=== PATIENT | male | born 1940 | race Caucasian/White ===

== ENCOUNTER 2016-08-21 12:26 | Inpatient (IN) | payer MEDICARE, MEDICAID ==
[~2016-08-21] VITALS: Ht 175.3 cm; Wt 90.7 kg
[2016-08-21 13:45] VITALS: BP 99/44
--- NOTE | 2016-08-21 13:57 | Diagnostic Imaging Report ---
Indication: Chest Pain Comparison: None A single view chest radiograph was obtained. Findings: Left hemidiaphragm is elevated. The bones are osteopenic. Cardiomegaly is noted. Impression: Elevated left hemidiaphragm
[2016-08-21 14:13] LABS: MEAN CORPUSCULAR HEMOGLOBIN 31.8 PG (27.0-31.0); MEAN CORPUSCULAR HGB CONC 31.9 G/DL (32.0-36.0); MEAN CORPUSCULAR VOLUME 100 FL (80-99); MEAN PLATELET VOLUME 8.9 FL (6.5-10.1); PLATELET COUNT 95 K/UL (150-450); RED BLOOD COUNT 3.42 M/UL (4.70-6.10); RED CELL DISTRIBUTION WIDTH 15.4 % (11.6-14.8)
[2016-08-21 14:16] LABS: WHITE BLOOD COUNT 46.9 K/UL (4.8-10.8)
--- NOTE | 2016-08-21 14:16 | Emergency Room Report ---
History of Present Illness General Chief Complaint: Abnormal Labs Source: Medical Record Present Illness HPI This is a long term patient with the reported elevated white count. He is a patient of Dr. Cathie Gale, the patient had a white count reported over 40. Per transfer paperwork he was seen and evaluated for this in May of last year, where was felt the patient likely suffered from CLL. The patient himself does not complain of any particular fevers, chills or discomfort at this time. He is somewhat dizzy on the phone with his brother during my interview and examination. But he is very pleasant and cooperative in general. Allergies: Coded Allergies: No Known Allergies (Unverified , 08/21/16) Patient History Past Medical History: see triage record, other - CLL Social History: Denies: alcohol use, drug use, smoking Immunizations: UTD Reviewed Nursing Documentation: PMH: Agreed Nursing Documentation-PMH Past Medical History: No History, Except For History Of Psychiatric Problem: Yes - SCZ, Review of Systems All Other Systems: negative except mentioned in HPI Physical Exam Vital Signs Date Time Temp Pulse Resp B/P Pulse Ox O2 Delivery O2 Flow Rate FiO2 08/21/16 12:47 98.4 53 16 93/53 98 Room Air Sp02 EP Interpretation: reviewed, abnormal - noted low blood pressure General Appearance: normal inspection, well appearing, no apparent distress, alert Head: atraumatic Eyes: bilateral eye normal inspection ENT: normal ENT inspection, hearing grossly normal, normal voice Neck: normal inspection, full range of motion, supple, no bony tend Respiratory: normal inspection, lungs clear, normal breath sounds, no respiratory distress, no retraction, no wheezing Cardiovascular #1: regular rate, rhythm, no edema Gastrointestinal: normal inspection, normal bowel sounds, non tender, soft, no guarding, no hernia Genitourinary: no CVA tenderness Musculoskeletal: normal inspection, back normal, normal range of motion Neurologic: normal inspection, alert, responsive, speech normal Psychiatric: normal inspection, judgement/insight normal, mood/affect normal Skin: normal inspection, normal color, no rash Medical Decision Making Diagnostic Impression: Primary Impression: Abnormal laboratory test result Additional Impression: CLL (chronic lymphocytic leukemia) ER Course Generally well-appearing, institutionalized gentleman. With reported elevated white count. Normal chest x-ray, blood work is still pending though at this time I think the patient is likely safe for return to this facility. We'll consult Dr. Cevallos want to determine if that is his wishes. With the blood work has returned. Noted that the patient does have an elevated white count of 40 or above. I spoke with Dr. Cathie Loomis., He agrees that the patient does have abnormal white count and recommend, referred for admission to [facility] for hematology oncology evaluation for possible treatment options. Laboratory Tests Test 08/21/16 13:35 White Blood Count 46.9 K/UL (4.8-10.8) *H Red Blood Count 3.42 M/UL (4.70-6.10) L Hemoglobin 10.9 G/DL (14.2-18.0) L Hematocrit 34.1 % (42.0-52.0) L Mean Corpuscular Volume 100 FL (80-99) H Mean Corpuscular Hemoglobin 31.8 PG (27.0-31.0) H Mean Corpuscular Hemoglobin Concent 31.9 G/DL (32.0-36.0) L Red Cell Distribution Width 15.4 % (11.6-14.8) H Platelet Count 95 K/UL (150-450) L Mean Platelet Volume 8.9 FL (6.5-10.1) Neutrophils (%) (Auto) % (45.0-75.0) Lymphocytes (%) (Auto) % (20.0-45.0) Monocytes (%) (Auto) % (1.0-10.0) Eosinophils (%) (Auto) % (0.0-3.0) Basophils (%) (Auto) % (0.0-2.0) Neutrophils % (Manual) Pending Lymphocytes % (Manual) Pending Platelet Estimate Pending Platelet Morphology Pending Sodium Level Pending Potassium Level Pending Chloride Level Pending Carbon Dioxide Level Pending Blood Urea Nitrogen Pending Creatinine Pending Estimat Glomerular Filtration Rate Pending Glucose Level Pending Calcium Level Pending Total Bilirubin Pending Aspartate Amino Transf (AST/SGOT) Pending Alanine Aminotransferase (ALT/SGPT) Pending Alkaline Phosphatase Pending Total Protein Pending Albumin Pending Globulin Pending Rhythm Strip Diag. Results Rhythm Strip Time: 12:50 EP Interpretation: yes Rate: rate 78 Rhythm: NSR, no ectopy Chest X-Ray Diagnostic Results Time: 13:20 EP Interpretation: No Findings: no consolidation, no effusion, no pneumothorax, no acute cardiopulmonary disease, other - elevated left hemidiaphragm Number of Views: 1 Reevaluation Time: 14:16 Last Vital Signs Date Time Temp Pulse Resp B/P Pulse Ox O2 Delivery O2 Flow Rate FiO2 08/21/16 13:45 56 16 99/44 99 Room Air 08/21/16 12:47 98.4 Status: improved Disposition: ADMITTED INPATIENT Condition: Stable Referrals: CATHIE GALE (PCP) Jerel Oliva MD Aug 21, 2016 14:16
[2016-08-21 14:29] LABS: ALANINE AMINOTRANSFERASE 9 U/L (3-41); ALBUMIN/GLOBULIN RATIO 1.8 (1.0-2.7); ANION GAP 15 (5-15); ASPARTATE AMINO TRANSFERASE 12 U/L (5-40); CARBON DIOXIDE 22 mEQ/L (20-30); CHLORIDE 98 mEQ/L (98-107); CREATININE 1.5 mg/dL (0.7-1.2); HEMOLYSIS 45; POTASSIUM 5.9 mEQ/L (3.4-4.9); SODIUM 135 mEQ/L (135-145)
[2016-08-21 14:54] LABS: NEUTROPHILS % (MANUAL) 6 % (45-75)
[2016-08-21 14:55] LABS: ANISOCYTOSIS 1+; BAND NEUTROPHILS % (MANUAL) 0 % (0-8); BASOPHILS % (MANUAL) 0 % (0-2); EOSINOPHILS % (MANUAL) 0 % (0-3); LYMPHOCYTES % (MANUAL) 91 % (20-45); PLATELET ESTIMATE DECREASED; PLATELET MORPHOLOGY NORMAL; TOTAL CELLS COUNTED 100
[2016-08-21 14:58] LABS: HYPOCHROMASIA 1+; OVALOCYTES OCCASIONAL
[2016-08-21] MEDS ORDERED: glimepiride PO (15:13)
[2016-08-21] MEDS ORDERED: FUROSEMIDE40 MG ORAL (15:13)
[2016-08-21] MEDS ORDERED: LOSARTAN POTASS50 MG ORAL (15:13)
[2016-08-21] MEDS ORDERED: ALLOPURINOL100 M1 ORAL (15:13)
[2016-08-21] MEDS ORDERED: ASPIR 8181 MG ORAL (15:18)
[2016-08-21] MEDS ORDERED: METFORMIN HCL1000 M1 ORAL (15:18)
[2016-08-21] MEDS ORDERED: RISPERDAL2 MG ORAL (15:18)
[2016-08-21] MEDS ORDERED: SPIRONOLACTONE1 EACH ORAL (15:18)
[2016-08-21] MEDS ORDERED: DIGOXIN125 MCG ORAL (15:18)
[2016-08-21] MEDS ORDERED: LIPITOR80 MG ORAL (15:18)
[2016-08-21] MEDS ORDERED: JANUVIA25 MG ORAL (15:18)
[2016-08-21] MEDS ORDERED: ACTOS45 MG ORAL (15:18)
[2016-08-21] MEDS ORDERED: IMBRUVICA140 MG PO (15:18)
[2016-08-21] MEDS ORDERED: METOPROLOL TART25 MG ORAL (15:18)
[2016-08-21] MEDS ORDERED: BENAZEPRIL HCL10 MG ORAL (15:18)
[2016-08-21] MEDS ORDERED: ZOLPIDEM TARTRAT5 MG ORAL (15:18)
[2016-08-21] MEDS ORDERED: PANTOPRAZOLE SO40 MG ORAL (15:18)
[2016-08-21 16:18] VITALS: BP 117/65
[2016-08-21 20:00] VITALS: BP 96/42
[2016-08-21] MEDS ORDERED: Nitroglycerin Subl 0.4mg tab (Bottle Of 25) SL PRN (22:00)
[2016-08-21] MEDS ORDERED: DuoNeb 0.5-3(2.5)mg/3ml neb HHN PRN (22:00)
[2016-08-21] MEDS ORDERED: Morphine Sulfate 2mg/ml Inj IVP PRN (22:00)
[2016-08-21] MEDS ORDERED: Miralax 17gm pkt ORAL PRN (22:00)
[2016-08-21] MEDS ORDERED: Cefepime HCl 2 GM in D5W 110 ML IV SCH (22:30)
[2016-08-21] MEDS ORDERED: Vancomycin 1250mg in D5W 275ml IVPB SCH (23:00)
[2016-08-22] VITALS (7 sets, daily range): BP systolic 92–125; BP diastolic 35–69
[2016-08-22] MEDS ORDERED: Cefepime 2gm ONE (00:22)
[2016-08-22] MEDS ORDERED: Vancomycin 1gm inj IVPB ONE (00:23)
[2016-08-22] MEDS ORDERED: Vancomycin 1 GM in D5W 275 ML IV SCH (00:30)
[2016-08-22 06:28] LABS: MEAN CORPUSCULAR HEMOGLOBIN 32.5 PG (27.0-31.0); MEAN CORPUSCULAR HGB CONC 32.7 G/DL (32.0-36.0); MEAN CORPUSCULAR VOLUME 99 FL (80-99); MEAN PLATELET VOLUME 11.1 FL (6.5-10.1); PLATELET COUNT 82 K/UL (150-450); RED BLOOD COUNT 3.27 M/UL (4.70-6.10); RED CELL DISTRIBUTION WIDTH 15.8 % (11.6-14.8)
[2016-08-22] MEDS: NovoLOG Insulin Flexpen SUBQ SCH ×4 (06:29→20:40)
[2016-08-22 06:39] LABS: WHITE BLOOD COUNT 42.6 K/UL (4.8-10.8)
[2016-08-22 07:17] LABS: ALANINE AMINOTRANSFERASE 9 U/L (3-41); ALBUMIN/GLOBULIN RATIO 1.8 (1.0-2.7); ANION GAP 16 (5-15); ASPARTATE AMINO TRANSFERASE 9 U/L (5-40); CALCIUM 9.2 mg/dL (8.6-10.2); CARBON DIOXIDE 23 mEQ/L (20-30); CHLORIDE 105 mEQ/L (98-107); CREATININE 1.2 mg/dL (0.7-1.2); FREE T3 2.1 pg/mL (2.3-4.2); HEMOLYSIS 7; MAGNESIUM 1.7 mg/dL (1.7-2.5); PHOSPHORUS 3.8 mg/dL (2.5-4.8); POTASSIUM 5.1 mEQ/L (3.4-4.9); SODIUM 144 mEQ/L (135-145); TOTAL PROTEIN 5.7 g/dL (6.6-8.7)
[2016-08-22 07:46] LABS: ANISOCYTOSIS 1+; BAND NEUTROPHILS % (MANUAL) 0 % (0-8); BASOPHILS % (MANUAL) 0 % (0-2); EOSINOPHILS % (MANUAL) 1 % (0-3); HYPOCHROMASIA 1+; LYMPHOCYTES % (MANUAL) 92 % (20-45); NEUTROPHILS % (MANUAL) 6 % (45-75); PLATELET ESTIMATE DECREASED; SMUDGE CELLS 2+; TOTAL CELLS COUNTED 100
[2016-08-22 07:47] LABS: PLATELET MORPHOLOGY NORMAL
--- NOTE | 2016-08-22 08:35 | General Progress Note ---
Assessment/Plan Assessment/Plan Assessment: # CLL - wbc is stable at approximately 40k, no end organ damage, splenomegaly, abdominal pain, fevers, chills, doubling time of wbc is unknown. Patient does have anemia and thrombcytopenia which may indicate he will require treatment. His baseline counts are unknown # Anemia of chronic disease # Thrombocytopenia likely related to CLL # Elevated left hemidiaphragm # Weakness Recs: - Monitor counts - Transfuse to hgb >7 - Transfuse to plt count >20k - Image Abd to r/o hypersplenomegaly - HIV and hepatitis panel ordered - Peripheral smear to be reviewed - Followup with Dr. Lujan, hematology for potential treatment - Have ordered IgA, IgM, IgG - DW Staff Thank you, Stephan Ortega MD Subjective Constitutional: Reports: no symptoms HEENT: Reports: no symptoms Cardiovascular: Reports: no symptoms Respiratory: Reports: no symptoms Gastrointestinal/Abdominal: Reports: poor fluid intake Genitourinary: Reports: no symptoms Neurologic/Psychiatric: Reports: no symptoms Endocrine: Reports: no symptoms Hematologic/Lymphatic: Reports: anemia Allergies: Coded Allergies: No Known Allergies (Unverified , 08/21/16) Subjective stable, no events overnight, no complaints Objective Last 24 Hour Vital Signs Date Time Temp Pulse Resp B/P Pulse Ox O2 Delivery O2 Flow Rate FiO2 08/22/16 08:13 97.5 49 20 92/44 96 Room Air 08/22/16 04:00 96.1 51 20 125/69 94 Room Air 08/22/16 00:00 97.9 48 20 117/51 93 Room Air 08/21/16 20:00 96.8 57 16 96/42 94 Room Air 08/21/16 17:17 98.1 56 14 117/65 100 Room Air 80 08/21/16 16:18 98.1 80 14 117/65 100 Room Air 08/21/16 13:45 56 16 99/44 99 Room Air 08/21/16 12:47 98.4 53 16 93/53 98 Room Air Intake and Output 08/21/16 08/22/16 19:00 07:00 Intake Total 2120 ml Balance 2120 ml Intake Oral 120 ml IV Total 1000 ml Other 1000 ml # Voids 1 Laboratory Tests 08/21/16 13:35: White Blood Count 46.9*H, Red Blood Count 3.42L, Hemoglobin 10.9L, Hematocrit 34.1L, Mean Corpuscular Volume 100H, Mean Corpuscular Hemoglobin 31.8H, Mean Corpuscular Hemoglobin Concent 31.9L, Red Cell Distribution Width 15.4H, Platelet Count 95L, Mean Platelet Volume 8.9, Neutrophils (%) (Auto) , Lymphocytes (%) (Auto) , Monocytes (%) (Auto) , Eosinophils (%) (Auto) , Basophils (%) (Auto) , Differential Total Cells Counted 100, Neutrophils % ( Manual) 6L, Lymphocytes % (Manual) 91H, Monocytes % (Manual) 3, Eosinophils % ( Manual) 0, Basophils % (Manual) 0, Band Neutrophils 0, Reactive Lymphocytes , Platelet Estimate DecreasedL, Platelet Morphology Normal, Hypochromasia 1+, Anisocytosis 1+, Ovalocytes Occasional, Sodium Level 135, Potassium Level 5.9H, Chloride Level 98, Carbon Dioxide Level 22, Anion Gap 15, Blood Urea Nitrogen 35H, Creatinine 1.5H, Estimat Glomerular Filtration Rate , Glucose Level 173H, Calcium Level 9.0, Total Bilirubin < 0.2, Aspartate Amino Transf (AST/SGOT) 12, Alanine Aminotransferase (ALT/SGPT) 9, Alkaline Phosphatase 59, Total Protein 6.0L, Albumin 3.9, Globulin 2.1, Albumin/Globulin Ratio 1.8 08/21/16 21:06: Haptoglobin 176 08/22/16 06:00: White Blood Count 42.6*H, Red Blood Count 3.27L, Hemoglobin 10.6L, Hematocrit 32.5L, Mean Corpuscular Volume 99, Mean Corpuscular Hemoglobin 32.5H, Mean Corpuscular Hemoglobin Concent 32.7, Red Cell Distribution Width 15.8H, Platelet Count 82L, Mean Platelet Volume 11.1H, Neutrophils (%) (Auto) , Lymphocytes (%) (Auto) , Monocytes (%) (Auto) , Eosinophils (%) (Auto) , Basophils (%) (Auto) , Differential Total Cells Counted 100, Neutrophils % ( Manual) 6L, Lymphocytes % (Manual) 92H, Monocytes % (Manual) 1, Eosinophils % ( Manual) 1, Basophils % (Manual) 0, Band Neutrophils 0, Platelet Estimate DecreasedL, Platelet Morphology Normal, Hypochromasia 1+, Anisocytosis 1+, Sodium Level 144, Potassium Level 5.1H, Chloride Level 105, Carbon Dioxide Level 23, Anion Gap 16H, Blood Urea Nitrogen 30H, Creatinine 1.2, Estimat Glomerular Filtration Rate , Glucose Level 108H, Calcium Level 9.2, Total Bilirubin 0.2, Aspartate Amino Transf (AST/SGOT) 9, Alanine Aminotransferase ( ALT/SGPT) 9, Alkaline Phosphatase 56, Total Protein 5.7L, Albumin 3.7, Globulin 2.0, Albumin/Globulin Ratio 1.8, Smudge Cells 2+, Plasma/Serum Osmolality [ Pending], Uric Acid 6.0, Phosphorus Level 3.8, Magnesium Level 1.7, Total Creatine Kinase 52, Thyroid Stimulating Hormone (TSH) 2.240, Free Thyroxine 1.28 , Free Triiodothyronine 2.1L, Cortisol [Pending], Immunoglobulin G [Pending], Immunoglobulin A [Pending], Immunoglobulin M [Pending], Hepatitis A IgM Antibody [Pending], Hepatitis B Surface Antigen [Pending], Hepatitis B Core IgM Antibody [Pending], Hepatitis C Antibody [Pending], HIV (1&2) Antibody Rapid Negative Height (Feet): 5 Height (Inches): 9.00 Weight (Pounds): 200 General Appearance: alert EENT: TMs normal Neck: supple Cardiovascular: regular rhythm Respiratory/Chest: lungs clear Abdomen: non tender Extremities: non-tender Edema: 1+ Leg (L), 1+ Leg (R) Edema: mild edema Neurologic: alert Skin: warm/dry Stephan Ortega Aug 22, 2016 08:34
[2016-08-22 08:56] LABS: PATH BLOOD SMEAR/OMC SENT TO PATHOLOGIST
[2016-08-22] MEDS: Digoxin 0.125mg tab ORAL SCH (09:00)
[2016-08-22] MEDS ORDERED: Heparin 5000 units/ml inj SUBQ SCH (09:00)
[2016-08-22] MEDS: Aspirin EC 81mg tab ORAL SCH (09:42)
[2016-08-22] MEDS: Allopurinol 100mg Tab ORAL SCH (09:42)
--- NOTE | 2016-08-22 10:12 | Diagnostic Imaging Report ---
Indication: Leukocytosis. History of chronic lymphocytic leukemia Technique: Continuous helical transaxial imaging of the chest was obtained from the thoracic inlet to the upper abdomen. No intravenous contrast was administered. Coronal 2-D reformats were also obtained. Total Dose length Product (DLP): [address] Dose Index Volume (CTDIvol): 22 mGy Comparison: none Findings: There are multiple nodes demonstrated throughout the axilla bilaterally. Most of the nodes are small but some measuring in the upper of 1.7 CM in short axis. Small subcentimeter nodes are demonstrated in the mediastinum. Gynecomastia is noted. There is a right paravertebral mass measuring 4 x 2.8 x 3.5 cm on the right side of T9-10. This is probably an incidental mass such as nerve sheath tumor or schwannoma. The visualized part of the upper abdomen shows 14 cm spleen and gallstones. The left hemidiaphragm is elevated. There is some atelectasis involving the left lung base, mild in degree. Impression: Axillary lymphadenopathy, nonspecific. Neoplastic versus inflammatory. Nonspecific nodes in the mediastinum. 4 x 2.8 x 3.5 cm right T9-10 paravertebral mass. This is suspicious for a nerve sheath tumor. Appropriate evaluation would include MRI with gadolinium. Splenomegaly Gallstones Mild left basal atelectasis The CT scanner at [facility] is accredited by the [employer] and the scans are performed using protocols designed to limit radiation exposure to as low as reasonably achievable to attain images of sufficient resolution adequate for diagnostic evaluation.
[2016-08-22 10:16] LABS: OTHERS PATHOLOGIST COMMENT
--- NOTE | 2016-08-22 15:03 | Diagnostic Imaging Report ---
Indication:Abdominal distention Technique: Grayscale and duplex Doppler imaging of the abdomen performed. Comparison: None Findings: There are gallstones demonstrated. No biliary ductal dilatation is seen. The liver shows a somewhat coarsened and heterogeneous echotexture. Pancreas is visualized and spleen appear unremarkable. There is no hydronephrosis or free fluid. Aorta is not visualized well. Impression: Cholelithiasis. Query chronic liver disease. Please correlate clinically
--- NOTE | 2016-08-22 15:20 | Consultation ---
History of Present Illness General Date patient seen: Aug 22, 2016 Chief Complaint: difficulty breating Referring physician: Dr. Crowell Reason for Consultation: Elevated Left hemidiaphram (abnormal CXR) Present Illness HPI 76 yo female with pmhx DM hypothyroidism hx of lung Ca multiple mediastinal nonspecific nodules active smoker presenting to [facility] for weakness. While being evaluated in the emergency room the patients labs revealed abnormalities namely elevation in WBC and preliminary CXR reveals elevated left sander-diaphram. I was asked to consult on the case and evaluate the patients respiratory system. Close monitorization of the pulse oximetry will be excersised as well as symptom control with respect to difficulty with breathing. The patient appears lethargic and weak, admits to difficulty with breathing. Supplemental O2 has been given and a follow CT scan of chest with contrast has been requested. Allergies: Coded Allergies: No Known Allergies (Unverified , 08/21/16) Medication History Scheduled Allopurinol* (Allopurinol*), 100 MG ORAL DAILY, (Reported) Allopurinol* (Allopurinol*), 100 MG ORAL DAILY, (Reported) Aspirin (Aspirin EC), 81 MG ORAL DAILY, (Reported) Aspirin* (Aspir 81*), 81 MG ORAL DAILY, (Reported) Atorvastatin (Lipitor), 10 MG ORAL BEDTIME, (Reported) Atorvastatin Calcium* (Lipitor*), 10 MG ORAL BEDTIME, (Reported) Benazepril Hcl* (Benazepril Hcl*), 10 MG ORAL DAILY, (Reported) Digoxin* (Digoxin*), 125 MCG ORAL DAILY, (Reported) Digoxin* (Digoxin*), 0.125 MG ORAL DAILY, (Reported) Furosemide* (Lasix*), 40 MG ORAL DAILY, (Reported) Losartan Potassium* (Losartan Potassium*), 50 MG ORAL DAILY, (Reported) Metformin Hcl* (Metformin Hcl*), 1,000 MG ORAL DAILY, (Reported) Metoprolol Tartrate* (Metoprolol Tartrate*), 25 MG ORAL EVERY 12 HOURS, ( Reported) Mupirocin Calcium (Bactroban), 1 APPLIC TOPIC THREE TIMES A DAY, (Reported) Pantoprazole* (Pantoprazole*), 40 MG ORAL DAILY, (Reported) Pioglitazone Hcl* (Actos*), 45 MG ORAL DAILY, (Reported) Risperidone* (Risperdal*), 2 MG ORAL DAILY, (Reported) Sitagliptin* (Januvia*), 50 MG ORAL DAILY, (Reported) Spironolact/Hydrochlorothiazid (Spironolactone-Hctz 25-25 Tab), 1 TAB ORAL DAILY , (Reported) [ glimepiride], 4 MG PO DAILY, (Reported) Scheduled PRN Zolpidem Tartrate* (Zolpidem Tartrate*), 5 MG ORAL BEDTIME PRN for Insomnia, ( Reported) Miscellaneous Medications Ibrutinib (Imbruvica), 140 MG PO, (Reported) Insulin Aspart (Novolog), (Reported) Insulin Aspart* (Novolog*), 0 SUBQ, (Reported) Patient History Healthcare decision maker Resuscitation status Advanced Directive on File No Past Medical/Surgical History Past Medical/Surgical History: (1) Hyperkalemia (2) Anemia of chronic disease (3) Thrombocytopenia (4) Leukocytosis (leucocytosis) (5) Acute renal failure (ARF) (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 Review of Systems Constitutional: Reports: fever, malaise, sweats, weakness Respiratory: Reports: cough, shortness of breath, sputum Physical Exam General Appearance: no apparent distress, lethargic Lines, tubes and drains: peripheral HEENT: normocephalic, atraumatic, PERRL Neck: non-tender, normal alignment, supple Respiratory/Chest: chest wall non-tender, no respiratory distress, no accessory muscle use, decreased breath sounds Breasts: no masses Cardiovascular/Chest: normal peripheral pulses, normal rate, regularly irregular, no JVD Abdomen: normal bowel sounds, non tender, soft, no organomegaly, no mass Genitourinary/Rectal: normal genital exam, normal rectal exam Extremities: normal range of motion, inflammation, trace edema Skin Exam: palled Neurologic: waist presser II-XII grossly normal, responsive, disoriented Lymphatic: axillary (L), axillary (R) Last 24 Hour Vital Signs Date Time Temp Pulse Resp B/P Pulse Ox O2 Delivery O2 Flow Rate FiO2 08/22/16 12:30 97.1 51 20 104/48 96 Room Air 08/22/16 09:00 50 08/22/16 08:13 97.5 49 20 92/44 96 Room Air 08/22/16 07:04 53 18 Room Air 08/22/16 04:00 96.1 51 20 125/69 94 Room Air 08/22/16 00:00 97.9 48 20 117/51 93 Room Air 08/21/16 20:00 96.8 57 16 96/42 94 Room Air 08/21/16 17:17 98.1 56 14 117/65 100 Room Air 80 08/21/16 16:18 98.1 80 14 117/65 100 Room Air Intake and Output 08/21/16 08/22/16 19:00 07:00 Intake Total 2120 ml Balance 2120 ml Intake Oral 120 ml IV Total 1000 ml Other 1000 ml # Voids 1 Laboratory Tests Test 08/21/16 21:06 08/22/16 06:00 Haptoglobin 176 mg/dL (30-200) White Blood Count 42.6 K/UL (4.8-10.8) *H Red Blood Count 3.27 M/UL (4.70-6.10) L Hemoglobin 10.6 G/DL (14.2-18.0) L Hematocrit 32.5 % (42.0-52.0) L Mean Corpuscular Volume 99 FL (80-99) Mean Corpuscular Hemoglobin 32.5 PG (27.0-31.0) H Mean Corpuscular Hemoglobin Concent 32.7 G/DL (32.0-36.0) Red Cell Distribution Width 15.8 % (11.6-14.8) H Platelet Count 82 K/UL (150-450) L Mean Platelet Volume 11.1 FL (6.5-10.1) H Neutrophils (%) (Auto) % (45.0-75.0) Lymphocytes (%) (Auto) % (20.0-45.0) Monocytes (%) (Auto) % (1.0-10.0) Eosinophils (%) (Auto) % (0.0-3.0) Basophils (%) (Auto) % (0.0-2.0) Differential Total Cells Counted 100 Neutrophils % (Manual) 6 % (45-75) L Lymphocytes % (Manual) 92 % (20-45) H Monocytes % (Manual) 1 % (1-10) Eosinophils % (Manual) 1 % (0-3) Basophils % (Manual) 0 % (0-2) Band Neutrophils 0 % (0-8) Smudge Cells 2+ Platelet Estimate Decreased L Platelet Morphology Normal Hypochromasia 1+ Anisocytosis 1+ Sodium Level 144 mEQ/L (135-145) Potassium Level 5.1 mEQ/L (3.4-4.9) H Chloride Level 105 mEQ/L (98-107) Carbon Dioxide Level 23 mEQ/L (20-30) Anion Gap 16 (5-15) H Blood Urea Nitrogen 30 mg/dL (7-23) H Creatinine 1.2 mg/dL (0.7-1.2) Estimat Glomerular Filtration Rate mL/min (>60) Glucose Level 108 mg/dL (74-106) H Plasma/Serum Osmolality Pending Uric Acid 6.0 mg/dL (3.0-7.5) Calcium Level 9.2 mg/dL (8.6-10.2) Phosphorus Level 3.8 mg/dL (2.5-4.8) Magnesium Level 1.7 mg/dL (1.7-2.5) Total Bilirubin 0.2 mg/dL (0.0-1.2) Aspartate Amino Transf (AST/SGOT) 9 U/L (5-40) Alanine Aminotransferase (ALT/SGPT) 9 U/L (3-41) Alkaline Phosphatase 56 U/L (40-129) Total Creatine Kinase 52 U/L (38-174) Total Protein 5.7 g/dL (6.6-8.7) L Albumin 3.7 g/dL (3.5-5.2) Globulin 2.0 g/dL Albumin/Globulin Ratio 1.8 (1.0-2.7) Thyroid Stimulating Hormone (TSH) 2.240 uIU/mL (0.300-4.500) Free Thyroxine 1.28 ng/dL (0.86-1.85) Free Triiodothyronine 2.1 pg/mL (2.3-4.2) L Cortisol Pending Immunoglobulin G Pending Immunoglobulin A Pending Immunoglobulin M Pending Hepatitis A IgM Antibody Pending Hepatitis B Surface Antigen Pending Hepatitis B Core IgM Antibody Pending Hepatitis C Antibody Pending HIV (1&2) Antibody Rapid Negative (NEGATIVE) Height (Feet): 5 Height (Inches): 9.00 Weight (Pounds): 200 Medications Current Medications Medications (Trade) Dose Ordered Sig/Pura Route PRN Reason Start Time Stop Time Status Last Admin Dose Admin Acetaminophen (Tylenol) 650 mg Q4H PRN ORAL fever 08/21/16 22:00 09/20/16 21:59 Albuterol/ Ipratropium (DuoNeb 0.5-3(2.5)mg/3ml) 3 ml Q4H PRN HHN Shortness of Breath 08/21/16 22:00 08/26/16 21:59 Allopurinol (Zyloprim) 100 mg DAILY ORAL 08/22/16 09:00 09/21/16 08:59 08/22/16 09:42 Aspirin (Ecotrin) 81 mg DAILY ORAL 08/22/16 09:00 09/21/16 08:59 08/22/16 09:42 Atorvastatin Calcium (Lipitor) 10 mg BEDTIME ORAL 08/22/16 21:00 09/21/16 20:59 Cefepime HCl 2 gm/ Dextrose 110 ml @ 220 mls/hr Q24H IV 08/22/16 21:00 08/28/16 20:59 Dextrose STAT PRN IV Hypoglycemia 08/21/16 22:45 09/20/16 22:44 Digoxin 0.125 mg 0.125 mg DAILY ORAL 08/22/16 09:00 09/21/16 08:59 Heparin Sodium (Porcine) (Heparin 5000 units/ml) 5,000 units EVERY 12 HOURS SUBQ 08/22/16 21:00 09/21/16 20:59 Insulin Aspart (NovoLOG) BEFORE MEALS AND HS SUBQ 08/22/16 06:30 09/21/16 06:29 Morphine Sulfate (Morphine Sulfate) 2 mg Q4H PRN IVP Moderate Pain (Pain Scale 4-6) 08/21/16 22:00 08/28/16 21:59 Nitroglycerin (Ntg) 0.4 mg Q5M X 3 DOSES PRN SL Prn Chest Pain 08/21/16 22:00 09/20/16 21:59 Ondansetron HCl (Zofran) 4 mg Q6H PRN IVP Nausea & Vomiting 08/21/16 22:00 09/20/16 21:59 Polyethylene Glycol (Miralax) 17 gm DAILYPRN PRN ORAL Constipation 08/21/16 22:00 09/20/16 21:59 Sodium Chloride (Sodium Chloride 1000ml bag) 1,000 ml @ 50 mls/hr Q20H IVLG 08/22/16 00:21 09/21/16 00:20 08/21/16 22:54 Temazepam (Restoril) 15 mg HSPRN PRN ORAL Insomnia 08/21/16 22:00 08/28/16 21:59 Vancomycin HCl (Vanco rx to dose) 1 ea DAILY PRN MISC Per rx protocol 08/21/16 22:15 09/20/16 22:14 Vancomycin HCl/ Dextrose (Vancomycin/D5W) 275 ml @ 183.708 mls/hr Q24H IVPB 08/22/16 22:00 08/26/16 21:59 Assessment/Plan Problem List: (1) Acute renal failure (ARF) ICD Codes: N17.9 - Acute kidney failure, unspecified SNOMED: 18265822 Qualifiers: Qualified Codes: N17.8 - Other acute kidney failure (2) Leukocytosis (leucocytosis) ICD Codes: D72.829 - Elevated white blood cell count, unspecified SNOMED: 954409534, [id number] Qualifiers: Qualified Codes: D72.820 - Lymphocytosis (symptomatic) (3) Anemia of chronic disease ICD Codes: D63.8 - Anemia in other chronic diseases classified elsewhere SNOMED: 681825699 (4) Thrombocytopenia ICD Codes: D69.6 - Thrombocytopenia, unspecified SNOMED: 135515423 (5) CLL (chronic lymphocytic leukemia) ICD Codes: C91.10 - Chronic lymphocytic leukemia of B-cell type not having achieved remission SNOMED: 00995326 (6) Hyperkalemia ICD Codes: E87.5 - Hyperkalemia SNOMED: 07427747 Status: stable, progressing, unchanged Assessment/Plan Assessment/Plan ASSESSMENT leucocytosis anemia of chronic disease thrombocytopenia CLL acute renal failure-resolved hyperkalemia -resolved 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
[2016-08-22] MEDS ORDERED: Tubing IV Secondary IV ONE (17:13)
[2016-08-22] MEDS ORDERED: D5W 275ml ONE (17:13)
[2016-08-22] MEDS: Heparin 5000 units/ml inj SUBQ SCH (20:04)
--- NOTE | 2016-08-22 20:08 | Consultation ---
DATE OF CONSULTATION: 08/21/2016 HEMATOLOGY/ONCOLOGY CONSULTATION CONSULTING PHYSICIAN: Stephan Ortega M.D. REFERRING PHYSICIAN: Mart Crowell D.O. REASON FOR CONSULTATION: Evaluation of leukocytosis and CLL. IDENTIFICATION DATA: Dear Dr. Mart Crowell, The patient is a pleasant 76-year-old male with the past medical history significant for recently diagnosed CLL, who at this time presents with an elevated white count from group home. He is a patient of Dr. Mart Crowell. He had a white count that is approximately 40,000 per transfer records. This was noted to be present since May of last year. Currently without any fever or chills. No night sweats. No increasing fevers. No hematemesis. No recent weight loss. No abdominal pain. No bloating. No recent infections that have been recurrent. The patient was called to be evaluated by Hematology Service. PAST MEDICAL HISTORY: CLL diagnosed in May of last year. PAST SURGICAL HISTORY: None noted. MEDICATIONS: Reviewed. ALLERGIES: No known drug allergies. SOCIAL HISTORY: No alcohol, tobacco, or illicit drug use. REVIEW OF SYSTEMS: Constitutional: No fever, chills, or night sweats. Skin: No rashes, lumps, or itching. HEENT: No headache, hearing or vision changes. Breasts: No lumps, pain, or discharge. Pulmonary: No cough, sputum, or shortness of breath. Cardiovascular: No chest pain, tightness, or palpitations. Gastrointestinal: No nausea, vomiting, or diarrhea. Genitourinary: No dysuria, frequency, or urgency. Musculoskeletal: No joint swelling, muscle pain, or trauma. PHYSICAL EXAMINATION: GENERAL: The patient is in no acute distress. VITAL SIGNS: Temperature 98.4 degrees Fahrenheit, pulse of 53, respiratory rate 12, blood pressure 93/53, and pulse oximetry is 98% on room air. PULMONARY: Decreased breath sounds. CARDIOVASCULAR: Regular rate and rhythm. No S3 or S4. ABDOMEN: Soft, nontender, and nondistended. EXTREMITIES: A 1+ edema. LABORATORY DATA: WBC 47,000, hemoglobin 10.9, hematocrit 34, MCV 100, platelet count 95,000, neutrophils 6%, and lymphocytes 91%. Chemistry, BUN of 35 and creatinine 1.5. Immunology, IgG, IgA, and IgM pending. Serology, hepatitis is pending. HIV is negative. IMAGING: Reviewed. Chest x-ray shows elevated right hemidiaphragm. ASSESSMENT: 1. Chronic lymphocytic leukemia, recently diagnosed. The patient currently without any fevers or chills or splenomegaly or recurrent infections or obstructing symptoms of extremely large mass that is causing abdominal pain and currently with pancytopenia, which may be an indication for treatment. The patient has a physician, Dr. Lujan, who he will follow up with in the future. 2. Anemia likely secondary to chronic lymphocytic leukemia. 3. Thrombocytopenia. 4. Chronic lymphocytic leukemia involving the bone marrow. 5. Leukocytosis secondary to chronic lymphocytic leukemia. 6. Elevated left hemidiaphragm. 7. Seizure disorder. RECOMMENDATIONS: 1. Monitor counts. 2. Transfuse to hemoglobin goal of above 7. 3. Transfuse to platelet goal of above 20,000. 4. The patient may need treatment for CLL in the near future depending on WBC doubling time as well as potentially worsening cytopenias. 5. Labs sent for for IgG, IgA, and IgM. 6. Ultrasound of the abdomen ordered. 7. Hepatitis and HIV ordered. 8. Monitor FRAN. 9. Follow up with Hematology. 10. DVT prophylaxis with heparin. 11. Continue antibiotics as needed. 12. Pain control. 13. Discussed with staff. Thank you Dr. Mart Crowell, for this kind referral. Please do not hesitate to contact me for any further questions. Stephan Ortega M.D. DR: SRIDHAR JOB#: [id number] CC:
--- NOTE | 2016-08-22 20:25 | Nephrology Progress Note ---
Assessment/Plan Problem List: (1) Anemia of chronic disease (2) Thrombocytopenia (3) Hyperkalemia (4) Leukocytosis (leucocytosis) (5) Acute renal failure (ARF) (6) CLL (chronic lymphocytic leukemia) Plan consult dictated # [id number] Subjective Constitutional: Denies: chills, diaphoresis, fever, malaise, no symptoms, other , weakness HEENT: Denies: blurred vision, double vision, ear discharge, ear pain, eye pain , mouth pain, mouth swelling, no symptoms, nose congestion, nose pain, other, tearing, throat pain, throat swelling Genitourinary: Denies: burning, discharge, flank pain, frequency, hematuria, incontinence, no symptoms, other, pain, urgency Neurologic/Psychiatric: Denies: anxiety, depressed, emotional problems, headache, no symptoms, numbness, other, paresthesia, pre-existing deficit, seizure, tingling, tremors, weakness Subjective In bed, denies discomfort Objective Objective Last 24 Hour Vital Signs Date Time Temp Pulse Resp B/P Pulse Ox O2 Delivery O2 Flow Rate FiO2 08/22/16 16:00 97.9 66 16 118/51 94 Room Air 08/22/16 12:30 97.1 51 20 104/48 96 Room Air 08/22/16 09:00 50 08/22/16 08:13 97.5 49 20 92/44 96 Room Air 08/22/16 07:04 53 18 Room Air 08/22/16 04:00 96.1 51 20 125/69 94 Room Air 08/22/16 00:00 97.9 48 20 117/51 93 Room Air Intake and Output 08/21/16 08/22/16 19:00 07:00 Intake Total 2120 ml Balance 2120 ml Intake Oral 120 ml IV Total 1000 ml Other 1000 ml # Voids 1 Laboratory Tests 08/21/16 21:06: Haptoglobin 176 08/22/16 06:00: White Blood Count 42.6*H, Red Blood Count 3.27L, Hemoglobin 10.6L, Hematocrit 32.5L, Mean Corpuscular Volume 99, Mean Corpuscular Hemoglobin 32.5H, Mean Corpuscular Hemoglobin Concent 32.7, Red Cell Distribution Width 15.8H, Platelet Count 82L, Mean Platelet Volume 11.1H, Neutrophils (%) (Auto) , Lymphocytes (%) (Auto) , Monocytes (%) (Auto) , Eosinophils (%) (Auto) , Basophils (%) (Auto) , Differential Total Cells Counted 100, Neutrophils % ( Manual) 6L, Lymphocytes % (Manual) 92H, Monocytes % (Manual) 1, Eosinophils % ( Manual) 1, Basophils % (Manual) 0, Band Neutrophils 0, Smudge Cells 2+, Platelet Estimate DecreasedL, Platelet Morphology Normal, Hypochromasia 1+, Anisocytosis 1+, Sodium Level 144, Potassium Level 5.1H, Chloride Level 105, Carbon Dioxide Level 23, Anion Gap 16H, Blood Urea Nitrogen 30H, Creatinine 1.2 , Estimat Glomerular Filtration Rate , Glucose Level 108H, Plasma/Serum Osmolality [Pending], Uric Acid 6.0, Calcium Level 9.2, Phosphorus Level 3.8, Magnesium Level 1.7, Total Bilirubin 0.2, Aspartate Amino Transf (AST/SGOT) 9, Alanine Aminotransferase (ALT/SGPT) 9, Alkaline Phosphatase 56, Total Creatine Kinase 52, Total Protein 5.7L, Albumin 3.7, Globulin 2.0, Albumin/Globulin Ratio 1.8, Thyroid Stimulating Hormone (TSH) 2.240, Free Thyroxine 1.28, Free Triiodothyronine 2.1L, Cortisol [Pending], Immunoglobulin G [Pending], Immunoglobulin A [Pending], Immunoglobulin M [Pending], Hepatitis A IgM Antibody [Pending], Hepatitis B Surface Antigen [Pending], Hepatitis B Core IgM Antibody [Pending], Hepatitis C Antibody [Pending], HIV (1&2) Antibody Rapid Negative Height (Feet): 5 Height (Inches): 9.00 Weight (Pounds): 200 General Appearance: no apparent distress, alert EENT: normal ENT inspection Neck: normal alignment, supple Cardiovascular: normal rate, regular rhythm, no JVD Respiratory/Chest: normal breath sounds, no respiratory distress Abdomen: non tender, soft, no organomegaly, no mass Extremities: non-tender, normal inspection Neurologic: alert, responsive, normal mood/affect Allison Taylor N.P. Aug 22, 2016 20:25
[2016-08-22] MEDS: Cefepime HCl 2 GM in D5W 110 ML IV SCH (20:39)
[2016-08-22] MEDS ORDERED: Cefepime HCl 2 GM in D5W 110 ML IV SCH (21:00)
--- NOTE | 2016-08-22 21:08 | History and Physical Report ---
DATE OF ADMISSION: 08/21/2016 TIME: At 1 p.m. CONSULTANTS: 1. Manny Ortega M.D. 2. Alf Akins M.D. CHIEF COMPLAINT: Shortness of breath, weakness, abnormal labs, and elevated white count. BRIEF HISTORY: This is a 76-year-old male from [facility] who has increased abnormal lab of leukocytosis 45 and slightly weak, slight shortness of breath, recently diagnosed with CLL approximately a week ago per the patient and the patient recommended to . Currently, slight short of breath in bed. No complaints otherwise. PAST MEDICAL HISTORY: Include CLL and diabetes. PAST SURGICAL HISTORY: None. MEDICATIONS: Include vancomycin, Lipitor, Cefepime, Zyloprim, Ecotrin, Lanoxin, heparin, and NovoLog. ALLERGIES: Denied. SOCIAL HISTORY: Positive smoke. No alcohol. No intravenous drug use. FAMILY HISTORY: Noncontributory. REVIEW OF SYSTEMS: No chest pain, slight short of breath. No nausea, vomiting, or diarrhea. PHYSICAL EXAMINATION: GENERAL: The patient calm in bed, oriented x2, in no acute distress. VITAL SIGNS: Temperature 97 degrees, pulse 51, respirations 20, and blood pressure 104/48. CARDIOVASCULAR: No murmur. LUNGS: Poor air exchange. ABDOMEN: Bowel sounds are positive. Nontender and nondistended. EXTREMITIES: No cyanosis, clubbing, or edema. NEUROLOGIC: Cranial nerves II through XII are grossly intact. Deep tendon reflexes are 2+. Muscle strength is 5/5. LABORATORY DATA: White count 42, H and H 10.6 and 32, and platelets are 82,000. Potassium 5.1, BUN and creatinine 30 and 1.2 and other labs were pending. ASSESSMENT: 1. Chronic lymphocytic leukemia. 2. Leukocytosis. 3. Anemia. 4. Thrombocytopenia. 5. . 6. Weakness. 7. Shortness of breath. 8. Diabetes. PLAN: Continue premedications. OT/PT and dietary evaluation. O2 function as needed. Resume home medications. Dr. Ortega, Dr. Akins and Dr. Pelayo to consult. CBC and BMP in the morning. We will continue to follow this patient medically. Mart Crowell D.O. DR: SUSAN JOB#: [id number] CC:
[2016-08-22] MEDS: Vancomycin 1250mg in D5W 275ml IVPB SCH (22:30)
[2016-08-23] VITALS: BP 132/69
--- NOTE | 2016-08-23 03:58 | Consultation ---
DATE OF CONSULTATION: 08/21/2016 NEPHROLOGY CONSULTATION REFERRING PHYSICIAN: Mart Crowell D.O. REASON FOR CONSULTATION: Hyperkalemia and acute renal failure. HISTORY OF PRESENT ILLNESS: The patient is a jail patient with a history of CML, hypertension, diabetes, and hypothyroidism, who [facility] jail with reported elevated white count. The patient stated at this moment that he does not really understand why he was transferred, but he was told that he was sick. No fever or chills. Denies discomfort at this time. PAST MEDICAL HISTORY: As stated in HPI. ALLERGIES: He has no known allergies. MEDICATIONS: At the jail include allopurinol, aspirin, atorvastatin, benazepril, digoxin, furosemide, ibrutinib, losartan, metformin, metoprolol, pantoprazole, Actos, Risperdal, Januvia, and Zolpidem. SOCIAL HISTORY: No history of illicit drug use. No smoking history. No history of alcohol use. FAMILY HISTORY: Noncontributory. REVIEW OF SYSTEMS: The patient denies pain. Denies headache. Denies chills. Denies nausea and vomiting. Denies chest pain. PHYSICAL EXAMINATION: VITAL SIGNS: Blood pressure is 118/51, heart rate is 66, respiration is 16, temperature is 97.9. O2 saturation is 94% on room air. HEENT: Head is normocephalic and atraumatic with moist mucous membranes. Pupils are equal, round, and reactive to light and accommodation. NECK: Supple. No jugular venous distention noted. LUNGS: Clear bilaterally. No wheezing. CARDIOVASCULAR: Regular rate and rhythm. No murmurs. No gallops. ABDOMEN: Soft and nontender. Positive bowel sounds in all 4 quadrants. EXTREMITIES: Trace edema bilaterally on lower extremities. NEUROLOGIC: The patient is awake, alert, and oriented with no focal deficits. LABORATORY DATA: CBC, white count is elevated at 42.6, hemoglobin 10.6, hematocrit 32.5, and platelet count of 82,000. BMP shows sodium 144, potassium 5.1, chloride 105, bicarbonate is 23, BUN 30, creatinine 1.2, and glucose is 108. Radiologic findings, CT of chest with no contrast. IMPRESSION: 1. Axillary lymphadenopathy, nonspecific, neoplastic, this is inflammatory. Nonspecific nodes in the mediastinum. 2. Abdominal ultrasound, impression cholelithiasis. 3. Chest x-ray, impression, elevated left hemidiaphragm. ASSESSMENT: 1. CML. 2. Leukocytosis. 3. Anemia of chronic disease. 4. Hyperkalemia. 5. Acute renal failure, improved. 6. Diabetes. 7. Hypothyroidism. 8. Thrombocytopenia. PLAN: We will monitor the patient's renal function. Monitor BUN and creatinine. Monitor potassium and monitor lytes and replace as needed. Monitor H and H and transfuse as needed. Hematology followup. Oncology followup recommended. Continue antibiotics. We will monitor the patient's response to treatment. Mart Crowell D.O. Allison Taylor DR: KASIA JOB#: [id number] CC:
[2016-08-23 04:00] VITALS: BP 110/51
[2016-08-23 05:10] LABS: CORTISOL LC 9.2 ug/dL (.)
[2016-08-23 05:49] LABS: KETONES,URINE NEGATIVE (NEGATIVE); LEUKOCYTE ESTERASE ,URINE NEGATIVE (NEGATIVE); NITRITE,URINE NEGATIVE (NEGATIVE); PH,URINE 6 (4.5-8.0); PROTEIN,URINE NEGATIVE (NEGATIVE); UROBILINOGEN,URINE NORMAL MG/DL (0.0-1.0)
[2016-08-23 05:52] LABS: APPEARANCE,URINE CLEAR
[2016-08-23 05:53] LABS: RBC,URINE 0 /HPF (0 - 0); WBC,URINE 0 /HPF (0 - 0)
[2016-08-23 06:12] LABS: IMMUNOGLOBULIN A 30 mg/dL (61-437); IMMUNOGLOBULIN G 454 mg/dL (700-1600); IMMUNOGLOBULIN M 18 mg/dL (15-143)
[2016-08-23] MEDS: NovoLOG Insulin Flexpen SUBQ SCH ×4 (06:21→20:38)
[2016-08-23 07:00] LABS: MEAN CORPUSCULAR HEMOGLOBIN 32.3 PG (27.0-31.0); MEAN CORPUSCULAR HGB CONC 32.5 G/DL (32.0-36.0); MEAN CORPUSCULAR VOLUME 99 FL (80-99); MEAN PLATELET VOLUME 10.4 FL (6.5-10.1); PLATELET COUNT 79 K/UL (150-450); RED BLOOD COUNT 3.19 M/UL (4.70-6.10); RED CELL DISTRIBUTION WIDTH 15.5 % (11.6-14.8)
[2016-08-23 07:25] LABS: ANION GAP 12 (5-15); CALCIUM 8.8 mg/dL (8.6-10.2); CARBON DIOXIDE 26 mEQ/L (20-30); CHLORIDE 102 mEQ/L (98-107); CREATININE 1.1 mg/dL (0.7-1.2); HEMOLYSIS 10; POTASSIUM 4.6 mEQ/L (3.4-4.9); SODIUM 140 mEQ/L (135-145)
[2016-08-23 07:26] LABS: WHITE BLOOD COUNT 37.7 K/UL (4.8-10.8)
[2016-08-23 08:09] VITALS: BP 116/43
[2016-08-23] MEDS: Heparin 5000 units/ml inj SUBQ SCH ×2 (09:00→20:39)
[2016-08-23] MEDS: Digoxin 0.125mg tab ORAL SCH (09:00)
[2016-08-23] MEDS: Allopurinol 100mg Tab ORAL SCH (09:30)
[2016-08-23] MEDS: Aspirin EC 81mg tab ORAL SCH (09:30)
[2016-08-23] MEDS: Cefepime HCl 2 GM in D5W 110 ML IV SCH ×2 (09:31→20:28)
[2016-08-23 09:57] LABS: ANISOCYTOSIS 1+; BAND NEUTROPHILS % (MANUAL) 0 % (0-8); BASOPHILS % (MANUAL) 0 % (0-2); EOSINOPHILS % (MANUAL) 1 % (0-3); HYPOCHROMASIA 1+; LYMPHOCYTES % (MANUAL) 93 % (20-45); NEUTROPHILS % (MANUAL) 5 % (45-75); PLATELET ESTIMATE DECREASED; PLATELET MORPHOLOGY NORMAL; TOTAL CELLS COUNTED 100
[2016-08-23 09:58] LABS: OVALOCYTES OCCASIONAL
[2016-08-23 12:15] VITALS: BP 125/62
--- NOTE | 2016-08-23 12:25 | Diagnostic Imaging Report ---
APPROVED REPORT CPT Code: 82487 Present Symptoms Comments: Swelling BILATERAL UPPER EXTREMITY: Imaging reveals patency of the internal jugular, subclavian, axillary and brachial veins. The left cephalic vein was not well visualized. The right cephalic, right and left basilic veins are also patent. Doppler indicates normal spontaneous flow within these venous segments, bilaterally.
--- NOTE | 2016-08-23 12:26 | Diagnostic Imaging Report ---
APPROVED REPORT CPT Code: 69864 Present Symptoms Lower Extremity Pain: Shortness of breath BILATERAL: Imaging reveals a patent deep venous system bilaterally. There is no evidence of thrombus within the femoral, popliteal or tibial segments. The greater saphenous veins are also within normal limits. Doppler indicates normal spontaneous flow within these segments.
--- NOTE | 2016-08-23 13:21 | General Progress Note ---
Assessment/Plan Problem List: (1) CLL (chronic lymphocytic leukemia) ICD Codes: C91.10 - Chronic lymphocytic leukemia of B-cell type not having achieved remission SNOMED: 82392686 (2) Thrombocytopenia ICD Codes: D69.6 - Thrombocytopenia, unspecified SNOMED: 915187992 (3) Anemia of chronic disease ICD Codes: D63.8 - Anemia in other chronic diseases classified elsewhere SNOMED: 408033098 (4) Abnormal laboratory test result ICD Codes: R89.9 - Unspecified abnormal finding in specimens from other organs , systems and tissues SNOMED: 162056214 (5) Hyperkalemia ICD Codes: E87.5 - Hyperkalemia SNOMED: 04952417 Status: stable, progressing, tolerating diet Assessment/Plan ot pt diet heme follow up cbc bmp am dc plan Subjective Constitutional: Reports: weakness Allergies: Coded Allergies: No Known Allergies (Unverified , 08/21/16) All Systems: reviewed and negative except above Subjective calm in bed Objective Last 24 Hour Vital Signs Date Time Temp Pulse Resp B/P Pulse Ox O2 Delivery O2 Flow Rate FiO2 08/23/16 12:15 97.9 50 21 125/62 99 Room Air 08/23/16 09:00 58 08/23/16 08:31 60 18 Room Air 21 08/23/16 08:09 98.2 45 21 116/43 97 Room Air 08/23/16 04:00 97.0 50 20 110/51 93 Room Air 08/23/16 00:00 97.9 60 20 132/69 98 Room Air 08/22/16 21:00 106/55 08/22/16 20:00 96.9 55 19 97/35 94 Room Air 08/22/16 19:30 56 20 Room Air 21 08/22/16 16:00 97.9 66 16 118/51 94 Room Air Intake and Output 08/22/16 08/23/16 19:00 07:00 Intake Total 300 ml 1552.416 ml Balance 300 ml 1552.416 ml Intake Oral 600 ml IV Total 300 ml 952.416 ml # Voids 4 # Bowel Movements 1 1 Laboratory Tests 08/23/16 03:10: Urine Color Pale yellow, Urine Appearance Clear, Urine pH 6, Urine Specific [place] 1.010, Urine Protein Negative, Urine Glucose (UA) Negative, Urine Ketones Negative, Urine Occult Blood Negative, Urine Nitrite Negative, Urine Bilirubin Negative, Urine Urobilinogen Normal, Urine Leukocyte Esterase Negative , Urine RBC 0, Urine WBC 0, Urine Squamous Epithelial Cells None, Urine Bacteria None, Urine Eosinophils None seen, Urine Osmolality [Pending], Urine Random Sodium 106, Urine Random Chloride 105, Urine Potassium Timed 39 08/23/16 06:15: White Blood Count 37.7*H, Red Blood Count 3.19L, Hemoglobin 10.3L, Hematocrit 31.7L, Mean Corpuscular Volume 99, Mean Corpuscular Hemoglobin 32.3H, Mean Corpuscular Hemoglobin Concent 32.5, Red Cell Distribution Width 15.5H, Platelet Count 79L, Mean Platelet Volume 10.4H, Neutrophils (%) (Auto) , Lymphocytes (%) (Auto) , Monocytes (%) (Auto) , Eosinophils (%) (Auto) , Basophils (%) (Auto) , Differential Total Cells Counted 100, Neutrophils % ( Manual) 5L, Lymphocytes % (Manual) 93H, Monocytes % (Manual) 1, Eosinophils % ( Manual) 1, Basophils % (Manual) 0, Band Neutrophils 0, Platelet Estimate DecreasedL, Platelet Morphology Normal, Hypochromasia 1+, Anisocytosis 1+, Ovalocytes Occasional, Sodium Level 140, Potassium Level 4.6, Chloride Level 102 , Carbon Dioxide Level 26, Anion Gap 12, Blood Urea Nitrogen 24H, Creatinine 1.1 , Estimat Glomerular Filtration Rate , Glucose Level 169H, Calcium Level 8.8 Height (Feet): 5 Height (Inches): 9.00 Weight (Pounds): 200 General Appearance: lethargic EENT: normal ENT inspection Neck: normal alignment Cardiovascular: normal peripheral pulses, normal rate, regular rhythm Respiratory/Chest: chest wall non-tender, lungs clear, normal breath sounds Abdomen: normal bowel sounds, non tender, soft Extremities: normal inspection Edema: no edema noted Arm (L), no edema noted Arm (R), no edema noted Leg (L), no edema noted Leg (R), no edema noted Pedal (L), no edema noted Pedal (R), no edema noted Generalized Neurologic: responsive, motor weakness Skin: normal pigmentation, warm/dry CATHIE GALE Aug 23, 2016 13:21
--- NOTE | 2016-08-23 14:31 | General Progress Note ---
Assessment/Plan Assessment/Plan Assessment: # CLL - wbc is stable at approximately 40k, no end organ damage, splenomegaly, abdominal pain, fevers, chills, doubling time of wbc is unknown. Patient does have anemia and thrombcytopenia which may indicate he will require treatment. His baseline counts are unknown. Flow cytometry shows CLL on 08/22/16 # Anemia of chronic disease # Thrombocytopenia likely related to CLL # Elevated left hemidiaphragm # Weakness # 4 x 2.8 x 3.5 cm right T9-10 paravertebral mass. Recommendations: - Monitor counts - Transfuse to hgb >7 - Transfuse to plt count >20k - MRi with gadolinium can be completed as an outpatient - HIV and hepatitis panel ordered - Peripheral smear to be reviewed - Followup with Dr. Lujan, hematology for potential treatment - Have ordered IgA, IgM, IgG - DW Staff Thank you, Stephna Ortega MD Subjective Constitutional: Reports: no symptoms HEENT: Reports: no symptoms Cardiovascular: Reports: no symptoms Respiratory: Reports: no symptoms Gastrointestinal/Abdominal: Reports: no symptoms Genitourinary: Reports: no symptoms Neurologic/Psychiatric: Reports: anxiety Endocrine: Reports: no symptoms Hematologic/Lymphatic: Reports: anemia Allergies: Coded Allergies: No Known Allergies (Unverified , 08/21/16) Subjective stable, no events overnight, without complaints Objective Last 24 Hour Vital Signs Date Time Temp Pulse Resp B/P Pulse Ox O2 Delivery O2 Flow Rate FiO2 08/23/16 12:15 97.9 50 21 125/62 99 Room Air 08/23/16 09:00 58 08/23/16 08:31 60 18 Room Air 08/23/16 08:09 98.2 45 21 116/43 97 Room Air 08/23/16 04:00 97.0 50 20 110/51 93 Room Air 08/23/16 00:00 97.9 60 20 132/69 98 Room Air 08/22/16 21:00 106/55 08/22/16 20:00 96.9 55 19 97/35 94 Room Air 08/22/16 19:30 56 20 Room Air 21 08/22/16 16:00 97.9 66 16 118/51 94 Room Air Intake and Output 08/22/16 08/23/16 19:00 07:00 Intake Total 300 ml 1552.416 ml Balance 300 ml 1552.416 ml Intake Oral 600 ml IV Total 300 ml 952.416 ml # Voids 4 # Bowel Movements 1 1 Laboratory Tests 08/23/16 03:10: Urine Color Pale yellow, Urine Appearance Clear, Urine pH 6, Urine Specific [place] 1.010, Urine Protein Negative, Urine Glucose (UA) Negative, Urine Ketones Negative, Urine Occult Blood Negative, Urine Nitrite Negative, Urine Bilirubin Negative, Urine Urobilinogen Normal, Urine Leukocyte Esterase Negative , Urine RBC 0, Urine WBC 0, Urine Squamous Epithelial Cells None, Urine Bacteria None, Urine Eosinophils None seen, Urine Osmolality [Pending], Urine Random Sodium 106, Urine Random Chloride 105, Urine Potassium Timed 39 08/23/16 06:15: White Blood Count 37.7*H, Red Blood Count 3.19L, Hemoglobin 10.3L, Hematocrit 31.7L, Mean Corpuscular Volume 99, Mean Corpuscular Hemoglobin 32.3H, Mean Corpuscular Hemoglobin Concent 32.5, Red Cell Distribution Width 15.5H, Platelet Count 79L, Mean Platelet Volume 10.4H, Neutrophils (%) (Auto) , Lymphocytes (%) (Auto) , Monocytes (%) (Auto) , Eosinophils (%) (Auto) , Basophils (%) (Auto) , Differential Total Cells Counted 100, Neutrophils % ( Manual) 5L, Lymphocytes % (Manual) 93H, Monocytes % (Manual) 1, Eosinophils % ( Manual) 1, Basophils % (Manual) 0, Band Neutrophils 0, Platelet Estimate DecreasedL, Platelet Morphology Normal, Hypochromasia 1+, Anisocytosis 1+, Ovalocytes Occasional, Sodium Level 140, Potassium Level 4.6, Chloride Level 102 , Carbon Dioxide Level 26, Anion Gap 12, Blood Urea Nitrogen 24H, Creatinine 1.1 , Estimat Glomerular Filtration Rate , Glucose Level 169H, Calcium Level 8.8 Height (Feet): 5 Height (Inches): 9.00 Weight (Pounds): 200 General Appearance: no apparent distress EENT: TMs normal Neck: supple Cardiovascular: regular rhythm Respiratory/Chest: lungs clear Abdomen: soft Extremities: non-tender Edema: 1+ Leg (L), 1+ Leg (R) Edema: mild edema Neurologic: alert Stephan Ortega Aug 23, 2016 14:31
[2016-08-23 16:00] VITALS: BP 126/57
[2016-08-23 19:00] VITALS: BP 111/68
[2016-08-23] MEDS: Vancomycin 1250mg in D5W 275ml IVPB SCH (21:29)
--- NOTE | 2016-08-23 22:00 | Nephrology Progress Note ---
Assessment/Plan Problem List: (1) Hyperkalemia Assessment: corrected. (2) CLL (chronic lymphocytic leukemia) (3) Anemia of chronic disease (4) Thrombocytopenia (5) Leukocytosis (leucocytosis) (6) Acute renal failure (ARF) Assessment: improving. Plan renal function improving and stable. will cont to monitor. Objective Objective Last 24 Hour Vital Signs Date Time Temp Pulse Resp B/P Pulse Ox O2 Delivery O2 Flow Rate FiO2 08/23/16 19:47 51 18 Room Air 21 08/23/16 19:00 97.5 51 20 111/68 95 Room Air 08/23/16 16:00 97.5 53 20 126/57 97 Room Air 08/23/16 12:15 97.9 50 21 125/62 99 Room Air 08/23/16 09:00 58 08/23/16 08:31 60 18 Room Air 21 08/23/16 08:09 98.2 45 21 116/43 97 Room Air 08/23/16 04:00 97.0 50 20 110/51 93 Room Air 08/23/16 00:00 97.9 60 20 132/69 98 Room Air Intake and Output 08/22/16 08/23/16 19:00 07:00 Intake Total 780 ml 1552.416 ml Balance 780 ml 1552.416 ml Intake Oral 480 ml 600 ml IV Total 300 ml 952.416 ml # Voids 1 4 # Bowel Movements 1 1 Laboratory Tests 08/23/16 03:10: Urine Color Pale yellow, Urine Appearance Clear, Urine pH 6, Urine Specific [place] 1.010, Urine Protein Negative, Urine Glucose (UA) Negative, Urine Ketones Negative, Urine Occult Blood Negative, Urine Nitrite Negative, Urine Bilirubin Negative, Urine Urobilinogen Normal, Urine Leukocyte Esterase Negative , Urine RBC 0, Urine WBC 0, Urine Squamous Epithelial Cells None, Urine Bacteria None, Urine Eosinophils None seen, Urine Osmolality [Pending], Urine Random Sodium 106, Urine Random Chloride 105, Urine Potassium Timed 39 08/23/16 06:15: White Blood Count 37.7*H, Red Blood Count 3.19L, Hemoglobin 10.3L, Hematocrit 31.7L, Mean Corpuscular Volume 99, Mean Corpuscular Hemoglobin 32.3H, Mean Corpuscular Hemoglobin Concent 32.5, Red Cell Distribution Width 15.5H, Platelet Count 79L, Mean Platelet Volume 10.4H, Neutrophils (%) (Auto) , Lymphocytes (%) (Auto) , Monocytes (%) (Auto) , Eosinophils (%) (Auto) , Basophils (%) (Auto) , Differential Total Cells Counted 100, Neutrophils % ( Manual) 5L, Lymphocytes % (Manual) 93H, Monocytes % (Manual) 1, Eosinophils % ( Manual) 1, Basophils % (Manual) 0, Band Neutrophils 0, Platelet Estimate DecreasedL, Platelet Morphology Normal, Hypochromasia 1+, Anisocytosis 1+, Ovalocytes Occasional, Sodium Level 140, Potassium Level 4.6, Chloride Level 102 , Carbon Dioxide Level 26, Anion Gap 12, Blood Urea Nitrogen 24H, Creatinine 1.1 , Estimat Glomerular Filtration Rate , Glucose Level 169H, Calcium Level 8.8 Height (Feet): 5 Height (Inches): 9.00 Weight (Pounds): 200 WERNER KENNY Aug 23, 2016 22:00
--- NOTE | 2016-08-23 22:16 | Pulmonology Progress Note ---
Assessment/Plan Problems: (1) Leukocytosis (leucocytosis) (2) Hyperkalemia (3) Anemia of chronic disease (4) Thrombocytopenia (5) Acute renal failure (ARF) (6) CLL (chronic lymphocytic leukemia) Assessment/Plan no obvious source of infection, increased wbc most likely secondary to CLL Ct chest reviewed: 4 x 2.8 x 3.5 cm right T9-10 paravertebral mass. This is suspicious for a nerve sheath tumor. Appropriate evaluation would include MRI with gadolinium. f/u h/h, prbc prn check electrolytes Subjective ROS Limited/Unobtainable: No Interval Events: wants to go home Allergies: Coded Allergies: No Known Allergies (Unverified , 08/21/16) Objective Last 24 Hour Vital Signs Date Time Temp Pulse Resp B/P Pulse Ox O2 Delivery O2 Flow Rate FiO2 08/23/16 19:47 51 18 Room Air 21 08/23/16 19:00 97.5 51 20 111/68 95 Room Air 08/23/16 16:00 97.5 53 20 126/57 97 Room Air 08/23/16 12:15 97.9 50 21 125/62 99 Room Air 08/23/16 09:00 58 08/23/16 08:31 60 18 Room Air 21 08/23/16 08:09 98.2 45 21 116/43 97 Room Air 08/23/16 04:00 97.0 50 20 110/51 93 Room Air 08/23/16 00:00 97.9 60 20 132/69 98 Room Air Intake and Output 08/22/16 08/23/16 19:00 07:00 Intake Total 780 ml 1552.416 ml Balance 780 ml 1552.416 ml Intake Oral 480 ml 600 ml IV Total 300 ml 952.416 ml # Voids 1 4 # Bowel Movements 1 1 General Appearance: WD/WN HEENT: normocephalic Respiratory/Chest: chest wall non-tender Cardiovascular: normal peripheral pulses Abdomen: normal bowel sounds Genitourinary: normal external genitalia Extremities: no cyanosis, no clubbing Skin: no rash Neurologic/Psychiatric: tester wafer substrate II-XII grossly normal Laboratory Tests 08/23/16 03:10: Urine Color Pale yellow, Urine Appearance Clear, Urine pH 6, Urine Specific [place] 1.010, Urine Protein Negative, Urine Glucose (UA) Negative, Urine Ketones Negative, Urine Occult Blood Negative, Urine Nitrite Negative, Urine Bilirubin Negative, Urine Urobilinogen Normal, Urine Leukocyte Esterase Negative , Urine RBC 0, Urine WBC 0, Urine Squamous Epithelial Cells None, Urine Bacteria None, Urine Eosinophils None seen, Urine Osmolality [Pending], Urine Random Sodium 106, Urine Random Chloride 105, Urine Potassium Timed 39 08/23/16 06:15: White Blood Count 37.7*H, Red Blood Count 3.19L, Hemoglobin 10.3L, Hematocrit 31.7L, Mean Corpuscular Volume 99, Mean Corpuscular Hemoglobin 32.3H, Mean Corpuscular Hemoglobin Concent 32.5, Red Cell Distribution Width 15.5H, Platelet Count 79L, Mean Platelet Volume 10.4H, Neutrophils (%) (Auto) , Lymphocytes (%) (Auto) , Monocytes (%) (Auto) , Eosinophils (%) (Auto) , Basophils (%) (Auto) , Differential Total Cells Counted 100, Neutrophils % ( Manual) 5L, Lymphocytes % (Manual) 93H, Monocytes % (Manual) 1, Eosinophils % ( Manual) 1, Basophils % (Manual) 0, Band Neutrophils 0, Platelet Estimate DecreasedL, Platelet Morphology Normal, Hypochromasia 1+, Anisocytosis 1+, Ovalocytes Occasional, Sodium Level 140, Potassium Level 4.6, Chloride Level 102 , Carbon Dioxide Level 26, Anion Gap 12, Blood Urea Nitrogen 24H, Creatinine 1.1 , Estimat Glomerular Filtration Rate , Glucose Level 169H, Calcium Level 8.8 Current Medications Medications (Trade) Dose Ordered Sig/Pura Route PRN Reason Start Time Stop Time Status Last Admin Dose Admin Acetaminophen (Tylenol) 650 mg Q4H PRN ORAL fever 08/21/16 22:00 09/20/16 21:59 08/23/16 01:23 Albuterol/ Ipratropium (DuoNeb 0.5-3(2.5)mg/3ml) 3 ml Q4H PRN HHN Shortness of Breath 08/21/16 22:00 08/26/16 21:59 Allopurinol (Zyloprim) 100 mg DAILY ORAL 08/22/16 09:00 09/21/16 08:59 08/23/16 09:30 Aspirin (Ecotrin) 81 mg DAILY ORAL 08/22/16 09:00 09/21/16 08:59 08/23/16 09:30 Atorvastatin Calcium (Lipitor) 10 mg BEDTIME ORAL 08/22/16 21:00 09/21/16 20:59 08/23/16 20:28 Cefepime HCl/ Dextrose (Maxipime/D5W) 110 ml @ 220 mls/hr Q12HR@0900,2100 IV 08/22/16 21:00 08/29/16 20:59 08/23/16 20:28 Dextrose STAT PRN IV Hypoglycemia 08/21/16 22:45 09/20/16 22:44 Digoxin 0.125 mg 0.125 mg DAILY ORAL 08/22/16 09:00 09/21/16 08:59 Heparin Sodium (Porcine) 5000 units 5,000 units EVERY 12 HOURS SUBQ 08/22/16 21:00 09/21/16 20:59 Insulin Aspart (NovoLOG) BEFORE MEALS AND HS SUBQ 08/22/16 06:30 09/21/16 06:29 08/23/16 20:38 Morphine Sulfate (Morphine Sulfate) 2 mg Q4H PRN IVP Moderate Pain (Pain Scale 4-6) 08/21/16 22:00 08/28/16 21:59 Nitroglycerin (Ntg) 0.4 mg Q5M X 3 DOSES PRN SL Prn Chest Pain 08/21/16 22:00 09/20/16 21:59 Ondansetron HCl (Zofran) 4 mg Q6H PRN IVP Nausea & Vomiting 08/21/16 22:00 09/20/16 21:59 Polyethylene Glycol (Miralax) 17 gm DAILYPRN PRN ORAL Constipation 08/21/16 22:00 09/20/16 21:59 Sodium Chloride (Sodium Chloride 1000ml bag) 1,000 ml @ 50 mls/hr Q20H IVLG 08/22/16 00:21 09/21/16 00:20 08/21/16 22:54 Temazepam (Restoril) 15 mg HSPRN PRN ORAL Insomnia 08/21/16 22:00 08/28/16 21:59 Vancomycin HCl (Vanco rx to dose) 1 ea DAILY PRN MISC Per rx protocol 08/21/16 22:15 09/20/16 22:14 Vancomycin HCl/ Dextrose (Vancomycin/D5W) 275 ml @ 183.708 mls/hr Q24H IVPB 08/22/16 22:00 08/26/16 21:59 08/23/16 21:29 TRAV JONES Aug 23, 2016 22:16
[2016-08-24] VITALS: BP 116/49
[2016-08-24 04:00] VITALS: BP 130/69
[2016-08-24] MEDS: NovoLOG Insulin Flexpen SUBQ SCH ×4 (06:38→21:00)
[2016-08-24 07:13] LABS: MEAN CORPUSCULAR HEMOGLOBIN 32.5 PG (27.0-31.0); MEAN CORPUSCULAR VOLUME 99 FL (80-99); MEAN PLATELET VOLUME 10.9 FL (6.5-10.1); PLATELET COUNT 95 K/UL (150-450); RED BLOOD COUNT 3.34 M/UL (4.70-6.10); RED CELL DISTRIBUTION WIDTH 15.1 % (11.6-14.8)
[2016-08-24 07:16] LABS: ANION GAP 12 (5-15); CALCIUM 9.1 mg/dL (8.6-10.2); CARBON DIOXIDE 26 mEQ/L (20-30); CHLORIDE 104 mEQ/L (98-107); HEMOLYSIS 5; POTASSIUM 4.7 mEQ/L (3.4-4.9); SODIUM 142 mEQ/L (135-145)
[2016-08-24 07:38] LABS: WHITE BLOOD COUNT 41.1 K/UL (4.8-10.8)
[2016-08-24 08:42] VITALS: BP 120/74
[2016-08-24] MEDS: Heparin 5000 units/ml inj SUBQ SCH ×2 (09:00→21:00)
[2016-08-24] MEDS: Digoxin 0.125mg tab ORAL SCH (09:00)
[2016-08-24 09:19] LABS: LYMPHOCYTES % (MANUAL) 94 % (20-45); NEUTROPHILS % (MANUAL) 4 % (45-75); TOTAL CELLS COUNTED 100
--- NOTE | 2016-08-24 09:19 | Pulmonology Progress Note ---
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 Neoplastic versus inflammatory. Nonspecific nodes in the mediastinum. 4 x 2.8 x 3.5 cm right T9-10 paravertebral mass. This is suspicious for a nerve sheath tumor. Appropriate evaluation would include MRI with gadolinium. Splenomegaly Gallstones Mild left basal atelectasis food counselor on smoking cessation declined Nicotine patch CT chest to be repeated with IV contrast MRI with contrast as outpatient for workup for paravertebral mass Venous Duplex BLE negative CXR + CM, elevated left hemidiaphragm abdominal US + cholelithiasis, chronic liver disease LFT stable, hep panel negative BS management with SS of insulin DVT prophylaxis TSH and free T 4 stable, small in free T3, continue current dose of Levothyroxine, check thyroid panel in 3-4 week case discussed and evaluated by supervising physician Subjective Allergies: Coded Allergies: No Known Allergies (Unverified , 08/21/16) Subjective persistent leukocytosis, afebrile denies any complaints no SOB, no chest pain, long hx of smoking, still smoking 2-3 cigarettes a quan Objective Last 24 Hour Vital Signs Date Time Temp Pulse Resp B/P Pulse Ox O2 Delivery O2 Flow Rate FiO2 08/24/16 08:42 97.2 51 14 120/74 98 Room Air 08/24/16 04:00 97.7 43 20 130/69 96 Room Air 08/24/16 00:00 97.2 49 20 116/49 94 Room Air 08/23/16 19:47 51 18 Room Air 21 08/23/16 19:00 97.5 51 20 111/68 95 Room Air 08/23/16 16:00 97.5 53 20 126/57 97 Room Air 08/23/16 12:15 97.9 50 21 125/62 99 Room Air Intake and Output 08/23/16 08/24/16 19:00 07:00 Intake Total 720 ml 625 ml Balance 720 ml 625 ml Intake Oral 720 ml 240 ml IV Total 385 ml # Voids 1 5 General Appearance: WD/WN, no acute distress HEENT: normocephalic, atraumatic, anicteric, mucous membranes moist Respiratory/Chest: lungs clear - with moderate air entry , no respiratory distress, no accessory muscle use Cardiovascular: normal rate, regular rhythm, no JVD Abdomen: normal bowel sounds, soft, non tender, non distended Neurologic/Psychiatric: no motor/sensory deficits, alert, oriented x 3, responsive Laboratory Tests 08/24/16 06:15: White Blood Count 41.1*H, Red Blood Count 3.34L, Hemoglobin 10.9L, Hematocrit 33.0L, Mean Corpuscular Volume 99, Mean Corpuscular Hemoglobin 32.5H, Mean Corpuscular Hemoglobin Concent 33.0, Red Cell Distribution Width 15.1H, Platelet Count 95L, Mean Platelet Volume 10.9H, Neutrophils (%) (Auto) , Lymphocytes (%) (Auto) , Monocytes (%) (Auto) , Eosinophils (%) (Auto) , Basophils (%) (Auto) , Neutrophils % (Manual) [Pending], Lymphocytes % (Manual) [Pending], Platelet Estimate [Pending], Platelet Morphology [Pending], Sodium Level 142, Potassium Level 4.7, Chloride Level 104, Carbon Dioxide Level 26, Anion Gap 12, Blood Urea Nitrogen 18, Creatinine 1.0, Estimat Glomerular Filtration Rate , Glucose Level 138H, Calcium Level 9.1 Current Medications Medications (Trade) Dose Ordered Sig/Pura Route PRN Reason Start Time Stop Time Status Last Admin Dose Admin Acetaminophen (Tylenol) 650 mg Q4H PRN ORAL fever 08/21/16 22:00 09/20/16 21:59 08/23/16 01:23 Albuterol/ Ipratropium (DuoNeb 0.5-3(2.5)mg/3ml) 3 ml Q4H PRN HHN Shortness of Breath 08/21/16 22:00 08/26/16 21:59 Allopurinol (Zyloprim) 100 mg DAILY ORAL 08/22/16 09:00 09/21/16 08:59 08/23/16 09:30 Aspirin (Ecotrin) 81 mg DAILY ORAL 08/22/16 09:00 09/21/16 08:59 08/23/16 09:30 Atorvastatin Calcium (Lipitor) 10 mg BEDTIME ORAL 08/22/16 21:00 09/21/16 20:59 08/23/16 20:28 Cefepime HCl/ Dextrose (Maxipime/D5W) 110 ml @ 220 mls/hr Q12HR@0900,2100 IV 08/22/16 21:00 08/29/16 20:59 08/23/16 20:28 Dextrose STAT PRN IV Hypoglycemia 08/21/16 22:45 09/20/16 22:44 Digoxin 0.125 mg 0.125 mg DAILY ORAL 08/22/16 09:00 09/21/16 08:59 Heparin Sodium (Porcine) 5000 units 5,000 units EVERY 12 HOURS SUBQ 08/22/16 21:00 09/21/16 20:59 Insulin Aspart (NovoLOG) BEFORE MEALS AND HS SUBQ 08/22/16 06:30 09/21/16 06:29 08/24/16 06:38 Morphine Sulfate (Morphine Sulfate) 2 mg Q4H PRN IVP Moderate Pain (Pain Scale 4-6) 08/21/16 22:00 08/28/16 21:59 Nitroglycerin (Ntg) 0.4 mg Q5M X 3 DOSES PRN SL Prn Chest Pain 08/21/16 22:00 09/20/16 21:59 Ondansetron HCl (Zofran) 4 mg Q6H PRN IVP Nausea & Vomiting 08/21/16 22:00 09/20/16 21:59 Polyethylene Glycol (Miralax) 17 gm DAILYPRN PRN ORAL Constipation 08/21/16 22:00 09/20/16 21:59 Sodium Chloride (Sodium Chloride 1000ml bag) 1,000 ml @ 50 mls/hr Q20H IVLG 08/22/16 00:21 09/21/16 00:20 08/21/16 22:54 Temazepam (Restoril) 15 mg HSPRN PRN ORAL Insomnia 08/21/16 22:00 08/28/16 21:59 Vancomycin HCl (Vanco rx to dose) 1 ea DAILY PRN MISC Per rx protocol 08/21/16 22:15 09/20/16 22:14 Vancomycin HCl/ Dextrose (Vancomycin/D5W) 275 ml @ 183.708 mls/hr Q24H IVPB 08/22/16 22:00 08/26/16 21:59 08/23/16 21:29 Hesham (Star)Kristen NP Aug 24, 2016 09:19
[2016-08-24 09:20] LABS: ANISOCYTOSIS 1+; BAND NEUTROPHILS % (MANUAL) 0 % (0-8); BASOPHILS % (MANUAL) 0 % (0-2); EOSINOPHILS % (MANUAL) 0 % (0-3); HYPOCHROMASIA 1+; PLATELET ESTIMATE DECREASED; PLATELET MORPHOLOGY NORMAL
[2016-08-24] MEDS: Cefepime HCl 2 GM in D5W 110 ML IV SCH (09:29)
[2016-08-24] MEDS: Allopurinol 100mg Tab ORAL SCH (09:29)
[2016-08-24] MEDS: Aspirin EC 81mg tab ORAL SCH (09:29)
--- NOTE | 2016-08-24 09:42 | General Progress Note ---
Assessment/Plan Assessment/Plan Assessment: # CLL - wbc is stable at approximately 40k, no end organ damage, splenomegaly, abdominal pain, fevers, chills, doubling time of wbc is unknown. Patient does have anemia and thrombcytopenia which may indicate he will require treatment. His baseline counts are unknown. Flow cytometry shows CLL on 08/22/16 # Anemia of chronic disease # Thrombocytopenia likely related to CLL # Elevated left hemidiaphragm # Weakness # 4 x 2.8 x 3.5 cm right T9-10 paravertebral mass. # Hypogammaglobinemia Recommendations: - Monitor counts - Transfuse to hgb >7 - Transfuse to plt count >20k - MRi with gadolinium can be completed as an outpatient - Peripheral smear has been reviewed, has CLL - Followup with Dr. Lujan, hematology for potential treatment - Have reviewed immunoglobulins, may need IVIG as an outpatient - Staff Thank you, Stephan Ortega MD Subjective Constitutional: Reports: no symptoms HEENT: Reports: no symptoms Cardiovascular: Reports: no symptoms Respiratory: Reports: no symptoms Gastrointestinal/Abdominal: Reports: no symptoms Genitourinary: Reports: no symptoms Neurologic/Psychiatric: Reports: no symptoms Endocrine: Reports: increased urine Hematologic/Lymphatic: Reports: anemia Allergies: Coded Allergies: No Known Allergies (Unverified , 08/21/16) Subjective stable, no events overnight, is without complaints Objective Last 24 Hour Vital Signs Date Time Temp Pulse Resp B/P Pulse Ox O2 Delivery O2 Flow Rate FiO2 08/24/16 09:00 51 08/24/16 08:42 97.2 51 14 120/74 98 Room Air 08/24/16 04:00 97.7 43 20 130/69 96 Room Air 08/24/16 00:00 97.2 49 20 116/49 94 Room Air 08/23/16 19:47 51 18 Room Air 21 08/23/16 19:00 97.5 51 20 111/68 95 Room Air 08/23/16 16:00 97.5 53 20 126/57 97 Room Air 08/23/16 12:15 97.9 50 21 125/62 99 Room Air Intake and Output 08/23/16 08/24/16 19:00 07:00 Intake Total 720 ml 625 ml Balance 720 ml 625 ml Intake Oral 720 ml 240 ml IV Total 385 ml # Voids 1 5 Laboratory Tests 08/24/16 06:15: White Blood Count 41.1*H, Red Blood Count 3.34L, Hemoglobin 10.9L, Hematocrit 33.0L, Mean Corpuscular Volume 99, Mean Corpuscular Hemoglobin 32.5H, Mean Corpuscular Hemoglobin Concent 33.0, Red Cell Distribution Width 15.1H, Platelet Count 95L, Mean Platelet Volume 10.9H, Neutrophils (%) (Auto) , Lymphocytes (%) (Auto) , Monocytes (%) (Auto) , Eosinophils (%) (Auto) , Basophils (%) (Auto) , Differential Total Cells Counted 100, Neutrophils % ( Manual) 4L, Lymphocytes % (Manual) 94H, Monocytes % (Manual) 2, Eosinophils % ( Manual) 0, Basophils % (Manual) 0, Band Neutrophils 0, Platelet Estimate DecreasedL, Platelet Morphology Normal, Hypochromasia 1+, Anisocytosis 1+, Sodium Level 142, Potassium Level 4.7, Chloride Level 104, Carbon Dioxide Level 26, Anion Gap 12, Blood Urea Nitrogen 18, Creatinine 1.0, Estimat Glomerular Filtration Rate , Glucose Level 138H, Calcium Level 9.1 Height (Feet): 5 Height (Inches): 9.00 Weight (Pounds): 200 General Appearance: no apparent distress EENT: TMs normal Neck: supple Cardiovascular: regular rhythm Respiratory/Chest: no respiratory distress Abdomen: soft Extremities: non-tender Edema: 1+ Leg (L), 1+ Leg (R) Edema: mild edema Neurologic: alert Skin: warm/dry Stephan Ortega Aug 24, 2016 09:42
--- NOTE | 2016-08-24 11:40 | General Progress Note ---
Assessment/Plan Problem List: (1) CLL (chronic lymphocytic leukemia) ICD Codes: C91.10 - Chronic lymphocytic leukemia of B-cell type not having achieved remission SNOMED: 36033392 (2) Thrombocytopenia ICD Codes: D69.6 - Thrombocytopenia, unspecified SNOMED: 897169046 (3) Anemia of chronic disease ICD Codes: D63.8 - Anemia in other chronic diseases classified elsewhere SNOMED: 402702716 (4) Abnormal laboratory test result ICD Codes: R89.9 - Unspecified abnormal finding in specimens from other organs , systems and tissues SNOMED: 400133683 (5) Hyperkalemia ICD Codes: E87.5 - Hyperkalemia SNOMED: 03378806 Status: stable, progressing, tolerating diet Assessment/Plan ot pt diet heme follow up cbc bmp am dc plan Subjective Constitutional: Reports: weakness Allergies: Coded Allergies: No Known Allergies (Unverified , 08/21/16) All Systems: reviewed and negative except above Subjective calm in bed Objective Last 24 Hour Vital Signs Date Time Temp Pulse Resp B/P Pulse Ox O2 Delivery O2 Flow Rate FiO2 08/24/16 09:00 51 08/24/16 08:42 97.2 51 14 120/74 98 Room Air 08/24/16 07:35 65 18 Room Air 21 08/24/16 04:00 97.7 43 20 130/69 96 Room Air 08/24/16 00:00 97.2 49 20 116/49 94 Room Air 08/23/16 19:47 51 18 Room Air 21 08/23/16 19:00 97.5 51 20 111/68 95 Room Air 08/23/16 16:00 97.5 53 20 126/57 97 Room Air 08/23/16 12:15 97.9 50 21 125/62 99 Room Air Intake and Output 08/23/16 08/24/16 19:00 07:00 Intake Total 720 ml 625 ml Balance 720 ml 625 ml Intake Oral 720 ml 240 ml IV Total 385 ml # Voids 1 5 Laboratory Tests 08/24/16 06:15: White Blood Count 41.1*H, Red Blood Count 3.34L, Hemoglobin 10.9L, Hematocrit 33.0L, Mean Corpuscular Volume 99, Mean Corpuscular Hemoglobin 32.5H, Mean Corpuscular Hemoglobin Concent 33.0, Red Cell Distribution Width 15.1H, Platelet Count 95L, Mean Platelet Volume 10.9H, Neutrophils (%) (Auto) , Lymphocytes (%) (Auto) , Monocytes (%) (Auto) , Eosinophils (%) (Auto) , Basophils (%) (Auto) , Differential Total Cells Counted 100, Neutrophils % ( Manual) 4L, Lymphocytes % (Manual) 94H, Monocytes % (Manual) 2, Eosinophils % ( Manual) 0, Basophils % (Manual) 0, Band Neutrophils 0, Platelet Estimate DecreasedL, Platelet Morphology Normal, Hypochromasia 1+, Anisocytosis 1+, Sodium Level 142, Potassium Level 4.7, Chloride Level 104, Carbon Dioxide Level 26, Anion Gap 12, Blood Urea Nitrogen 18, Creatinine 1.0, Estimat Glomerular Filtration Rate , Glucose Level 138H, Calcium Level 9.1 Height (Feet): 5 Height (Inches): 9.00 Weight (Pounds): 200 General Appearance: lethargic EENT: normal ENT inspection Neck: normal alignment Cardiovascular: normal peripheral pulses, normal rate, regular rhythm Respiratory/Chest: chest wall non-tender, lungs clear, normal breath sounds Abdomen: normal bowel sounds, non tender, soft Extremities: normal inspection Edema: no edema noted Arm (L), no edema noted Arm (R), no edema noted Leg (L), no edema noted Leg (R), no edema noted Pedal (L), no edema noted Pedal (R), no edema noted Generalized Neurologic: responsive, motor weakness Skin: normal pigmentation, warm/dry CATHIE GALE Aug 24, 2016 11:40
[2016-08-24 11:57] VITALS: BP 132/78
--- NOTE | 2016-08-24 14:24 | Infectious Diseases Prog Note ---
Assessment/Plan Problems: (1) MRSA nasal colonization Assessment & Plan: will start Bactroban for 5 days , to decolonize (2) Colonization with VRE (vancomycin-resistant enterococcus) Assessment & Plan: keep in contact isolation (3) Paraspinal mass Assessment & Plan: recommend neurosurgical consultation for surgical resection (4) Anemia of chronic disease Assessment & Plan: due to CLL (5) CLL (chronic lymphocytic leukemia) Assessment & Plan: HEM/ONC is following , monitor WBC (6) Leukocytosis (leucocytosis) Assessment & Plan: due to CLL, no need for antibiotics , will D/C vancomycin and cefepime (7) Acute renal failure (ARF) Assessment & Plan: monitor renal function test, avoid nephrotoxic meds, follow up with nephrology. Subjective Allergies: Coded Allergies: No Known Allergies (Unverified , 08/21/16) Objective Vital Signs Last 24 Hour Vital Signs Date Time Temp Pulse Resp B/P Pulse Ox O2 Delivery O2 Flow Rate FiO2 08/24/16 11:57 97.7 48 14 132/78 99 Room Air 08/24/16 09:00 51 08/24/16 08:42 97.2 51 14 120/74 98 Room Air 08/24/16 07:35 65 18 Room Air 21 08/24/16 04:00 97.7 43 20 130/69 96 Room Air 08/24/16 00:00 97.2 49 20 116/49 94 Room Air 08/23/16 19:47 51 18 Room Air 21 08/23/16 19:00 97.5 51 20 111/68 95 Room Air 08/23/16 16:00 97.5 53 20 126/57 97 Room Air Height (Feet): 5 Height (Inches): 9.00 Weight (Pounds): 200 Microbiology Date/Time Source Procedure Growth Status 08/21/16 17:07 Nasal Nares MRSA Culture - Final Staphylococcus Aureus - Mrsa Complete 08/21/16 17:07 Rectum VRE Culture - Final Enterococcus Faecalis - Vre Complete Laboratory Tests Test 08/24/16 06:15 White Blood Count 41.1 K/UL (4.8-10.8) *H Red Blood Count 3.34 M/UL (4.70-6.10) L Hemoglobin 10.9 G/DL (14.2-18.0) L Hematocrit 33.0 % (42.0-52.0) L Mean Corpuscular Volume 99 FL (80-99) Mean Corpuscular Hemoglobin 32.5 PG (27.0-31.0) H Mean Corpuscular Hemoglobin Concent 33.0 G/DL (32.0-36.0) Red Cell Distribution Width 15.1 % (11.6-14.8) H Platelet Count 95 K/UL (150-450) L Mean Platelet Volume 10.9 FL (6.5-10.1) H Neutrophils (%) (Auto) % (45.0-75.0) Lymphocytes (%) (Auto) % (20.0-45.0) Monocytes (%) (Auto) % (1.0-10.0) Eosinophils (%) (Auto) % (0.0-3.0) Basophils (%) (Auto) % (0.0-2.0) Differential Total Cells Counted 100 Neutrophils % (Manual) 4 % (45-75) L Lymphocytes % (Manual) 94 % (20-45) H Monocytes % (Manual) 2 % (1-10) Eosinophils % (Manual) 0 % (0-3) Basophils % (Manual) 0 % (0-2) Band Neutrophils 0 % (0-8) Platelet Estimate Decreased L Platelet Morphology Normal Hypochromasia 1+ Anisocytosis 1+ Sodium Level 142 mEQ/L (135-145) Potassium Level 4.7 mEQ/L (3.4-4.9) Chloride Level 104 mEQ/L (98-107) Carbon Dioxide Level 26 mEQ/L (20-30) Anion Gap 12 (5-15) Blood Urea Nitrogen 18 mg/dL (7-23) Creatinine 1.0 mg/dL (0.7-1.2) Estimat Glomerular Filtration Rate mL/min (>60) Glucose Level 138 mg/dL (74-106) H Calcium Level 9.1 mg/dL (8.6-10.2) Current Medications Medications (Trade) Dose Ordered Sig/Pura Route PRN Reason Start Time Stop Time Status Last Admin Dose Admin Acetaminophen (Tylenol) 650 mg Q4H PRN ORAL fever 08/21/16 22:00 09/20/16 21:59 08/23/16 01:23 Albuterol/ Ipratropium (DuoNeb 0.5-3(2.5)mg/3ml) 3 ml Q4H PRN HHN Shortness of Breath 08/21/16 22:00 08/26/16 21:59 Allopurinol (Zyloprim) 100 mg DAILY ORAL 08/22/16 09:00 09/21/16 08:59 08/24/16 09:29 Aspirin (Ecotrin) 81 mg DAILY ORAL 08/22/16 09:00 09/21/16 08:59 08/24/16 09:29 Atorvastatin Calcium (Lipitor) 10 mg BEDTIME ORAL 08/22/16 21:00 09/21/16 20:59 08/23/16 20:28 Cefepime HCl/ Dextrose (Maxipime/D5W) 110 ml @ 220 mls/hr Q12HR@0900,2100 IV 08/22/16 21:00 08/29/16 20:59 08/24/16 09:29 Dextrose STAT PRN IV Hypoglycemia 08/21/16 22:45 09/20/16 22:44 Digoxin 0.125 mg 0.125 mg DAILY ORAL 08/22/16 09:00 09/21/16 08:59 Heparin Sodium (Porcine) 5000 units 5,000 units EVERY 12 HOURS SUBQ 08/22/16 21:00 09/21/16 20:59 Insulin Aspart (NovoLOG) BEFORE MEALS AND HS SUBQ 08/22/16 06:30 09/21/16 06:29 08/24/16 12:27 Morphine Sulfate (Morphine Sulfate) 2 mg Q4H PRN IVP Moderate Pain (Pain Scale 4-6) 08/21/16 22:00 08/28/16 21:59 Mupirocin (Bactroban Oint) 1 applic THREE TIMES A DAY TOPIC 08/24/16 18:00 08/29/16 13:01 Nitroglycerin (Ntg) 0.4 mg Q5M X 3 DOSES PRN SL Prn Chest Pain 08/21/16 22:00 09/20/16 21:59 Ondansetron HCl (Zofran) 4 mg Q6H PRN IVP Nausea & Vomiting 08/21/16 22:00 09/20/16 21:59 Polyethylene Glycol (Miralax) 17 gm DAILYPRN PRN ORAL Constipation 08/21/16 22:00 09/20/16 21:59 Sodium Chloride (Sodium Chloride 1000ml bag) 1,000 ml @ 50 mls/hr Q20H IVLG 08/22/16 00:21 09/21/16 00:20 08/21/16 22:54 Temazepam (Restoril) 15 mg HSPRN PRN ORAL Insomnia 08/21/16 22:00 08/28/16 21:59 Vancomycin HCl (Vanco rx to dose) 1 ea DAILY PRN MISC Per rx protocol 08/21/16 22:15 09/20/16 22:14 Vancomycin HCl/ Dextrose (Vancomycin/D5W) 275 ml @ 183.708 mls/hr Q24H IVPB 08/22/16 22:00 08/26/16 21:59 08/23/16 21:29 Rosita Martinez M.D. Aug 24, 2016 14:24
[2016-08-24 16:00] VITALS: BP 121/67
--- NOTE | 2016-08-24 17:09 | Nephrology Progress Note ---
Assessment/Plan Problem List: (1) Anemia of chronic disease (2) Thrombocytopenia (3) Hyperkalemia (4) Leukocytosis (leucocytosis) (5) Acute renal failure (ARF) (6) CLL (chronic lymphocytic leukemia) Plan consult dictated # [id number] Subjective Subjective In bed, denies discomfort Objective Objective Last 24 Hour Vital Signs Date Time Temp Pulse Resp B/P Pulse Ox O2 Delivery O2 Flow Rate FiO2 08/24/16 16:00 98.2 54 20 121/67 97 Room Air 08/24/16 15:43 53 08/24/16 11:57 97.7 48 14 132/78 99 Room Air 08/24/16 09:00 51 08/24/16 08:42 97.2 51 14 120/74 98 Room Air 08/24/16 07:35 65 18 Room Air 21 08/24/16 04:00 97.7 43 20 130/69 96 Room Air 08/24/16 00:00 97.2 49 20 116/49 94 Room Air 08/23/16 19:47 51 18 Room Air 21 08/23/16 19:00 97.5 51 20 111/68 95 Room Air Intake and Output 08/23/16 08/24/16 19:00 07:00 Intake Total 720 ml 625 ml Balance 720 ml 625 ml Intake Oral 720 ml 240 ml IV Total 385 ml # Voids 1 5 Laboratory Tests 08/24/16 06:15: White Blood Count 41.1*H, Red Blood Count 3.34L, Hemoglobin 10.9L, Hematocrit 33.0L, Mean Corpuscular Volume 99, Mean Corpuscular Hemoglobin 32.5H, Mean Corpuscular Hemoglobin Concent 33.0, Red Cell Distribution Width 15.1H, Platelet Count 95L, Mean Platelet Volume 10.9H, Neutrophils (%) (Auto) , Lymphocytes (%) (Auto) , Monocytes (%) (Auto) , Eosinophils (%) (Auto) , Basophils (%) (Auto) , Differential Total Cells Counted 100, Neutrophils % ( Manual) 4L, Lymphocytes % (Manual) 94H, Monocytes % (Manual) 2, Eosinophils % ( Manual) 0, Basophils % (Manual) 0, Band Neutrophils 0, Platelet Estimate DecreasedL, Platelet Morphology Normal, Hypochromasia 1+, Anisocytosis 1+, Sodium Level 142, Potassium Level 4.7, Chloride Level 104, Carbon Dioxide Level 26, Anion Gap 12, Blood Urea Nitrogen 18, Creatinine 1.0, Estimat Glomerular Filtration Rate , Glucose Level 138H, Calcium Level 9.1 Height (Feet): 5 Height (Inches): 9.00 Weight (Pounds): 200 Allison Taylor N.P. Aug 24, 2016 17:09
[2016-08-24 19:00] VITALS: BP 151/84
[2016-08-24] MEDS ORDERED: ASPIRIN-LOW81 MG ORAL (21:20)
[2016-08-24] MEDS ORDERED: ALLOPURINOL100 M1 ORAL (21:21)
[2016-08-24] MEDS ORDERED: ATORVASTATIN CA10 MG ORAL (21:21)
[2016-08-24] MEDS ORDERED: DIGOXIN0.125 MG/2 ORAL (21:22)
[2016-08-24] MEDS ORDERED: NOVOLOG100 UNIT/5 (21:25)
[2016-08-24] MEDS ORDERED: NOVOLOG100 UNIT/3 SUBQ (21:26)
[2016-08-24] MEDS ORDERED: BACTROBAN NASAL1 GM NASAL (21:30)
[2016-08-24] MEDS ORDERED: BACTROBAN CR1 APPLIC TOPIC (21:31)
[2016-08-25] VITALS: BP 146/72
--- NOTE | 2016-08-25 03:08 | Consultation ---
DATE OF CONSULTATION: NOTE: INCOMPLETE DICTATION DATE OF CONSULTATION: CONSULTING PHYSICIAN: Rosita Martinez M.D. REQUESTING PHYSICIAN: Mart Crowell D.O. 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 HISTORY OF PRESENT ILLNESS: The patient is a 76-year-old male with past medical history of CLL being diagnosed in May of last year. He was sent to [facility] emergency room for elevated white count over 40,000. The patient did not have any complaint of fever or chills or discomfort at the time of his presentation to the emergency room, but he was somewhat busy on the phone with his brother, so he was sent to the hospital for further evaluation. In the hospital, the patient's white count [place] 41853.9. He had low platelet count of 95,000. Chest x-ray showed no consolidation or acute infiltration. The patient was admitted to the hospital for further evaluation and management. He had a screening culture of his nares which grew MRSA and his rectum which grew VRE. He was consulted by the primary provider for antibiotics recommendation. REVIEW OF SYSTEMS: A 12-point system review were all negative apart from the one I mentioned above in my History and Physical. PAST MEDICAL HISTORY: Significant for CLL and schizophrenia. PAST SURGICAL HISTORY: Negative. FAMILY HISTORY: Not contributory. Rosita Martinez M.D. DR: TERRY JOB#: [id number] CC:
[2016-08-25 04:00] VITALS: BP 142/69
[2016-08-25] MEDS: NovoLOG Insulin Flexpen SUBQ SCH ×3 (06:33→17:21)
--- NOTE | 2016-08-25 06:57 | General Progress Note ---
Assessment/Plan Problem List: (1) CLL (chronic lymphocytic leukemia) ICD Codes: C91.10 - Chronic lymphocytic leukemia of B-cell type not having achieved remission SNOMED: 30549125 (2) Thrombocytopenia ICD Codes: D69.6 - Thrombocytopenia, unspecified SNOMED: 336505526 (3) Anemia of chronic disease ICD Codes: D63.8 - Anemia in other chronic diseases classified elsewhere SNOMED: 734375399 (4) Abnormal laboratory test result ICD Codes: R89.9 - Unspecified abnormal finding in specimens from other organs , systems and tissues SNOMED: 809273047 (5) Hyperkalemia ICD Codes: E87.5 - Hyperkalemia SNOMED: 10493505 Status: stable, progressing, tolerating diet Assessment/Plan ot pt diet heme follow up cbc bmp am dc plan snf Subjective Constitutional: Reports: weakness Allergies: Coded Allergies: No Known Allergies (Unverified , 08/21/16) All Systems: reviewed and negative except above Subjective calm in bed Objective Last 24 Hour Vital Signs Date Time Temp Pulse Resp B/P Pulse Ox O2 Delivery O2 Flow Rate FiO2 08/25/16 04:00 97.5 51 17 142/69 96 Room Air 08/25/16 00:00 97.7 48 16 146/72 98 Room Air 08/24/16 19:56 67 18 Room Air 08/24/16 19:00 97.7 52 20 151/84 99 Room Air 08/24/16 16:00 98.2 54 20 121/67 97 Room Air 08/24/16 15:43 53 08/24/16 11:57 97.7 48 14 132/78 99 Room Air 08/24/16 09:00 51 08/24/16 08:42 97.2 51 14 120/74 98 Room Air 08/24/16 07:35 65 18 Room Air 21 Intake and Output 08/24/16 08/25/16 19:00 07:00 Intake Total 1220 ml 970 ml Balance 1220 ml 970 ml Intake Oral 1000 ml 720 ml IV Total 220 ml 250 ml # Voids 2 5 Height (Feet): 5 Height (Inches): 9.00 Weight (Pounds): 200 General Appearance: lethargic EENT: normal ENT inspection Neck: normal alignment Cardiovascular: normal peripheral pulses, normal rate, regular rhythm Respiratory/Chest: chest wall non-tender, lungs clear, normal breath sounds Abdomen: normal bowel sounds, non tender, soft Extremities: normal inspection Edema: no edema noted Arm (L), no edema noted Arm (R), no edema noted Leg (L), no edema noted Leg (R), no edema noted Pedal (L), no edema noted Pedal (R), no edema noted Generalized Neurologic: responsive, motor weakness Skin: normal pigmentation, warm/dry CATHIE AGLE Aug 25, 2016 06:57
[2016-08-25 08:07] LABS: ANION GAP 12 (5-15); CALCIUM 9.5 mg/dL (8.6-10.2); CARBON DIOXIDE 28 mEQ/L (20-30); CHLORIDE 102 mEQ/L (98-107); HEMOLYSIS 6; POTASSIUM 4.2 mEQ/L (3.4-4.9); SODIUM 142 mEQ/L (135-145)
[2016-08-25 08:09] VITALS: BP 130/69
[2016-08-25] MEDS: Aspirin EC 81mg tab ORAL SCH (08:33)
[2016-08-25] MEDS: Digoxin 0.125mg tab ORAL SCH (08:33)
[2016-08-25] MEDS: Allopurinol 100mg Tab ORAL SCH (08:34)
[2016-08-25] MEDS: Heparin 5000 units/ml inj SUBQ SCH (08:34)
[2016-08-25 08:36] LABS: MEAN CORPUSCULAR HEMOGLOBIN 32.4 PG (27.0-31.0); MEAN CORPUSCULAR HGB CONC 33.2 G/DL (32.0-36.0); MEAN CORPUSCULAR VOLUME 98 FL (80-99); MEAN PLATELET VOLUME 9.7 FL (6.5-10.1); PLATELET COUNT 100 K/UL (150-450); RED BLOOD COUNT 3.44 M/UL (4.70-6.10)
[2016-08-25 08:38] LABS: WHITE BLOOD COUNT 31.9 K/UL (4.8-10.8)
[2016-08-25 11:40] VITALS: BP 129/67
[2016-08-25 12:47] LABS: LYMPHOCYTES % (MANUAL) 96 % (20-45); NEUTROPHILS % (MANUAL) 3 % (45-75); TOTAL CELLS COUNTED 100
[2016-08-25 12:48] LABS: BAND NEUTROPHILS % (MANUAL) 0 % (0-8); BASOPHILS % (MANUAL) 0 % (0-2); EOSINOPHILS % (MANUAL) 0 % (0-3); PLATELET ESTIMATE DECREASED; PLATELET MORPHOLOGY NORMAL
[2016-08-25 12:49] LABS: ANISOCYTOSIS 1+; HYPOCHROMASIA 1+
--- NOTE | 2016-08-25 15:06 | Pulmonology Progress Note ---
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 Neoplastic versus inflammatory. Nonspecific nodes in the mediastinum. 4 x 2.8 x 3.5 cm right T9-10 paravertebral mass. This is suspicious for a nerve sheath tumor. Appropriate evaluation would include MRI with gadolinium. Splenomegaly Gallstones Mild left basal atelectasis academic counselor on smoking cessation declined Nicotine patch CT chest to be repeated with IV contrast MRI with contrast as outpatient for workup for paravertebral mass Venous Duplex BLE negative CXR + CM, elevated left hemidiaphragm abdominal US + cholelithiasis, chronic liver disease LFT stable, hep panel negative BS management with SS of insulin DVT prophylaxis TSH and free T 4 stable, small in free T3, continue current dose of Levothyroxine, check thyroid panel in 3-4 week case discussed and evaluated by supervising physician Subjective Allergies: Coded Allergies: No Known Allergies (Unverified , 08/21/16) Subjective persistent leukocytosis, trendign down , afebrile denies any complaints : no SOB, no chest pain, long hx of smoking, still smoking 2-3 cigarettes a quan Objective Last 24 Hour Vital Signs Date Time Temp Pulse Resp B/P Pulse Ox O2 Delivery O2 Flow Rate FiO2 08/25/16 11:40 97.0 57 14 129/67 97 Nasal Cannula 08/25/16 08:33 53 08/25/16 08:09 98.1 54 14 130/69 97 Room Air 08/25/16 07:34 64 18 Room Air 08/25/16 04:00 97.5 51 17 142/69 96 Room Air 08/25/16 00:00 97.7 48 16 146/72 98 Room Air 08/24/16 19:56 67 18 Room Air 08/24/16 19:00 97.7 52 20 151/84 99 Room Air 08/24/16 16:00 98.2 54 20 121/67 97 Room Air 08/24/16 15:43 53 Intake and Output 08/24/16 08/25/16 19:00 07:00 Intake Total 1220 ml 970 ml Balance 1220 ml 970 ml Intake Oral 1000 ml 720 ml IV Total 220 ml 250 ml # Voids 2 5 Objective General Appearance: WD/WN, no acute distress HEENT: normocephalic, atraumatic, anicteric, mucous membranes moist Respiratory/Chest: lungs clear - with moderate air entry , no respiratory distress, no accessory muscle use Cardiovascular: normal rate, regular rhythm, no JVD Abdomen: normal bowel sounds, soft, non tender, non distended Neurologic/Psychiatric: no motor/sensory deficits, alert, oriented x 3, responsive Laboratory Tests 08/25/16 07:05: White Blood Count 31.9*H, Red Blood Count 3.44L, Hemoglobin 11.2L, Hematocrit 33.7L, Mean Corpuscular Volume 98, Mean Corpuscular Hemoglobin 32.4H, Mean Corpuscular Hemoglobin Concent 33.2, Red Cell Distribution Width 15.0H, Platelet Count 100L, Mean Platelet Volume 9.7, Neutrophils (%) (Auto) , Lymphocytes (%) (Auto) , Monocytes (%) (Auto) , Eosinophils (%) (Auto) , Basophils (%) (Auto) , Differential Total Cells Counted 100, Neutrophils % ( Manual) 3L, Lymphocytes % (Manual) 96H, Monocytes % (Manual) 1, Eosinophils % ( Manual) 0, Basophils % (Manual) 0, Band Neutrophils 0, Platelet Estimate DecreasedL, Platelet Morphology Normal, Hypochromasia 1+, Anisocytosis 1+, Sodium Level 142, Potassium Level 4.2, Chloride Level 102, Carbon Dioxide Level 28, Anion Gap 12, Blood Urea Nitrogen 17, Creatinine 1.0, Estimat Glomerular Filtration Rate , Glucose Level 176H, Calcium Level 9.5 Current Medications Medications (Trade) Dose Ordered Sig/Pura Route PRN Reason Start Time Stop Time Status Last Admin Dose Admin Acetaminophen (Tylenol) 650 mg Q4H PRN ORAL fever 08/21/16 22:00 09/20/16 21:59 08/23/16 01:23 Albuterol/ Ipratropium (DuoNeb 0.5-3(2.5)mg/3ml) 3 ml Q4H PRN HHN Shortness of Breath 08/21/16 22:00 08/26/16 21:59 Allopurinol (Zyloprim) 100 mg DAILY ORAL 08/22/16 09:00 09/21/16 08:59 08/25/16 08:34 Aspirin (Ecotrin) 81 mg DAILY ORAL 08/22/16 09:00 09/21/16 08:59 08/25/16 08:33 Atorvastatin Calcium (Lipitor) 10 mg BEDTIME ORAL 08/22/16 21:00 09/21/16 20:59 08/24/16 22:09 Dextrose (Dextrose 50%) STAT PRN IV Hypoglycemia 08/21/16 22:45 09/20/16 22:44 Digoxin 0.125 mg 0.125 mg DAILY ORAL 08/22/16 09:00 09/21/16 08:59 Heparin Sodium (Porcine) (Heparin 5000 units/ml) 5,000 units EVERY 12 HOURS SUBQ 08/22/16 21:00 09/21/16 20:59 Insulin Aspart (NovoLOG) BEFORE MEALS AND HS SUBQ 08/22/16 06:30 09/21/16 06:29 08/25/16 12:24 Morphine Sulfate (Morphine Sulfate) 2 mg Q4H PRN IVP Moderate Pain (Pain Scale 4-6) 08/21/16 22:00 08/28/16 21:59 Mupirocin (Bactroban Oint) 1 applic THREE TIMES A DAY TOPIC 08/24/16 18:00 08/29/16 13:01 08/25/16 12:23 Nitroglycerin (Ntg) 0.4 mg Q5M X 3 DOSES PRN SL Prn Chest Pain 08/21/16 22:00 09/20/16 21:59 Ondansetron HCl (Zofran) 4 mg Q6H PRN IVP Nausea & Vomiting 08/21/16 22:00 09/20/16 21:59 Polyethylene Glycol (Miralax) 17 gm DAILYPRN PRN ORAL Constipation 08/21/16 22:00 09/20/16 21:59 Sodium Chloride (Sodium Chloride 1000ml bag) 1,000 ml @ 50 mls/hr Q20H IVLG 08/22/16 00:21 09/21/16 00:20 2/28/17 22:54 Temazepam (Restoril) 15 mg HSPRN PRN ORAL Insomnia 08/21/16 22:00 08/28/16 21:59 Hesham ([facility])Kristen NP Aug 25, 2016 15:06
[2016-08-25 16:18] VITALS: BP 146/67
--- NOTE | 2016-08-25 16:44 | Nephrology Progress Note ---
Assessment/Plan Problem List: (1) Hyperkalemia Assessment: corrected. (2) Anemia of chronic disease (3) Thrombocytopenia (4) CLL (chronic lymphocytic leukemia) (5) Leukocytosis (leucocytosis) (6) Acute renal failure (ARF) Assessment: resolved. (7) MRSA nasal colonization Plan d/c IVF. monitor off fluids as patient has good po intake. monitor labs. dW Dr. Pelayo. Subjective Subjective tolerating po intake. Objective Objective Last 24 Hour Vital Signs Date Time Temp Pulse Resp B/P Pulse Ox O2 Delivery O2 Flow Rate FiO2 08/25/16 16:18 97.7 51 14 146/67 98 Room Air 08/25/16 11:40 97.0 57 14 129/67 97 Nasal Cannula 08/25/16 08:33 53 08/25/16 08:09 98.1 54 14 130/69 97 Room Air 08/25/16 07:34 64 18 Room Air 08/25/16 04:00 97.5 51 17 142/69 96 Room Air 08/25/16 00:00 97.7 48 16 146/72 98 Room Air 08/24/16 19:56 67 18 Room Air 08/24/16 19:00 97.7 52 20 151/84 99 Room Air Intake and Output 08/24/16 08/25/16 19:00 07:00 Intake Total 1220 ml 970 ml Balance 1220 ml 970 ml Intake Oral 1000 ml 720 ml IV Total 220 ml 250 ml # Voids 2 5 Laboratory Tests 08/25/16 07:05: White Blood Count 31.9*H, Red Blood Count 3.44L, Hemoglobin 11.2L, Hematocrit 33.7L, Mean Corpuscular Volume 98, Mean Corpuscular Hemoglobin 32.4H, Mean Corpuscular Hemoglobin Concent 33.2, Red Cell Distribution Width 15.0H, Platelet Count 100L, Mean Platelet Volume 9.7, Neutrophils (%) (Auto) , Lymphocytes (%) (Auto) , Monocytes (%) (Auto) , Eosinophils (%) (Auto) , Basophils (%) (Auto) , Differential Total Cells Counted 100, Neutrophils % ( Manual) 3L, Lymphocytes % (Manual) 96H, Monocytes % (Manual) 1, Eosinophils % ( Manual) 0, Basophils % (Manual) 0, Band Neutrophils 0, Platelet Estimate DecreasedL, Platelet Morphology Normal, Hypochromasia 1+, Anisocytosis 1+, Sodium Level 142, Potassium Level 4.2, Chloride Level 102, Carbon Dioxide Level 28, Anion Gap 12, Blood Urea Nitrogen 17, Creatinine 1.0, Estimat Glomerular Filtration Rate , Glucose Level 176H, Calcium Level 9.5 Height (Feet): 5 Height (Inches): 9.00 Weight (Pounds): 200 General Appearance: no apparent distress Cardiovascular: normal rate, regular rhythm Respiratory/Chest: lungs clear Abdomen: non tender, soft MAURA BASS Aug 25, 2016 16:44
--- NOTE | 2016-08-25 18:01 | General Progress Note ---
Assessment/Plan Assessment/Plan Assessment/Plan Assessment: # CLL - wbc is stable at approximately 40k, no end organ damage, splenomegaly, abdominal pain, fevers, chills, doubling time of wbc is unknown. Patient does have anemia and thrombcytopenia which may indicate he will require treatment. His baseline counts are unknown. Flow cytometry shows CLL on 08/22/16 # Anemia of chronic disease # Thrombocytopenia likely related to CLL # Elevated left hemidiaphragm # Weakness # 4 x 2.8 x 3.5 cm right T9-10 paravertebral mass. # Hypogammaglobinemia Recommendations: - Monitor counts - Transfuse to hgb >7 - Transfuse to plt count >20k - MRi with gadolinium can be completed as an outpatient - Peripheral smear has been reviewed, has CLL - Followup with Dr. Lujan, hematology for potential treatment - Have reviewed immunoglobulins, may need IVIG as an outpatient - Staff Thank you, Eduardo Ortega MD Subjective Constitutional: Reports: no symptoms HEENT: Reports: no symptoms Cardiovascular: Reports: no symptoms Respiratory: Reports: no symptoms Gastrointestinal/Abdominal: Reports: no symptoms Genitourinary: Reports: no symptoms Neurologic/Psychiatric: Reports: no symptoms Endocrine: Reports: no symptoms Hematologic/Lymphatic: Reports: no symptoms Allergies: Coded Allergies: No Known Allergies (Unverified , 08/21/16) Objective Last 24 Hour Vital Signs Date Time Temp Pulse Resp B/P Pulse Ox O2 Delivery O2 Flow Rate FiO2 08/25/16 16:18 97.7 51 14 146/67 98 Room Air 08/25/16 11:40 97.0 57 14 129/67 97 Nasal Cannula 08/25/16 08:33 53 08/25/16 08:09 98.1 54 14 130/69 97 Room Air 08/25/16 07:34 64 18 Room Air 08/25/16 04:00 97.5 51 17 142/69 96 Room Air 08/25/16 00:00 97.7 48 16 146/72 98 Room Air 08/24/16 19:56 67 18 Room Air 08/24/16 19:00 97.7 52 20 151/84 99 Room Air Intake and Output 08/24/16 08/25/16 19:00 07:00 Intake Total 1220 ml 970 ml Balance 1220 ml 970 ml Intake Oral 1000 ml 720 ml IV Total 220 ml 250 ml # Voids 2 5 Laboratory Tests 08/25/16 07:05: White Blood Count 31.9*H, Red Blood Count 3.44L, Hemoglobin 11.2L, Hematocrit 33.7L, Mean Corpuscular Volume 98, Mean Corpuscular Hemoglobin 32.4H, Mean Corpuscular Hemoglobin Concent 33.2, Red Cell Distribution Width 15.0H, Platelet Count 100L, Mean Platelet Volume 9.7, Neutrophils (%) (Auto) , Lymphocytes (%) (Auto) , Monocytes (%) (Auto) , Eosinophils (%) (Auto) , Basophils (%) (Auto) , Differential Total Cells Counted 100, Neutrophils % ( Manual) 3L, Lymphocytes % (Manual) 96H, Monocytes % (Manual) 1, Eosinophils % ( Manual) 0, Basophils % (Manual) 0, Band Neutrophils 0, Platelet Estimate DecreasedL, Platelet Morphology Normal, Hypochromasia 1+, Anisocytosis 1+, Sodium Level 142, Potassium Level 4.2, Chloride Level 102, Carbon Dioxide Level 28, Anion Gap 12, Blood Urea Nitrogen 17, Creatinine 1.0, Estimat Glomerular Filtration Rate , Glucose Level 176H, Calcium Level 9.5 Height (Feet): 5 Height (Inches): 9.00 Weight (Pounds): 200 General Appearance: alert Neck: supple Cardiovascular: regular rhythm Respiratory/Chest: lungs clear Abdomen: soft Extremities: non-tender Edema: no edema noted Arm (L), no edema noted Arm (R), no edema noted Leg (L), no edema noted Leg (R), no edema noted Pedal (L), no edema noted Pedal (R), no edema noted Generalized Edema: mild edema Neurologic: abnormal gait Lymphatic: normal anterior cervical (L), normal anterior cervical (R), normal axillary (L), normal axillary (R), normal inguinal (L), normal inguinal (R), normal other, normal posterior cervical (L), normal posterior cervical (R), normal submandibular (L), normal submandibular (R), normal supraclavicular (L), normal supraclavicular (R) EDUARDO ORTEGA Aug 25, 2016 18:01
--- NOTE | 2016-08-27 15:07 | Discharge Summary ---
Discharge Summary Hospital Course Date of Admission Aug 21, 2016 at 15:00 Date of Discharge Aug 25, 2016 at 18:30 Admitting Diagnosis ELEVATED WBC, Lymphocytosis HPI Denver Oneal is a 76 year old male who was admitted on Aug 21, 2016 at 15:00 for Elevated White Blood Cell,Lymphocytosis Hospital Course dc summary # [id number] Discharge Medications Continued Medications: Allopurinol* (Allopurinol*) 100 Mg Tablet 100 MG ORAL DAILY, TAB Aspirin (Aspirin EC) 81 Mg Tablet.dr 81 MG ORAL DAILY, TAB Atorvastatin Calcium* (Lipitor*) 10 Mg Tablet 10 MG ORAL BEDTIME, TAB Digoxin* (Digoxin*) 125 Mcg Tablet 125 MCG ORAL DAILY, TAB Insulin Aspart* (Novolog*) 100 Unit/1 Ml Insuln.pen 0 SUBQ, #1 EA 0 Refills Mupirocin Calcium (Bactroban) 15 Gm Cream..g. 1 APPLIC TOPIC THREE TIMES A DAY, GM Discharge Condition Upon Discharge: stable Discharge Disposition Patient was discharged to SNF/Subacute Facility(03) Discharge Diagnoses: [facility]ham ([facility])Kristen NP Aug 27, 2016 15:07
--- NOTE | 2016-08-28 08:28 | Discharge Summary 2 SIG ---
DATE OF ADMISSION: 08/21/2016 DATE OF DISCHARGE: 08/25/2016 REASON FOR ADMISSION: 76-year-old male was sent from the senior living facility for leukocytosis over 40,000. The patient had been in the hospital in May and was found to have chronic lymphocytic leukemia. The patient upon arrival did not have any complaints. No fever or chills. He was dizzy, however pleasant and cooperative. The patient has underlying history of schizophrenia. The patient's workup revealed white blood count of 46.9, hemoglobin 10.9, and hematocrit 34.1. Evidence of renal failure/ insufficiency. EKG showed normal sinus rhythm. No ectopy. No ischemic changes. Chest x-ray revealed no acute cardiopulmonary disease, no pneumothorax, no effusion, but elevated left hemidiaphragm. Patient was afebrile, pulse oximetry was stable on the room air. The patient admitted for further management per Hematology/Oncology evaluation. ADMITTING DIAGNOSES: 1. Leukocytosis. 2. Chronic lymphocytic leukemia. 3. Acute renal failure. 4. Anemia of chronic disease. 5. Hyperkalemia. HOSPITAL STAY: The patient admitted to Med/Surg floor. Nephrology, Infectious Disease . and Oncology consults were requested. Per test rider, the patient currently did not have no fever, chills, or splenomegaly. No recurrent infection or obstructing symptoms . The patient noted to have anemia which was likely secondary to chronic lymphocytic leukemia. There was a thrombocytopenia. Chronic lymphocytic leukemia involving bone marrow. The patient had pancytopenia ( anemia with thrombocytopenia) upon presentation,which could be an indication for treatment. as per oncologist. The patient had a physician Dr. Lujan, whom he will follow up in the future. Leukocytosis likely secondary to chronic lymphocytic leukemia. Hepatitis panel and HIV were negative. Digital Editor also seen the patient due to the acute renal failure. Upon admission, creatinine was 1.5, BUN 35, potassium 5.9. On discharge day, creatinine down to 1.0, BUN 17, and potassium 4.2. According to in service education teacher, acute renal failure developed due to the dehydration , likely prerenal. Initially on intravenous fluids. which were discontinued as creatinine down to normal. Treatment for hyperkalemia was rendered and potassium stable since then. Pain management provided. Initially, chest x-ray revealed elevated left hemidiaphragm. Subsequently, CT of the chest was ordered which revealed ancillary lymphadenopathy nonspecific. Neoplastic versus inflammatory. T9-T10 paravertebral mass 4 x 2.8 x 3.5 cm suspicious for nerve sheath tumor. Appropriate evaluation could be done by MRI as outpatient. The test rider/oncologist concurrent with an MRI to be done as an outpatient. Venous duplex bilateral lower extremities was negative. Empiric antibiotics provided. Flow cytometry was consistent with chronic lymphocytic leukemia. , oncologist, recommended outpatient Oncology follow up for treatment of chronic lymphocytic leukemia. MRI with contrast as outpatient for workup of paravertebral mass. Abdominal ultrasound revealed cholelithiasis and chronic liver disease. LFT stable. Hepatitis panel negative. It should be mentioned the CT of the chest was done without contrast because at that time the patient was in acute renal failure . Recommended to repeat CT of the chest with contrast to better evaluate the paravertebral mass as well as the lymphadenopathy as outpatient. TSH and free T4 were stable. Noted small decrease in free T3. Continue current dose of levothyroxine, but check thyroid panel in three to four weeks. DVT prophylaxis provided. Blood sugar was managed with sliding scale of insulin.The patient was counseled on smoking cessation. Recommended CT of the chest to be repeated in few months with contrast. The patient was stable for discharge. DISCHARGE DIAGNOSES: 1. Chronic lymphocytic leukemia. 2. Leukocytosis likely secondary to chronic lymphocytic leukemia. 3. Anemia of chronic disease. 4. Thrombocytopenia. 5. Acute renal failure/resolved. 6. Hyperkalemia/resolved. 7. 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 8. Axillary lymphadenopathy likely related to chronic lymphocytic leukemia. 9. Cholelithiasis. 10. Diabetes mellitus. 11. Hypothyroidism. 12. Questionable history of lung cancer. 13. Active smoker. 14. Multiple mediastinal nonspecific nodules. t. DISCHARGE MEDICATIONS: See medication reconciliation list. DISCHARGE INSTRUCTIONS: The patient to follow up with the primary medical doctor as well as with the oncologist. Dr. Lujan for further management. Mart Crowell D.O. Kristen Dahl ([facility] HospitalSatnam N.PGilbert DR: Isabella JOB#: [id number] CC: PERICO
== END 2016-08-25 18:30 | DRG 841 ==
LOC: EDBD 12:26 → EMR 13:10 → 4E 15:00 → EDBEDREQ 16:39
DX: C91.10 Chronic lymphocytic leukemia of B-cell type not having achieved remission (principal); N17.9 Acute kidney failure, unspecified; D61.818 Other pancytopenia; D80.1 Nonfamilial hypogammaglobulinemia; E11.8 Type 2 diabetes mellitus with unspecified complications; E87.5 Hyperkalemia; E86.0 Dehydration; E03.9 Hypothyroidism, unspecified; Z79.4 Long term (current) use of insulin; D49.2 Neoplasm of unspecified behavior of bone, soft tissue, and skin; R59.0 Localized enlarged lymph nodes; K80.20 Calculus of gallbladder without cholecystitis without obstruction; Z85.118 Personal history of other malignant neoplasm of bronchus and lung; F17.200 Nicotine dependence, unspecified, uncomplicated; Z22.322 Carrier or suspected carrier of Methicillin resistant Staphylococcus aureus; F20.9 Schizophrenia, unspecified
CPT/HCPCS: 36415; 71010; 71250; 76700; 80048; 80053; 81001; 82436; 82533; 82550; 82784; 82962; 83010; 83735; 83930; 83935; 84100; 84133; 84300; 84439; 84443; 84481; 84550; 85007; 85025; 85060; 86703; 86705; 86709; 86803; 87081; 87340; 89050; 93970; 94664; 97803; J1815

== ENCOUNTER 2018-07-04 17:20 | Inpatient (IN) | payer MEDICARE, MEDICAID ==
[~2018-07-04] VITALS: Ht 172.7 cm; Wt 73.5 kg
[~2018-07-04 17:20] MED LIST: ACTOS45 MG ORAL; ALLOPURINOL100 M1 ORAL; ASPIR 8181 MG ORAL; ASPIRIN-LOW81 MG ORAL; ATORVASTATIN CA10 MG ORAL; BACTROBAN CR1 APPLIC TOPIC; BACTROBAN NASAL1 GM NASAL; BENAZEPRIL HCL10 MG ORAL; DIGOXIN0.125 MG/2 ORAL; DIGOXIN125 MCG ORAL; FUROSEMIDE40 MG ORAL; IMBRUVICA140 MG PO; JANUVIA25 MG ORAL; LIPITOR80 MG ORAL; LOSARTAN POTASS50 MG ORAL; METFORMIN HCL1000 M1 ORAL; METOPROLOL TART25 MG ORAL; NOVOLOG100 UNIT/3 SUBQ; NOVOLOG100 UNIT/5; PANTOPRAZOLE SO40 MG ORAL; RISPERDAL2 MG ORAL; SPIRONOLACTONE1 EACH ORAL; ZOLPIDEM TARTRAT5 MG ORAL; glimepiride PO
[2018-07-04] MEDS ORDERED: ACIDOPHILUS1 EAC6 PO (17:28)
[2018-07-04] MEDS ORDERED: LEXAPRO10 MG ORAL (17:28)
[2018-07-04] MEDS ORDERED: FOLIC ACID1 MG ORAL (17:28)
[2018-07-04] MEDS ORDERED: QUETIAPINE FUMA50 MG ORAL (17:28)
[2018-07-04] MEDS ORDERED: MULTI VITAMIN1 EACH ORAL (17:28)
--- NOTE | 2018-07-04 17:29 | NUR ---
Pt brought by [facility] from [facility] c/o abdominal pain since one week ago. Per EMS, pt had n/v/d as well. Pt states 8/10 abdominal pain and shortness of breath. On assessment, pt a&ox3, elevated BP, O2 at 98% RA. Bowel sounds heard in all quadrants, no active v/d on shift. Pt has open skin on left shoulder; pt unable to explain how he got it. Pt has multiple brusies on hands and upper extremities. ERMD at pt side; will continue to [facility].
[2018-07-04] MEDS ORDERED: Sodium Chloride 500ML 500 ML IV ONE (17:45)
[2018-07-04] MEDS ORDERED: Isovue-300 100ml vial INJ PRN (17:45)
[2018-07-04 18:19] LABS: APPEARANCE,URINE CLEAR; BILIRUBIN, URINE NEGATIVE (NEGATIVE); COLOR,URINE YELLOW; GLUCOSE, URINE (UA) NEGATIVE (NEGATIVE); KETONES,URINE 2+ (NEGATIVE); LEUKOCYTE ESTERASE ,URINE 1+ (NEGATIVE); NITRITE,URINE NEGATIVE (NEGATIVE); PH,URINE 9 (4.5-8.0); PROTEIN,URINE NEGATIVE (NEGATIVE); UROBILINOGEN,URINE NORMAL MG/DL (0.0-1.0)
[2018-07-04 18:19] LABS: BASOPHILS % (AUTO) 0.6 % (0.0-2.0); EOSINOPHILS % (AUTO) 0.5 % (0.0-3.0); HEMATOCRIT 36.7 % (42.0-52.0); HEMOGLOBIN 12.2 G/DL (14.2-18.0); LYMPHOCYTES % (AUTO) 41.8 % (20.0-45.0); MEAN CORPUSCULAR VOLUME 94 FL (80-99); MONOCYTES % (AUTO) 2.2 % (1.0-10.0); NEUTROPHILS % (AUTO) 54.9 % (45.0-75.0); PLATELET COUNT 212 K/UL (150-450); RED BLOOD COUNT 3.89 M/UL (4.70-6.10); RED CELL DISTRIBUTION WIDTH 12.4 % (11.6-14.8); WHITE BLOOD COUNT 8.5 K/UL (4.8-10.8)
[2018-07-04 18:24] LABS: ANION GAP 10 mmol/L (5-15); BLOOD UREA NITROGEN 15 mg/dL (7-18); CALCIUM 10.2 MG/DL (8.5-10.1); CARBON DIOXIDE 27 MMOL/L (21-32); CHLORIDE 104 MMOL/L (98-107); CREATININE 0.9 MG/DL (0.55-1.30); POTASSIUM 4.3 MMOL/L (3.5-5.1); SODIUM 141 MMOL/L (136-145)
[2018-07-04 18:30] LABS: ALANINE AMINOTRANSFERASE 17 U/L (12-78); ALBUMIN 3.8 G/DL (3.4-5.0); ALBUMIN/GLOBULIN RATIO 1.1 (1.0-2.7); ALKALINE PHOSPHATASE 119 U/L (46-116); ASPARTATE AMINO TRANSFERASE 15 U/L (15-37); BILIRUBIN,TOTAL 0.7 MG/DL (0.2-1.0)
--- NOTE | 2018-07-04 18:41 | NUR ---
ED Nurse Note: Patient taken down for CT scan. Consent for injection of contrast material signed by patient. Per patient, patient had the scan before and did not develop any reaction.
--- NOTE | 2018-07-04 19:30 | NUR ---
ER Nurse Note: Gave report to KRISTOFER Crabtree.
[2018-07-04 19:41] VITALS: BP 143/86
--- NOTE | 2018-07-04 19:44 | NUR ---
ED Nurse Note: Finished remaining assessments. Gave patient a sanwich and juice upon request. patient is awake, alert and oriented x4, still has acute pain in the right upper abdominal area. Patient states that he has no open wounds or areas that are sore tat indicate pressure injury potentials.
--- NOTE | 2018-07-04 19:48 | NUR ---
ED Nurse Note: Noticed that patient IV at the right forearm has infiltrated. IV fluids are completed. Will DC IV and start another.
--- NOTE | 2018-07-04 19:49 | NUR ---
ED Nurse Note: Nasal swab collected, rectal swab previously obtained.
[2018-07-04] MEDS ORDERED: Miralax 17gm pkt ORAL PRN (20:00)
[2018-07-04] MEDS ORDERED: Nitroglycerin Subl 0.4mg tab SL PRN (20:00)
[2018-07-04] MEDS ORDERED: Ketorolac 30mg Inj IV PRN (20:00)
[2018-07-04] MEDS ORDERED: Morphine Sulfate 4mg/ml Inj (IV/IM USE ONLY) IVP PRN (20:00)
[2018-07-04] MEDS ORDERED: SEROQUEL25 MG ORAL (20:27)
[2018-07-04] MEDS ORDERED: METFORMIN HCL500 M1 ORAL (20:27)
[2018-07-04] MEDS ORDERED: DOCUSATE SODIU100 MG ORAL (20:35)
[2018-07-04] MEDS ORDERED: SULFACETAMIDE S15 ML LEFT EYE (20:35)
--- NOTE | 2018-07-04 21:23 | Emergency Room Report ---
History of Present Illness General Chief Complaint: Abdominal Pain Source: Patient, Medical Record Present Illness HPI 78-year-old male presents ED for evaluation. Brought in by EMS for abdominal pain with vomiting and diarrhea times one week. Pain is cramping 8 out of 10, epigastric, nonradiating. Patient points to his chest. Denies shortness of breath. Denies fevers or chills. Unable to tolerate by mouth. No other aggravating relieving factors. Denies any other associated symptoms Allergies: Coded Allergies: No Known Allergies (Unverified , 08/21/16) Patient History Past Medical History: DM, HTN, COPD, psych hx Past Surgical History: none Pertinent Family History: none Social History: Denies: smoking, alcohol use, drug use Immunizations: UTD Reviewed Nursing Documentation: PMH: Agreed; PSxH: Agreed Nursing Documentation-PMH Past Medical History: No History, Except For Hx Cardiac Problems: Yes - anemia Hx Hypertension: Yes Hx COPD: Yes Hx Diabetes: Yes Hx Cancer: Yes Hx Gastrointestinal Problems: No History Of Psychiatric Problem: Yes - depression, schizoprenia Hx Neurological Problems: No - muscle weakness, poor cordination Review of Systems All Other Systems: negative except mentioned in HPI Physical Exam Vital Signs Date Time Temp Pulse Resp B/P (MAP) Pulse Ox O2 Delivery O2 Flow Rate FiO2 07/04/18 17:21 97.5 54 18 158/71 100 Room Air Sp02 EP Interpretation: reviewed, normal General Appearance: no apparent distress, alert, GCS 15, non-toxic Head: normocephalic, atraumatic Eyes: bilateral eye normal inspection, bilateral eye PERRL ENT: hearing grossly normal, normal pharynx, no angioedema, normal voice Neck: full range of motion, supple/symm/no masses Respiratory: chest non-tender, lungs clear, normal breath sounds, speaking full sentences Cardiovascular #1: regular rate, rhythm, no edema Cardiovascular #2: 2+ carotid (R), 2+ carotid (L), 2+ radial (R), 2+ radial (L) , 2+ dorsalis pedis (R), 2+ dorsalis pedis (L) Gastrointestinal: normal bowel sounds, soft, non-distended, no guarding, no rebound, tenderness Rectal: deferred Genitourinary: normal inspection, no CVA tenderness Musculoskeletal: back normal, gait/station normal, normal range of motion, non- tender Neurologic: alert, oriented x3, responsive, motor strength/tone normal, sensory intact, speech normal Psychiatric: judgement/insight normal, memory normal, mood/affect normal, no suicidal/homicidal ideation Reflexes: 3+ bicep (R), 3+ bicep (L), 3+ tricep (R), 3+ tricep (L), 3+ knee (R) , 3+ knee (L) Skin: normal color, no rash, warm/dry, well hydrated Lymphatic: no adenopathy Medical Decision Making Diagnostic Impression: Primary Impression: Intractable nausea and vomiting Qualified Codes: R11.2 - Nausea with vomiting, unspecified Additional Impressions: Pleural mass Cholelithiasis Qualified Codes: K80.80 - Other cholelithiasis without obstruction ER Course Hospital Course 78 yo M presents to ED c/o abd pain and vomiting Differential diagnoses include: BPH, cystitis, pyelonephritis, kidney stone Clinical course Patient placed on stretcher. wound care nurse. After initial history and physical I ordered labs, IV fluids, UA, meds, and CT scan Labs - no leukocytosis, Hb/Hct stable. electrolytes ok, trop negative. EKG - NSR, no acute ischemcic changes interpreted by me CT abdomen and pelvis - R pleural mass, cholelithiasis, no cholecystitis Patient continues to have pain and vomiting. We will admit Case discussed with Dr. Crowell and he agreed to accept the patient to his service for further care and support I feel this is a highly complex case requiring extensive working including EKG/ Rhythm strip, Xray/CT/US, Blood/urine lab work, repeat exams while in ED, and administration of strong opiates/narcotics for pain control, admission to hospital or close patient follow up. Diagnosis -intractable nause and vomiting, cholelithiasis, pleural mass Patient admitted to floor in serious condition Labs Test 07/04/18 18:00 07/04/18 18:03 Urine Color Yellow Urine Appearance Clear Urine pH 9 (4.5-8.0) Urine Specific [place] 1.015 (1.005-1.035) Urine Protein Negative (NEGATIVE) Urine Glucose (UA) Negative (NEGATIVE) Urine Ketones 2+ (NEGATIVE) Urine Blood Negative (NEGATIVE) Urine Nitrite Negative (NEGATIVE) Urine Bilirubin Negative (NEGATIVE) Urine Urobilinogen Normal MG/DL (0.0-1.0) Urine Leukocyte Esterase 1+ (NEGATIVE) Urine RBC 0-2 /HPF (0 - 0) Urine WBC 0-2 /HPF (0 - 0) Urine Squamous Epithelial Cells None /LPF (NONE/OCC) Urine Bacteria Few /HPF (NONE) White Blood Count 8.5 K/UL (4.8-10.8) Red Blood Count 3.89 M/UL (4.70-6.10) Hemoglobin 12.2 G/DL (14.2-18.0) Hematocrit 36.7 % (42.0-52.0) Mean Corpuscular Volume 94 FL (80-99) Mean Corpuscular Hemoglobin 31.4 PG (27.0-31.0) Mean Corpuscular Hemoglobin Concent 33.3 G/DL (32.0-36.0) Red Cell Distribution Width 12.4 % (11.6-14.8) Platelet Count 212 K/UL (150-450) Mean Platelet Volume 8.2 FL (6.5-10.1) Neutrophils (%) (Auto) 54.9 % (45.0-75.0) Lymphocytes (%) (Auto) 41.8 % (20.0-45.0) Monocytes (%) (Auto) 2.2 % (1.0-10.0) Eosinophils (%) (Auto) 0.5 % (0.0-3.0) Basophils (%) (Auto) 0.6 % (0.0-2.0) Sodium Level 141 MMOL/L (136-145) Potassium Level 4.3 MMOL/L (3.5-5.1) Chloride Level 104 MMOL/L (98-107) Carbon Dioxide Level 27 MMOL/L (21-32) Anion Gap 10 mmol/L (5-15) Blood Urea Nitrogen 15 mg/dL (7-18) Creatinine 0.9 MG/DL (0.55-1.30) Estimat Glomerular Filtration Rate mL/min (>60) Glucose Level 110 MG/DL (74-106) Calcium Level 10.2 MG/DL (8.5-10.1) Total Bilirubin 0.7 MG/DL (0.2-1.0) Aspartate Amino Transf (AST/SGOT) 15 U/L (15-37) Alanine Aminotransferase (ALT/SGPT) 17 U/L (12-78) Alkaline Phosphatase 119 U/L (46-116) Troponin I 0.000 ng/mL (0.000-0.056) Total Protein 7.3 G/DL (6.4-8.2) Albumin 3.8 G/DL (3.4-5.0) Globulin 3.5 g/dL Albumin/Globulin Ratio 1.1 (1.0-2.7) Lipase 86 U/L (73-393) EKG Diagnostic Results Rate: normal Rhythm: NSR ST Segments: no acute changes ASA given to the pt in ED: No Rhythm Strip Diag. Results EP Interpretation: yes Rhythm: NSR, no PVC's, no ectopy CT/MRI/US Diagnostic Results CT/MRI/US Diagnostic Results : Imaging Test Ordered: CT A/P Impression IMPRESSION: Pleural-based mass in the right lower lobe with associated soft tissue density extending from its posterior sulcus findings suspicious for neoplasm. No evidence for effusion. There is atelectasis left lung base Extensive intra-abdominal adenopathy with periportal periaortic pericaval adenopathy as well as bilateral internal and external iliac chain and bilateral inguinal chain adenopathy with lymph nodes measuring up to 2.5 cm in these areas. Small scattered mesenteric lymph nodes. Cholelithiasis without evidence of cholecystitis Last Vital Signs Date Time Temp Pulse Resp B/P (MAP) Pulse Ox O2 Delivery O2 Flow Rate FiO2 07/04/18 19:41 54 18 Room Air 07/04/18 19:41 97.5 143/86 100 Status: improved Disposition: ADMITTED INPATIENT Condition: Serious Referrals: Mart Crowell DO (PCP) Joce Shelton MD Jul 04, 2018 21:23
--- NOTE | 2018-07-04 21:24 | Emergency Room Report ---
Physical Exam Vital Signs Date Time Temp Pulse Resp B/P (MAP) Pulse Ox O2 Delivery O2 Flow Rate FiO2 07/04/18 17:21 97.5 54 18 158/71 100 Room Air Medical Decision Making Diagnostic Impression: Primary Impression: Intractable nausea and vomiting Qualified Codes: R11.2 - Nausea with vomiting, unspecified Additional Impressions: Pleural mass Cholelithiasis Qualified Codes: K80.80 - Other cholelithiasis without obstruction ER Course correction: EKG shows RBBB, twave inversions in lateral leads, no acute ischemic changes interpreted by me EKG Diagnostic Results Rate: bradycardiac Rhythm: NSR ST Segments: other - twave inversions in lateral leads ASA given to the pt in ED: No Rhythm Strip Diag. Results EP Interpretation: yes Rhythm: NSR, no PVC's, no ectopy Last Vital Signs Date Time Temp Pulse Resp B/P (MAP) Pulse Ox O2 Delivery O2 Flow Rate FiO2 07/04/18 19:41 54 18 Room Air 07/04/18 19:41 97.5 143/86 100 Disposition: ADMITTED INPATIENT Condition: Serious Referrals: Mart Crowell DO (PCP) Joce Shelton MD Jul 04, 2018 21:24
--- NOTE | 2018-07-04 21:30 | NUR ---
ED Nurse Note: Patient resting comfortably, awaiting bed assignment.
--- NOTE | 2018-07-04 22:30 | NUR ---
ED Nurse Note: Patient cleared for transoort for admission. patient accompanied by RN and technical advisor, along with extensive belongings. Belongings list brought up later. Patient is A&Ox4, no s/s of pain , discomfort or distress. Patient has no wounds.
--- NOTE | 2018-07-04 22:45 | NUR ---
NURSE NOTES: 2229 received report from Leyda in ER. Pt brought up with 2 black bags of clothes and 2 clear bags with a shirt and pants, all belongings at bedside, was on 1 1/2 L O2 in ER, took pt vitals and pt denies sob but O2 on room air fluctuating, with the lowest being 83, placed him on 1 1/2L O2, bed in lowest position, call light within reach. will contact MD for orders.
--- NOTE | 2018-07-04 22:45 | NUR ---
NURSE NOTES: Pt admitted with redness on Rt buttock, picture taken, removed the old hydrocolloid dressing and replaced it.
[2018-07-04 23:00] VITALS: BP 143/75
--- NOTE | 2018-07-04 23:40 | NUR ---
NURSE NOTES: Prepared Insulin for pt, BS 128 and patient refused the medication stating his blood sugar is fine and he doesn't need it. Explained to the patient the reason for the insulin and the sliding scale but patient stated he doesn't need the insulin. Wasted the insulin.
[2018-07-04] MEDS: Heparin 5000 units/ml inj SUBQ SCH (23:50)
[2018-07-04] MEDS: NovoLOG Insulin Flexpen SUBQ SCH (23:51)
--- NOTE | 2018-07-05 01:30 | NUR ---
NURSE NOTES: Attempted to start IV on patient numerous times, while pt is refusing to have attempts on his hand and wrist and unsuccessful. Pt is now refusing the IV. Charge Nurse Jules purdy.
[2018-07-05] MEDS: Mylanta II UD 30ml ORAL PRN ×3 (02:39→19:56)
[2018-07-05] MEDS: NovoLOG Insulin Flexpen SUBQ SCH ×4 (05:42→21:00)
--- NOTE | 2018-07-05 05:45 | NUR ---
NURSE NOTES: Pt BS 137, refusing the insulin, explained the reason for the medication. Pt also refused Januvia medication because he is NPO and will not be having breakfast and having Abdominal ultrasound around 11am.
[2018-07-05] MEDS: sitaGLIPtin 50mg tab ORAL SCH (06:30)
--- NOTE | 2018-07-05 07:43 | NUR ---
HAND-OFF: Report given to KRISTOFER Clement.
[2018-07-05 08:00] VITALS: BP 140/72
[2018-07-05 08:50] LABS: BASOPHILS % (AUTO) 1.1 % (0.0-2.0); EOSINOPHILS % (AUTO) 0.6 % (0.0-3.0); HEMATOCRIT 29.4 % (42.0-52.0); HEMOGLOBIN 9.9 G/DL (14.2-18.0); LYMPHOCYTES % (AUTO) 33.6 % (20.0-45.0); MEAN CORPUSCULAR VOLUME 94 FL (80-99); NEUTROPHILS % (AUTO) 61.6 % (45.0-75.0); PLATELET COUNT 160 K/UL (150-450); RED BLOOD COUNT 3.12 M/UL (4.70-6.10); RED CELL DISTRIBUTION WIDTH 12.2 % (11.6-14.8); WHITE BLOOD COUNT 5.9 K/UL (4.8-10.8)
--- NOTE | 2018-07-05 08:53 | NUR ---
Patient is awake and alert,respirations are unlabored,no nausea.patient requesting mylanta .Abdominal Ultrasound ordered,patient refusing test,patient state they hurt me yesterday,DR Crowell here was here in patient room when pat ient state he does not want the Abdominal Ultrasound and DR Akins was here in patient room when patient refuse the abdominal Ultrasound.Patient has no Iv ,will attempt to start IV, is aware.
[2018-07-05] MEDS ORDERED: Allopurinol 100mg Tab ORAL SCH (09:00)
[2018-07-05] MEDS ORDERED: Digoxin 0.125mg tab ORAL SCH (09:00)
[2018-07-05] MEDS: Heparin 5000 units/ml inj SUBQ SCH ×2 (09:00→20:01)
[2018-07-05 09:43] LABS: ALANINE AMINOTRANSFERASE 7 U/L (12-78); ALBUMIN 2.8 G/DL (3.4-5.0); ALKALINE PHOSPHATASE 91 U/L (46-116); AMYLASE 34 U/L (25-115); ANION GAP 10 mmol/L (5-15); ASPARTATE AMINO TRANSFERASE 16 U/L (15-37); BILIRUBIN,TOTAL 0.3 MG/DL (0.2-1.0); BLOOD UREA NITROGEN 15 mg/dL (7-18); CALCIUM 9.1 MG/DL (8.5-10.1); CARBON DIOXIDE 25 MMOL/L (21-32); CHLORIDE 107 MMOL/L (98-107); POTASSIUM 4.1 MMOL/L (3.5-5.1); SODIUM 142 MMOL/L (136-145)
--- NOTE | 2018-07-05 10:00 | Consultation ---
DATE OF CONSULTATION: 07/05/2018 GASTROENTEROLOGY CONSULTATION CONSULTING PHYSICIAN: La Jeffries M.D. REFERRING PHYSICIAN: Mart Crowell D.O. CHIEF COMPLAINT: I was asked to see this patient by Dr. Mart Crowell for evaluation of abdominal pain. HISTORY OF PRESENT ILLNESS: The patient is a 78-year-old white man who is a poor historian, who was brought in to the emergency room due to abdominal pain. The. The patient does not give much clear answers to the questions. It seems that he has had abdominal cramps for about a week. He denies nausea or vomiting. On admission paperwork, there is nausea and vomiting included. He states his stools are occasionally loose. He thinks he might have had a colonoscopy, but cannot recall. He has had a past admission to [facility] in August 2006. PAST MEDICAL HISTORY: History of diabetes, history of lung cancer, history of chronic lymphocytic leukemia diagnosed in late 2015, history of hypertension, history of hypothyroidism, history of schizophrenia, history of renal failure which has resolved, history of spinous mass, cholelithiasis. FAMILY HISTORY: Not available and noncontributory. SOCIAL HISTORY: The patient has smoking history. He resides in a [employer]. REVIEW OF SYSTEMS: Otherwise negative. MEDICATIONS: See the chart list for details. PHYSICAL EXAMINATION: GENERAL: An elderly white man who would not maintain eye contact and gave evasive answers, seen in his room. HEENT: Normocephalic and atraumatic. Dentition is poor. NECK: Supple. CHEST: Reveals scattered rhonchi. CARDIOVASCULAR: Revealed regular rate. ABDOMEN: Soft with some mild lower abdominal tenderness. EXTREMITIES: No edema. LABORATORY DATA: Noted. ASSESSMENT: This patient presents with some abdominal pain for the past 4-5 days. The tenderness appears to be in the lower abdomen, although it is hard to obtain proper history and physical examination because of his mental behavior. He does not appear to be in severe distress. We will get CT scan of the abdomen and pelvis to be done to rule out significant pathology such as cholecystitis, diverticulitis, or ischemic colitis. After the results are available, then further workup can be determined and I would also check the patient's stool for occult blood. Also stool will be checked for Clostridium difficile. RECOMMENDATIONS: Per above discussion and per orders written in the chart. Thank you for asking me to participate in the care of this patient. aL Jeffries M.D. DR: Devon JOB#: [id number] CC: PERICO
--- NOTE | 2018-07-05 12:17 | Consultation ---
History of Present Illness General Date patient seen: Jul 05, 2018 Chief Complaint: Abdominal Pain Present Illness HPI 78 y/o M with hx of DM2, HTN, anemia, MDD, COPD, lung CA, CLL dx 2016, HTN, hypothryroidism, schizophrenia, cholelithiasis, spinous mass presents to ED on with lower abd pain x 1 week (8/10 intensity, epigastric, non radiating) and occasionally loose stools. Denies n/v, SOB, f/c, Allergies: Coded Allergies: No Known Allergies (Unverified , 08/21/16) Medication History Scheduled Allopurinol* (Allopurinol*), 100 MG ORAL DAILY, (Reported) Aspirin (Aspirin EC), 81 MG ORAL DAILY, (Reported) Atorvastatin Calcium* (Lipitor*), 10 MG ORAL BEDTIME, (Reported) Digoxin* (Digoxin*), 125 MCG ORAL DAILY, (Reported) Docusate Sodium* (Docusate Sodium*), 100 MG ORAL TWICE A DAY, (Reported) Escitalopram Oxalate* (Lexapro*), 10 MG ORAL DAILY, (Reported) Folic Acid* (Folic Acid*), 1 MG ORAL DAILY, (Reported) Lactobacillus Acidophilus (Acidophilus), 1 EACH PO DAILY, (Reported) Metformin Hcl* (Metformin Hcl*), 500 MG ORAL DAILY, (Reported) Metoprolol Tartrate* (Metoprolol Tartrate*), 12.5 MG ORAL EVERY 12 HOURS, ( Reported) Multivitamin (Multi Vitamin Daily), 1 TAB ORAL DAILY, (Reported) Pantoprazole* (Pantoprazole*), 40 MG ORAL DAILY, (Reported) Quetiapine Fumarate* (Seroquel*), 25 MG ORAL TWICE A DAY, (Reported) Sulfacetamide Sodium (Sulfacetamide Sodium), 2 DROP LEFT EYE QID, (Reported) Discontinued Medications Benazepril Hcl* (Benazepril Hcl*), 10 MG ORAL DAILY, (Reported) Discontinued Reason: Pt stopped taking med Digoxin* (Digoxin*), 0.125 MG ORAL DAILY, (Reported) Discontinued Reason: Pt stopped taking med Furosemide* (Lasix*), 40 MG ORAL DAILY, (Reported) Discontinued Reason: Pt stopped taking med Ibrutinib (Imbruvica), 140 MG PO, (Reported) Discontinued Reason: Pt stopped taking med Insulin Aspart (Novolog), (Reported) Discontinued Reason: Pt stopped taking med Insulin Aspart* (Novolog*), 0 SUBQ, (Reported) Discontinued Reason: Pt stopped taking med Losartan Potassium* (Losartan Potassium*), 50 MG ORAL DAILY, (Reported) Discontinued Reason: Pt stopped taking med Mupirocin Calcium (Bactroban), 1 APPLIC TOPIC THREE TIMES A DAY, (Reported) Discontinued Reason: Pt stopped taking med Pioglitazone Hcl* (Actos*), 45 MG ORAL DAILY, (Reported) Discontinued Reason: Pt stopped taking med Risperidone* (Risperdal*), 2 MG ORAL DAILY, (Reported) Discontinued Reason: Pt stopped taking med Sitagliptin* (Januvia*), 50 MG ORAL DAILY, (Reported) Discontinued Reason: Pt stopped taking med Spironolact/Hydrochlorothiazid (Spironolactone-Hctz 25-25 Tab), 1 TAB ORAL DAILY , (Reported) Discontinued Reason: Pt stopped taking med Zolpidem Tartrate* (Zolpidem Tartrate*), 5 MG ORAL BEDTIME PRN for Insomnia, ( Reported) Discontinued Reason: Pt stopped taking med [ glimepiride], 4 MG PO DAILY, (Reported) Discontinued Reason: Pt stopped taking med Patient History Healthcare decision maker Resuscitation status Full Code Advanced Directive on File Patient History Narrative Pmhx: as above SHx: The patient has smoking history. He resides in a board and care. Fhx: non contributory Physical Exam Physical Exam Narrative GENERAL: no distress HEENT: Normocephalic and atraumatic. Dentition is poor. NECK: Supple. CHEST: Reveals scattered rhonchi. CARDIOVASCULAR: Revealed regular rate. ABDOMEN: Soft with some mild epigastric tenderness. EXTREMITIES: No edema. Last 24 Hour Vital Signs Date Time Temp Pulse Resp B/P (MAP) Pulse Ox O2 Delivery O2 Flow Rate FiO2 07/05/18 09:00 66 07/05/18 09:00 Room Air 07/05/18 08:00 97.6 66 20 140/72 (94) 98 07/04/18 23:13 Room Air 07/04/18 23:00 97.6 85 20 143/75 (97) 91 07/04/18 22:30 97.5 65 18 143/86 100 Room Air 07/04/18 19:41 54 18 Room Air 07/04/18 19:41 97.5 65 18 143/86 100 Room Air 07/04/18 17:21 97.5 54 18 158/71 100 Room Air Intake and Output 07/04/18 07/05/18 19:00 07:00 Intake Total 620 ml Output Total 320 ml Balance 300 ml Intake Oral 120 ml IV Total 500 ml Output Urine Total 320 ml # Voids 1 3 Laboratory Tests Test 07/04/18 18:00 07/04/18 18:03 07/05/18 07:43 Urine Color Yellow Urine Appearance Clear Urine pH 9 (4.5-8.0) Urine Specific [place] 1.015 (1.005-1.035) Urine Protein Negative (NEGATIVE) Urine Glucose (UA) Negative (NEGATIVE) Urine Ketones 2+ (NEGATIVE) H Urine Blood Negative (NEGATIVE) Urine Nitrite Negative (NEGATIVE) Urine Bilirubin Negative (NEGATIVE) Urine Urobilinogen Normal MG/DL (0.0-1.0) Urine Leukocyte Esterase 1+ (NEGATIVE) H Urine RBC 0-2 /HPF (0 - 0) H Urine WBC 0-2 /HPF (0 - 0) Urine Squamous Epithelial Cells None /LPF (NONE/OCC) Urine Bacteria Few /HPF (NONE) White Blood Count 8.5 K/UL (4.8-10.8) 5.9 K/UL (4.8-10.8) Red Blood Count 3.89 M/UL (4.70-6.10) L 3.12 M/UL (4.70-6.10) L Hemoglobin 12.2 G/DL (14.2-18.0) L 9.9 G/DL (14.2-18.0) L Hematocrit 36.7 % (42.0-52.0) L 29.4 % (42.0-52.0) L Mean Corpuscular Volume 94 FL (80-99) 94 FL (80-99) Mean Corpuscular Hemoglobin 31.4 PG (27.0-31.0) H 31.8 PG (27.0-31.0) H Mean Corpuscular Hemoglobin Concent 33.3 G/DL (32.0-36.0) 33.7 G/DL (32.0-36.0) Red Cell Distribution Width 12.4 % (11.6-14.8) 12.2 % (11.6-14.8) Platelet Count 212 K/UL (150-450) 160 K/UL (150-450) Mean Platelet Volume 8.2 FL (6.5-10.1) 7.0 FL (6.5-10.1) Neutrophils (%) (Auto) 54.9 % (45.0-75.0) 61.6 % (45.0-75.0) Lymphocytes (%) (Auto) 41.8 % (20.0-45.0) 33.6 % (20.0-45.0) Monocytes (%) (Auto) 2.2 % (1.0-10.0) 3.0 % (1.0-10.0) Eosinophils (%) (Auto) 0.5 % (0.0-3.0) 0.6 % (0.0-3.0) Basophils (%) (Auto) 0.6 % (0.0-2.0) 1.1 % (0.0-2.0) Sodium Level 141 MMOL/L (136-145) 142 MMOL/L (136-145) Potassium Level 4.3 MMOL/L (3.5-5.1) 4.1 MMOL/L (3.5-5.1) Chloride Level 104 MMOL/L (98-107) 107 MMOL/L (98-107) Carbon Dioxide Level 27 MMOL/L (21-32) 25 MMOL/L (21-32) Anion Gap 10 mmol/L (5-15) 10 mmol/L (5-15) Blood Urea Nitrogen 15 mg/dL (7-18) 15 mg/dL (7-18) Creatinine 0.9 MG/DL (0.55-1.30) 1.0 MG/DL (0.55-1.30) Estimat Glomerular Filtration Rate mL/min (>60) mL/min (>60) Glucose Level 110 MG/DL (74-106) H 130 MG/DL (74-106) H Calcium Level 10.2 MG/DL (8.5-10.1) H 9.1 MG/DL (8.5-10.1) Total Bilirubin 0.7 MG/DL (0.2-1.0) 0.3 MG/DL (0.2-1.0) Aspartate Amino Transf (AST/SGOT) 15 U/L (15-37) 16 U/L (15-37) Alanine Aminotransferase (ALT/SGPT) 17 U/L (12-78) 7 U/L (12-78) L Alkaline Phosphatase 119 U/L (46-116) H 91 U/L (46-116) Troponin I 0.000 ng/mL (0.000-0.056) Total Protein 7.3 G/DL (6.4-8.2) 5.6 G/DL (6.4-8.2) L Albumin 3.8 G/DL (3.4-5.0) 2.8 G/DL (3.4-5.0) L Globulin 3.5 g/dL 2.8 g/dL Albumin/Globulin Ratio 1.1 (1.0-2.7) 1.0 (1.0-2.7) Lipase 86 U/L (73-393) 80 U/L (73-393) Prothrombin Time 11.0 SEC (9.30-11.50) Prothromb Time International Ratio 1.0 (0.9-1.1) Activated Partial Thromboplast Time 32 SEC (23-33) Hemoglobin A1c 6.4 % (4.3-6.0) H Amylase Level 34 U/L (25-115) Thyroid Stimulating Hormone (TSH) 1.400 uiU/mL (0.358-3.740) Height (Feet): 5 Height (Inches): 8.00 Weight (Pounds): 170 Medications Current Medications Medications (Trade) Dose Ordered Sig/Pura Route PRN Reason Start Time Stop Time Status Last Admin Dose Admin Acetaminophen (Tylenol) 650 mg Q4H PRN ORAL T>100.5 07/04/18 20:00 08/03/18 19:59 Al Hydroxide/Mg Hydroxide (Mylanta II) 30 ml Q6H PRN ORAL dyspepsia 07/04/18 20:00 08/03/18 19:59 07/05/18 08:51 Allopurinol (Zyloprim) 100 mg DAILY ORAL 07/05/18 09:00 08/04/18 08:59 Atorvastatin Calcium (Lipitor) 10 mg BEDTIME ORAL 07/04/18 22:30 08/03/18 22:29 07/04/18 23:51 Dextrose (Dextrose 50%) 25 ml Q30M PRN IV Hypoglycemia 1/11/19 20:00 08/03/18 19:54 Dextrose (Dextrose 50%) 50 ml Q30M PRN IV hypoglycemia 07/04/18 20:00 08/03/18 19:59 Digoxin (Lanoxin) 0.125 mg DAILY ORAL 07/05/18 09:00 08/04/18 08:59 Diphenhydramine HCl (Benadryl) 25 mg Q6H PRN ORAL Itching/Pruritis 07/04/18 20:00 08/03/18 19:59 Escitalopram Oxalate (Lexapro) 10 mg DAILY ORAL 07/05/18 09:00 08/04/18 08:59 Heparin Sodium (Porcine) (Heparin 5000 units/ml) 5,000 units EVERY 12 HOURS SUBQ 07/04/18 22:30 08/03/18 22:29 07/04/18 23:50 Insulin Aspart (NovoLOG) BEFORE MEALS AND HS SUBQ 07/04/18 23:00 08/03/18 22:59 07/04/18 23:51 Iopamidol (Isovue-300 100ml) 100 ml NOW PRN INJ Radiology Procedure 07/04/18 17:45 Ketorolac Tromethamine (Toradol 30mg) 30 mg Q6H PRN IV Moderate Pain (Pain Scale 4-6) 07/04/18 20:00 07/09/18 19:59 Morphine Sulfate (Morphine Sulfate) 2 mg Q4H PRN IVP Severe Pain (Pain Scale 7-10) 07/04/18 20:00 07/11/18 19:59 Nitroglycerin (Ntg) 0.4 mg Q5MIN X 3 DOSES PRN SL Prn Chest Pain 07/04/18 20:00 08/03/18 19:59 Ondansetron HCl (Zofran) 4 mg Q6H PRN IVP Nausea & Vomiting 07/04/18 20:00 08/03/18 19:59 Pantoprazole (Protonix) 40 mg DAILY ORAL 07/05/18 09:00 08/04/18 08:59 07/05/18 10:23 Polyethylene Glycol (Miralax) 17 gm HSPRN PRN ORAL Constipation 07/04/18 20:00 08/03/18 19:59 Quetiapine Fumarate (SEROquel) 25 mg BID ORAL 07/05/18 09:00 08/04/18 08:59 Sitagliptin Phosphate (Januvia) 50 mg ACBREAKFAST ORAL 07/05/18 06:30 08/04/18 06:29 Sodium Chloride 1,000 ml @ 50 mls/hr Q20H IV 07/04/18 22:30 08/03/18 22:29 Temazepam (Restoril) 15 mg HSPRN PRN ORAL Insomnia 07/04/18 20:00 07/11/18 19:59 Assessment/Plan Assessment/Plan Abx: NOne Assessment: Abd pain- ?etiology- likely gastritis (improved w antiacids, epigastric)- r/o PUD -CT abd/p p -Abd US p Afebrile No leukocytosis -u/a neg DM2 HTN anemia MDD COPD lung CA CLL dx 2016 HTN hypothryroidism schizophrenia cholelithiasis spinous mass Plan: -Continue to monitor off abx unless signs of infectious process on pending imaging -F/u CT abd/p, Abd US -f/u cx -Monitor CBC/CMP, temperatures Thank you for this consultation. Will continue to follow along with you. Discussed with Jing Koehler M.D. Jul 05, 2018 12:17
[2018-07-05 12:22] VITALS: BP 128/46
--- NOTE | 2018-07-05 12:26 | NUR ---
NURSE NOTES: Patient refuse accucheck,patient state he does not take Insulin any more.
--- NOTE | 2018-07-05 16:15 | History and Physical Report ---
DATE OF ADMISSION: 07/04/2018 TIME SEEN: On 07/05/2018 at 9 a.m. CONSULTANTS: 1. Matthias Lafleur M.D. 2. Alf Akins M.D. 3. Kaveh Johnson M.D. CHIEF COMPLAINT: Nausea, vomiting, and abdominal pain. BRIEF HISTORY: This is a 78-year-old male from [facility] presented with above-mentioned diagnosis. Currently slightly agitated in bed, slight abdominal discomfort. REVIEW OF SYSTEMS: No chest pain. Slight short of breath. Slight nausea and vomiting, but no diarrhea. PAST MEDICAL HISTORY: Includes diabetes, acute renal failure, possible pleural mass, and anemia. PAST SURGICAL HISTORY: None. ALLERGIES: Denies. MEDICATIONS: Include allopurinol, digoxin, pantoprazole, quetiapine, insulin, atorvastatin, Tylenol, temazepam, morphine, Zofran, diphenhydramine, and ketorolac. SOCIAL HISTORY: No smoking. No alcohol. No intravenous drug abuse. FAMILY HISTORY: Noncontributory. PHYSICAL EXAMINATION: GENERAL: Slightly anxious in bed, oriented x2, in no acute distress. VITAL SIGNS: Temperature 97 degrees, pulse 85, respirations 20, and blood pressure 143/75. CARDIOVASCULAR: No murmur. LUNGS: Distant and clear. ABDOMEN: Bowel sounds positive. Slight tender. No guarding. No rigidity. No rebound. Soft. EXTREMITIES: No cyanosis, clubbing, or edema. NEUROLOGIC: The patient moves all extremities, slightly weak. LABORATORY AND DIAGNOSTIC DATA: Labs, at this time, show hemoglobin and hematocrit 9.9/29, otherwise CBC is normal. BMP showed actually yesterday glucose 110, otherwise BMP is normal. Calcium 10.2, alkaline phosphatase 119. Troponin 0.00. INR is 1.0 and PTT is 32. Urinalysis show 1+ leukocyte esterase. ASSESSMENT: Nausea, vomiting, abdominal pain, UTI, diabetes, acute renal failure, possible pleural mass, and anemia. PLAN: 1. Pain control. 2. Blood pressure and blood sugar control. 3. Dietary followup. 4. NPO with IV fluids. 5. Pending CT abdomen. 6. We will continue to follow the patient. 7. Dr. Hernandez. Mart Crowell D.O. DR: CATINA JOB#: [id number] CC:
[2018-07-05] MEDS: Erythromycin Opth Ointment 3.5gm LEFT EYE SCH (18:00)
--- NOTE | 2018-07-05 18:48 | NUR ---
NURSE NOTES: Patient sitting up in the chair,ate dinner.Patient continue to refuse accuchecks,charge nurse also attempt to talk with patient,but he refuses patient state I do not take Insulin any more,I already told you this earlier today.Will update DR.Call snyder within reach.
--- NOTE | 2018-07-05 18:52 | NUR ---
NURSE NOTES: DR Mae called,regarding the order for Erythromycin ointment,patient state he wants eye drops not the eye ointment.
--- NOTE | 2018-07-05 19:39 | NUR ---
HAND-OFF: Report given to Michela MINER.
[2018-07-05 20:00] VITALS: BP 142/80
--- NOTE | 2018-07-05 20:01 | NUR ---
NURSE NOTES: Pt received awake, alert and sitting in a chair agitated about eye drops. Informed him that the order is for ointment but we are waiting to hear from the doctor to inform that pharmacy carries gentmycin and cipro eye drops. Bed in lowest position. States he will not have his blood sugar checked and to leave him alone about it.
[2018-07-06] VITALS (12 sets, daily range): BP systolic 82–160; BP diastolic 50–98
--- NOTE | 2018-07-06 01:00 | NUR ---
NURSE NOTES: Pt refusing to take the erythromycin ointment because he says he takes eye drops. Explained that a message was left for the doctor about the types of eye drops the pharmacy carries.
[2018-07-06] MEDS: Erythromycin Opth Ointment 3.5gm LEFT EYE SCH ×3 (06:00→17:17)
[2018-07-06] MEDS: NovoLOG Insulin Flexpen SUBQ SCH ×3 (06:30→21:00)
--- NOTE | 2018-07-06 06:30 | NUR ---
NURSE NOTES: Pt refused blood sugar check this morning saying he is done with blood sugar checks and doesn't take them anymore. I was explained the reasoning behind the blood sugar checks and he interrupted me saying he doesn't take blood sugar checks. Pt also refused morning labs, the manufacturing quality technician said they will send someone to try again. I will explain the importance of having his blood drawn.
[2018-07-06] MEDS: sitaGLIPtin 50mg tab ORAL SCH (06:58)
--- NOTE | 2018-07-06 07:43 | NUR ---
HAND-OFF: Report given to KRISTOFER Clement.
--- NOTE | 2018-07-06 08:00 | NUR ---
NURSE NOTES: Patient alert ,sitting up in the chair and eating breakfast,no complaints at this time.Call light within reach.
--- NOTE | 2018-07-06 08:38 | NUR ---
NURSE NOTES: Patient sitting up in the chair,BP 82/51,heartrate apically 138,Patient refusing to get back in to bed,Blood pressure is 82/51 DR Crowell here and updated on patient .Will transfer patient to ICU.02 sat 97%on 2L..
[2018-07-06] MEDS ORDERED: Metoprolol Tartrate 12.5mg TAB ORAL SCH ×3 (09:00→21:00)
--- NOTE | 2018-07-06 09:37 | NUR ---
HAND-OFF: Report given to Carolina MINER,ICU.
[2018-07-06] MEDS: Mylanta II UD 30ml ORAL PRN (09:44)
[2018-07-06] MEDS ORDERED: Nitroglycerin Subl 0.4mg tab SL PRN ×3 (09:45→15:30)
--- NOTE | 2018-07-06 09:45 | NUR ---
NURSE NOTES: Patient received. Patient observed to be very anxious, very agitated and resistive to care. Patient states that he wanted his medications at that moment right then although report had not been given. Patient did not appear in any acute distress and stated that he was not getting enough O2 despite his SPO2 was at 100% and RR 20. NC was taken off and physically checked and the O2 was working well. Patient is being monitored on the cardiac catheterization technologist, VSS. Patient is on 3L of O2 with Sat of 100%. Patient has an RFA 24 saline lock that is patent and asymptomatic. Patient is extremely resistive to care. Patient stated that he wants his MD now to come to bedside and not Dr Mart Crowell but Dr Kehinde Anguiano. Also his GI MD, he states that he still feels bad and needs help. Patient refuses labs. Will get CXR and attempt his care. Will continue to monitor and follow MD plan of care although patient was transferred for afib RVR however patient is SR with junctional and NL BP. No hypotension or RVR. Will discuss with MD regarding transfer back to the unit. Addendum: 07/06/18 at 1124 by VIOLETA MICHELLE RN Patient has a pronounced cough. Patient states that he quit smoking 3 weeks ago. No complaints of N/V but does complain of abd cramping. Will check eMar for Mylanta for stomach issues.
[2018-07-06] MEDS ORDERED: Mylanta II UD 30ml ORAL PRN ×2 (09:46→14:30)
[2018-07-06] MEDS ORDERED: Ketorolac 30mg Inj IV PRN ×3 (09:47→15:28)
[2018-07-06] MEDS ORDERED: Morphine Sulfate 4mg/ml Inj (IV/IM USE ONLY) IVP PRN ×3 (09:48→15:29)
--- NOTE | 2018-07-06 10:30 | NUR ---
1o45 pt seen by SHAHLA FERNANDEZ TRANSFER ORDERS M/S @ 1100 TX,[id number]_ [id number]-OFF: Report given to REPORT GIVEN T0 MARTHA.
--- NOTE | 2018-07-06 10:30 | NUR ---
PT Note Patient was transferred to ICU earlier. Will DC physical therapy at this time. Will need a new PT order to initiate any PT eval/tx.
--- NOTE | 2018-07-06 10:52 | General Progress Note ---
Assessment/Plan Problem List: (1) Nausea & vomiting ICD Codes: R11.2 - Nausea with vomiting, unspecified SNOMED: 31141422 (2) UTI (urinary tract infection) ICD Codes: N39.0 - Urinary tract infection, site not specified SNOMED: 97350918 (3) Abdominal pain ICD Codes: R10.9 - Unspecified abdominal pain SNOMED: 73659923 (4) Diabetes ICD Codes: E11.9 - Type 2 diabetes mellitus without complications SNOMED: 02746304 (5) Anemia of chronic disease ICD Codes: D63.8 - Anemia in other chronic diseases classified elsewhere SNOMED: 645536715 (6) Intractable nausea and vomiting ICD Codes: R11.2 - Nausea with vomiting, unspecified SNOMED: 821814426 Qualifiers: Qualified Codes: R11.2 - Nausea with vomiting, unspecified (7) Acute renal failure (ARF) ICD Codes: N17.9 - Acute kidney failure, unspecified SNOMED: 94751656 Status: unchanged Assessment/Plan pt diet cardio gi eval cbc bmp am Subjective Constitutional: Reports: weakness Respiratory: Reports: shortness of breath Allergies: Coded Allergies: No Known Allergies (Unverified , 08/21/16) All Systems: reviewed and negative except above Subjective o2nc transferred to icu for low bp and tachycardia Objective Last 24 Hour Vital Signs Date Time Temp Pulse Resp B/P (MAP) Pulse Ox O2 Delivery O2 Flow Rate FiO2 07/06/18 10:00 69 20 130/77 (94) 100 07/06/18 09:34 97.4 82 36 124/86 (99) 100 07/06/18 09:15 97.4 75 36 156/83 (107) 100 07/06/18 09:00 Nasal Cannula 4.0 07/06/18 08:38 138 22 82/51 (61) 97 07/06/18 08:00 97.4 151 20 126/71 (89) 97 07/06/18 04:00 97.5 50 18 132/69 (90) 98 07/06/18 00:00 97.3 56 18 154/71 (98) 100 07/05/18 21:00 Room Air 07/05/18 20:00 97.7 63 18 142/80 (100) 98 07/05/18 12:22 97.1 57 20 128/46 (73) 96 Intake and Output 07/05/18 07/06/18 19:00 07:00 Intake Total 360 ml 840 ml Output Total 1300 ml Balance 360 ml -460 ml Intake Oral 360 ml 840 ml Output Urine Total 1300 ml # Voids 2 Height (Feet): 5 Height (Inches): 8.00 Weight (Pounds): 170 General Appearance: lethargic EENT: normal ENT inspection Neck: normal alignment Cardiovascular: normal peripheral pulses, normal rate, regular rhythm Respiratory/Chest: chest wall non-tender, lungs clear, normal breath sounds Abdomen: normal bowel sounds, non tender, soft Extremities: normal inspection Edema: no edema noted Arm (L), no edema noted Arm (R), no edema noted Leg (L), no edema noted Leg (R), no edema noted Pedal (L), no edema noted Pedal (R), no edema noted Generalized Neurologic: motor weakness Skin: normal pigmentation, warm/dry Mart Crowell DO Jul 06, 2018 10:52
--- NOTE | 2018-07-06 11:01 | Diagnostic Imaging Report ---
EXAM: XR Chest, 1 View CLINICAL HISTORY: F/U TECHNIQUE: Frontal view of the chest. COMPARISON: CT abdomen and pelvis dated 07/04/18 FINDINGS: Lungs: 3.9 x 3.3 cm masslike opacity in the medial right lung base, which correlates with the finding on the recent CT of the abdomen and pelvis. Subsegmental atelectasis versus infiltrate in the left lung base. Pleural space: Unremarkable. The costophrenic angles are sharp. No visible pneumothorax. Heart: Unremarkable. No cardiomegaly. Mediastinum: Unremarkable. Bones/joints: Mild degenerative changes throughout the visualized spine. Vasculature: Atherosclerotic calcifications are noted within the aortic arch. Tubes, lines and devices: EKG leads overlie the thorax. Upper abdomen: Mild elevation of the left hemidiaphragm. IMPRESSION: 1. 3.9 x 3.3 cm masslike opacity in the medial right lung base, which correlates with the finding on the recent CT of the abdomen and pelvis. 2. Mild elevation of the left hemidiaphragm. 3. Subsegmental atelectasis versus infiltrate in the left lung base.
--- NOTE | 2018-07-06 11:11 | NUR ---
NURSE NOTES: Received patient back from ICU,to room 414 bed 2 alert,respirations unlabored..no complaint of chest pain or discomfort at this time,call light within reach.
[2018-07-06] MEDS ORDERED: NovoLOG Insulin Flexpen SUBQ SCH ×2 (11:30→16:30)
--- NOTE | 2018-07-06 11:45 | NUR ---
NURSE NOTES: patient continues to refuse accuchecks,explain the reason why blood sugar checks are needed,patient state again refuses.
[2018-07-06] MEDS ORDERED: Erythromycin Opth Ointment 3.5gm LEFT EYE SCH ×2 (12:00→18:00)
--- NOTE | 2018-07-06 13:37 | NUR ---
NURSE NOTES: DR Hood here to see patient and wants patient to be transferred to Telemetry to monitor heart.Charge Nurse aware and will n otify Nursing Adjunct Faculty For Medical Terminology.
--- NOTE | 2018-07-06 13:48 | Cardiac Electrophysiology PN ---
Subjective Subjective [id number] Objective Last 24 Hour Vital Signs Date Time Temp Pulse Resp B/P (MAP) Pulse Ox O2 Delivery O2 Flow Rate FiO2 07/06/18 12:00 97.6 105 20 160/80 (106) 97 07/06/18 10:45 68 23 112/82 (92) 100 07/06/18 10:00 69 20 130/77 (94) 100 07/06/18 09:34 97.4 82 36 124/86 (99) 100 07/06/18 09:15 97.4 75 36 156/83 (107) 100 07/06/18 09:00 Nasal Cannula 4.0 07/06/18 08:38 138 22 82/51 (61) 97 07/06/18 08:00 97.4 151 20 126/71 (89) 97 07/06/18 04:00 97.5 50 18 132/69 (90) 98 07/06/18 00:00 97.3 56 18 154/71 (98) 100 07/05/18 21:00 Room Air 07/05/18 20:00 97.7 63 18 142/80 (100) 98 Intake and Output 07/05/18 07/06/18 19:00 07:00 Intake Total 360 ml 840 ml Output Total 1300 ml Balance 360 ml -460 ml Intake Oral 360 ml 840 ml Output Urine Total 1300 ml # Voids 2 Rafael Ching MD Jul 06, 2018 13:48
--- NOTE | 2018-07-06 13:54 | NUR ---
NURSE NOTES: DR Mae was called regarding the Erythromycin ointment ,patient wants eye drops instead of the ointment.
--- NOTE | 2018-07-06 15:21 | NUR ---
HAND-OFF: Report given to TUSHAR MINER.
--- NOTE | 2018-07-06 15:29 | Cardiology Report ---
APPROVED REPORT EKG Measurement Heart [id number] Sinus bradycardia with 1st degree AV block Right bundle branch block Abnormal ECG
--- NOTE | 2018-07-06 15:29 | NUR ---
NURSE NOTES: Pt received from KRISTOFER Clement alert and oriented x3 with no complaints or s/s of pain, SOB, or n/v. Pt has sacral redness on sacral upon transfer but pt refused to have pictures taken of the wound and has refused to have an air mattress placed under him to relieve the sacral pressure. IV site asymptomatic and patent, on saline lock. Bed in lowest position call light and belongings within reach.
--- NOTE | 2018-07-06 16:10 | Consultation ---
History of Present Illness General Date patient seen: Jul 05, 2018 Chief Complaint: Abdominal Pain Present Illness HPI 78-year-old male with hx of psychosis presented to ED for evaluation of abdominal pain with vomiting and diarrhea times one week. Pain is cramping 8 out of 10, epigastric, nonradiating. Patient points to his chest. Denies shortness of breath. Denies fevers or chills. His CXR showed Right mid zone mass. I was called to evaluate these finding. Allergies: Coded Allergies: No Known Allergies (Unverified , 08/21/16) Medication History Scheduled Allopurinol* (Allopurinol*), 100 MG ORAL DAILY, (Reported) Aspirin (Aspirin EC), 81 MG ORAL DAILY, (Reported) Atorvastatin Calcium* (Lipitor*), 10 MG ORAL BEDTIME, (Reported) Digoxin* (Digoxin*), 125 MCG ORAL DAILY, (Reported) Docusate Sodium* (Docusate Sodium*), 100 MG ORAL TWICE A DAY, (Reported) Escitalopram Oxalate* (Lexapro*), 10 MG ORAL DAILY, (Reported) Folic Acid* (Folic Acid*), 1 MG ORAL DAILY, (Reported) Lactobacillus Acidophilus (Acidophilus), 1 EACH PO DAILY, (Reported) Metformin Hcl* (Metformin Hcl*), 500 MG ORAL DAILY, (Reported) Metoprolol Tartrate* (Metoprolol Tartrate*), 12.5 MG ORAL EVERY 12 HOURS, ( Reported) Multivitamin (Multi Vitamin Daily), 1 TAB ORAL DAILY, (Reported) Pantoprazole* (Pantoprazole*), 40 MG ORAL DAILY, (Reported) Quetiapine Fumarate* (Seroquel*), 25 MG ORAL TWICE A DAY, (Reported) Sulfacetamide Sodium (Sulfacetamide Sodium), 2 DROP LEFT EYE QID, (Reported) Discontinued Medications Benazepril Hcl* (Benazepril Hcl*), 10 MG ORAL DAILY, (Reported) Discontinued Reason: Pt stopped taking med Digoxin* (Digoxin*), 0.125 MG ORAL DAILY, (Reported) Discontinued Reason: Pt stopped taking med Furosemide* (Lasix*), 40 MG ORAL DAILY, (Reported) Discontinued Reason: Pt stopped taking med Ibrutinib (Imbruvica), 140 MG PO, (Reported) Discontinued Reason: Pt stopped taking med Insulin Aspart (Novolog), (Reported) Discontinued Reason: Pt stopped taking med Insulin Aspart* (Novolog*), 0 SUBQ, (Reported) Discontinued Reason: Pt stopped taking med Losartan Potassium* (Losartan Potassium*), 50 MG ORAL DAILY, (Reported) Discontinued Reason: Pt stopped taking med Mupirocin Calcium (Bactroban), 1 APPLIC TOPIC THREE TIMES A DAY, (Reported) Discontinued Reason: Pt stopped taking med Pioglitazone Hcl* (Actos*), 45 MG ORAL DAILY, (Reported) Discontinued Reason: Pt stopped taking med Risperidone* (Risperdal*), 2 MG ORAL DAILY, (Reported) Discontinued Reason: Pt stopped taking med Sitagliptin* (Januvia*), 50 MG ORAL DAILY, (Reported) Discontinued Reason: Pt stopped taking med Spironolact/Hydrochlorothiazid (Spironolactone-Hctz 25-25 Tab), 1 TAB ORAL DAILY , (Reported) Discontinued Reason: Pt stopped taking med Zolpidem Tartrate* (Zolpidem Tartrate*), 5 MG ORAL BEDTIME PRN for Insomnia, ( Reported) Discontinued Reason: Pt stopped taking med [ glimepiride], 4 MG PO DAILY, (Reported) Discontinued Reason: Pt stopped taking med Patient History Healthcare decision maker Resuscitation status Full Code Advanced Directive on File Past Medical/Surgical History Past Medical/Surgical History: (1) Diabetes (2) Paraspinal mass Review of Systems All Other Systems: negative except mentioned in HPI Physical Exam General Appearance: WD/WN Lines, tubes and drains: peripheral HEENT: normocephalic, atraumatic Neck: non-tender, normal alignment Respiratory/Chest: lungs clear, normal breath sounds, decreased breath sounds Cardiovascular/Chest: normal peripheral pulses Abdomen: normal bowel sounds Genitourinary/Rectal: normal genital exam Last 24 Hour Vital Signs Date Time Temp Pulse Resp B/P (MAP) Pulse Ox O2 Delivery O2 Flow Rate FiO2 07/06/18 14:34 73 141/88 (105) 07/06/18 12:00 97.6 105 20 160/80 (106) 97 07/06/18 10:45 68 23 112/82 (92) 100 07/06/18 10:00 69 20 130/77 (94) 100 07/06/18 09:34 97.4 82 36 124/86 (99) 100 07/06/18 09:15 97.4 75 36 156/83 (107) 100 07/06/18 09:00 Nasal Cannula 4.0 07/06/18 08:38 138 22 82/51 (61) 97 07/06/18 08:00 97.4 151 20 126/71 (89) 97 07/06/18 04:00 97.5 50 18 132/69 (90) 98 07/06/18 00:00 97.3 56 18 154/71 (98) 100 07/05/18 21:00 Room Air 07/05/18 20:00 97.7 63 18 142/80 (100) 98 Intake and Output 07/05/18 07/06/18 19:00 07:00 Intake Total 360 ml 840 ml Output Total 1300 ml Balance 360 ml -460 ml Intake Oral 360 ml 840 ml Output Urine Total 1300 ml # Voids 2 Height (Feet): 5 Height (Inches): 8.00 Weight (Pounds): 170 Medications Current Medications Medications (Trade) Dose Ordered Sig/Pura Route PRN Reason Start Time Stop Time Status Last Admin Dose Admin Acetaminophen (Tylenol) 650 mg Q4H PRN ORAL T>100.5 07/06/18 15:26 08/03/18 15:25 Al Hydroxide/Mg Hydroxide (Mylanta II) 30 ml Q6H PRN ORAL dyspepsia 07/06/18 15:27 08/03/18 15:26 Allopurinol (Zyloprim) 100 mg DAILY ORAL 07/07/18 09:00 08/04/18 08:59 Atorvastatin Calcium (Lipitor) 10 mg BEDTIME ORAL 07/06/18 21:00 08/05/18 20:59 Dextrose (Dextrose 50%) 25 ml Q30M PRN IV Hypoglycemia 07/06/18 15:30 08/03/18 19:54 Dextrose (Dextrose 50%) 50 ml Q30M PRN IV hypoglycemia 07/06/18 15:30 08/03/18 19:59 Digoxin (Lanoxin) 0.125 mg DAILY ORAL 07/07/18 09:00 08/04/18 08:59 Diphenhydramine HCl (Benadryl) 25 mg Q6H PRN ORAL Itching/Pruritis 07/06/18 15:27 08/03/18 15:26 Erythromycin (Ilotycin) 1 applic EVERY 6 HOURS LEFT EYE 07/06/18 18:00 07/12/18 17:59 Escitalopram Oxalate (Lexapro) 10 mg DAILY ORAL 07/07/18 09:00 08/04/18 08:59 Heparin Sodium (Porcine) (Heparin 5000 units/ml) 5,000 units EVERY 12 HOURS SUBQ 07/06/18 21:00 08/03/18 22:29 Insulin Aspart (NovoLOG) BEFORE MEALS AND HS SUBQ 07/06/18 16:30 08/03/18 22:59 Iopamidol (Isovue-300 100ml) 100 ml NOW PRN INJ Radiology Procedure 07/06/18 17:45 07/07/18 17:44 Ketorolac Tromethamine (Toradol 30mg) 30 mg Q6H PRN IV Moderate Pain (Pain Scale 4-6) 07/06/18 15:28 07/09/18 15:27 Metoprolol Tartrate (Lopressor) 12.5 mg EVERY 12 HOURS ORAL 07/06/18 21:00 08/05/18 08:59 Morphine Sulfate (Morphine Sulfate) 2 mg Q4H PRN IVP Severe Pain (Pain Scale 7-10) 07/06/18 15:29 07/11/18 15:28 Nitroglycerin (Ntg) 0.4 mg Q5MIN X 3 DOSES PRN SL Prn Chest Pain 07/06/18 15:30 08/03/18 13:59 Ondansetron HCl (Zofran) 4 mg Q6H PRN IVP Nausea & Vomiting 07/06/18 15:29 08/03/18 15:28 Pantoprazole (Protonix) 40 mg DAILY ORAL 07/07/18 09:00 08/04/18 08:59 Polyethylene Glycol (Miralax) 17 gm HSPRN PRN ORAL Constipation 07/06/18 20:00 08/03/18 19:59 Quetiapine Fumarate (SEROquel) 25 mg TWICE A DAY ORAL 07/06/18 18:00 08/05/18 08:59 Sitagliptin Phosphate (Januvia) 50 mg ACBREAKFAST ORAL 07/07/18 06:30 08/04/18 06:29 Sodium Chloride 1,000 ml @ 50 mls/hr Q20H IV 07/06/18 15:28 08/03/18 15:27 Temazepam (Restoril) 15 mg HSPRN PRN ORAL Insomnia 07/06/18 20:00 07/11/18 19:59 Assessment/Plan Problem List: (1) Pleural mass ICD Codes: J94.9 - Pleural condition, unspecified SNOMED: 275143186 (2) Anemia of chronic disease ICD Codes: D63.8 - Anemia in other chronic diseases classified elsewhere SNOMED: 346718922 (3) Diabetes ICD Codes: E11.9 - Type 2 diabetes mellitus without complications SNOMED: 57156935 Assessment/Plan CT of chest symptomatic treatment PT/ot GI evaluation Alf Akins MD Jul 06, 2018 16:10
--- NOTE | 2018-07-06 16:15 | NUR ---
NURSE NOTES: Pt refused to have accuchecks done and to have insulin administered to him, stating that he does not have that problem anymore. He then started saying that he does not need the cafeteria monitor either, RN convinced pt to keep cafeteria monitor on, at least until the clinical education coordinator is able to take a look at him tomorrow so they can be able to monitor the heart. Pt nodded.
[2018-07-06] MEDS ORDERED: Isovue-300 100ml vial INJ PRN ×3 (17:45)
--- NOTE | 2018-07-06 19:15 | NUR ---
HAND-OFF: Report given to Fanta Vasquez RN.
[2018-07-06] MEDS ORDERED: Miralax 17gm pkt ORAL PRN ×3 (20:00)
--- NOTE | 2018-07-06 20:02 | General Progress Note ---
Assessment/Plan Assessment/Plan Assessment - abd pain - N/V - anemia - declines GI w/u Recommendations - supportive care - consider psych consult - CT scan if/when pt agrees - EGD/Colon if/when patient agrees, after CT scan Subjective Allergies: Coded Allergies: No Known Allergies (Unverified , 08/21/16) Subjective Agitated declined CT scan Objective Last 24 Hour Vital Signs Date Time Temp Pulse Resp B/P (MAP) Pulse Ox O2 Delivery O2 Flow Rate FiO2 07/06/18 16:00 97.5 107 18 143/98 (113) 97 07/06/18 15:39 74 07/06/18 14:34 73 141/88 (105) 07/06/18 12:00 97.6 105 20 160/80 (106) 97 07/06/18 10:45 68 23 112/82 (92) 100 07/06/18 10:00 69 20 130/77 (94) 100 07/06/18 09:34 97.4 82 36 124/86 (99) 100 07/06/18 09:15 97.4 75 36 156/83 (107) 100 07/06/18 09:00 Nasal Cannula 4.0 07/06/18 08:38 138 22 82/51 (61) 97 07/06/18 08:00 97.4 151 20 126/71 (89) 97 07/06/18 04:00 97.5 50 18 132/69 (90) 98 07/06/18 00:00 97.3 56 18 154/71 (98) 100 07/05/18 21:00 Room Air 07/05/18 20:00 97.7 63 18 142/80 (100) 98 Intake and Output 07/05/18 07/06/18 19:00 07:00 Intake Total 360 ml 840 ml Output Total 1300 ml Balance 360 ml -460 ml Intake Oral 360 ml 840 ml Output Urine Total 1300 ml # Voids 2 Height (Feet): 5 Height (Inches): 8.00 Weight (Pounds): 170 Objective WDWN NCAT supple CTA RRR abd soft ND no edema La Jeffries MD Jul 06, 2018 20:02
[2018-07-06] MEDS: Metoprolol Tartrate 12.5mg TAB ORAL SCH (21:00)
[2018-07-06] MEDS ORDERED: Heparin 5000 units/ml inj SUBQ SCH ×2 (21:00)
[2018-07-06] MEDS: Heparin 5000 units/ml inj SUBQ SCH (21:13)
--- NOTE | 2018-07-06 22:45 | Consultation ---
DATE OF CONSULTATION: 07/06/2018 NOTE: UNCLEAR AUDIO CARDIOLOGY CONSULTATION REFERRING PHYSICIAN: Mart Crowell D.O. REASON FOR CONSULTATION: Hypotension and tachycardia. HISTORY OF PRESENT ILLNESS: The patient is a 78-year-old gentleman with history of hypertension, diabetes, anemia, disease, COPD, lung cancer, CLL, schizophrenia, and cholelithiasis, who was admitted with abdominal pain and weakness. Overnight, the patient became hypotensive and tachycardic and was initially transferred to the intensive care unit. However, the patient was noted to have severe blood pressure and was transferred back to medical/surgical. Cardiology consultation was obtained for further evaluation. At the time of my evaluation with nursing at the bedside, the patient again appears tachycardia with heart rate in the 130s. REVIEW OF SYSTEMS: Review of systems was negative other than what was mentioned in the history of present illness. PAST MEDICAL HISTORY: As mentioned above. FAMILY HISTORY: Noncontributory. SOCIAL HISTORY: He lives in senior care. Does not smoke or drink alcohol. MEDICATIONS: Per reconciliation and includes digoxin and metoprolol. PHYSICAL EXAMINATION: VITAL SIGNS: Show blood pressure 160/80, pulse rate of 130, respirations is 16, temperature 97.8 degrees. HEAD AND NECK: No JVD. LUNGS: Clear. CARDIOVASCULAR: Shows tachycardic. S1 and S2 with no gallop. ABDOMEN: Soft. EXTREMITIES: There is no pitting edema. LABORATORY AND DIAGNOSTIC DATA: EKG showed sinus rhythm with right bundle-branch block, first-degree AV block. His labs show white count 5.9, hemoglobin 9.9, hematocrit of 29.4, and platelet count of 160,000. Sodium 142, potassium 4.1, BUN of 15, creatinine 1, and glucose of 130. Troponin is negative. INR is 1. ASSESSMENT AND PLAN: 1. Tachycardia. The patient due to atrial fibrillation with rapid ventricular response. We will transfer the patient to telemetry. the patient has been noncompliant with the medication. We will completely rule out myocardial infarction protocol and get an echocardiogram as well. 2. Hypotension. The blood pressure is improving high again. Continue metoprolol for now, but has p.r.n. clonidine. 3. History of psychosis. 4. Lung cancer. 5. Chronic obstructive pulmonary disease. 6. Diabetes. Thank you very much for allowing me to participate in the care of this patient. Please do not hesitate to contact me for any questions regarding my evaluation. Rafael Ching M.D. DR: Jori JOB#: [id number] CC:
[2018-07-07] VITALS: BP 100/60
[2018-07-07 04:00] VITALS: BP 138/68
[2018-07-07] MEDS: Erythromycin Opth Ointment 3.5gm LEFT EYE SCH ×4 (06:00→17:03)
[2018-07-07] MEDS ORDERED: sitaGLIPtin 50mg tab ORAL SCH ×2 (06:30)
[2018-07-07] MEDS: NovoLOG Insulin Flexpen SUBQ SCH ×4 (06:30→21:00)
[2018-07-07] MEDS: sitaGLIPtin 50mg tab ORAL SCH (06:30)
--- NOTE | 2018-07-07 06:30 | NUR ---
Refused John after opened. Wasted.
--- NOTE | 2018-07-07 07:51 | NUR ---
NURSE NOTES: Report received from KRISTOFER Vasquez. Observed patient in bed. Awake and verbally responsive. Denies pain at this time. No distress noted with 2L of oxygen via N/C. IV site intact and patent but refused IVF at this time. Bed in lowest position. Call light within reach. Will continue to monitor.
--- NOTE | 2018-07-07 07:51 | NUR ---
NURSE NOTES: Pt. refused abdominal US today. Dr. Akins made aware.
[2018-07-07 08:00] VITALS: BP 149/103
[2018-07-07] MEDS: Heparin 5000 units/ml inj SUBQ SCH ×3 (08:54→21:00)
[2018-07-07] MEDS: Metoprolol Tartrate 12.5mg TAB ORAL SCH ×2 (09:00→21:00)
[2018-07-07] MEDS ORDERED: Allopurinol 100mg Tab ORAL SCH ×2 (09:00)
[2018-07-07] MEDS ORDERED: Digoxin 0.125mg tab ORAL SCH ×3 (09:00)
[2018-07-07] MEDS: Allopurinol 100mg Tab ORAL SCH (09:03)
--- NOTE | 2018-07-07 10:18 | NUR ---
CARDIOLOGY : PT REFUSED 2-D ECHOCARDIOGRAM , NURSE EL IS AWARE .
--- NOTE | 2018-07-07 10:46 | NUR ---
CARDIOLOGY PT REFUSED 2-D ECHOCARDIOGRAM TWICE, NURSE IS AWARE .
[2018-07-07 11:54] VITALS: BP 161/84
--- NOTE | 2018-07-07 12:06 | GI Progress Note ---
Assessment/Plan Problems: (1) Intractable nausea and vomiting ICD Codes: R11.2 - Nausea with vomiting, unspecified SNOMED: 534999918 Qualifiers: Qualified Codes: R11.2 - Nausea with vomiting, unspecified (2) Acute renal failure (ARF) ICD Codes: N17.9 - Acute kidney failure, unspecified SNOMED: 07972756 (3) Nausea & vomiting ICD Codes: R11.2 - Nausea with vomiting, unspecified SNOMED: 40730445 (4) Abdominal pain ICD Codes: R10.9 - Unspecified abdominal pain SNOMED: 20770373 (5) Anemia of chronic disease ICD Codes: D63.8 - Anemia in other chronic diseases classified elsewhere SNOMED: 985485803 Status: stable Status Narrative Discussed with Dr. Lafleur Assessment/Plan Assessment - abd pain - N/V - anemia - declines GI w/u Recommendations - supportive care - consider psych consult - CT scan if/when pt agrees - EGD/Colon if/when patient agrees, after CT scan Follow-up labs The patient was seen and examined at bedside and all new and available data was reviewed in the patients chart. I agree with the above findings, impression and plan. (Patient seen earlier today. Signature stamp does not reflect patient encounter time.). - Matthias Lafleur MD Subjective Subjective Refused abdominal ultrasound Refused any GI procedures Objective Last 24 Hour Vital Signs Date Time Temp Pulse Resp B/P (MAP) Pulse Ox O2 Delivery O2 Flow Rate FiO2 07/07/18 11:54 97.8 52 20 161/84 (109) 95 07/07/18 09:00 Nasal Cannula 2.0 07/07/18 09:00 60 07/07/18 08:00 97.9 100 20 149/103 (118) 97 07/07/18 08:00 97 07/07/18 04:00 97.3 54 19 138/68 (91) 98 07/07/18 00:00 97.6 51 18 100/60 (73) 96 07/06/18 21:00 Nasal Cannula 4.0 07/06/18 21:00 62 109/50 07/06/18 21:00 97.6 62 18 109/50 (69) 98 07/06/18 16:00 97.5 107 18 143/98 (113) 97 07/06/18 15:39 74 07/06/18 14:34 73 141/88 (105) Intake and Output 07/06/18 07/07/18 19:00 07:00 Intake Total 600 ml Output Total 200 ml Balance 400 ml Intake Oral 600 ml Output Urine Total 200 ml # Voids 2 Height (Feet): 5 Height (Inches): 8.00 Weight (Pounds): 170 General Appearance: WD/WN, no apparent distress, alert Cardiovascular: normal rate Respiratory/Chest: normal breath sounds, no respiratory distress Abdominal Exam: normal bowel sounds, non tender, soft Extremities: non-tender Delmy Giraldo NP Jul 07, 2018 12:06
--- NOTE | 2018-07-07 13:53 | Infectious Diseases Prog Note ---
Assessment/Plan Assessment/Plan Abx: NOne Assessment: Abd pain- ?etiology- likely gastritis (improved w antiacids, epigastric)- r/o PUD -CT abd/p p -Abd US p -CXR: 3.9 x 3.3 cm masslike opacity in the medial right lung base, which correlates with the finding on the recent CT of the abdomen and pelvis.. Mild elevation of the left hemidiaphragm. Subsegmental atelectasis versus infiltrate in the left lung base. Lung mass Afebrile No leukocytosis -u/a neg L eye blepharitis- refused erythromcin ointment DM2 HTN anemia MDD COPD lung CA CLL dx 2016 HTN hypothryroidism schizophrenia cholelithiasis spinous mass Plan: -Continue to monitor off abx unless signs of infectious process on pending imaging -F/u CT abd/p, Abd US -f/u cx -Monitor CBC/CMP, temperatures Thank you for this consultation. Will continue to follow along with you. Discussed with RN. Subjective Allergies: Coded Allergies: No Known Allergies (Unverified , 08/21/16) Subjective afebrile no leukocytosis Objective Vital Signs Last 24 Hour Vital Signs Date Time Temp Pulse Resp B/P (MAP) Pulse Ox O2 Delivery O2 Flow Rate FiO2 07/07/18 12:00 45 07/07/18 11:54 97.8 52 20 161/84 (109) 95 07/07/18 09:00 Nasal Cannula 2.0 07/07/18 09:00 60 07/07/18 08:00 97.9 100 20 149/103 (118) 97 07/07/18 08:00 97 07/07/18 04:00 97.3 54 19 138/68 (91) 98 07/07/18 00:00 97.6 51 18 100/60 (73) 96 07/06/18 21:00 Nasal Cannula 4.0 07/06/18 21:00 62 109/50 07/06/18 21:00 97.6 62 18 109/50 (69) 98 07/06/18 16:00 97.5 107 18 143/98 (113) 97 07/06/18 15:39 74 07/06/18 14:34 73 141/88 (105) Height (Feet): 5 Height (Inches): 8.00 Weight (Pounds): 170 Current Medications Medications (Trade) Dose Ordered Sig/Pura Route PRN Reason Start Time Stop Time Status Last Admin Dose Admin Acetaminophen (Tylenol) 650 mg Q4H PRN ORAL T>100.5 07/06/18 15:26 08/03/18 15:25 07/06/18 21:36 Al Hydroxide/Mg Hydroxide (Mylanta II) 30 ml Q6H PRN ORAL dyspepsia 07/06/18 15:27 08/03/18 15:26 Allopurinol (Zyloprim) 100 mg DAILY ORAL 07/07/18 09:00 08/04/18 08:59 07/07/18 09:03 Atorvastatin Calcium (Lipitor) 10 mg BEDTIME ORAL 07/06/18 21:00 08/05/18 20:59 07/06/18 21:14 Dextrose (Dextrose 50%) 25 ml Q30M PRN IV Hypoglycemia 07/06/18 15:30 08/03/18 19:54 Dextrose (Dextrose 50%) 50 ml Q30M PRN IV hypoglycemia 07/06/18 15:30 08/03/18 19:59 Digoxin (Lanoxin) 0.125 mg DAILY ORAL 07/07/18 09:00 08/04/18 08:59 Diphenhydramine HCl (Benadryl) 25 mg Q6H PRN ORAL Itching/Pruritis 07/06/18 15:27 08/03/18 15:26 Erythromycin (Ilotycin) 1 applic EVERY 6 HOURS LEFT EYE 07/06/18 18:00 07/12/18 17:59 Escitalopram Oxalate (Lexapro) 10 mg DAILY ORAL 07/07/18 09:00 08/04/18 08:59 07/07/18 09:02 Heparin Sodium (Porcine) (Heparin 5000 units/ml) 5,000 units EVERY 12 HOURS SUBQ 07/06/18 21:00 08/03/18 22:29 07/07/18 09:08 Insulin Aspart (NovoLOG) BEFORE MEALS AND HS SUBQ 07/06/18 16:30 08/03/18 22:59 Iopamidol (Isovue-300 100ml) 100 ml NOW PRN INJ Radiology Procedure 07/06/18 17:45 07/07/18 17:44 Ketorolac Tromethamine (Toradol 30mg) 30 mg Q6H PRN IV Moderate Pain (Pain Scale 4-6) 07/06/18 15:28 07/09/18 15:27 Metoprolol Tartrate (Lopressor) 12.5 mg EVERY 12 HOURS ORAL 07/06/18 21:00 08/05/18 08:59 Morphine Sulfate (Morphine Sulfate) 2 mg Q4H PRN IVP Severe Pain (Pain Scale 7-10) 07/06/18 15:29 07/11/18 15:28 Nitroglycerin (Ntg) 0.4 mg Q5MIN X 3 DOSES PRN SL Prn Chest Pain 07/06/18 15:30 08/03/18 13:59 Ondansetron HCl (Zofran) 4 mg Q6H PRN IVP Nausea & Vomiting 07/06/18 15:29 08/03/18 15:28 Pantoprazole (Protonix) 40 mg DAILY ORAL 07/07/18 09:00 08/04/18 08:59 07/07/18 09:02 Polyethylene Glycol (Miralax) 17 gm HSPRN PRN ORAL Constipation 07/06/18 20:00 08/03/18 19:59 Quetiapine Fumarate (SEROquel) 25 mg TWICE A DAY ORAL 07/06/18 18:00 08/05/18 08:59 07/07/18 09:03 Sitagliptin Phosphate (Januvia) 50 mg ACBREAKFAST ORAL 07/07/18 06:30 08/04/18 06:29 Sodium Chloride 1,000 ml @ 50 mls/hr Q20H IV 07/06/18 15:28 08/03/18 15:27 Temazepam (Restoril) 15 mg HSPRN PRN ORAL Insomnia 07/06/18 20:00 07/11/18 19:59 Jing Mae M.D. Jul 07, 2018 13:53
--- NOTE | 2018-07-07 13:58 | Cardiac Electrophysiology PN ---
Assessment/Plan Assessment/Plan 1. Tachycardia. Actually kristi on telemetry. Ruled out myocardial infarction. Refused echocardiogram. DC Digoxin and Metoprolol. 2. Hypotension. Now hypertensive.Add p.r.n. clonidine. 3. RBBB and 1st degree AVB. DC Digoxin and Metoprolol. 4. Lung cancer. 5. Chronic obstructive pulmonary disease. 6. Diabetes. 7. Schizophrenia DW RN Subjective Subjective No N/V. Still has abdominal pain but refused abd US and refused ECG and Echo. On tel. Mostly in NSR. Occasionally sinus kristi Objective Last 24 Hour Vital Signs Date Time Temp Pulse Resp B/P (MAP) Pulse Ox O2 Delivery O2 Flow Rate FiO2 07/07/18 12:00 45 07/07/18 11:54 97.8 52 20 161/84 (109) 95 07/07/18 09:00 Nasal Cannula 2.0 07/07/18 09:00 60 07/07/18 08:00 97.9 100 20 149/103 (118) 97 07/07/18 08:00 97 07/07/18 04:00 97.3 54 19 138/68 (91) 98 07/07/18 00:00 97.6 51 18 100/60 (73) 96 07/06/18 21:00 Nasal Cannula 4.0 07/06/18 21:00 62 109/50 07/06/18 21:00 97.6 62 18 109/50 (69) 98 07/06/18 16:00 97.5 107 18 143/98 (113) 97 07/06/18 15:39 74 07/06/18 14:34 73 141/88 (105) Intake and Output 07/06/18 07/07/18 19:00 07:00 Intake Total 600 ml Output Total 200 ml Balance 400 ml Intake Oral 600 ml Output Urine Total 200 ml # Voids 2 Objective HEAD AND NECK: No JVD. LUNGS: Clear. CARDIOVASCULAR: Nl S1 and S2 with no gallop. ABDOMEN: Soft. EXTREMITIES: There is no pitting edema. Rafael Ching MD Jul 07, 2018 13:58
[2018-07-07] MEDS ORDERED: LORazepam 1mg tab ORAL PRN (14:30)
--- NOTE | 2018-07-07 14:32 | General Progress Note ---
Assessment/Plan Problem List: (1) Nausea & vomiting ICD Codes: R11.2 - Nausea with vomiting, unspecified SNOMED: 84686712 (2) UTI (urinary tract infection) ICD Codes: N39.0 - Urinary tract infection, site not specified SNOMED: 99676105 (3) Abdominal pain ICD Codes: R10.9 - Unspecified abdominal pain SNOMED: 61196043 (4) Diabetes ICD Codes: E11.9 - Type 2 diabetes mellitus without complications SNOMED: 97287177 (5) Anemia of chronic disease ICD Codes: D63.8 - Anemia in other chronic diseases classified elsewhere SNOMED: 241848892 (6) Intractable nausea and vomiting ICD Codes: R11.2 - Nausea with vomiting, unspecified SNOMED: 502070775 Qualifiers: Qualified Codes: R11.2 - Nausea with vomiting, unspecified (7) Acute renal failure (ARF) ICD Codes: N17.9 - Acute kidney failure, unspecified SNOMED: 27652604 Status: stable, progressing Assessment/Plan pt diet cardio gi eval cbc bmp am Subjective Constitutional: Reports: weakness Allergies: Coded Allergies: No Known Allergies (Unverified , 08/21/16) All Systems: reviewed and negative except above Subjective o2nc calm Objective Last 24 Hour Vital Signs Date Time Temp Pulse Resp B/P (MAP) Pulse Ox O2 Delivery O2 Flow Rate FiO2 07/07/18 12:00 45 07/07/18 11:54 97.8 52 20 161/84 (109) 95 07/07/18 09:00 Nasal Cannula 2.0 07/07/18 09:00 60 07/07/18 08:00 97.9 100 20 149/103 (118) 97 07/07/18 08:00 97 07/07/18 04:00 97.3 54 19 138/68 (91) 98 07/07/18 00:00 97.6 51 18 100/60 (73) 96 07/06/18 21:00 Nasal Cannula 4.0 07/06/18 21:00 62 109/50 07/06/18 21:00 97.6 62 18 109/50 (69) 98 07/06/18 16:00 97.5 107 18 143/98 (113) 97 07/06/18 15:39 74 07/06/18 14:34 73 141/88 (105) Intake and Output 07/06/18 07/07/18 18:59 06:59 Intake Total 600 ml Output Total 200 ml Balance 400 ml Intake Oral 600 ml Output Urine Total 200 ml # Voids 2 Height (Feet): 5 Height (Inches): 8.00 Weight (Pounds): 170 General Appearance: lethargic EENT: normal ENT inspection Neck: normal alignment Cardiovascular: normal peripheral pulses, normal rate, regular rhythm Respiratory/Chest: chest wall non-tender, decreased breath sounds Abdomen: normal bowel sounds, non tender, soft Extremities: normal inspection Edema: no edema noted Arm (L), no edema noted Arm (R), no edema noted Leg (L), no edema noted Leg (R), no edema noted Pedal (L), no edema noted Pedal (R), no edema noted Generalized Neurologic: motor weakness Skin: normal pigmentation, warm/dry Mart Crowell DO Jul 07, 2018 14:32
--- NOTE | 2018-07-07 15:12 | Pulmonology Progress Note ---
Assessment/Plan Problems: (1) Pleural mass (2) Intractable nausea and vomiting (3) Nausea & vomiting (4) Anemia of chronic disease (5) Diabetes Assessment/Plan CT of chest symptomatic treatment PT/ot GI evaluation Subjective ROS Limited/Unobtainable: No Constitutional: Reports: no symptoms HEENT: Repors: no symptoms Respiratory: Reports: no symptoms Allergies: Coded Allergies: No Known Allergies (Unverified , 08/21/16) Objective Last 24 Hour Vital Signs Date Time Temp Pulse Resp B/P (MAP) Pulse Ox O2 Delivery O2 Flow Rate FiO2 07/07/18 12:00 45 07/07/18 11:54 97.8 52 20 161/84 (109) 95 07/07/18 09:00 Nasal Cannula 2.0 07/07/18 09:00 60 07/07/18 08:00 97.9 100 20 149/103 (118) 97 07/07/18 08:00 97 07/07/18 04:00 97.3 54 19 138/68 (91) 98 07/07/18 00:00 97.6 51 18 100/60 (73) 96 07/06/18 21:00 Nasal Cannula 4.0 07/06/18 21:00 62 109/50 07/06/18 21:00 97.6 62 18 109/50 (69) 98 07/06/18 16:00 97.5 107 18 143/98 (113) 97 07/06/18 15:39 74 Intake and Output 07/06/18 07/07/18 19:00 07:00 Intake Total 600 ml Output Total 200 ml Balance 400 ml Intake Oral 600 ml Output Urine Total 200 ml # Voids 2 General Appearance: WD/WN HEENT: normocephalic, anicteric Respiratory/Chest: chest wall non-tender, normal breath sounds Cardiovascular: normal peripheral pulses, regular rhythm Abdomen: soft, non tender, no organomegaly Genitourinary: normal external genitalia Skin: no rash, no lesions Current Medications Medications (Trade) Dose Ordered Sig/Pura Route PRN Reason Start Time Stop Time Status Last Admin Dose Admin Acetaminophen (Tylenol) 650 mg Q4H PRN ORAL T>100.5 07/06/18 15:26 08/03/18 15:25 07/06/18 21:36 Al Hydroxide/Mg Hydroxide (Mylanta II) 30 ml Q6H PRN ORAL dyspepsia 07/06/18 15:27 08/03/18 15:26 Allopurinol (Zyloprim) 100 mg DAILY ORAL 07/07/18 09:00 08/04/18 08:59 07/07/18 09:03 Atorvastatin Calcium (Lipitor) 10 mg BEDTIME ORAL 07/06/18 21:00 08/05/18 20:59 07/06/18 21:14 Clonidine HCl (Catapres Tab) 0.1 mg Q2H PRN ORAL For High Blood Pressure 07/07/18 14:00 08/06/18 13:59 Dextrose (Dextrose 50%) 25 ml Q30M PRN IV Hypoglycemia 07/06/18 15:30 08/03/18 19:54 Dextrose (Dextrose 50%) 50 ml Q30M PRN IV hypoglycemia 07/06/18 15:30 08/03/18 19:59 Diphenhydramine HCl (Benadryl) 25 mg Q6H PRN ORAL Itching/Pruritis 07/06/18 15:27 08/03/18 15:26 Erythromycin (Ilotycin) 1 applic EVERY 6 HOURS LEFT EYE 07/06/18 18:00 07/12/18 17:59 Escitalopram Oxalate (Lexapro) 10 mg DAILY ORAL 07/07/18 09:00 08/04/18 08:59 07/07/18 09:02 Heparin Sodium (Porcine) (Heparin 5000 units/ml) 5,000 units EVERY 12 HOURS SUBQ 07/06/18 21:00 08/03/18 22:29 07/07/18 09:08 Insulin Aspart (NovoLOG) BEFORE MEALS AND HS SUBQ 07/06/18 16:30 08/03/18 22:59 Iopamidol (Isovue-300 100ml) 100 ml NOW PRN INJ Radiology Procedure 07/06/18 17:45 07/07/18 17:44 Ketorolac Tromethamine (Toradol 30mg) 30 mg Q6H PRN IV Moderate Pain (Pain Scale 4-6) 07/06/18 15:28 07/09/18 15:27 Lorazepam (Ativan) 1 mg Q6H PRN ORAL For Anxiety 07/07/18 14:30 07/14/18 14:29 Metoprolol Tartrate (Lopressor) 12.5 mg Q12HR ORAL 07/07/18 21:00 08/06/18 20:59 Morphine Sulfate (Morphine Sulfate) 2 mg Q4H PRN IVP Severe Pain (Pain Scale 7-10) 07/06/18 15:29 07/11/18 15:28 Nitroglycerin (Ntg) 0.4 mg Q5MIN X 3 DOSES PRN SL Prn Chest Pain 07/06/18 15:30 08/03/18 13:59 Ondansetron HCl (Zofran) 4 mg Q6H PRN IVP Nausea & Vomiting 07/06/18 15:29 08/03/18 15:28 Pantoprazole (Protonix) 40 mg DAILY ORAL 07/07/18 09:00 08/04/18 08:59 07/07/18 09:02 Polyethylene Glycol (Miralax) 17 gm HSPRN PRN ORAL Constipation 07/06/18 20:00 08/03/18 19:59 Quetiapine Fumarate (SEROquel) 25 mg TWICE A DAY ORAL 07/06/18 18:00 08/05/18 08:59 07/07/18 09:03 Sitagliptin Phosphate (Januvia) 50 mg ACBREAKFAST ORAL 07/07/18 06:30 08/04/18 06:29 Sodium Chloride 1,000 ml @ 50 mls/hr Q20H IV 07/06/18 15:28 08/03/18 15:27 Temazepam (Restoril) 15 mg HSPRN PRN ORAL Insomnia 07/06/18 20:00 07/11/18 19:59 Alf Akins MD Jul 07, 2018 15:12
[2018-07-07 16:00] VITALS: BP 122/61
--- NOTE | 2018-07-07 18:24 | NUR ---
CASE MANAGEMENT:REVIEW 07/04/18 RENETTA FROM [facility] SI: INTRACTABLE NAUSEA AND VOMITING CHOLELITHIASIS 97.5 54 18 158/71 100% ON RA GLUCOSE+110 SI: IV ZOFRAN X1 IV PEPCID X1 500CC NS BOLUS CT ABD/PELVIS : TO TELEMETRY INTERQUAL CRITERIA MET
--- NOTE | 2018-07-07 19:15 | NUR ---
Hand-off report received from Marley MINER with bedside rounds. Pt received awake on potty in bathroom. No present complaints or request. Cont. to monitor needs and assisting accordingly. Plan to hold Heparin pm and am doses for scheduled CT Biopsy of Lung. Consent signed.
--- NOTE | 2018-07-07 19:33 | NUR ---
HAND-OFF: Report given to KRISTOFER Vasquez. Stable condition.
--- NOTE | 2018-07-07 20:00 | Consultation ---
DATE OF CONSULTATION: 07/07/2018 CONSULTING PHYSICIAN: Kaveh Johnson M.D. HISTORY OF PRESENT ILLNESS: The patient is a 78-year-old male patient. The patient has intractable pain and he also has vomiting, but he is confused and disorganized mood lability. He has no logical plan for his own self-care. He has got intractable pain and vomiting at this time. He also has a diagnosis of bipolar 2 disorder that is why daily psychiatric consultation requested for this patient to be seen. So, assessed in his room today. He has confusion and he said he can manage because nurses are irritable, confused, and mood lability. He has got no logical plan for his own self-care. That is why, " ." The patient has had some mood lability, which is another reason why daily psychiatric consultation requested. MEDICAL PROBLEMS: Intractable pain, vomiting, respiratory insufficiency . ALLERGIES: No known drug allergies at this time. SUBSTANCE ABUSE HISTORY: Denies. PAIN ASSESSMENT: 0/10. DEVELOPMENTAL PROBLEMS: Denies. FAMILY PSYCHIATRIC HISTORY: Denies. SOCIAL HISTORY: Lives in [facility]. Financially supported by [employer] and Medicare. MENTAL STATUS EXAMINATION: This is a 78-year-old male patient. His appearance is disheveled. Attitude, irritable and agitated. His affect is labile. Intellect is poor. He does not know current events, does not know last four presidents. Mood, depressed and anxious. Motor activity, psychomotor agitation. Attention span is poor because he cannot do serial 7's or spell world backward. Orientation x2. Oriented to person and place, but not to time or situation. Speech is loud, hyperverbal. Thought process is slightly disorganized. Thought content, paranoid delusions. Insight is poor concrete thinking as far as this patient's insight is poor. He does not recognize his psychiatric disorder. Judgment is poor. He does not always decisions for his medical care. He denies any suicidal or homicidal thoughts. Short-term memory, 3/3 word recall after 5 minutes delay with good short-term memory. Long-term memory is intact based on the knowledge of long-term events life such as the high school that he went to as far as, DIAGNOSIS: Bipolar 2 secondary medical intractable pain and vomiting, GI distress. Psychosocial stressors, financial severe. PLAN: Plan for this patient is to treat him with medication regimen consisting of Lexapro 10 mg daily, Seroquel 25 mg twice a day, Ativan 1 mg every 6 hours p.r.n. anxiety and agitation. A 20 minutes of cognitive behavioral therapy to help him identify his automatic negative thoughts and help him convert those negative thoughts to more positive thoughts to reduce anxiety and suicidality and he will continue to be followed by Psychiatry throughout his hospital course. A 20 minutes of cognitive therapy provided to help identify automatic negative thoughts and help him to convert negative thoughts to more positive thoughts to reduce depression, anxiety, suicidality and help him to have more adaptive behavior patterns. Chart reviewed. Discussed with staff bedside. I would like to thank Dr. Mart Crowell for this interesting consultation. Kaveh Johnson M.D. DR: NIDA JOB#: [id number] CC:
--- NOTE | 2018-07-07 21:00 | NUR ---
Pt refused accu check and ordered meds. Stated "Will not have procedure for tomorrow...they hurt me"
[2018-07-08] VITALS: BP 117/77
[2018-07-08 04:00] VITALS: BP 162/81
[2018-07-08] MEDS: Erythromycin Opth Ointment 3.5gm LEFT EYE SCH ×5 (06:00→23:46)
[2018-07-08] MEDS: sitaGLIPtin 50mg tab ORAL SCH (06:30)
[2018-07-08] MEDS: NovoLOG Insulin Flexpen SUBQ SCH ×4 (06:30→21:00)
[2018-07-08] MEDS: Heparin 5000 units/ml inj SUBQ SCH ×2 (08:53→21:22)
[2018-07-08 08:54] VITALS: BP 122/72
[2018-07-08] MEDS: Metoprolol Tartrate 12.5mg TAB ORAL SCH (09:00)
[2018-07-08] MEDS: Allopurinol 100mg Tab ORAL SCH (09:06)
--- NOTE | 2018-07-08 09:28 | Cardiac Electrophysiology PN ---
Assessment/Plan Assessment/Plan 1. Recurrent Episodes of SVT of sudden onset and termination. Also has episodes of kristi and junctional rhythm in 30s. Ruled out myocardial infarction. agreed to echocardiogram today. Now off Digoxin and Metoprolol for junctional rhythms. Tachy kristi. Likely needs permanent pacer implant 2. Hypotension. Now hypertensive.Add p.r.n. clonidine. 3. 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 Off Digoxin and Metoprolol. Likely needs pacer 4. Lung cancer. 5. Chronic obstructive pulmonary disease. 6. Diabetes. 7. Schizophrenia DW RN Subjective Subjective No N/V. Today is agreeable to Echo. On tel. Gets junctional 36 while awake.Also had SVT up to 130. Objective Last 24 Hour Vital Signs Date Time Temp Pulse Resp B/P (MAP) Pulse Ox O2 Delivery O2 Flow Rate FiO2 07/08/18 09:00 58 122/72 07/08/18 08:54 96.6 58 20 122/72 (89) 07/08/18 08:54 58 07/08/18 04:00 98.2 108 18 162/81 (108) 07/08/18 04:00 44 07/08/18 00:00 98.8 88 19 117/77 (90) 96 07/08/18 00:00 44 07/07/18 21:00 Room Air 07/07/18 16:00 97.1 58 20 122/61 (81) 97 07/07/18 16:00 57 07/07/18 12:00 45 07/07/18 11:54 97.8 52 20 161/84 (109) 95 Intake and Output 07/07/18 07/08/18 19:00 07:00 Intake Total 630 ml Balance 630 ml Intake Oral 630 ml # Voids 1 # Bowel Movements 2 Objective HEAD AND NECK: No JVD. LUNGS: Clear. CARDIOVASCULAR: Nl S1 and S2 with no gallop. ABDOMEN: Soft. EXTREMITIES: There is no pitting edema. Rafael Ching MD Jul 08, 2018 09:28
--- NOTE | 2018-07-08 11:01 | Infectious Diseases Prog Note ---
Assessment/Plan Assessment/Plan Abx: NOne Assessment: Abd pain- ?etiology- likely gastritis (improved w antiacids, epigastric)- r/o PUD -CT abd/p p -Abd US p -CXR: 3.9 x 3.3 cm masslike opacity in the medial right lung base, which correlates with the finding on the recent CT of the abdomen and pelvis.. Mild elevation of the left hemidiaphragm. Subsegmental atelectasis versus infiltrate in the left lung base. Lung mass Afebrile No leukocytosis -u/a neg L eye blepharitis- refused erythromcin ointment DM2 HTN anemia MDD COPD lung CA CLL dx 2016 HTN hypothryroidism schizophrenia cholelithiasis spinous mass Plan: -Continue to monitor off abx unless signs of infectious process on pending imaging -F/u CT abd/p, Abd US -f/u cx -Monitor CBC/CMP, temperatures Thank you for this consultation. Will continue to follow along with you. Discussed with RN. Subjective Allergies: Coded Allergies: No Known Allergies (Unverified , 08/21/16) Subjective afebrile no leukocytosis Objective Vital Signs Last 24 Hour Vital Signs Date Time Temp Pulse Resp B/P (MAP) Pulse Ox O2 Delivery O2 Flow Rate FiO2 07/08/18 09:00 58 122/72 07/08/18 08:54 96.6 58 20 122/72 (89) 07/08/18 08:54 58 07/08/18 04:00 98.2 108 18 162/81 (108) 07/08/18 04:00 44 07/08/18 00:00 98.8 88 19 117/77 (90) 96 07/08/18 00:00 44 07/07/18 21:00 Room Air 07/07/18 16:00 97.1 58 20 122/61 (81) 97 07/07/18 16:00 57 07/07/18 12:00 45 07/07/18 11:54 97.8 52 20 161/84 (109) 95 Height (Feet): 5 Height (Inches): 8.00 Weight (Pounds): 170 Current Medications Medications (Trade) Dose Ordered Sig/Pura Route PRN Reason Start Time Stop Time Status Last Admin Dose Admin Acetaminophen (Tylenol) 650 mg Q4H PRN ORAL T>100.5 07/06/18 15:26 08/03/18 15:25 07/06/18 21:36 Al Hydroxide/Mg Hydroxide (Mylanta II) 30 ml Q6H PRN ORAL dyspepsia 07/06/18 15:27 08/03/18 15:26 Allopurinol (Zyloprim) 100 mg DAILY ORAL 07/07/18 09:00 08/04/18 08:59 07/08/18 09:06 Atorvastatin Calcium (Lipitor) 10 mg BEDTIME ORAL 07/06/18 21:00 08/05/18 20:59 07/06/18 21:14 Clonidine HCl (Catapres Tab) 0.1 mg Q2H PRN ORAL For High Blood Pressure 07/07/18 14:00 08/06/18 13:59 Dextrose (Dextrose 50%) 25 ml Q30M PRN IV Hypoglycemia 07/06/18 15:30 08/03/18 19:54 Dextrose (Dextrose 50%) 50 ml Q30M PRN IV hypoglycemia 07/06/18 15:30 08/03/18 19:59 Diphenhydramine HCl (Benadryl) 25 mg Q6H PRN ORAL Itching/Pruritis 07/06/18 15:27 08/03/18 15:26 Erythromycin (Ilotycin) 1 applic EVERY 6 HOURS LEFT EYE 07/06/18 18:00 07/12/18 17:59 Escitalopram Oxalate (Lexapro) 10 mg DAILY ORAL 07/07/18 09:00 08/04/18 08:59 07/08/18 09:05 Heparin Sodium (Porcine) (Heparin 5000 units/ml) 5,000 units EVERY 12 HOURS SUBQ 07/06/18 21:00 08/03/18 22:29 07/07/18 09:08 Insulin Aspart (NovoLOG) BEFORE MEALS AND HS SUBQ 07/06/18 16:30 08/03/18 22:59 Ketorolac Tromethamine (Toradol 30mg) 30 mg Q6H PRN IV Moderate Pain (Pain Scale 4-6) 07/06/18 15:28 07/09/18 15:27 Lorazepam (Ativan) 1 mg Q6H PRN ORAL For Anxiety 07/07/18 14:30 07/14/18 14:29 Morphine Sulfate (Morphine Sulfate) 2 mg Q4H PRN IVP Severe Pain (Pain Scale 7-10) 07/06/18 15:29 07/11/18 15:28 Nitroglycerin (Ntg) 0.4 mg Q5MIN X 3 DOSES PRN SL Prn Chest Pain 07/06/18 15:30 08/03/18 13:59 Ondansetron HCl (Zofran) 4 mg Q6H PRN IVP Nausea & Vomiting 07/06/18 15:29 08/03/18 15:28 Pantoprazole (Protonix) 40 mg DAILY ORAL 07/07/18 09:00 08/04/18 08:59 07/08/18 09:06 Polyethylene Glycol (Miralax) 17 gm HSPRN PRN ORAL Constipation 07/06/18 20:00 08/03/18 19:59 Quetiapine Fumarate (SEROquel) 25 mg TWICE A DAY ORAL 07/06/18 18:00 08/05/18 08:59 07/08/18 09:06 Sitagliptin Phosphate (Januvia) 50 mg ACBREAKFAST ORAL 07/07/18 06:30 08/04/18 06:29 Sodium Chloride 1,000 ml @ 50 mls/hr Q20H IV 07/06/18 15:28 08/03/18 15:27 Temazepam (Restoril) 15 mg HSPRN PRN ORAL Insomnia 07/06/18 20:00 07/11/18 19:59 Jing Mae M.D. Jul 08, 2018 11:01
--- NOTE | 2018-07-08 11:01 | NUR ---
NURSE NOTES: patient HR up to 150's, pt refusing IV insertion, notified Dr Silva and ordered EKG, Dr silva came and spoke with the patient.
[2018-07-08 12:00] VITALS: BP 119/83
--- NOTE | 2018-07-08 12:35 | NUR ---
NURSE NOTES: PT have SVT 90-120, Left msg to Dr. Beach
--- NOTE | 2018-07-08 12:35 | NUR ---
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
--- NOTE | 2018-07-08 13:46 | GI Progress Note ---
Assessment/Plan Problems: (1) Intractable nausea and vomiting ICD Codes: R11.2 - Nausea with vomiting, unspecified SNOMED: 445484806 Qualifiers: Qualified Codes: R11.2 - Nausea with vomiting, unspecified (2) Acute renal failure (ARF) ICD Codes: N17.9 - Acute kidney failure, unspecified SNOMED: 99793991 (3) Nausea & vomiting ICD Codes: R11.2 - Nausea with vomiting, unspecified SNOMED: 17350639 (4) Abdominal pain ICD Codes: R10.9 - Unspecified abdominal pain SNOMED: 89360881 (5) Anemia of chronic disease ICD Codes: D63.8 - Anemia in other chronic diseases classified elsewhere SNOMED: 754053223 Status: unchanged Status Narrative Discussed with Dr. Lafleur Assessment/Plan Assessment - abd pain - N/V - anemia - declines GI w/u Recommendations - supportive care -OB stool to rule out any GI bleed - consider psych consult - CT scan if/when pt agrees - EGD/Colon if/when patient agrees, after CT scan Follow-up labs The patient was seen and examined at bedside and all new and available data was reviewed in the patients chart. I agree with the above findings, impression and plan. (Patient seen earlier today. Signature stamp does not reflect patient encounter time.). - Matthias Lafleur MD Subjective Subjective Refused abdominal ultrasound Refused any GI procedures Objective Last 24 Hour Vital Signs Date Time Temp Pulse Resp B/P (MAP) Pulse Ox O2 Delivery O2 Flow Rate FiO2 07/08/18 12:00 97.8 92 18 119/83 (95) 99 07/08/18 11:45 Nasal Cannula 2.0 07/08/18 09:00 58 122/72 07/08/18 08:54 96.6 58 20 122/72 (89) 07/08/18 08:54 58 07/08/18 04:00 98.2 108 18 162/81 (108) 07/08/18 04:00 44 07/08/18 00:00 98.8 88 19 117/77 (90) 96 07/08/18 00:00 44 07/07/18 21:00 Room Air 07/07/18 16:00 97.1 58 20 122/61 (81) 97 07/07/18 16:00 57 Intake and Output 07/07/18 07/08/18 19:00 07:00 Intake Total 630 ml Balance 630 ml Intake Oral 630 ml # Voids 1 # Bowel Movements 2 Height (Feet): 5 Height (Inches): 8.00 Weight (Pounds): 170 General Appearance: WD/WN, no apparent distress, alert Cardiovascular: normal rate Respiratory/Chest: normal breath sounds, no respiratory distress Abdominal Exam: normal bowel sounds, non tender, soft Extremities: non-tender Delmy Giraldo NP Jul 08, 2018 13:46
--- NOTE | 2018-07-08 13:54 | General Progress Note ---
Assessment/Plan Problem List: (1) Nausea & vomiting ICD Codes: R11.2 - Nausea with vomiting, unspecified SNOMED: 73528842 (2) UTI (urinary tract infection) ICD Codes: N39.0 - Urinary tract infection, site not specified SNOMED: 39785636 (3) Abdominal pain ICD Codes: R10.9 - Unspecified abdominal pain SNOMED: 48615595 (4) Diabetes ICD Codes: E11.9 - Type 2 diabetes mellitus without complications SNOMED: 03405253 (5) Anemia of chronic disease ICD Codes: D63.8 - Anemia in other chronic diseases classified elsewhere SNOMED: 438426545 (6) Intractable nausea and vomiting ICD Codes: R11.2 - Nausea with vomiting, unspecified SNOMED: 706911550 Qualifiers: Qualified Codes: R11.2 - Nausea with vomiting, unspecified (7) Acute renal failure (ARF) ICD Codes: N17.9 - Acute kidney failure, unspecified SNOMED: 20224105 (8) SVT (supraventricular tachycardia) ICD Codes: I47.1 - Supraventricular tachycardia SNOMED: 2879366 Status: stable, progressing Assessment/Plan pt diet cardio gi eval cbc bmp am Subjective Constitutional: Reports: weakness Allergies: Coded Allergies: No Known Allergies (Unverified , 08/21/16) All Systems: reviewed and negative except above Subjective calm in chair Objective Last 24 Hour Vital Signs Date Time Temp Pulse Resp B/P (MAP) Pulse Ox O2 Delivery O2 Flow Rate FiO2 07/08/18 12:00 97.8 92 18 119/83 (95) 99 07/08/18 11:45 Nasal Cannula 2.0 07/08/18 09:00 58 122/72 07/08/18 08:54 96.6 58 20 122/72 (89) 07/08/18 08:54 58 07/08/18 04:00 98.2 108 18 162/81 (108) 07/08/18 04:00 44 07/08/18 00:00 98.8 88 19 117/77 (90) 96 07/08/18 00:00 44 07/07/18 21:00 Room Air 07/07/18 16:00 97.1 58 20 122/61 (81) 97 07/07/18 16:00 57 Intake and Output 07/07/18 07/08/18 19:00 07:00 Intake Total 630 ml Balance 630 ml Intake Oral 630 ml # Voids 1 # Bowel Movements 2 Height (Feet): 5 Height (Inches): 8.00 Weight (Pounds): 170 General Appearance: lethargic EENT: normal ENT inspection Neck: normal alignment Cardiovascular: normal peripheral pulses, normal rate, regular rhythm Respiratory/Chest: chest wall non-tender, lungs clear, normal breath sounds Abdomen: normal bowel sounds, non tender, soft Extremities: normal inspection Edema: no edema noted Arm (L), no edema noted Arm (R), no edema noted Leg (L), no edema noted Leg (R), no edema noted Pedal (L), no edema noted Pedal (R), no edema noted Generalized Neurologic: motor weakness Skin: normal pigmentation, warm/dry Mart Crowell DO Jul 08, 2018 13:54
[2018-07-08] MEDS: Mylanta II UD 30ml ORAL PRN (14:33)
--- NOTE | 2018-07-08 14:45 | Progress Note ---
DATE: 07/08/2018 SUBJECTIVE: This is a 78-year-old male patient with intractable pain. The patient continues to have some confusion, disorganized thought process, and mood lability. MENTAL STATUS EXAMINATION: This is a 78-year-old male. Appearance is disheveled. Attitude, irritable and agitated. Affect, guarded and restricted. Intellect poor. Mood, depressed and anxious. Motor activity, psychomotor agitation. Attention span is poor. Orientation x2. Speech is pressured. Thought process is slightly disorganized. Thought content, auditory hallucinations and paranoid delusions. Insight and judgment is poor. DIAGNOSIS: Paranoid schizophrenia, acute exacerbation. PLAN: Treat him with Seroquel 25 mg twice a day and Lexapro 10 mg daily. Provide him with 20 minutes of supportive therapy and 20 minutes of cognitive behavioral therapy to help identify automatic negative thoughts and help him convert those negative thoughts to more positive thoughts to reduce depression, anxiety, and suicidality. A 20 minutes of cognitive behavioral therapy was provided to him. Kaveh Johnson M.D. DR: MELANIA JOB#: [id number] CC:
[2018-07-08 16:00] VITALS: BP 124/79
--- NOTE | 2018-07-08 17:07 | Cardiology Report ---
APPROVED REPORT EXAM: Two-dimensional and M-mode echocardiogram with Doppler and color Doppler. INDICATION TACHYCARDIA M-Mode DIMENSIONS IVSd1.1 (0.7-1.1cm)Left Atrium (MM)2.9 (1.6-4.0cm) LVDd5.7 (3.5-5.6cm)Aortic Root3.7 (2.0-3.7cm) PWd1.0 (0.7-1.1cm)Aortic Cusp Exc.1.6 (1.5-2.0cm) IVSs1.9 cm LVDs3.5 (2.5-4.0cm) PWs1.4 cm Normal left ventricular chamber size, systolic function and wall motion . Left ventricular ejection fraction estimated to be 55-60%. Mild left ventricular hypertrophy by2-D. No evidence of pericardial effusion. Left atrial size at upper limits of normal. Right cardiac chamber sizes are within normal limits. Mild aortic valve sclerosis with adequate cusp excursion. Mildly thickened mitral valve leaflets with normal excursion. Mild mitral annulus and aortic root calcification. Valvular study not well visualized . Pulmonic valve not well visualized. IVC at normal size with physiologic collapse. A color flow and spectral Doppler study was performed and revealed: No aortic regurgitation. Normal left ventricular diastolic function . Mild mitral regurgitation. Trace tricuspid regurgitation. Tricuspid systolic velocities suggests peak right ventricular systolic pressure of 29 mmHg
--- NOTE | 2018-07-08 17:20 | Cardiology Report ---
APPROVED REPORT EKG Measurement Heart [id number] Sinus rhythm with 1st degree AV block Right bundle branch block Possible Inferior infarct, age undetermined T wave abnormality, consider lateral ischemia Abnormal ECG
--- NOTE | 2018-07-08 19:07 | NUR ---
HAND-OFF: Report given to You Kerr RN.
[2018-07-08 20:00] VITALS: BP 108/66
--- NOTE | 2018-07-08 20:04 | NUR ---
NURSE NOTES: Received patient from Alison MINER. IV site intact. Patient appears to be in no distress at this time, calmly sitting on the edge of the bed. call light within reach. Bed in lowest position. Will continue to monitor and follow plan of care.
[2018-07-09] VITALS: BP 96/56
[2018-07-09 04:00] VITALS: BP 141/60
[2018-07-09] MEDS: Erythromycin Opth Ointment 3.5gm LEFT EYE SCH ×4 (06:00→18:00)
[2018-07-09] MEDS: NovoLOG Insulin Flexpen SUBQ SCH ×4 (06:30→20:55)
[2018-07-09] MEDS: sitaGLIPtin 50mg tab ORAL SCH (06:39)
--- NOTE | 2018-07-09 07:10 | NUR ---
NURSE NOTES: Received report from KRISTOFER Roth. Patient is sitting on chair and in stable condition. No acute distress/SOB noted. Patient denies any pain/discomfort. Will continue plan of care.
[2018-07-09 08:00] VITALS: BP 137/68
[2018-07-09] MEDS: Allopurinol 100mg Tab ORAL SCH (08:49)
[2018-07-09] MEDS: Heparin 5000 units/ml inj SUBQ SCH ×2 (08:58→20:55)
--- NOTE | 2018-07-09 09:28 | NUR ---
NURSE NOTES: Patient refused 2nd attempt blood draw. Explained benefits and risks. Patient is still strongly refusing. Will continue plan of care.
[2018-07-09] MEDS: Mylanta II UD 30ml ORAL PRN (09:48)
--- NOTE | 2018-07-09 11:32 | Infectious Diseases Prog Note ---
Assessment/Plan Assessment/Plan Abx: NOne Assessment: Abd pain- ?etiology- likely gastritis (improved w antiacids, epigastric)- r/o PUD -CT abd/p p -Abd US p -CXR: 3.9 x 3.3 cm masslike opacity in the medial right lung base, which correlates with the finding on the recent CT of the abdomen and pelvis.. Mild elevation of the left hemidiaphragm. Subsegmental atelectasis versus infiltrate in the left lung base. Lung mass Afebrile No leukocytosis -u/a neg L eye blepharitis- refused erythromcin ointment DM2 HTN anemia MDD COPD lung CA CLL dx 2016 HTN hypothryroidism schizophrenia cholelithiasis spinous mass Plan: -Continue to monitor off abx unless signs of infectious process on pending imaging -F/u CT abd/p, Abd US -f/u cx -Monitor CBC/CMP, temperatures Thank you for this consultation. Will continue to follow along with you. Discussed with RN. Subjective Allergies: Coded Allergies: No Known Allergies (Unverified , 08/21/16) Subjective afebrile no leukocytosis Objective Vital Signs Last 24 Hour Vital Signs Date Time Temp Pulse Resp B/P (MAP) Pulse Ox O2 Delivery O2 Flow Rate FiO2 07/09/18 10:19 99 Nasal Cannula 4.0 36 07/09/18 10:18 Nasal Cannula 4.0 36 07/09/18 09:00 Nasal Cannula 2.0 07/09/18 08:00 97.7 57 20 137/68 (91) 96 07/09/18 07:35 58 07/09/18 04:00 46 07/09/18 04:00 97.9 53 20 141/60 (87) 95 07/09/18 00:00 67 07/09/18 00:00 98.0 82 20 96/56 (69) 96 07/08/18 21:00 Nasal Cannula 2.0 07/08/18 20:00 72 07/08/18 20:00 98.8 79 20 108/66 (80) 96 07/08/18 16:01 74 07/08/18 16:00 97.8 67 18 124/79 (94) 99 07/08/18 12:00 97.8 92 18 119/83 (95) 99 07/08/18 12:00 55 07/08/18 11:45 Nasal Cannula 2.0 Height (Feet): 5 Height (Inches): 8.00 Weight (Pounds): 170 Laboratory Tests Test 07/09/18 06:30 Stool Occult Blood Negative (NEGATIVE) Current Medications Medications (Trade) Dose Ordered Sig/Pura Route PRN Reason Start Time Stop Time Status Last Admin Dose Admin Acetaminophen (Tylenol) 650 mg Q4H PRN ORAL T>100.5 07/06/18 15:26 08/03/18 15:25 07/06/18 21:36 Al Hydroxide/Mg Hydroxide (Mylanta II) 30 ml Q6H PRN ORAL dyspepsia 07/06/18 15:27 08/03/18 15:26 07/09/18 09:48 Allopurinol (Zyloprim) 100 mg DAILY ORAL 07/07/18 09:00 08/04/18 08:59 07/09/18 08:49 Atorvastatin Calcium (Lipitor) 10 mg BEDTIME ORAL 07/06/18 21:00 08/05/18 20:59 07/08/18 21:22 Clonidine HCl (Catapres Tab) 0.1 mg Q2H PRN ORAL For High Blood Pressure 07/07/18 14:00 08/06/18 13:59 Dextrose (Dextrose 50%) 25 ml Q30M PRN IV Hypoglycemia 07/06/18 15:30 08/03/18 19:54 Dextrose (Dextrose 50%) 50 ml Q30M PRN IV hypoglycemia 07/06/18 15:30 08/03/18 19:59 Diphenhydramine HCl (Benadryl) 25 mg Q6H PRN ORAL Itching/Pruritis 07/06/18 15:27 08/03/18 15:26 Erythromycin (Ilotycin) 1 applic EVERY 6 HOURS LEFT EYE 07/06/18 18:00 07/12/18 17:59 07/09/18 06:00 Escitalopram Oxalate (Lexapro) 10 mg DAILY ORAL 07/07/18 09:00 08/04/18 08:59 07/09/18 08:49 Heparin Sodium (Porcine) (Heparin 5000 units/ml) 5,000 units EVERY 12 HOURS SUBQ 07/06/18 21:00 08/03/18 22:29 07/09/18 08:58 Insulin Aspart (NovoLOG) BEFORE MEALS AND HS SUBQ 07/06/18 16:30 08/03/18 22:59 Ketorolac Tromethamine (Toradol 30mg) 30 mg Q6H PRN IV Moderate Pain (Pain Scale 4-6) 07/06/18 15:28 07/09/18 15:27 Lorazepam (Ativan) 1 mg Q6H PRN ORAL For Anxiety 07/07/18 14:30 07/14/18 14:29 Morphine Sulfate (Morphine Sulfate) 2 mg Q4H PRN IVP Severe Pain (Pain Scale 7-10) 07/06/18 15:29 07/11/18 15:28 Nitroglycerin (Ntg) 0.4 mg Q5MIN X 3 DOSES PRN SL Prn Chest Pain 07/06/18 15:30 08/03/18 13:59 Ondansetron HCl (Zofran) 4 mg Q6H PRN IVP Nausea & Vomiting 07/06/18 15:29 08/03/18 15:28 Pantoprazole (Protonix) 40 mg DAILY ORAL 07/07/18 09:00 08/04/18 08:59 07/09/18 08:49 Polyethylene Glycol (Miralax) 17 gm HSPRN PRN ORAL Constipation 07/06/18 20:00 08/03/18 19:59 Quetiapine Fumarate (SEROquel) 25 mg TWICE A DAY ORAL 07/06/18 18:00 08/05/18 08:59 07/09/18 08:49 Sitagliptin Phosphate (Januvia) 50 mg ACBREAKFAST ORAL 07/07/18 06:30 08/04/18 06:29 07/09/18 06:39 Sodium Chloride 1,000 ml @ 50 mls/hr Q20H IV 07/06/18 15:28 08/03/18 15:27 Temazepam (Restoril) 15 mg HSPRN PRN ORAL Insomnia 07/06/18 20:00 07/11/18 19:59 Jing Mae M.D. Jul 09, 2018 11:32
--- NOTE | 2018-07-09 11:36 | GI Progress Note ---
Assessment/Plan Problems: (1) Intractable nausea and vomiting ICD Codes: R11.2 - Nausea with vomiting, unspecified SNOMED: 894168771 Qualifiers: Qualified Codes: R11.2 - Nausea with vomiting, unspecified (2) Acute renal failure (ARF) ICD Codes: N17.9 - Acute kidney failure, unspecified SNOMED: 18911852 (3) Nausea & vomiting ICD Codes: R11.2 - Nausea with vomiting, unspecified SNOMED: 45619724 (4) Abdominal pain ICD Codes: R10.9 - Unspecified abdominal pain SNOMED: 42156257 (5) Anemia of chronic disease ICD Codes: D63.8 - Anemia in other chronic diseases classified elsewhere SNOMED: 260111260 Status: stable Status Narrative Discussed with Dr. Lafleur. Assessment/Plan Assessment - abd pain - N/V - anemia - declines GI w/u -Negative OB stool Recommendations - supportive care - consider psych consult - CT scan if/when pt agrees - Outpatient GI procedures Follow-up labs The patient was seen and examined at bedside and all new and available data was reviewed in the patients chart. I agree with the above findings, impression and plan. (Patient seen earlier today. Signature stamp does not reflect patient encounter time.). - Matthias Lafleur MD Subjective Subjective Refused abdominal ultrasound Refused any GI procedures Objective Last 24 Hour Vital Signs Date Time Temp Pulse Resp B/P (MAP) Pulse Ox O2 Delivery O2 Flow Rate FiO2 07/09/18 10:19 99 Nasal Cannula 4.0 36 07/09/18 10:18 Nasal Cannula 4.0 36 07/09/18 09:00 Nasal Cannula 2.0 07/09/18 08:00 97.7 57 20 137/68 (91) 96 07/09/18 07:35 58 07/09/18 04:00 46 07/09/18 04:00 97.9 53 20 141/60 (87) 95 07/09/18 00:00 67 07/09/18 00:00 98.0 82 20 96/56 (69) 96 07/08/18 21:00 Nasal Cannula 2.0 07/08/18 20:00 72 07/08/18 20:00 98.8 79 20 108/66 (80) 96 07/08/18 16:01 74 07/08/18 16:00 97.8 67 18 124/79 (94) 99 07/08/18 12:00 97.8 92 18 119/83 (95) 99 07/08/18 12:00 55 07/08/18 11:45 Nasal Cannula 2.0 Intake and Output 07/08/18 07/09/18 19:00 07:00 Intake Total 680 ml Output Total 700 ml Balance -20 ml Intake Oral 680 ml Output Urine Total 700 ml # Bowel Movements 1 Laboratory Tests Test 07/09/18 06:30 Stool Occult Blood Negative (NEGATIVE) Height (Feet): 5 Height (Inches): 8.00 Weight (Pounds): 170 General Appearance: WD/WN, no apparent distress, alert Cardiovascular: normal rate Respiratory/Chest: normal breath sounds, no respiratory distress Abdominal Exam: normal bowel sounds, non tender, soft Extremities: non-tender Delmy Giraldo NP Jul 09, 2018 11:36
[2018-07-09 12:00] VITALS: BP 164/75
--- NOTE | 2018-07-09 12:15 | Cardiac Electrophysiology PN ---
Assessment/Plan Assessment/Plan 1. Recurrent Episodes of SVT of sudden onset and termination. Also has episodes of kristi and junctional rhythm in 30s. Ruled out myocardial infarction. Now off Digoxin and Metoprolol for junctional rhythms. Needs permanent pacer implant. After pacer will start AVN blockers and if still SVTs, then would transfer for EP study 2. Hypotension. Now hypertensive. 3. 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 Off Digoxin and Metoprolol. Needs pacer. DW patient the risks and benefits. He wants to think about it. 4. Lung cancer. 5. Chronic obstructive pulmonary disease. 6. Diabetes. 7. Schizophrenia DW RN Subjective Subjective No N/V. Today is agreeable to Echo. On tel. Still gets junctional 37 while awake and also SVTs up to 140. Objective Last 24 Hour Vital Signs Date Time Temp Pulse Resp B/P (MAP) Pulse Ox O2 Delivery O2 Flow Rate FiO2 07/09/18 12:00 98.0 51 21 164/75 (104) 99 07/09/18 10:19 99 Nasal Cannula 4.0 36 07/09/18 10:18 Nasal Cannula 4.0 36 07/09/18 09:00 Nasal Cannula 2.0 07/09/18 08:00 97.7 57 20 137/68 (91) 96 07/09/18 07:35 58 07/09/18 04:00 46 07/09/18 04:00 97.9 53 20 141/60 (87) 95 07/09/18 00:00 67 07/09/18 00:00 98.0 82 20 96/56 (69) 96 07/08/18 21:00 Nasal Cannula 2.0 07/08/18 20:00 72 07/08/18 20:00 98.8 79 20 108/66 (80) 96 07/08/18 16:01 74 07/08/18 16:00 97.8 67 18 124/79 (94) 99 Intake and Output 07/08/18 07/09/18 19:00 07:00 Intake Total 680 ml Output Total 700 ml Balance -20 ml Intake Oral 680 ml Output Urine Total 700 ml # Bowel Movements 1 Laboratory Tests Test 07/09/18 06:30 Stool Occult Blood Negative (NEGATIVE) Objective HEAD AND NECK: No JVD. LUNGS: Clear. CARDIOVASCULAR: Kristi S1 and S2 with no gallop. ABDOMEN: Soft. EXTREMITIES: There is no pitting edema. Rafael Ching MD Jul 09, 2018 12:15
--- NOTE | 2018-07-09 14:34 | Pulmonology Progress Note ---
Assessment/Plan Problems: (1) Pleural mass (2) Intractable nausea and vomiting (3) Nausea & vomiting (4) Anemia of chronic disease (5) Diabetes Assessment/Plan doing better all reviewed sliding scale symptomatic treatment PT/ot GI evaluation Subjective Interval Events: late note for 07/08 Allergies: Coded Allergies: No Known Allergies (Unverified , 08/21/16) Objective Last 24 Hour Vital Signs Date Time Temp Pulse Resp B/P (MAP) Pulse Ox O2 Delivery O2 Flow Rate FiO2 07/09/18 12:00 43 07/09/18 12:00 98.0 51 21 164/75 (104) 99 07/09/18 10:19 99 Nasal Cannula 4.0 36 07/09/18 10:18 Nasal Cannula 4.0 36 07/09/18 09:00 Nasal Cannula 2.0 07/09/18 08:00 97.7 57 20 137/68 (91) 96 07/09/18 07:35 58 07/09/18 04:00 46 07/09/18 04:00 97.9 53 20 141/60 (87) 95 07/09/18 00:00 67 07/09/18 00:00 98.0 82 20 96/56 (69) 96 07/08/18 21:00 Nasal Cannula 2.0 07/08/18 20:00 72 07/08/18 20:00 98.8 79 20 108/66 (80) 96 07/08/18 16:01 74 07/08/18 16:00 97.8 67 18 124/79 (94) 99 Intake and Output 07/08/18 07/09/18 19:00 07:00 Intake Total 680 ml Output Total 700 ml Balance -20 ml Intake Oral 680 ml Output Urine Total 700 ml # Bowel Movements 1 General Appearance: WD/WN HEENT: normocephalic, atraumatic Respiratory/Chest: chest wall non-tender, lungs clear Cardiovascular: normal peripheral pulses, normal rate Abdomen: normal bowel sounds, soft, non tender Genitourinary: normal external genitalia Extremities: no cyanosis, no clubbing Skin: no lesions 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 Laboratory Tests 07/09/18 06:30: Stool Occult Blood Negative Current Medications Medications (Trade) Dose Ordered Sig/Pura Route PRN Reason Start Time Stop Time Status Last Admin Dose Admin Acetaminophen (Tylenol) 650 mg Q4H PRN ORAL T>100.5 07/06/18 15:26 08/03/18 15:25 07/06/18 21:36 Al Hydroxide/Mg Hydroxide (Mylanta II) 30 ml Q6H PRN ORAL dyspepsia 07/06/18 15:27 08/03/18 15:26 07/09/18 09:48 Allopurinol (Zyloprim) 100 mg DAILY ORAL 07/07/18 09:00 08/04/18 08:59 07/09/18 08:49 Atorvastatin Calcium (Lipitor) 10 mg BEDTIME ORAL 07/06/18 21:00 08/05/18 20:59 07/08/18 21:22 Clonidine HCl (Catapres Tab) 0.1 mg Q2H PRN ORAL For High Blood Pressure 07/07/18 14:00 08/06/18 13:59 Dextrose (Dextrose 50%) 25 ml Q30M PRN IV Hypoglycemia 07/06/18 15:30 08/03/18 19:54 Dextrose (Dextrose 50%) 50 ml Q30M PRN IV hypoglycemia 07/06/18 15:30 08/03/18 19:59 Diphenhydramine HCl (Benadryl) 25 mg Q6H PRN ORAL Itching/Pruritis 07/06/18 15:27 08/03/18 15:26 Erythromycin (Ilotycin) 1 applic EVERY 6 HOURS LEFT EYE 07/06/18 18:00 07/12/18 17:59 07/09/18 06:00 Escitalopram Oxalate (Lexapro) 10 mg DAILY ORAL 07/07/18 09:00 08/04/18 08:59 07/09/18 08:49 Heparin Sodium (Porcine) (Heparin 5000 units/ml) 5,000 units EVERY 12 HOURS SUBQ 07/06/18 21:00 08/03/18 22:29 07/09/18 08:58 Insulin Aspart (NovoLOG) BEFORE MEALS AND HS SUBQ 07/06/18 16:30 08/03/18 22:59 Ketorolac Tromethamine (Toradol 30mg) 30 mg Q6H PRN IV Moderate Pain (Pain Scale 4-6) 07/06/18 15:28 07/09/18 15:27 Lorazepam (Ativan) 1 mg Q6H PRN ORAL For Anxiety 07/07/18 14:30 07/14/18 14:29 Morphine Sulfate (Morphine Sulfate) 2 mg Q4H PRN IVP Severe Pain (Pain Scale 7-10) 07/06/18 15:29 07/11/18 15:28 Nitroglycerin (Ntg) 0.4 mg Q5MIN X 3 DOSES PRN SL Prn Chest Pain 07/06/18 15:30 08/03/18 13:59 Ondansetron HCl (Zofran) 4 mg Q6H PRN IVP Nausea & Vomiting 07/06/18 15:29 08/03/18 15:28 Pantoprazole (Protonix) 40 mg DAILY ORAL 07/07/18 09:00 08/04/18 08:59 07/09/18 08:49 Polyethylene Glycol (Miralax) 17 gm HSPRN PRN ORAL Constipation 07/06/18 20:00 08/03/18 19:59 Quetiapine Fumarate (SEROquel) 25 mg TWICE A DAY ORAL 07/06/18 18:00 08/05/18 08:59 07/09/18 08:49 Sitagliptin Phosphate (Januvia) 50 mg ACBREAKFAST ORAL 07/07/18 06:30 08/04/18 06:29 07/09/18 06:39 Sodium Chloride 1,000 ml @ 50 mls/hr Q20H IV 07/06/18 15:28 08/03/18 15:27 Temazepam (Restoril) 15 mg HSPRN PRN ORAL Insomnia 07/06/18 20:00 07/11/18 19:59 Alf Akins MD Jul 09, 2018 14:34
--- NOTE | 2018-07-09 14:39 | Pulmonology Progress Note ---
Assessment/Plan Problems: (1) Pleural mass (2) Intractable nausea and vomiting (3) Nausea & vomiting (4) Anemia of chronic disease (5) Diabetes Assessment/Plan refused CT chest previously, will order again all reviewed sliding scale symptomatic treatment PT/ot Subjective ROS Limited/Unobtainable: No Constitutional: Reports: no symptoms HEENT: Repors: no symptoms Allergies: Coded Allergies: No Known Allergies (Unverified , 08/21/16) Objective Last 24 Hour Vital Signs Date Time Temp Pulse Resp B/P (MAP) Pulse Ox O2 Delivery O2 Flow Rate FiO2 07/09/18 12:00 43 07/09/18 12:00 98.0 51 21 164/75 (104) 99 07/09/18 10:19 99 Nasal Cannula 4.0 36 07/09/18 10:18 Nasal Cannula 4.0 36 07/09/18 09:00 Nasal Cannula 2.0 07/09/18 08:00 97.7 57 20 137/68 (91) 96 07/09/18 07:35 58 07/09/18 04:00 46 07/09/18 04:00 97.9 53 20 141/60 (87) 95 07/09/18 00:00 67 07/09/18 00:00 98.0 82 20 96/56 (69) 96 07/08/18 21:00 Nasal Cannula 2.0 07/08/18 20:00 72 07/08/18 20:00 98.8 79 20 108/66 (80) 96 07/08/18 16:01 74 07/08/18 16:00 97.8 67 18 124/79 (94) 99 Intake and Output 07/08/18 07/09/18 19:00 07:00 Intake Total 680 ml Output Total 700 ml Balance -20 ml Intake Oral 680 ml Output Urine Total 700 ml # Bowel Movements 1 General Appearance: WD/WN HEENT: normocephalic Respiratory/Chest: chest wall non-tender, normal breath sounds Cardiovascular: normal peripheral pulses Abdomen: normal bowel sounds Laboratory Tests 07/09/18 06:30: Stool Occult Blood Negative Current Medications Medications (Trade) Dose Ordered Sig/Pura Route PRN Reason Start Time Stop Time Status Last Admin Dose Admin Acetaminophen (Tylenol) 650 mg Q4H PRN ORAL T>100.5 07/06/18 15:26 08/03/18 15:25 07/06/18 21:36 Al Hydroxide/Mg Hydroxide (Mylanta II) 30 ml Q6H PRN ORAL dyspepsia 07/06/18 15:27 08/03/18 15:26 07/09/18 09:48 Allopurinol (Zyloprim) 100 mg DAILY ORAL 07/07/18 09:00 08/04/18 08:59 07/09/18 08:49 Atorvastatin Calcium (Lipitor) 10 mg BEDTIME ORAL 07/06/18 21:00 08/05/18 20:59 07/08/18 21:22 Clonidine HCl (Catapres Tab) 0.1 mg Q2H PRN ORAL For High Blood Pressure 07/07/18 14:00 08/06/18 13:59 Dextrose (Dextrose 50%) 25 ml Q30M PRN IV Hypoglycemia 07/06/18 15:30 08/03/18 19:54 Dextrose (Dextrose 50%) 50 ml Q30M PRN IV hypoglycemia 07/06/18 15:30 08/03/18 19:59 Diphenhydramine HCl (Benadryl) 25 mg Q6H PRN ORAL Itching/Pruritis 07/06/18 15:27 08/03/18 15:26 Erythromycin (Ilotycin) 1 applic EVERY 6 HOURS LEFT EYE 07/06/18 18:00 07/12/18 17:59 07/09/18 06:00 Escitalopram Oxalate (Lexapro) 10 mg DAILY ORAL 07/07/18 09:00 08/04/18 08:59 07/09/18 08:49 Heparin Sodium (Porcine) (Heparin 5000 units/ml) 5,000 units EVERY 12 HOURS SUBQ 07/06/18 21:00 08/03/18 22:29 07/09/18 08:58 Insulin Aspart (NovoLOG) BEFORE MEALS AND HS SUBQ 07/06/18 16:30 08/03/18 22:59 Iopamidol (Isovue-300 100ml) 100 ml NOW PRN INJ Radiology Procedure 07/09/18 14:45 07/11/18 14:35 UNV Ketorolac Tromethamine (Toradol 30mg) 30 mg Q6H PRN IV Moderate Pain (Pain Scale 4-6) 07/06/18 15:28 07/09/18 15:27 Lorazepam (Ativan) 1 mg Q6H PRN ORAL For Anxiety 07/07/18 14:30 07/14/18 14:29 Morphine Sulfate (Morphine Sulfate) 2 mg Q4H PRN IVP Severe Pain (Pain Scale 7-10) 07/06/18 15:29 07/11/18 15:28 Nitroglycerin (Ntg) 0.4 mg Q5MIN X 3 DOSES PRN SL Prn Chest Pain 07/06/18 15:30 08/03/18 13:59 Ondansetron HCl (Zofran) 4 mg Q6H PRN IVP Nausea & Vomiting 07/06/18 15:29 08/03/18 15:28 Pantoprazole (Protonix) 40 mg DAILY ORAL 07/07/18 09:00 08/04/18 08:59 07/09/18 08:49 Polyethylene Glycol (Miralax) 17 gm HSPRN PRN ORAL Constipation 07/06/18 20:00 08/03/18 19:59 Quetiapine Fumarate (SEROquel) 25 mg TWICE A DAY ORAL 07/06/18 18:00 08/05/18 08:59 07/09/18 08:49 Sitagliptin Phosphate (Januvia) 50 mg ACBREAKFAST ORAL 07/07/18 06:30 08/04/18 06:29 07/09/18 06:39 Sodium Chloride 1,000 ml @ 50 mls/hr Q20H IV 07/06/18 15:28 08/03/18 15:27 Temazepam (Restoril) 15 mg HSPRN PRN ORAL Insomnia 07/06/18 20:00 07/11/18 19:59 Alf Akins MD Jul 09, 2018 14:39
--- NOTE | 2018-07-09 14:40 | General Progress Note ---
Assessment/Plan Problem List: (1) Nausea & vomiting ICD Codes: R11.2 - Nausea with vomiting, unspecified SNOMED: 00275975 (2) UTI (urinary tract infection) ICD Codes: N39.0 - Urinary tract infection, site not specified SNOMED: 03306569 (3) Abdominal pain ICD Codes: R10.9 - Unspecified abdominal pain SNOMED: 99057719 (4) Diabetes ICD Codes: E11.9 - Type 2 diabetes mellitus without complications SNOMED: 04046740 (5) Anemia of chronic disease ICD Codes: D63.8 - Anemia in other chronic diseases classified elsewhere SNOMED: 323034545 (6) Intractable nausea and vomiting ICD Codes: R11.2 - Nausea with vomiting, unspecified SNOMED: 538585562 Qualifiers: Qualified Codes: R11.2 - Nausea with vomiting, unspecified (7) Acute renal failure (ARF) ICD Codes: N17.9 - Acute kidney failure, unspecified SNOMED: 95848729 (8) SVT (supraventricular tachycardia) ICD Codes: I47.1 - Supraventricular tachycardia SNOMED: 2390819 Status: stable, progressing Assessment/Plan pt diet cardio gi eval cbc bmp am dc plan Subjective Constitutional: Reports: weakness Allergies: Coded Allergies: No Known Allergies (Unverified , 08/21/16) All Systems: reviewed and negative except above Subjective calm in chair Objective Last 24 Hour Vital Signs Date Time Temp Pulse Resp B/P (MAP) Pulse Ox O2 Delivery O2 Flow Rate FiO2 07/09/18 12:00 43 07/09/18 12:00 98.0 51 21 164/75 (104) 99 07/09/18 10:19 99 Nasal Cannula 4.0 36 07/09/18 10:18 Nasal Cannula 4.0 36 07/09/18 09:00 Nasal Cannula 2.0 07/09/18 08:00 97.7 57 20 137/68 (91) 96 07/09/18 07:35 58 07/09/18 04:00 46 07/09/18 04:00 97.9 53 20 141/60 (87) 95 07/09/18 00:00 67 07/09/18 00:00 98.0 82 20 96/56 (69) 96 07/08/18 21:00 Nasal Cannula 2.0 07/08/18 20:00 72 07/08/18 20:00 98.8 79 20 108/66 (80) 96 07/08/18 16:01 74 07/08/18 16:00 97.8 67 18 124/79 (94) 99 Intake and Output 07/08/18 07/09/18 19:00 07:00 Intake Total 680 ml Output Total 700 ml Balance -20 ml Intake Oral 680 ml Output Urine Total 700 ml # Bowel Movements 1 Laboratory Tests 07/09/18 06:30: Stool Occult Blood Negative Height (Feet): 5 Height (Inches): 8.00 Weight (Pounds): 170 General Appearance: lethargic EENT: normal ENT inspection Neck: normal alignment Cardiovascular: normal peripheral pulses, normal rate, regular rhythm Respiratory/Chest: chest wall non-tender, lungs clear, normal breath sounds Abdomen: normal bowel sounds, non tender, soft Extremities: normal inspection Edema: no edema noted Arm (L), no edema noted Arm (R), no edema noted Leg (L), no edema noted Leg (R), no edema noted Pedal (L), no edema noted Pedal (R), no edema noted Generalized Neurologic: normal mood/affect, motor weakness Skin: normal pigmentation, warm/dry Mart Crowell DO Jul 09, 2018 14:40
[2018-07-09] MEDS ORDERED: Isovue-300 100ml vial INJ PRN (14:45)
--- NOTE | 2018-07-09 14:58 | NUR ---
RD ASSESSMENT & RECOMMENDATIONS SEE CARE ACTIVITY FOR COMPLETE ASSESSMENT DAILY ESTIMATED NEEDS: Needs based on DM, Cardiac/ 70kg abw 25-30 kcals/kg 3597-8343 total kcals 1-1.3 g protein/kg 70-91 g total protein 25-30 mL/kg 9242-1007 total fluid mLs NUTRITION DIAGNOSIS: Altered nutrition related lab values R/T diabetes as evidenced by elev A1C=6.4 CURRENT DIET:SOFT, CCHO MED PO DIET RECOMMENDATIONS: CCHO MED, texture as tolerated ADDITIONAL RECOMMENDATIONS: * Standing wt for accurate CBW * Snacks BID w/ variable PO intake * Wound eval for rt buttock wound per photo
[2018-07-09 16:00] VITALS: BP 161/71
--- NOTE | 2018-07-09 16:57 | NUR ---
CASE MANAGEMENT:REVIEW 07/09/18 SI: INTRACTABLE N/V ACUTE RENAL FAILURE. UTI. RBBB. 1ST DEGREE AVB 98.0 43 21 164/75 99% ON 4L/NC IS: ALLOPURINOL PO QD LEXAPRO PO QD PROTONIX PO QD HEPARIN SQ Q12 IVF@50/HR : TELEMETRY STATUS DCP; FROM [facility]: ELLEN AND JUNCTIONAL RHYTHM AND SVT~ NEED PACEMAKER PER CARDIO
--- NOTE | 2018-07-09 19:00 | Progress Note ---
SUBJECTIVE: This is a 78-year-old male patient with intractable pain and vomiting. This patient continues to have some confusion and altered status baseline. MENTAL STATUS EXAMINATION: This is a 78-year-old male. His appearance is disheveled. Attitude, irritable and agitated. Affect, guarded and restricted. Intellect poor. Mood depressed and anxious. Motor activity, psychomotor agitation. Insight and judgment is poor. DIAGNOSIS: Paranoid schizophrenia, acute exacerbation. PLAN: Continue to treat the patient with medications to prevent any further decline in his cognition. Chart reviewed. Discussed with staff. 20 minutes of cognitive therapy provided to help identify automatic negative thoughts and help him convert those negative thoughts to more positive thoughts to reduce depression, anxiety, and suicidality. A 20 minutes of cognitive behavioral therapy was provided to him. Kaveh Johnson M.D. DR: URIEL JOB#: [id number] CC:
--- NOTE | 2018-07-09 19:21 | NUR ---
HAND-OFF: Report given to KRISTOFER Roth. Patient is in stable condition. No acute distress/SOB noted. Endorsed plan of care.
[2018-07-09 20:00] VITALS: BP 118/76
[2018-07-10] VITALS: BP 112/71
[2018-07-10] MEDS: Erythromycin Opth Ointment 3.5gm LEFT EYE SCH ×6 (00:01→20:22)
[2018-07-10 04:00] VITALS: BP 136/86
[2018-07-10] MEDS: sitaGLIPtin 50mg tab ORAL SCH (05:54)
[2018-07-10] MEDS: NovoLOG Insulin Flexpen SUBQ SCH ×4 (05:55→20:34)
--- NOTE | 2018-07-10 07:41 | NUR ---
NURSE NOTES: Received report from KRISTOFER Roth. Patient is in stable condition. No acute distress/SOB noted. Will continue plan of care.
[2018-07-10 08:00] VITALS: BP 110/68
[2018-07-10] MEDS: Allopurinol 100mg Tab ORAL SCH (08:08)
[2018-07-10] MEDS: Heparin 5000 units/ml inj SUBQ SCH ×2 (08:10→20:01)
[2018-07-10 12:00] VITALS: BP 135/73
--- NOTE | 2018-07-10 12:57 | Pulmonology Progress Note ---
Assessment/Plan Problems: (1) Pleural mass (2) Intractable nausea and vomiting (3) Nausea & vomiting (4) Anemia of chronic disease (5) Diabetes Assessment/Plan CT chest still pending check tumor markers all reviewed sliding scale symptomatic treatment PT/ot Subjective ROS Limited/Unobtainable: No Constitutional: Reports: no symptoms HEENT: Repors: no symptoms Respiratory: Reports: no symptoms Allergies: Coded Allergies: No Known Allergies (Unverified , 08/21/16) Objective Last 24 Hour Vital Signs Date Time Temp Pulse Resp B/P (MAP) Pulse Ox O2 Delivery O2 Flow Rate FiO2 07/10/18 12:00 97.8 53 20 135/73 (93) 99 07/10/18 09:00 Nasal Cannula 2.0 07/10/18 08:00 64 07/10/18 08:00 98.3 66 21 110/68 (82) 97 07/10/18 04:00 97.7 87 17 136/86 (103) 98 07/10/18 04:00 44 07/10/18 00:00 44 07/10/18 00:00 98.5 58 19 112/71 (85) 98 07/09/18 21:00 Nasal Cannula 2.0 07/09/18 20:45 Nasal Cannula 3.0 32 07/09/18 20:45 98 Nasal Cannula 3.0 32 07/09/18 20:00 55 07/09/18 20:00 98.2 54 18 118/76 (90) 98 07/09/18 16:00 97.0 50 19 161/71 (101) 99 07/09/18 16:00 52 Intake and Output 07/09/18 07/10/18 18:59 06:59 Intake Total 700 ml 360 ml Balance 700 ml 360 ml Intake Oral 700 ml 360 ml # Voids 3 3 # Bowel Movements 4 1 General Appearance: WD/WN HEENT: normocephalic, atraumatic Respiratory/Chest: chest wall non-tender, lungs clear Cardiovascular: normal peripheral pulses, normal rate Abdomen: normal bowel sounds, soft, non tender Microbiology Date/Time Source Procedure Growth Status 07/09/18 06:30 Stool Stool Culture - Preliminary NORMAL FECAL MEOÑ. Resulted Current Medications Medications (Trade) Dose Ordered Sig/Pura Route PRN Reason Start Time Stop Time Status Last Admin Dose Admin Acetaminophen (Tylenol) 650 mg Q4H PRN ORAL T>100.5 07/06/18 15:26 08/03/18 15:25 07/06/18 21:36 Al Hydroxide/Mg Hydroxide (Mylanta II) 30 ml Q6H PRN ORAL dyspepsia 07/06/18 15:27 08/03/18 15:26 07/09/18 09:48 Allopurinol (Zyloprim) 100 mg DAILY ORAL 07/07/18 09:00 08/04/18 08:59 07/10/18 08:08 Atorvastatin Calcium (Lipitor) 10 mg BEDTIME ORAL 07/06/18 21:00 08/05/18 20:59 07/09/18 20:54 Clonidine HCl (Catapres Tab) 0.1 mg Q2H PRN ORAL For High Blood Pressure 07/07/18 14:00 08/06/18 13:59 Dextrose (Dextrose 50%) 25 ml Q30M PRN IV Hypoglycemia 07/06/18 15:30 08/03/18 19:54 Dextrose (Dextrose 50%) 50 ml Q30M PRN IV hypoglycemia 07/06/18 15:30 08/03/18 19:59 Diphenhydramine HCl (Benadryl) 25 mg Q6H PRN ORAL Itching/Pruritis 07/06/18 15:27 08/03/18 15:26 Erythromycin (Ilotycin) 1 applic EVERY 6 HOURS LEFT EYE 07/06/18 18:00 07/12/18 17:59 07/10/18 05:54 Escitalopram Oxalate (Lexapro) 10 mg DAILY ORAL 07/07/18 09:00 08/04/18 08:59 07/09/18 08:49 Heparin Sodium (Porcine) (Heparin 5000 units/ml) 5,000 units EVERY 12 HOURS SUBQ 07/06/18 21:00 08/03/18 22:29 07/09/18 20:55 Insulin Aspart (NovoLOG) BEFORE MEALS AND HS SUBQ 07/06/18 16:30 08/03/18 22:59 Iopamidol (Isovue-300 100ml) 100 ml NOW PRN INJ Radiology Procedure 07/09/18 14:45 07/11/18 14:35 Lorazepam (Ativan) 1 mg Q6H PRN ORAL For Anxiety 07/07/18 14:30 07/14/18 14:29 Morphine Sulfate (Morphine Sulfate) 2 mg Q4H PRN IVP Severe Pain (Pain Scale 7-10) 07/06/18 15:29 07/11/18 15:28 Nitroglycerin (Ntg) 0.4 mg Q5MIN X 3 DOSES PRN SL Prn Chest Pain 07/06/18 15:30 08/03/18 13:59 Ondansetron HCl (Zofran) 4 mg Q6H PRN IVP Nausea & Vomiting 07/06/18 15:29 08/03/18 15:28 Pantoprazole (Protonix) 40 mg DAILY ORAL 07/07/18 09:00 08/04/18 08:59 07/10/18 08:08 Polyethylene Glycol (Miralax) 17 gm HSPRN PRN ORAL Constipation 07/06/18 20:00 08/03/18 19:59 Quetiapine Fumarate (SEROquel) 25 mg TWICE A DAY ORAL 07/06/18 18:00 08/05/18 08:59 07/09/18 08:49 Sitagliptin Phosphate (Januvia) 50 mg ACBREAKFAST ORAL 07/07/18 06:30 08/04/18 06:29 07/10/18 05:54 Sodium Chloride 1,000 ml @ 50 mls/hr Q20H IV 07/06/18 15:28 08/03/18 15:27 Temazepam (Restoril) 15 mg HSPRN PRN ORAL Insomnia 07/06/18 20:00 07/11/18 19:59 Alf Akins MD Jul 10, 2018 12:57
--- NOTE | 2018-07-10 13:01 | GI Progress Note ---
Assessment/Plan Problems: (1) Intractable nausea and vomiting ICD Codes: R11.2 - Nausea with vomiting, unspecified SNOMED: 548954656 Qualifiers: Qualified Codes: R11.2 - Nausea with vomiting, unspecified (2) Acute renal failure (ARF) ICD Codes: N17.9 - Acute kidney failure, unspecified SNOMED: 68615079 (3) Nausea & vomiting ICD Codes: R11.2 - Nausea with vomiting, unspecified SNOMED: 23199446 (4) Abdominal pain ICD Codes: R10.9 - Unspecified abdominal pain SNOMED: 05171349 (5) Anemia of chronic disease ICD Codes: D63.8 - Anemia in other chronic diseases classified elsewhere SNOMED: 806690987 Status: unchanged Status Narrative Discussed with Dr. Lafleur Assessment/Plan Assessment - abd pain - N/V - anemia - declines GI w/u -Negative OB stool Recommendations - supportive care - consider psych consult - CT scan if/when pt agrees - Outpatient GI procedures Follow-up labs The patient was seen and examined at bedside and all new and available data was reviewed in the patients chart. I agree with the above findings, impression and plan. (Patient seen earlier today. Signature stamp does not reflect patient encounter time.). - Matthias Lafleur MD Subjective Subjective Refused abdominal ultrasound Refused any GI procedures Objective Last 24 Hour Vital Signs Date Time Temp Pulse Resp B/P (MAP) Pulse Ox O2 Delivery O2 Flow Rate FiO2 07/10/18 12:00 97.8 53 20 135/73 (93) 99 07/10/18 09:00 Nasal Cannula 2.0 07/10/18 08:00 64 07/10/18 08:00 98.3 66 21 110/68 (82) 97 07/10/18 04:00 97.7 87 17 136/86 (103) 98 07/10/18 04:00 44 07/10/18 00:00 44 07/10/18 00:00 98.5 58 19 112/71 (85) 98 07/09/18 21:00 Nasal Cannula 2.0 07/09/18 20:45 Nasal Cannula 3.0 32 07/09/18 20:45 98 Nasal Cannula 3.0 32 07/09/18 20:00 55 07/09/18 20:00 98.2 54 18 118/76 (90) 98 07/09/18 16:00 97.0 50 19 161/71 (101) 99 07/09/18 16:00 52 Intake and Output 07/09/18 07/10/18 18:59 06:59 Intake Total 700 ml 360 ml Balance 700 ml 360 ml Intake Oral 700 ml 360 ml # Voids 3 3 # Bowel Movements 4 1 Height (Feet): 5 Height (Inches): 8.00 Weight (Pounds): 170 General Appearance: WD/WN, no apparent distress, alert Cardiovascular: normal rate Respiratory/Chest: normal breath sounds, no respiratory distress Abdominal Exam: normal bowel sounds, non tender, soft Extremities: normal range of motion, non-tender Delmy Giraldo NP Jul 10, 2018 13:01
--- NOTE | 2018-07-10 14:01 | Infectious Diseases Prog Note ---
Assessment/Plan Assessment/Plan Abx: NOne Assessment: Abd pain- ?etiology- likely gastritis (improved w antiacids, epigastric)- r/o PUD -CT abd/p p -Abd US p -CXR: 3.9 x 3.3 cm masslike opacity in the medial right lung base, which correlates with the finding on the recent CT of the abdomen and pelvis.. Mild elevation of the left hemidiaphragm. Subsegmental atelectasis versus infiltrate in the left lung base. Lung mass Afebrile No leukocytosis -u/a neg L eye blepharitis- refused erythromcin ointment DM2 HTN anemia MDD COPD lung CA CLL dx 2016 HTN hypothryroidism schizophrenia cholelithiasis spinous mass Plan: -Continue to monitor off abx unless signs of infectious process on pending imaging -F/u CT abd/p, Abd US -f/u cx -Monitor CBC/CMP, temperatures Thank you for this consultation. Will continue to follow along with you. Discussed with RN. Subjective Allergies: Coded Allergies: No Known Allergies (Unverified , 08/21/16) Subjective afebrile no leukocytosis Objective Vital Signs Last 24 Hour Vital Signs Date Time Temp Pulse Resp B/P (MAP) Pulse Ox O2 Delivery O2 Flow Rate FiO2 07/10/18 12:00 97.8 53 20 135/73 (93) 99 07/10/18 12:00 47 07/10/18 09:00 Nasal Cannula 2.0 07/10/18 08:00 64 07/10/18 08:00 98.3 66 21 110/68 (82) 97 07/10/18 04:00 97.7 87 17 136/86 (103) 98 07/10/18 04:00 44 07/10/18 00:00 44 07/10/18 00:00 98.5 58 19 112/71 (85) 98 07/09/18 21:00 Nasal Cannula 2.0 07/09/18 20:45 Nasal Cannula 3.0 32 07/09/18 20:45 98 Nasal Cannula 3.0 32 07/09/18 20:00 55 07/09/18 20:00 98.2 54 18 118/76 (90) 98 07/09/18 16:00 97.0 50 19 161/71 (101) 99 07/09/18 16:00 52 Height (Feet): 5 Height (Inches): 8.00 Weight (Pounds): 170 Objective General Appearance: WD/WN, no apparent distress, alert Cardiovascular: normal rate Respiratory/Chest: normal breath sounds, no respiratory distress Abdominal Exam: normal bowel sounds, non tender, soft Extremities: normal range of motion, non-tender Microbiology Date/Time Source Procedure Growth Status 07/09/18 06:30 Stool Stool Culture - Preliminary NORMAL FECAL MEÑO. Resulted Current Medications Medications (Trade) Dose Ordered Sig/Pura Route PRN Reason Start Time Stop Time Status Last Admin Dose Admin Acetaminophen (Tylenol) 650 mg Q4H PRN ORAL T>100.5 07/06/18 15:26 08/03/18 15:25 07/06/18 21:36 Al Hydroxide/Mg Hydroxide (Mylanta II) 30 ml Q6H PRN ORAL dyspepsia 07/06/18 15:27 08/03/18 15:26 07/09/18 09:48 Allopurinol (Zyloprim) 100 mg DAILY ORAL 07/07/18 09:00 08/04/18 08:59 07/10/18 08:08 Atorvastatin Calcium (Lipitor) 10 mg BEDTIME ORAL 07/06/18 21:00 08/05/18 20:59 07/09/18 20:54 Clonidine HCl (Catapres Tab) 0.1 mg Q2H PRN ORAL For High Blood Pressure 07/07/18 14:00 08/06/18 13:59 Dextrose (Dextrose 50%) 25 ml Q30M PRN IV Hypoglycemia 07/06/18 15:30 08/03/18 19:54 Dextrose (Dextrose 50%) 50 ml Q30M PRN IV hypoglycemia 07/06/18 15:30 08/03/18 19:59 Diphenhydramine HCl (Benadryl) 25 mg Q6H PRN ORAL Itching/Pruritis 07/06/18 15:27 08/03/18 15:26 Erythromycin (Ilotycin) 1 applic EVERY 6 HOURS LEFT EYE 07/06/18 18:00 07/12/18 17:59 07/10/18 05:54 Escitalopram Oxalate (Lexapro) 10 mg DAILY ORAL 07/07/18 09:00 08/04/18 08:59 07/09/18 08:49 Heparin Sodium (Porcine) (Heparin 5000 units/ml) 5,000 units EVERY 12 HOURS SUBQ 07/06/18 21:00 08/03/18 22:29 07/09/18 20:55 Insulin Aspart (NovoLOG) BEFORE MEALS AND HS SUBQ 07/06/18 16:30 08/03/18 22:59 Iopamidol (Isovue-300 100ml) 100 ml NOW PRN INJ Radiology Procedure 07/09/18 14:45 07/11/18 14:35 Lorazepam (Ativan) 1 mg Q6H PRN ORAL For Anxiety 07/07/18 14:30 07/14/18 14:29 Morphine Sulfate (Morphine Sulfate) 2 mg Q4H PRN IVP Severe Pain (Pain Scale 7-10) 07/06/18 15:29 07/11/18 15:28 Nitroglycerin (Ntg) 0.4 mg Q5MIN X 3 DOSES PRN SL Prn Chest Pain 07/06/18 15:30 08/03/18 13:59 Ondansetron HCl (Zofran) 4 mg Q6H PRN IVP Nausea & Vomiting 07/06/18 15:29 08/03/18 15:28 Pantoprazole (Protonix) 40 mg DAILY ORAL 07/07/18 09:00 08/04/18 08:59 07/10/18 08:08 Polyethylene Glycol (Miralax) 17 gm HSPRN PRN ORAL Constipation 07/06/18 20:00 08/03/18 19:59 Quetiapine Fumarate (SEROquel) 25 mg TWICE A DAY ORAL 07/06/18 18:00 08/05/18 08:59 07/09/18 08:49 Sitagliptin Phosphate (Januvia) 50 mg ACBREAKFAST ORAL 07/07/18 06:30 08/04/18 06:29 07/10/18 05:54 Sodium Chloride 1,000 ml @ 50 mls/hr Q20H IV 07/06/18 15:28 08/03/18 15:27 Temazepam (Restoril) 15 mg HSPRN PRN ORAL Insomnia 07/06/18 20:00 07/11/18 19:59 Jing Mae M.D. Jul 10, 2018 14:01
--- NOTE | 2018-07-10 14:30 | General Progress Note ---
Assessment/Plan Problem List: (1) Nausea & vomiting ICD Codes: R11.2 - Nausea with vomiting, unspecified SNOMED: 35026620 (2) UTI (urinary tract infection) ICD Codes: N39.0 - Urinary tract infection, site not specified SNOMED: 80845485 (3) Abdominal pain ICD Codes: R10.9 - Unspecified abdominal pain SNOMED: 09128941 (4) Diabetes ICD Codes: E11.9 - Type 2 diabetes mellitus without complications SNOMED: 79505977 (5) Anemia of chronic disease ICD Codes: D63.8 - Anemia in other chronic diseases classified elsewhere SNOMED: 817591993 (6) Intractable nausea and vomiting ICD Codes: R11.2 - Nausea with vomiting, unspecified SNOMED: 019480557 Qualifiers: Qualified Codes: R11.2 - Nausea with vomiting, unspecified (7) Acute renal failure (ARF) ICD Codes: N17.9 - Acute kidney failure, unspecified SNOMED: 75244600 (8) SVT (supraventricular tachycardia) ICD Codes: I47.1 - Supraventricular tachycardia SNOMED: 7076003 Status: stable, progressing Assessment/Plan pt diet cardio gi eval cbc bmp am dc plan Subjective Constitutional: Reports: weakness Allergies: Coded Allergies: No Known Allergies (Unverified , 08/21/16) All Systems: reviewed and negative except above Subjective calm in chair Objective Last 24 Hour Vital Signs Date Time Temp Pulse Resp B/P (MAP) Pulse Ox O2 Delivery O2 Flow Rate FiO2 07/10/18 12:00 97.8 53 20 135/73 (93) 99 07/10/18 12:00 47 07/10/18 09:00 Nasal Cannula 2.0 07/10/18 08:00 64 07/10/18 08:00 98.3 66 21 110/68 (82) 97 07/10/18 04:00 97.7 87 17 136/86 (103) 98 07/10/18 04:00 44 07/10/18 00:00 44 07/10/18 00:00 98.5 58 19 112/71 (85) 98 07/09/18 21:00 Nasal Cannula 2.0 07/09/18 20:45 Nasal Cannula 3.0 32 07/09/18 20:45 98 Nasal Cannula 3.0 32 07/09/18 20:00 55 07/09/18 20:00 98.2 54 18 118/76 (90) 98 07/09/18 16:00 97.0 50 19 161/71 (101) 99 07/09/18 16:00 52 Intake and Output 07/09/18 07/10/18 19:00 07:00 Intake Total 700 ml 360 ml Balance 700 ml 360 ml Intake Oral 700 ml 360 ml # Voids 3 3 # Bowel Movements 4 1 Height (Feet): 5 Height (Inches): 8.00 Weight (Pounds): 170 General Appearance: lethargic EENT: normal ENT inspection Neck: normal alignment Cardiovascular: normal peripheral pulses, normal rate, regular rhythm Respiratory/Chest: chest wall non-tender, lungs clear, normal breath sounds Abdomen: normal bowel sounds, non tender, soft Extremities: normal inspection Edema: no edema noted Arm (L), no edema noted Arm (R), no edema noted Leg (L), no edema noted Leg (R), no edema noted Pedal (L), no edema noted Pedal (R), no edema noted Generalized Neurologic: motor weakness Skin: normal pigmentation, warm/dry Mart Crowell DO Jul 10, 2018 14:30
--- NOTE | 2018-07-10 16:24 | Cardiac Electrophysiology PN ---
Assessment/Plan Assessment/Plan 1. Recurrent Episodes of SVT of sudden onset and termination. Also has episodes of kristi and junctional rhythm in 30s. Ruled out myocardial infarction. Now off Digoxin and Metoprolol for junctional rhythms. Agreed to permanent pacer implant. After pacer will start AVN blockers and if still SVTs, then would transfer for EP study 2. Hypotension. Now hypertensive. 3. 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 Off Digoxin and Metoprolol. Needs pacer. DW patient the risks and benefits. He agreed to proceed 4. Lung cancer. 5. Chronic obstructive pulmonary disease. 6. Diabetes. 7. Schizophrenia DW RN Subjective Subjective No N/V. Today is agreeable to pacer . Still gets junctional to 37 while awake Objective Last 24 Hour Vital Signs Date Time Temp Pulse Resp B/P (MAP) Pulse Ox O2 Delivery O2 Flow Rate FiO2 07/10/18 12:00 97.8 53 20 135/73 (93) 99 07/10/18 12:00 47 07/10/18 09:00 Nasal Cannula 2.0 07/10/18 08:00 64 07/10/18 08:00 98.3 66 21 110/68 (82) 97 07/10/18 04:00 97.7 87 17 136/86 (103) 98 07/10/18 04:00 44 07/10/18 00:00 44 07/10/18 00:00 98.5 58 19 112/71 (85) 98 07/09/18 21:00 Nasal Cannula 2.0 07/09/18 20:45 Nasal Cannula 3.0 32 07/09/18 20:45 98 Nasal Cannula 3.0 32 07/09/18 20:00 55 07/09/18 20:00 98.2 54 18 118/76 (90) 98 Intake and Output 07/09/18 07/10/18 19:00 07:00 Intake Total 700 ml 360 ml Balance 700 ml 360 ml Intake Oral 700 ml 360 ml # Voids 3 3 # Bowel Movements 4 1 Laboratory Tests Test 07/10/18 15:45 Carcinoembryonic Antigen Pending Microbiology Date/Time Source Procedure Growth Status 07/09/18 06:30 Stool Stool Culture - Preliminary NORMAL FECAL MEÑO. Resulted Objective HEAD AND NECK: No JVD. LUNGS: Clear. CARDIOVASCULAR: Kristi S1 and S2 with no gallop. ABDOMEN: Soft. EXTREMITIES: There is no pitting edema. Rafael Ching MD Jul 10, 2018 16:24
--- NOTE | 2018-07-10 16:25 | NUR ---
NURSE NOTES: Talked admitting Depart and asked if pacemaker placement procedure is covered by insurance. It is covered by insurance if it is medically necessary.
--- NOTE | 2018-07-10 19:00 | Progress Note ---
DATE: 07/10/2018 HISTORY: This is a 78-year-old male patient with intractable pain and vomiting. He does have some confusion and disorganized thought process worsened by the stress of his medical illness. That is why his attending has requested daily psychiatric consultation at this time. He does have mood lability, confusion, and disorganized thought process. Mood lability secondary to the stress of his medical illness. MENTAL STATUS EXAMINATION: This is a 78-year-old male patient. His appearance is disheveled. His attitude is irritable and agitated. Affect, guarded and restricted. Intellect poor. Mood, depressed and anxious. Motor activity, psychomotor agitation. Attention span is poor. Orientation x2. Speech is pressured. Thought process, disorganized and illogical. Thought content, auditory hallucinations and paranoid delusions. Insight and judgment is poor. DIAGNOSIS: Bipolar 2. PLAN: Plan for this patient is to treat him with Seroquel 25 mg twice a day, Ativan 1 every 6 hours p.r.n. anxiety and agitation, and Lexapro 10 mg daily. Provided him with 20 minutes of cognitive behavioral therapy to help him identify his automatic negative thoughts and help him convert those negative thoughts to more positive thinking to reduce depression, anxiety, and suicidality. Chart reviewed and discussed with staff. Kaveh Johnson M.D. DR: VALE JOB#: [id number] CC:
--- NOTE | 2018-07-10 19:23 | NUR ---
HAND-OFF: Report given to KRISTOFER Perez. Patient is in stable condition. Endorsed plan of care.
--- NOTE | 2018-07-10 19:30 | NUR ---
NURSE NOTES: Report received from KRISTOFER Goodwin. Pt is lying comfortably in semi-fowlers with no signs of distress. Pt A+Ox3 and denies pain/SOB. Respirations are even and unlabored on 3 L NC. IV site is patent, intact, and saline locked. Bed is at lowest position, brakes engaged, siderails x2, bed alarm on, and call light within reach. Pt is in stable condition at this time; will continue to monitor.
[2018-07-10 20:00] VITALS: BP 149/71
[2018-07-11] VITALS (11 sets, daily range): BP systolic 120–165; BP diastolic 70–94
--- NOTE | 2018-07-11 00:15 | NUR ---
NURSE NOTES: Received pt. and report from KRISTOFER Perez. Observe pt. resting in bed. cafeteria monitor is in placed, IV site is intact, asymptomatic, and patent. Bed is in the lowest position and locked, call light within reach. Pt. is NPO for pacemaker placement today. No acute distress noted at this time.Will continue plan of care.
--- NOTE | 2018-07-11 00:20 | NUR ---
HAND-OFF: Report given to KRISTOFER Barth. Pt is in stable condition at this time; plan of care endorsed.
[2018-07-11] MEDS: Erythromycin Opth Ointment 3.5gm LEFT EYE SCH ×3 (05:42→17:34)
[2018-07-11] MEDS: sitaGLIPtin 50mg tab ORAL SCH (06:24)
[2018-07-11] MEDS: NovoLOG Insulin Flexpen SUBQ SCH ×4 (06:24→20:50)
--- NOTE | 2018-07-11 06:40 | Anethesia Preoperative Eval ---
Anesthesia Pre-op PMH/ROS General Date of Evaluation: Jul 11, 2018 Time of Evaluation: 06:06 Anesthesiologist: Cody ASA Score: ASA 4 Mallampati Score Class I : Soft palate, uvula, fauces, pillars visible Class II: Soft palate, uvula, fauces visible Class III: Soft palate, base of uvula visible Class IV: Only hard plate visible Mallampati Classification: Class II Surgeon: Humza Diagnosis: RBBB and 1st degree AVB and junctional rhythm Surgical Procedure: Permanent Pacemaker Anesthesia History: none Family History: no anesthesia problems Allergies: Coded Allergies: No Known Allergies (Unverified , 08/21/16) Medications: see eMAR Patient NPO?: Yes Past Medical History Cardiovascular: Reports: HTN Pulmonary: Reports: COPD Gastrointestinal/Genitourinary: Reports: CRI - Dialysis Neurologic/Psychiatric: Reports: other - Schizophrenia Endocrine: Reports: DM Hematology/Immune: Reports: anemia, other - CLL Anesthesia Pre-op Phys. Exam Physician Exam Last Vital Signs Date Time Temp Pulse Resp B/P (MAP) Pulse Ox O2 Delivery O2 Flow Rate FiO2 07/11/18 04:00 54 07/11/18 04:00 98.1 19 154/86 (108) 97 07/10/18 21:00 Nasal Cannula 3.0 07/09/18 20:45 32 Constitutional: NAD Neurologic: CN 2-12 intact Cardiovascular: RRR Respiratory: CTA Gastrointestinal: S/NT/ND Airway Exam Mallampati Score: Class II MO: limited ROM: limited Teeth: missing Anesthesia Pre-op A/P Labs Labs Test 07/09/18 06:30 07/10/18 15:45 Stool Occult Blood Negative (NEGATIVE) Laboratory Tests Test 07/10/18 15:45 Carcinoembryonic Antigen Pending Chemistry Test 07/10/18 15:45 Carcinoembryonic Antigen Pending Risk Assessment & Plan Assessment: ASA 4 Plan: GA Status Change Before Surgery: No Pre-Antibiotics Drug: Bonifacio Luong MD Jul 11, 2018 06:40
--- NOTE | 2018-07-11 07:16 | NUR ---
NURSE NOTES: Informed Dr. Ching that pt. had an episode of wide QRS tachycardia. No new orders given at this time except to continue pt. on NPO for pacemaker placement today.
--- NOTE | 2018-07-11 07:37 | NUR ---
NURSE NOTES: Informed Dr. Crowell that pt. has been refusing meds and IV fluids.
--- NOTE | 2018-07-11 07:42 | NUR ---
NURSE NOTES: received patient report from meghna rn. patient is in the restroom. refused blood draw for PT & PTT early this morning. bur is now ok to redraw blood. called lab and informed that patient is now ok for blood draw. wide QRS tachy HR116, md silva aware and ordered to just keep patient NPO for pacemaker. bed is low and locked. will continue to monitor.
--- NOTE | 2018-07-11 07:48 | NUR ---
HAND-OFF: Report given to KRISTOFER Garcia.
--- NOTE | 2018-07-11 07:50 | General Progress Note ---
Assessment/Plan Problem List: (1) Nausea & vomiting ICD Codes: R11.2 - Nausea with vomiting, unspecified SNOMED: 98320030 (2) UTI (urinary tract infection) ICD Codes: N39.0 - Urinary tract infection, site not specified SNOMED: 55329808 (3) Abdominal pain ICD Codes: R10.9 - Unspecified abdominal pain SNOMED: 50880657 (4) Diabetes ICD Codes: E11.9 - Type 2 diabetes mellitus without complications SNOMED: 85372531 (5) Anemia of chronic disease ICD Codes: D63.8 - Anemia in other chronic diseases classified elsewhere SNOMED: 536932976 (6) Intractable nausea and vomiting ICD Codes: R11.2 - Nausea with vomiting, unspecified SNOMED: 551348715 Qualifiers: Qualified Codes: R11.2 - Nausea with vomiting, unspecified (7) Acute renal failure (ARF) ICD Codes: N17.9 - Acute kidney failure, unspecified SNOMED: 36533340 (8) SVT (supraventricular tachycardia) ICD Codes: I47.1 - Supraventricular tachycardia SNOMED: 1959439 Status: stable, progressing Assessment/Plan pt diet cardio gi eval cbc bmp am dc if clear Subjective Constitutional: Reports: weakness Allergies: Coded Allergies: No Known Allergies (Unverified , 08/21/16) Subjective calm in chair Objective Last 24 Hour Vital Signs Date Time Temp Pulse Resp B/P (MAP) Pulse Ox O2 Delivery O2 Flow Rate FiO2 07/11/18 04:00 54 07/11/18 04:00 98.1 67 19 154/86 (108) 97 07/11/18 00:00 51 07/10/18 21:00 Nasal Cannula 3.0 07/10/18 20:00 61 07/10/18 20:00 96.8 51 19 149/71 (97) 98 07/10/18 16:00 72 07/10/18 12:00 97.8 53 20 135/73 (93) 99 07/10/18 12:00 47 07/10/18 09:00 Nasal Cannula 2.0 07/10/18 08:00 64 07/10/18 08:00 98.3 66 21 110/68 (82) 97 Intake and Output 07/10/18 07/11/18 19:00 07:00 Output Total 650 ml Balance -650 ml Output Urine Total 650 ml # Voids 2 Laboratory Tests 07/10/18 15:45: Carcinoembryonic Antigen [Pending] Height (Feet): 5 Height (Inches): 8.00 Weight (Pounds): 170 General Appearance: lethargic EENT: normal ENT inspection Neck: normal alignment Cardiovascular: normal peripheral pulses, normal rate, regular rhythm Respiratory/Chest: chest wall non-tender, lungs clear, normal breath sounds Abdomen: normal bowel sounds, non tender, soft Extremities: normal inspection Edema: no edema noted Arm (L), no edema noted Arm (R), no edema noted Leg (L), no edema noted Leg (R), no edema noted Pedal (L), no edema noted Pedal (R), no edema noted Generalized Neurologic: responsive, motor weakness Skin: normal pigmentation, warm/dry Mart Crowell DO Jul 11, 2018 07:50
[2018-07-11 08:08] LABS: BASOPHILS % (AUTO) 0.6 % (0.0-2.0); EOSINOPHILS % (AUTO) 1.1 % (0.0-3.0); HEMOGLOBIN 11.9 G/DL (14.2-18.0); LYMPHOCYTES % (AUTO) 35.2 % (20.0-45.0); MEAN CORPUSCULAR VOLUME 94 FL (80-99); MONOCYTES % (AUTO) 2.7 % (1.0-10.0); NEUTROPHILS % (AUTO) 60.4 % (45.0-75.0); PLATELET COUNT 199 K/UL (150-450); RED BLOOD COUNT 3.84 M/UL (4.70-6.10); RED CELL DISTRIBUTION WIDTH 12.9 % (11.6-14.8); WHITE BLOOD COUNT 5.9 K/UL (4.8-10.8)
--- NOTE | 2018-07-11 08:14 | NUR ---
NURSE NOTES: Received order for pacemaker placement from Dr. Ching. Noted and carried out. Consent has been signed.
[2018-07-11 08:17] LABS: ANION GAP 8 mmol/L (5-15); BLOOD UREA NITROGEN 15 mg/dL (7-18); CALCIUM 9.3 MG/DL (8.5-10.1); CARBON DIOXIDE 28 MMOL/L (21-32); CHLORIDE 106 MMOL/L (98-107); CREATININE 0.9 MG/DL (0.55-1.30); SODIUM 141 MMOL/L (136-145)
[2018-07-11] MEDS: Allopurinol 100mg Tab ORAL SCH (08:30)
[2018-07-11] MEDS: Heparin 5000 units/ml inj SUBQ SCH ×2 (08:31→20:50)
--- NOTE | 2018-07-11 10:30 | NUR ---
NURSE NOTES: talked to dr montoya regarding dc order today. dr montoya made aware that patient will have a pacemaker placement today with dr silva. dr montoya ordered to dc when clear by shira.
--- NOTE | 2018-07-11 10:36 | NUR ---
CASE MANAGEMENT:REVIEW 07/11/18 SI: RBBB. 1ST DEGREE AVB 98.1 51 19 154/86 98% ON 3L/NC IS: SCHEDULED FOR PACEMAKER TODAY : TELEMETRY STATUS
--- NOTE | 2018-07-11 10:44 | NUR ---
NURSE NOTES: kept NPO for pacemaker placement today.
--- NOTE | 2018-07-11 10:53 | GI Progress Note ---
Assessment/Plan Problems: (1) Intractable nausea and vomiting ICD Codes: R11.2 - Nausea with vomiting, unspecified SNOMED: 354054998 Qualifiers: Qualified Codes: R11.2 - Nausea with vomiting, unspecified (2) Acute renal failure (ARF) ICD Codes: N17.9 - Acute kidney failure, unspecified SNOMED: 45289122 (3) Nausea & vomiting ICD Codes: R11.2 - Nausea with vomiting, unspecified SNOMED: 45978778 (4) Abdominal pain ICD Codes: R10.9 - Unspecified abdominal pain SNOMED: 67677662 (5) Anemia of chronic disease ICD Codes: D63.8 - Anemia in other chronic diseases classified elsewhere SNOMED: 675527900 Status: stable Status Narrative Discussed with Dr. Lafleur Assessment/Plan Assessment - abd pain - N/V - anemia - declines GI w/u -Negative OB stool Recommendations - supportive care - consider psych consult - CT scan if/when pt agrees - Outpatient GI procedures -Physical therapy evaluation Follow-up labs The patient was seen and examined at bedside and all new and available data was reviewed in the patients chart. I agree with the above findings, impression and plan. (Patient seen earlier today. Signature stamp does not reflect patient encounter time.). - Matthias Lafleur MD Subjective Subjective Refused abdominal ultrasound Refused any GI procedures Agreed pacemaker placed Objective Last 24 Hour Vital Signs Date Time Temp Pulse Resp B/P (MAP) Pulse Ox O2 Delivery O2 Flow Rate FiO2 07/11/18 09:00 Nasal Cannula 3.0 07/11/18 08:00 80 07/11/18 08:00 98.3 61 24 131/88 (102) 98 07/11/18 04:00 54 07/11/18 04:00 98.1 67 19 154/86 (108) 97 07/11/18 00:00 51 07/10/18 21:00 Nasal Cannula 3.0 07/10/18 20:00 61 07/10/18 20:00 96.8 51 19 149/71 (97) 98 07/10/18 16:00 72 07/10/18 12:00 97.8 53 20 135/73 (93) 99 07/10/18 12:00 47 Intake and Output 07/10/18 07/11/18 19:00 07:00 Output Total 650 ml Balance -650 ml Output Urine Total 650 ml # Voids 2 Laboratory Tests Test 07/10/18 15:45 07/11/18 07:55 Carcinoembryonic Antigen 0.7 ng/mL (0.0-4.7) White Blood Count 5.9 K/UL (4.8-10.8) Red Blood Count 3.84 M/UL (4.70-6.10) L Hemoglobin 11.9 G/DL (14.2-18.0) L Hematocrit 36.0 % (42.0-52.0) L Mean Corpuscular Volume 94 FL (80-99) Mean Corpuscular Hemoglobin 31.0 PG (27.0-31.0) Mean Corpuscular Hemoglobin Concent 33.1 G/DL (32.0-36.0) Red Cell Distribution Width 12.9 % (11.6-14.8) Platelet Count 199 K/UL (150-450) Mean Platelet Volume 8.1 FL (6.5-10.1) Neutrophils (%) (Auto) 60.4 % (45.0-75.0) Lymphocytes (%) (Auto) 35.2 % (20.0-45.0) Monocytes (%) (Auto) 2.7 % (1.0-10.0) Eosinophils (%) (Auto) 1.1 % (0.0-3.0) Basophils (%) (Auto) 0.6 % (0.0-2.0) Prothrombin Time 10.6 SEC (9.30-11.50) Prothromb Time International Ratio 1.0 (0.9-1.1) Activated Partial Thromboplast Time 28 SEC (23-33) Sodium Level 141 MMOL/L (136-145) Potassium Level 4.0 MMOL/L (3.5-5.1) Chloride Level 106 MMOL/L (98-107) Carbon Dioxide Level 28 MMOL/L (21-32) Anion Gap 8 mmol/L (5-15) Blood Urea Nitrogen 15 mg/dL (7-18) Creatinine 0.9 MG/DL (0.55-1.30) Estimat Glomerular Filtration Rate mL/min (>60) Glucose Level 149 MG/DL (74-106) H Calcium Level 9.3 MG/DL (8.5-10.1) Height (Feet): 5 Height (Inches): 8.00 Weight (Pounds): 170 General Appearance: WD/WN, no apparent distress, alert Cardiovascular: normal rate Respiratory/Chest: normal breath sounds, no respiratory distress Abdominal Exam: normal bowel sounds, non tender, soft Extremities: normal range of motion, non-tender Delmy Giraldo NP Jul 11, 2018 10:53
--- NOTE | 2018-07-11 10:55 | NUR ---
*-* DISCHARGE PLANNING *-* PATIENT [facility] BE[facility] TO[facility] P:[phone]
--- NOTE | 2018-07-11 11:08 | NUR ---
SS note Order received for placement into [place], inpatient psychiatric. This Sw spoke with intake at [place] ([facility]), who explained they are full, no beds available. This SW spoke with KRISTOFER Garcia on who spoke with Dr. Horne who requested discharge to home after pacemaker is placed (pending pacemaker placement today; not medically cleared for discharge at this time).
[2018-07-11] MEDS ORDERED: Lidocaine 1% Plain 30 ml INJ ONE ×2 (11:46→12:10)
--- NOTE | 2018-07-11 11:58 | Pre-Procedure Note/Attestation ---
Pre-Procedure Note/Attestation Complete Prior to Procedure Planned Procedure: left Procedure Narrative: Permanent pacer implantation Indications for Procedure Pre-Operative Diagnosis: Sick sinus syndrome. Tachy Nitin syndrome Attestation I attest that I discussed the nature of the procedure; its benefits; risks and complications; and alternatives (and the risks and benefits of such alternatives ), prior to the procedure, with the patient (or the patient's legal employment representative). I attest that, if there was a reasonable possibility of needing a blood transfusion, the patient (or the patient's legal employment representative) was given the [facility] standardized written summary, pursuant to the Jovani Adriana Blood Safety Act ([place] Health and Safety Code # 1645, as amended). I attest that I re-evaluated the patient just prior to the surgery and that there has been no change in the patient's H&P, except as documented below: Rafael Ching MD Jul 11, 2018 11:58
[2018-07-11] MEDS ORDERED: LR 1000ml ONE (12:00)
[2018-07-11] MEDS ORDERED: Sterile Water Irrig 1000ml IRRIG ONE (12:00)
[2018-07-11] MEDS ORDERED: Propofol 200mg/20ml IV ONE (12:00)
[2018-07-11] MEDS ORDERED: NS 275ml ONE (12:00)
[2018-07-11] MEDS ORDERED: NS Irrig 1000ml ONE (12:00)
[2018-07-11] MEDS ORDERED: Midazolam 2mg/2ml Inj ONE (12:14)
--- NOTE | 2018-07-11 12:54 | Pulmonology Progress Note ---
Assessment/Plan Problems: (1) Pleural mass (2) Intractable nausea and vomiting (3) Nausea & vomiting (4) Anemia of chronic disease (5) Diabetes Assessment/Plan CT chest still pending, reordered check tumor markers, CEA is negative all reviewed sliding scale symptomatic treatment PT/ot Subjective ROS Limited/Unobtainable: No Interval Events: getting a pacemaker today Constitutional: Reports: no symptoms HEENT: Repors: no symptoms Respiratory: Reports: no symptoms Allergies: Coded Allergies: No Known Allergies (Unverified , 08/21/16) Objective Last 24 Hour Vital Signs Date Time Temp Pulse Resp B/P (MAP) Pulse Ox O2 Delivery O2 Flow Rate FiO2 07/11/18 10:00 Nasal Cannula 3.0 32 07/11/18 10:00 98 Nasal Cannula 3.0 32 07/11/18 09:00 Nasal Cannula 3.0 07/11/18 08:00 80 07/11/18 08:00 98.3 61 24 131/88 (102) 98 07/11/18 04:00 54 07/11/18 04:00 98.1 67 19 154/86 (108) 97 07/11/18 00:00 51 07/10/18 21:00 Nasal Cannula 3.0 07/10/18 20:00 61 07/10/18 20:00 96.8 51 19 149/71 (97) 98 07/10/18 16:00 72 Intake and Output 07/10/18 07/11/18 18:59 06:59 Output Total 650 ml Balance -650 ml Output Urine Total 650 ml # Voids 2 General Appearance: WD/WN HEENT: normocephalic, anicteric Respiratory/Chest: chest wall non-tender Cardiovascular: normal peripheral pulses, normal rate Abdomen: normal bowel sounds, soft, non tender Skin: no rash 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 Resulted Laboratory Tests 07/10/18 15:45: Carcinoembryonic Antigen 0.7 07/11/18 07:55: White Blood Count 5.9, Red Blood Count 3.84L, Hemoglobin 11.9L, Hematocrit 36.0L , Mean Corpuscular Volume 94, Mean Corpuscular Hemoglobin 31.0, Mean Corpuscular Hemoglobin Concent 33.1, Red Cell Distribution Width 12.9, Platelet Count 199, Mean Platelet Volume 8.1, Neutrophils (%) (Auto) 60.4, Lymphocytes (% ) (Auto) 35.2, Monocytes (%) (Auto) 2.7, Eosinophils (%) (Auto) 1.1, Basophils ( %) (Auto) 0.6, Prothrombin Time 10.6, Prothromb Time International Ratio 1.0, Activated Partial Thromboplast Time 28, Sodium Level 141, Potassium Level 4.0, Chloride Level 106, Carbon Dioxide Level 28, Anion Gap 8, Blood Urea Nitrogen 15 , Creatinine 0.9, Estimat Glomerular Filtration Rate , Glucose Level 149H, Calcium Level 9.3 Current Medications Medications (Trade) Dose Ordered Sig/Pura Route PRN Reason Start Time Stop Time Status Last Admin Dose Admin Acetaminophen (Tylenol) 650 mg Q4H PRN ORAL T>100.5 07/06/18 15:26 08/03/18 15:25 07/06/18 21:36 Al Hydroxide/Mg Hydroxide (Mylanta II) 30 ml Q6H PRN ORAL dyspepsia 07/06/18 15:27 08/03/18 15:26 07/09/18 09:48 Allopurinol (Zyloprim) 100 mg DAILY ORAL 07/07/18 09:00 08/04/18 08:59 07/10/18 08:08 Atorvastatin Calcium (Lipitor) 10 mg BEDTIME ORAL 07/06/18 21:00 08/05/18 20:59 07/10/18 20:20 Clonidine HCl (Catapres Tab) 0.1 mg Q2H PRN ORAL For High Blood Pressure 07/07/18 14:00 08/06/18 13:59 Dextrose (Dextrose 50%) 25 ml Q30M PRN IV Hypoglycemia 07/06/18 15:30 08/03/18 19:54 Dextrose (Dextrose 50%) 50 ml Q30M PRN IV hypoglycemia 07/06/18 15:30 08/03/18 19:59 Diphenhydramine HCl (Benadryl) 25 mg Q6H PRN ORAL Itching/Pruritis 07/06/18 15:27 08/03/18 15:26 Erythromycin (Ilotycin) 1 applic EVERY 6 HOURS LEFT EYE 07/06/18 18:00 07/12/18 17:59 07/10/18 20:22 Escitalopram Oxalate (Lexapro) 10 mg DAILY ORAL 07/07/18 09:00 08/04/18 08:59 07/09/18 08:49 Heparin Sodium (Porcine) (Heparin 5000 units/ml) 5,000 units EVERY 12 HOURS SUBQ 07/06/18 21:00 08/03/18 22:29 07/09/18 20:55 Insulin Aspart (NovoLOG) BEFORE MEALS AND HS SUBQ 07/06/18 16:30 08/03/18 22:59 Iopamidol (Isovue-300 100ml) 100 ml NOW PRN INJ Radiology Procedure 07/09/18 14:45 07/11/18 14:35 Lorazepam (Ativan) 1 mg Q6H PRN ORAL For Anxiety 07/07/18 14:30 07/14/18 14:29 Morphine Sulfate (Morphine Sulfate) 2 mg Q4H PRN IVP Severe Pain (Pain Scale 7-10) 07/06/18 15:29 07/11/18 15:28 Nitroglycerin (Ntg) 0.4 mg Q5MIN X 3 DOSES PRN SL Prn Chest Pain 07/06/18 15:30 08/03/18 13:59 Ondansetron HCl (Zofran) 4 mg Q6H PRN IVP Nausea & Vomiting 07/06/18 15:29 08/03/18 15:28 Pantoprazole (Protonix) 40 mg DAILY ORAL 07/07/18 09:00 08/04/18 08:59 07/11/18 08:28 Polyethylene Glycol (Miralax) 17 gm HSPRN PRN ORAL Constipation 07/06/18 20:00 08/03/18 19:59 Quetiapine Fumarate (SEROquel) 25 mg TWICE A DAY ORAL 07/06/18 18:00 08/05/18 08:59 07/09/18 08:49 Sitagliptin Phosphate (Januvia) 50 mg ACBREAKFAST ORAL 07/07/18 06:30 08/04/18 06:29 07/10/18 05:54 Sodium Chloride 1,000 ml @ 50 mls/hr Q20H IV 07/06/18 15:28 08/03/18 15:27 Temazepam (Restoril) 15 mg HSPRN PRN ORAL Insomnia 07/06/18 20:00 07/11/18 19:59 Alf Akins MD Jul 11, 2018 12:54
[2018-07-11] MEDS ORDERED: Isovue-300 100ml vial INJ PRN (13:00)
--- NOTE | 2018-07-11 13:26 | Immediate Post-Op Evaluation ---
Immediate Post-Op Evalulation Immediate Post-Op Evalulation Procedure: Permanent Pacemaker Date of Evaluation: Jul 11, 2018 Time of Evaluation: 13:37 IV Fluids: 200 LR Blood Products: 0 Estimated Blood Loss: 7 Urinary Output: 0 Blood Pressure Systolic: 163 Blood Pressure Diastolic: 75 Pulse Rate: 69 Respiratory Rate: 16 O2 Sat by Pulse Oximetry: 98 Temperature (Fahrenheit): 07.7 Pain Score (1-10): 1 Nausea: No Vomiting: No Complications 0 Patient Status: awake, reacts, patent, none Hydration Status: adequate Dru Gram Ancef IV Given Within 1 Hr of Incision: Yes Time Given: 12:18 Bonifacio Ross MD Jul 11, 2018 13:26
[2018-07-11] MEDS ORDERED: Morphine Sulfate 4mg/ml Inj (IV/IM USE ONLY) IVP PRN (14:15)
[2018-07-11] MEDS ORDERED: Tylenol #3 tab (300mg/30mg) ORAL PRN (14:15)
--- NOTE | 2018-07-11 14:15 | Brief Operative Note ---
Immediate Post Operative Note Operative Note Pre-op Diagnosis: Sick sinus syndrome. Tachy Nitin syndrome Procedure: Dual chamber pacer implant Dictated [id number] Post-op Diagnosis: sss Post-op Diagnosis: same as pre-op Specimen: none Complications: none Condition: stable Fluids: None Estimated Blood Loss: minimal Drains: none Implant(s) used?: Yes Rafael Ching MD Jul 11, 2018 14:15
--- NOTE | 2018-07-11 14:23 | Infectious Diseases Prog Note ---
Assessment/Plan Assessment/Plan Abx: NOne Assessment: Abd pain- ?etiology- likely gastritis (improved w antiacids, epigastric)- r/o PUD -CT abd/p p -Abd US p -CXR: 3.9 x 3.3 cm masslike opacity in the medial right lung base, which correlates with the finding on the recent CT of the abdomen and pelvis.. Mild elevation of the left hemidiaphragm. Subsegmental atelectasis versus infiltrate in the left lung base. Lung mass Afebrile No leukocytosis -u/a neg SP PPM 07/11 L eye blepharitis- refused erythromcin ointment DM2 HTN anemia MDD COPD lung CA CLL dx 2016 HTN hypothryroidism schizophrenia cholelithiasis spinous mass Plan: -Continue periop Ancef -F/u CT abd/p, Abd US -f/u cx -Monitor CBC/CMP, temperatures Thank you for this consultation. Will continue to follow along with you. Discussed with RN. Subjective Allergies: Coded Allergies: No Known Allergies (Unverified , 08/21/16) Subjective afebrile no leukocytosis sp PPM placement today Objective Vital Signs Last 24 Hour Vital Signs Date Time Temp Pulse Resp B/P (MAP) Pulse Ox O2 Delivery O2 Flow Rate FiO2 07/11/18 13:55 69 20 140/91 98 Nasal Cannula 3 07/11/18 13:45 69 23 152/89 98 Nasal Cannula 3 07/11/18 13:35 69 18 159/70 98 Nasal Cannula 3 07/11/18 13:30 69 13 151/92 98 Simple Mask 6 07/11/18 13:26 97.7 74 16 163/75 98 Simple Mask 6 07/11/18 13:26 69 16 98 07/11/18 10:00 Nasal Cannula 3.0 32 07/11/18 10:00 98 Nasal Cannula 3.0 32 07/11/18 09:00 Nasal Cannula 3.0 07/11/18 08:00 80 07/11/18 08:00 98.3 61 24 131/88 (102) 98 07/11/18 04:00 54 07/11/18 04:00 98.1 67 19 154/86 (108) 97 07/11/18 00:00 51 07/10/18 21:00 Nasal Cannula 3.0 07/10/18 20:00 61 07/10/18 20:00 96.8 51 19 149/71 (97) 98 07/10/18 16:00 72 Height (Feet): 5 Height (Inches): 8.00 Weight (Pounds): 170 Objective General Appearance: WD/WN, no apparent distress, alert Cardiovascular: normal rate Respiratory/Chest: normal breath sounds, no respiratory distress Abdominal Exam: normal bowel sounds, non tender, soft Extremities: normal range of motion, non-tender Microbiology Date/Time Source Procedure Growth Status 07/09/18 06:30 Stool Stool Culture - Preliminary NO SALMONELLA,SHIGELLA,OR CAMPYLOBACT... Resulted Laboratory Tests Test 07/10/18 15:45 07/11/18 07:55 Carcinoembryonic Antigen 0.7 ng/mL (0.0-4.7) White Blood Count 5.9 K/UL (4.8-10.8) Red Blood Count 3.84 M/UL (4.70-6.10) L Hemoglobin 11.9 G/DL (14.2-18.0) L Hematocrit 36.0 % (42.0-52.0) L Mean Corpuscular Volume 94 FL (80-99) Mean Corpuscular Hemoglobin 31.0 PG (27.0-31.0) Mean Corpuscular Hemoglobin Concent 33.1 G/DL (32.0-36.0) Red Cell Distribution Width 12.9 % (11.6-14.8) Platelet Count 199 K/UL (150-450) Mean Platelet Volume 8.1 FL (6.5-10.1) Neutrophils (%) (Auto) 60.4 % (45.0-75.0) Lymphocytes (%) (Auto) 35.2 % (20.0-45.0) Monocytes (%) (Auto) 2.7 % (1.0-10.0) Eosinophils (%) (Auto) 1.1 % (0.0-3.0) Basophils (%) (Auto) 0.6 % (0.0-2.0) Prothrombin Time 10.6 SEC (9.30-11.50) Prothromb Time International Ratio 1.0 (0.9-1.1) Activated Partial Thromboplast Time 28 SEC (23-33) Sodium Level 141 MMOL/L (136-145) Potassium Level 4.0 MMOL/L (3.5-5.1) Chloride Level 106 MMOL/L (98-107) Carbon Dioxide Level 28 MMOL/L (21-32) Anion Gap 8 mmol/L (5-15) Blood Urea Nitrogen 15 mg/dL (7-18) Creatinine 0.9 MG/DL (0.55-1.30) Estimat Glomerular Filtration Rate mL/min (>60) Glucose Level 149 MG/DL (74-106) H Calcium Level 9.3 MG/DL (8.5-10.1) Current Medications Medications (Trade) Dose Ordered Sig/Pura Route PRN Reason Start Time Stop Time Status Last Admin Dose Admin Acetaminophen (Tylenol) 650 mg Q4H PRN ORAL T>100.5 07/06/18 15:26 08/03/18 15:25 07/06/18 21:36 Acetaminophen (Tylenol) 650 mg Q6H PRN ORAL FHMP 07/11/18 14:15 08/10/18 14:14 UNV Acetaminophen/ Codeine Phosphate (Tylenol #3) 1 tab Q4H PRN ORAL Moderate Pain (Pain Scale 4-6) 07/11/18 14:15 07/18/18 14:14 UNV Al Hydroxide/Mg Hydroxide (Mylanta II) 30 ml Q6H PRN ORAL dyspepsia 07/06/18 15:27 08/03/18 15:26 07/09/18 09:48 Allopurinol (Zyloprim) 100 mg DAILY ORAL 07/07/18 09:00 08/04/18 08:59 07/10/18 08:08 Atorvastatin Calcium (Lipitor) 10 mg BEDTIME ORAL 07/06/18 21:00 08/05/18 20:59 07/10/18 20:20 Cefazolin Sodium 1 gm/Dextrose 55 ml @ 110 mls/hr Q8HR IVP 07/11/18 22:00 07/18/18 21:59 UNV Clonidine HCl (Catapres Tab) 0.1 mg Q2H PRN ORAL For High Blood Pressure 07/07/18 14:00 08/06/18 13:59 Dextrose (Dextrose 50%) 25 ml Q30M PRN IV Hypoglycemia 07/06/18 15:30 08/03/18 19:54 Dextrose (Dextrose 50%) 50 ml Q30M PRN IV hypoglycemia 07/06/18 15:30 08/03/18 19:59 Diphenhydramine HCl (Benadryl) 25 mg Q6H PRN ORAL Itching/Pruritis 07/06/18 15:27 08/03/18 15:26 Erythromycin (Ilotycin) 1 applic EVERY 6 HOURS LEFT EYE 07/06/18 18:00 07/12/18 17:59 07/10/18 20:22 Escitalopram Oxalate (Lexapro) 10 mg DAILY ORAL 07/07/18 09:00 08/04/18 08:59 07/09/18 08:49 Heparin Sodium (Porcine) (Heparin 5000 units/ml) 5,000 units EVERY 12 HOURS SUBQ 07/06/18 21:00 08/03/18 22:29 07/09/18 20:55 Insulin Aspart (NovoLOG) BEFORE MEALS AND HS SUBQ 07/06/18 16:30 08/03/18 22:59 Iopamidol (Isovue-300 100ml) 100 ml NOW PRN INJ Radiology Procedure 07/09/18 14:45 07/11/18 14:35 Iopamidol (Isovue-300 100ml) 100 ml NOW PRN INJ Radiology Procedure 07/11/18 13:00 07/11/18 23:59 Lorazepam (Ativan) 1 mg Q6H PRN ORAL For Anxiety 07/07/18 14:30 07/14/18 14:29 Morphine Sulfate (Morphine Sulfate) 2 mg Q1H PRN IVP Severe Pain (Pain Scale 7-10) 07/11/18 14:15 07/18/18 14:14 UNV Morphine Sulfate (Morphine Sulfate) 2 mg Q4H PRN IVP Severe Pain (Pain Scale 7-10) 07/06/18 15:29 07/11/18 15:28 Nitroglycerin (Ntg) 0.4 mg Q5MIN X 3 DOSES PRN SL Prn Chest Pain 07/06/18 15:30 08/03/18 13:59 Ondansetron HCl (Zofran) 4 mg Q6H PRN IVP Nausea & Vomiting 07/06/18 15:29 08/03/18 15:28 Ondansetron HCl (Zofran) 4 mg Q6H PRN IVP Nausea & Vomiting 07/11/18 14:15 08/10/18 14:14 UNV Pantoprazole (Protonix) 40 mg DAILY ORAL 07/07/18 09:00 08/04/18 08:59 07/11/18 08:28 Polyethylene Glycol (Miralax) 17 gm HSPRN PRN ORAL Constipation 07/06/18 20:00 08/03/18 19:59 Quetiapine Fumarate (SEROquel) 25 mg TWICE A DAY ORAL 07/06/18 18:00 08/05/18 08:59 07/09/18 08:49 Sitagliptin Phosphate (Januvia) 50 mg ACBREAKFAST ORAL 07/07/18 06:30 08/04/18 06:29 07/10/18 05:54 Sodium Chloride 1,000 ml @ 50 mls/hr Q20H IV 07/06/18 15:28 08/03/18 15:27 Temazepam (Restoril) 15 mg HSPRN PRN ORAL Insomnia 07/06/18 20:00 07/11/18 19:59 Jing Mae M.D. Jul 11, 2018 14:22
--- NOTE | 2018-07-11 14:28 | 48 Hour Post Anesthesia Eval ---
Post Anesthesia Evaluation Procedure: Permanent Pacemaker placement Date of Evaluation: Jul 11, 2018 Time of Evaluation: 14:27 Blood Pressure Systolic: 120 0: 86 Pulse Rate: 64 Respiratory Rate: 20 Temperature (Fahrenheit): 97.6 O2 Sat by Pulse Oximetry: 98 Airway: patent Nausea: No Vomiting: No Pain Intensity: 2 Hydration Status: adequate Cardiopulmonary Status: stable Mental Status/LOC: patient returned to baseline Follow-up Care/Observations: n/a Post-Anesthesia Complications: none Follow-up care needed: N/A Roman Espitia MD Jul 11, 2018 14:28
--- NOTE | 2018-07-11 15:27 | Diagnostic Imaging Report ---
Indication: Post pacemaker Comparison: 07/11/2018 at 1300 A single view chest radiograph was obtained. Findings: Left anterior chest wall pacemaker demonstrated. Leads projected over the right ventricle and right atrium. No pneumothorax demonstrated. Persistent mild left volume loss noted with atelectasis. IMPRESSION: Post pacemaker placement. No pneumothorax
--- NOTE | 2018-07-11 15:27 | Diagnostic Imaging Report ---
Indication: Intraoperative imaging Comparison: None A single view chest radiograph was obtained. Findings: Single frontal fluoroscopic image of the chest showing part of a pacemaker wire extending into the right ventricle. Total fluoroscopic time 112 seconds. IMPRESSION: Intraprocedural imaging
--- NOTE | 2018-07-11 16:00 | NUR ---
NURSE NOTES: no nausea and vomitting since patient was brought in from surgery.will continue to monitor.
--- NOTE | 2018-07-11 16:30 | Progress Note ---
DATE: 07/11/2018 SUBJECTIVE: This is a 78-year-old male patient with intractable pain, who continues to have some depression, confusion, and mood lability worsened by stress of his medical illness. This patient has intractable pain, but he has some confusion, disorganized thought process, and mood lability worsened by stress of his medical illness. MENTAL STATUS EXAMINATION: This is a 78-year-old male. Appearance is disheveled. Attitude, agitated. Affect, guarded and restricted. Intellect, poor. Mood, depressed and anxious. Motor activity, psychomotor agitation. Attention span is poor. Orientation x2. Speech is pressured. Thought process, disorganized and illogical. Thought content, auditory hallucinations and paranoid delusions. Insight and judgment is poor. DIAGNOSIS: Major depression with psychotic features. PLAN: Continue treatment with medications to stabilize his mood. Provided him with 20 minutes of cognitive behavioral therapy to help him identify his automatic negative thoughts and help him convert those negative thoughts to more positive thoughts to reduce depression, anxiety, and mood lability. Chart reviewed and discussed with staff. Kaveh Johnson M.D. DR: MELANIA JOB#: [id number] CC:
--- NOTE | 2018-07-11 18:36 | NUR ---
NURSE NOTES: patient refused CT of the chest. patient stated that it was cancelled and was taken care of. patient also stated that he doesnt need it. will inform .
--- NOTE | 2018-07-11 19:00 | Operative Note - Dictated ---
DATE OF OPERATION: 07/11/2018 SURGEON: Rafael Ching M.D. INDICATION FOR PROCEDURE: Tachy-kristi syndrome and sick sinus syndrome. PROCEDURE PERFORMED: 1. Dual-chamber permanent pacemaker implantation. 2. Fluoroscopic supervision and interpretation. OPERATIVE REPORT: The patient was brought into operating room in a fasting state after informed consent was obtained. The patient was prepped and draped in usual fashion. The patient received antibiotic within 1 hour of incision. After prep and drape under sterile condition and after 20 mL of lidocaine, an incision was made along the left deltopectoral groove. Sharp and blunt dissection was made to the level of pectoralis fascia. The cephalic vein was miniscule and could not be cannulated. Direct access to the left subclavian was obtained under Seldinger technique. The right atrial and right ventricular lead was placed in right atrial appendage and right ventricular apex with excellent sensing and pacing parameters. Both leads were then affixed to underlying pectoralis fascia. A pocket was made close to the venous access site and irrigated with antibiotic solution. The pacemaker was connected and the leads were left in the pocket. The pocket was then closed in three layers using 2-0 Vicryl and Dermabond. The patient suffered no immediate complications from the procedure and was transferred to recovery room in stable condition. FINDINGS: The pacemaker is from [employer]. It is Assurity MRI 2272, serial number [id number]. The right atrial lead is from [employer] Tendril [id number] 4600, serial number [id number]. The right ventricular lead is from [employer], it is Tendril STS 2088TC 52 cm, serial number is [id number]. The P-wave amplitude is 4.2 millivolts, threshold is 0.7 volt at 0.4 millisecond, impedance 646 ohms. R-wave is 7.4 millivolts, threshold is 0.8 volt at 0.4 millisecond, impedance of 523 ohms. IMPRESSION: 1. Successful dual-chamber permanent pacemaker implantation. 2. No immediate complications from the procedure. Rafael Ching M.D. DR: JOHNY JOB#: [id number] CC:
--- NOTE | 2018-07-11 19:31 | NUR ---
HAND-OFF: Report given to carol miller.
--- NOTE | 2018-07-11 19:40 | NUR ---
NURSE NOTES: Received pt from KRISTOFER Garcia. Pt awake, alert, and on the toilet. Bed in lowest position. Call light within reach. Will continue to monitor.
[2018-07-11] MEDS: ceFAZolin sod 1 GM in D5W 55 ML IVP SCH (20:00)
[2018-07-11] MEDS: Mylanta II UD 30ml ORAL PRN (20:54)
--- NOTE | 2018-07-11 22:12 | NUR ---
NURSE NOTES: Called and left a message with Dr. Crowell regarding pts request for motrin. Awaiting call back.
--- NOTE | 2018-07-11 22:28 | NUR ---
NURSE NOTES: Received orders for Motrin 400 tid PRN. Will continue to monitor.
[2018-07-12] VITALS: BP 146/83
[2018-07-12 04:00] VITALS: BP 139/88
[2018-07-12] MEDS: ceFAZolin sod 1 GM in D5W 55 ML IVP SCH ×3 (04:00→20:00)
[2018-07-12] MEDS: Erythromycin Opth Ointment 3.5gm LEFT EYE SCH ×3 (06:00→11:30)
[2018-07-12] MEDS: NovoLOG Insulin Flexpen SUBQ SCH ×4 (06:30→20:48)
[2018-07-12] MEDS: sitaGLIPtin 50mg tab ORAL SCH (06:30)
--- NOTE | 2018-07-12 07:15 | NUR ---
NURSE NOTES: I received the patient awake and sitting in a chair. Patient alert and oriented x4. Patient has ice pack on upper chest. He does not display any signs of distress or SOB. Call light within reach. I will continue to monitor the patient and implement care.
--- NOTE | 2018-07-12 07:29 | NUR ---
HAND-OFF: Report given to KRISTOFER Nowak. Pt stable.
[2018-07-12 08:00] VITALS: BP 131/86
[2018-07-12] MEDS: Heparin 5000 units/ml inj SUBQ SCH ×2 (08:16→20:47)
[2018-07-12] MEDS: Allopurinol 100mg Tab ORAL SCH (08:31)
--- NOTE | 2018-07-12 08:55 | Pulmonology Progress Note ---
Assessment/Plan Assessment/Plan ASSESSMENT right medial lung mass 3.9x3.3. 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 s/p dual chamber PPM 07/11 anemia of chronic disease DM intractable nausea and vomiting major depression with psychotic features PLAN OF CARE tele CT chest pending suppl O2 to keep pulse ox above 90% pulm toilet prn check tumor markers ECHO with pEF 55-60% and RVSP of 29 Venous Duplex negative DVT prophylaxis s/p PPP 07/11 pain management CXR post procedure no PNT pacing on telemetry cardio/cardio EP follow pt r/out for PA, off Dig and BB due to junctional rhythm, cardio plans to start AV darvin after PPP, and if still SVT will need EP study gentle IVF BS management with SSI and Januvia GI prophylaxis patient declined GI w/up symptomatic Rx, a/emetic prn stool OB negative, CEA WNL monitor HH with goal to keep Hgb above 7 started on diet , tolerates PT eval and Rx psych follows , optimized psych medication regimen case discussed and evaluated by supervising physician Subjective Allergies: Coded Allergies: No Known Allergies (Unverified , 08/21/16) Subjective no signs of resp distress pulse ox stable on 3 L O2 via NC CT chest pending Objective Last 24 Hour Vital Signs Date Time Temp Pulse Resp B/P (MAP) Pulse Ox O2 Delivery O2 Flow Rate FiO2 07/12/18 08:00 97.1 72 20 131/86 (101) 97 07/12/18 04:00 97.1 81 18 139/88 (105) 97 07/12/18 04:00 70 07/12/18 00:00 70 07/12/18 00:00 97.3 70 18 146/83 (104) 100 07/11/18 21:00 Nasal Cannula 3.0 07/11/18 20:48 Nasal Cannula 3.0 32 07/11/18 20:48 97 Nasal Cannula 3.0 32 07/11/18 20:00 97.6 74 25 165/92 (116) 100 07/11/18 16:00 70 07/11/18 16:00 97.8 73 24 165/91 (115) 100 07/11/18 14:35 97.8 69 15 162/94 98 Nasal Cannula 3 07/11/18 14:28 64 20 98 07/11/18 14:20 70 20 120/90 98 Nasal Cannula 3 07/11/18 13:55 69 20 140/91 98 Nasal Cannula 3 07/11/18 13:45 69 23 152/89 98 Nasal Cannula 3 07/11/18 13:35 69 18 159/70 98 Nasal Cannula 3 07/11/18 13:30 69 13 151/92 98 Simple Mask 6 07/11/18 13:26 97.7 74 16 163/75 98 Simple Mask 6 07/11/18 13:26 69 16 98 07/11/18 10:00 Nasal Cannula 3.0 32 07/11/18 10:00 98 Nasal Cannula 3.0 32 07/11/18 09:00 Nasal Cannula 3.0 Intake and Output 07/11/18 07/12/18 19:00 07:00 Intake Total 200 ml Balance 200 ml IV Total 200 ml General Appearance: WD/WN, no acute distress HEENT: normocephalic, atraumatic, anicteric Respiratory/Chest: decreased breath sounds, other - left upper chest pacemaker , site intact, no evidecne of infection Cardiovascular: normal rate - pacing rhythm Abdomen: normal bowel sounds, soft, non tender Extremities: no edema, other - LUE sling for comfot Neurologic/Psychiatric: alert Musculoskeletal: normal muscle bulk Current Medications Medications (Trade) Dose Ordered Sig/Pura Route PRN Reason Start Time Stop Time Status Last Admin Dose Admin Acetaminophen (Tylenol) 650 mg Q6H PRN ORAL fever/HESS/mild pain 07/11/18 14:15 08/10/18 14:14 Acetaminophen/ Codeine Phosphate (Tylenol #3) 1 tab Q4H PRN ORAL Moderate Pain (Pain Scale 4-6) 07/11/18 14:15 07/18/18 14:14 Al Hydroxide/Mg Hydroxide (Mylanta II) 30 ml Q6H PRN ORAL dyspepsia 07/06/18 15:27 08/03/18 15:26 07/11/18 20:54 Allopurinol (Zyloprim) 100 mg DAILY ORAL 07/07/18 09:00 08/04/18 08:59 07/10/18 08:08 Atorvastatin Calcium (Lipitor) 10 mg BEDTIME ORAL 07/06/18 21:00 08/05/18 20:59 07/11/18 20:54 Cefazolin Sodium 1 gm/Dextrose 55 ml @ 110 mls/hr Q8H IVP 07/11/18 20:00 07/18/18 19:59 Clonidine HCl (Catapres Tab) 0.1 mg Q2H PRN ORAL For High Blood Pressure 07/07/18 14:00 08/06/18 13:59 Dextrose (Dextrose 50%) 25 ml Q30M PRN IV Hypoglycemia 07/06/18 15:30 08/03/18 19:54 Dextrose (Dextrose 50%) 50 ml Q30M PRN IV hypoglycemia 07/06/18 15:30 08/03/18 19:59 Diphenhydramine HCl (Benadryl) 25 mg Q6H PRN ORAL Itching/Pruritis 07/06/18 15:27 08/03/18 15:26 Erythromycin (Ilotycin) 1 applic EVERY 6 HOURS LEFT EYE 07/06/18 18:00 07/12/18 17:59 07/11/18 17:34 Escitalopram Oxalate (Lexapro) 10 mg DAILY ORAL 07/07/18 09:00 08/04/18 08:59 07/09/18 08:49 Heparin Sodium (Porcine) (Heparin 5000 units/ml) 5,000 units EVERY 12 HOURS SUBQ 07/06/18 21:00 08/03/18 22:29 07/09/18 20:55 Ibuprofen (Motrin) 400 mg TID PRN ORAL For Pain 07/12/18 02:45 08/11/18 02:44 07/12/18 08:31 Insulin Aspart (NovoLOG) BEFORE MEALS AND HS SUBQ 07/06/18 16:30 08/03/18 22:59 Lorazepam (Ativan) 1 mg Q6H PRN ORAL For Anxiety 07/07/18 14:30 07/14/18 14:29 Morphine Sulfate (Morphine Sulfate) 2 mg Q1H PRN IVP Severe Pain (Pain Scale 7-10) 07/11/18 14:15 07/18/18 14:14 Nitroglycerin (Ntg) 0.4 mg Q5MIN X 3 DOSES PRN SL Prn Chest Pain 07/06/18 15:30 08/03/18 13:59 Ondansetron HCl (Zofran) 4 mg Q6H PRN IVP Nausea & Vomiting 07/11/18 14:15 08/10/18 14:14 Pantoprazole (Protonix) 40 mg DAILY ORAL 07/07/18 09:00 08/04/18 08:59 07/12/18 08:31 Polyethylene Glycol (Miralax) 17 gm HSPRN PRN ORAL Constipation 07/06/18 20:00 08/03/18 19:59 Quetiapine Fumarate (SEROquel) 25 mg TWICE A DAY ORAL 07/06/18 18:00 08/05/18 08:59 07/09/18 08:49 Sitagliptin Phosphate (Januvia) 50 mg ACBREAKFAST ORAL 07/07/18 06:30 08/04/18 06:29 07/10/18 05:54 Sodium Chloride 1,000 ml @ 50 mls/hr Q20H IV 07/06/18 15:28 08/03/18 15:27 Kristen Dahl SALMON TROLL FISHER Jul 12, 2018 08:55
--- NOTE | 2018-07-12 09:15 | NUR ---
NURSE NOTES: Patient refused morning medication. Patient educated about medications and the reason for meds. Patient continued to refuse.
--- NOTE | 2018-07-12 11:01 | Infectious Diseases Prog Note ---
Assessment/Plan Assessment/Plan Assessment: Abd pain- ?etiology- likely gastritis (improved w antiacids, epigastric)- r/o PUD -CT abd/p p -Abd US p -CXR: 3.9 x 3.3 cm masslike opacity in the medial right lung base, which correlates with the finding on the recent CT of the abdomen and pelvis.. Mild elevation of the left hemidiaphragm. Subsegmental atelectasis versus infiltrate in the left lung base. Lung mass Afebrile No leukocytosis -u/a neg SP PPM 07/11 L eye blepharitis- refused erythromcin ointment DM2 HTN anemia MDD COPD lung CA CLL dx 2016 HTN hypothryroidism schizophrenia cholelithiasis spinous mass Plan: - DC periop Ancef -F/u CT abd/p, Abd US -f/u cx -Monitor CBC/CMP, temperatures Subjective Constitutional: Denies: no symptoms, fever, chills, fatigue, anorexia, drenching sweats, other Allergies: Coded Allergies: No Known Allergies (Unverified , 08/21/16) Subjective SP PPM Objective Vital Signs Last 24 Hour Vital Signs Date Time Temp Pulse Resp B/P (MAP) Pulse Ox O2 Delivery O2 Flow Rate FiO2 07/12/18 09:01 97.1 07/12/18 09:00 Nasal Cannula 3.0 07/12/18 08:00 97.1 72 20 131/86 (101) 97 07/12/18 07:51 72 07/12/18 04:00 97.1 81 18 139/88 (105) 97 07/12/18 04:00 70 07/12/18 00:00 70 07/12/18 00:00 97.3 70 18 146/83 (104) 100 07/11/18 21:00 Nasal Cannula 3.0 07/11/18 20:48 Nasal Cannula 3.0 32 07/11/18 20:48 97 Nasal Cannula 3.0 32 07/11/18 20:00 97.6 74 25 165/92 (116) 100 07/11/18 16:00 70 07/11/18 16:00 97.8 73 24 165/91 (115) 100 07/11/18 14:35 97.8 69 15 162/94 98 Nasal Cannula 3 07/11/18 14:28 64 20 98 07/11/18 14:20 70 20 120/90 98 Nasal Cannula 3 07/11/18 13:55 69 20 140/91 98 Nasal Cannula 3 07/11/18 13:45 69 23 152/89 98 Nasal Cannula 3 07/11/18 13:35 69 18 159/70 98 Nasal Cannula 3 07/11/18 13:30 69 13 151/92 98 Simple Mask 6 07/11/18 13:26 97.7 74 16 163/75 98 Simple Mask 6 07/11/18 13:26 69 16 98 Height (Feet): 5 Height (Inches): 8.00 Weight (Pounds): 170 HEENT: anicteric Respiratory/Chest: lungs clear Cardiovascular: regular rhythm Abdomen: no organomegaly Current Medications Medications (Trade) Dose Ordered Sig/Pura Route PRN Reason Start Time Stop Time Status Last Admin Dose Admin Acetaminophen (Tylenol) 650 mg Q6H PRN ORAL fever/HESS/mild pain 07/11/18 14:15 08/10/18 14:14 Acetaminophen/ Codeine Phosphate (Tylenol #3) 1 tab Q4H PRN ORAL Moderate Pain (Pain Scale 4-6) 07/11/18 14:15 07/18/18 14:14 Al Hydroxide/Mg Hydroxide (Mylanta II) 30 ml Q6H PRN ORAL dyspepsia 07/06/18 15:27 08/03/18 15:26 07/11/18 20:54 Allopurinol (Zyloprim) 100 mg DAILY ORAL 07/07/18 09:00 08/04/18 08:59 07/10/18 08:08 Atorvastatin Calcium (Lipitor) 10 mg BEDTIME ORAL 07/06/18 21:00 08/05/18 20:59 07/11/18 20:54 Cefazolin Sodium 1 gm/Dextrose 55 ml @ 110 mls/hr Q8H IVP 07/11/18 20:00 07/18/18 19:59 Clonidine HCl (Catapres Tab) 0.1 mg Q2H PRN ORAL For High Blood Pressure 07/07/18 14:00 08/06/18 13:59 Dextrose (Dextrose 50%) 25 ml Q30M PRN IV Hypoglycemia 07/06/18 15:30 08/03/18 19:54 Dextrose (Dextrose 50%) 50 ml Q30M PRN IV hypoglycemia 07/06/18 15:30 08/03/18 19:59 Diphenhydramine HCl (Benadryl) 25 mg Q6H PRN ORAL Itching/Pruritis 07/06/18 15:27 08/03/18 15:26 Erythromycin (Ilotycin) 1 applic EVERY 6 HOURS LEFT EYE 07/06/18 18:00 07/12/18 17:59 07/11/18 17:34 Escitalopram Oxalate (Lexapro) 10 mg DAILY ORAL 07/07/18 09:00 08/04/18 08:59 07/09/18 08:49 Heparin Sodium (Porcine) (Heparin 5000 units/ml) 5,000 units EVERY 12 HOURS SUBQ 07/06/18 21:00 08/03/18 22:29 07/09/18 20:55 Ibuprofen (Motrin) 400 mg TID PRN ORAL For Pain 07/12/18 02:45 08/11/18 02:44 07/12/18 08:31 Insulin Aspart (NovoLOG) BEFORE MEALS AND HS SUBQ 07/06/18 16:30 08/03/18 22:59 Lorazepam (Ativan) 1 mg Q6H PRN ORAL For Anxiety 07/07/18 14:30 07/14/18 14:29 Morphine Sulfate (Morphine Sulfate) 2 mg Q1H PRN IVP Severe Pain (Pain Scale 7-10) 07/11/18 14:15 07/18/18 14:14 Nitroglycerin (Ntg) 0.4 mg Q5MIN X 3 DOSES PRN SL Prn Chest Pain 07/06/18 15:30 08/03/18 13:59 Ondansetron HCl (Zofran) 4 mg Q6H PRN IVP Nausea & Vomiting 07/11/18 14:15 08/10/18 14:14 Pantoprazole (Protonix) 40 mg DAILY ORAL 07/07/18 09:00 08/04/18 08:59 07/12/18 08:31 Polyethylene Glycol (Miralax) 17 gm HSPRN PRN ORAL Constipation 07/06/18 20:00 08/03/18 19:59 Quetiapine Fumarate (SEROquel) 25 mg TWICE A DAY ORAL 07/06/18 18:00 08/05/18 08:59 07/09/18 08:49 Sitagliptin Phosphate (Januvia) 50 mg ACBREAKFAST ORAL 07/07/18 06:30 08/04/18 06:29 07/10/18 05:54 Sodium Chloride 1,000 ml @ 50 mls/hr Q20H IV 07/06/18 15:28 08/03/18 15:27 Boston Hernandez MD Jul 12, 2018 11:01
--- NOTE | 2018-07-12 11:49 | Cardiac Electrophysiology PN ---
Assessment/Plan Assessment/Plan 1. Recurrent Episodes of SVT of sudden onset and termination. Also had episodes of kristi and junctional rhythm in 30s. Ruled out myocardial infarction. S/P St Neel permanent pacer implantatiion that interrogated and showed Nl Fx . CXR No Ptx Will start Lopressor 25 bid and if still SVTs, then would transfer for EP study 2. HTN. Add Lopressor 25 bid 3. 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 S/P Pacer 4. Lung cancer. 5. Chronic obstructive pulmonary disease. 6. Diabetes. 7. Schizophrenia DW RN Subjective Subjective Remained Atrially paced at 60. No SVT overnight. Objective Last 24 Hour Vital Signs Date Time Temp Pulse Resp B/P (MAP) Pulse Ox O2 Delivery O2 Flow Rate FiO2 07/12/18 09:01 97.1 07/12/18 09:00 Nasal Cannula 3.0 07/12/18 08:00 97.1 72 20 131/86 (101) 97 07/12/18 07:51 72 07/12/18 04:00 97.1 81 18 139/88 (105) 97 07/12/18 04:00 70 07/12/18 00:00 70 07/12/18 00:00 97.3 70 18 146/83 (104) 100 07/11/18 21:00 Nasal Cannula 3.0 07/11/18 20:48 Nasal Cannula 3.0 32 07/11/18 20:48 97 Nasal Cannula 3.0 32 07/11/18 20:00 97.6 74 25 165/92 (116) 100 07/11/18 16:00 70 07/11/18 16:00 97.8 73 24 165/91 (115) 100 07/11/18 14:35 97.8 69 15 162/94 98 Nasal Cannula 3 07/11/18 14:28 64 20 98 07/11/18 14:20 70 20 120/90 98 Nasal Cannula 3 07/11/18 13:55 69 20 140/91 98 Nasal Cannula 3 07/11/18 13:45 69 23 152/89 98 Nasal Cannula 3 07/11/18 13:35 69 18 159/70 98 Nasal Cannula 3 07/11/18 13:30 69 13 151/92 98 Simple Mask 6 07/11/18 13:26 97.7 74 16 163/75 98 Simple Mask 6 07/11/18 13:26 69 16 98 Intake and Output 07/11/18 07/12/18 19:00 07:00 Intake Total 200 ml Balance 200 ml IV Total 200 ml Objective HEAD AND NECK: No JVD. LUNGS: Clear. CARDIOVASCULAR: Kristi S1 and S2 with no gallop. Pacer left subclavian no hematoma ABDOMEN: Soft. EXTREMITIES: There is no pitting edema. Rafael Ching MD Jul 12, 2018 11:49
[2018-07-12 12:00] VITALS: BP 98/53
--- NOTE | 2018-07-12 12:00 | NUR ---
NURSE NOTES: Patient refused IV antibiotics. Patient does not like to receive medications through his IV. Patient educated about the reason for IV antibiotics. Patient continued to refuse.
[2018-07-12] MEDS ORDERED: Albuterol/Ipratropium 3ml neb HHN PRN (13:30)
[2018-07-12 15:45] VITALS: BP 117/62
--- NOTE | 2018-07-12 16:00 | NUR ---
NURSE NOTES: Patient refused accuchecks. He said there is not a need to check his sugar. Patient was educated about the need for blood glucose checks but he continued to refuse.
--- NOTE | 2018-07-12 17:45 | Progress Note ---
DATE: 07/12/2018 SUBJECTIVE: The patient is a 78-year-old male patient with intractable pain. This patient continues to have some depression, confusion, and mood lability worsened by stress of his medical illness. That is why, his attending has requested daily psychiatric consultation for this patient. intractable pain and vomiting, but he is having mood lability worsened by stress of his medical illness. That is why, his attending has requested daily psychiatric consultation for this patient. MENTAL STATUS EXAMINATION: A 78-year-old male patient. Appearance is disheveled. Attitude, irritable and agitated. Affect, guarded and restricted. Intellect poor. Mood, depressed and anxious. Motor activity, psychomotor agitation. Attention span is poor. Orientation x2. Speech is low volume and slurred. Thought process, disorganized and illogical. Thought content, some paranoia and high levels of anxiety and depression. Insight and judgment is poor. DIAGNOSIS: Major depression with psychotic features, rule out pseudodementia. PLAN: Plan for this patient is to treat him with Seroquel 25 mg twice a day and also treat this patient with a dose of Lexapro 10 mg daily, Ativan 1 mg p.o. q.6 hours p.r.n. anxiety or agitation and encouraged him to interact appropriately with staff and other patients. Chart was reviewed and discussed with staff. He was seen and assessed at bedside. Kaveh Johnson M.D. DR: Addis JOB#: [id number] CC:
--- NOTE | 2018-07-12 18:33 | General Progress Note ---
Assessment/Plan Problem List: (1) Anemia of chronic disease ICD Codes: D63.8 - Anemia in other chronic diseases classified elsewhere SNOMED: 004358532 (2) Diabetes ICD Codes: E11.9 - Type 2 diabetes mellitus without complications SNOMED: 84570161 (3) Abdominal pain ICD Codes: R10.9 - Unspecified abdominal pain SNOMED: 29046053 (4) UTI (urinary tract infection) ICD Codes: N39.0 - Urinary tract infection, site not specified SNOMED: 40306732 (5) Nausea & vomiting ICD Codes: R11.2 - Nausea with vomiting, unspecified SNOMED: 30555867 (6) Intractable nausea and vomiting ICD Codes: R11.2 - Nausea with vomiting, unspecified SNOMED: 300643461 Qualifiers: Qualified Codes: R11.2 - Nausea with vomiting, unspecified Status: progressing Assessment/Plan intractable pain and vomitting reviewed chart and labs nausea uti abd pain Subjective Allergies: Coded Allergies: No Known Allergies (Unverified , 08/21/16) Subjective pain Objective Last 24 Hour Vital Signs Date Time Temp Pulse Resp B/P (MAP) Pulse Ox O2 Delivery O2 Flow Rate FiO2 07/12/18 15:49 74 07/12/18 15:45 97.2 72 20 117/62 (80) 98 07/12/18 12:02 70 07/12/18 12:00 97.3 71 20 98/53 (68) 100 07/12/18 09:01 97.1 07/12/18 09:00 Nasal Cannula 3.0 07/12/18 08:00 97.1 72 20 131/86 (101) 97 07/12/18 07:51 72 07/12/18 04:00 97.1 81 18 139/88 (105) 97 07/12/18 04:00 70 07/12/18 00:00 70 07/12/18 00:00 97.3 70 18 146/83 (104) 100 07/11/18 21:00 Nasal Cannula 3.0 07/11/18 20:48 Nasal Cannula 3.0 32 07/11/18 20:48 97 Nasal Cannula 3.0 32 07/11/18 20:00 97.6 74 25 165/92 (116) 100 Intake and Output 07/11/18 07/12/18 18:59 06:59 Intake Total 200 ml Balance 200 ml IV Total 200 ml Height (Feet): 5 Height (Inches): 8.00 Weight (Pounds): 170 Cardiovascular: normal rate Respiratory/Chest: lungs clear Abdomen: tender Brijesh Cooley MD Jul 12, 2018 18:32
--- NOTE | 2018-07-12 19:19 | NUR ---
HAND-OFF: Report given to KRISTOFER Miles.
--- NOTE | 2018-07-12 19:20 | NUR ---
NURSE NOTES: Received report from KRISTOFER Nowak. Patient in bed resting with no signs of acute distress. Respiration even and non labored on room air. Vital signs stable. Bed in lowest position. Call light within reach. Will continue plan of care.
[2018-07-12 20:00] VITALS: BP 144/77
--- NOTE | 2018-07-12 20:30 | NUR ---
NURSE NOTES: Patient is complaining of abdominal pain, PRN pain medication is offered but patient refused. Patient wants Protonix instead, Next dose is not due till 9am. Notified Dr. Akins for patient requests. Also, Patient refused all scheduled medications and Accucheck; patient stated " I don't need all of it". Patient is AOx4.
[2018-07-12] MEDS: Metoprolol 25mg tab ORAL SCH (20:46)
--- NOTE | 2018-07-12 22:04 | NUR ---
NURSE NOTES: Received new order of Protonix 40mig BID from Dr. Akins. Noted and carried out.
[2018-07-13] VITALS: BP 111/78
[2018-07-13] MEDS ORDERED: Artificial Tears 1.4% Op Soln BOTH EYES PRN
[2018-07-13 04:00] VITALS: BP 142/74
[2018-07-13] MEDS: NovoLOG Insulin Flexpen SUBQ SCH ×4 (06:28→20:46)
[2018-07-13] MEDS: sitaGLIPtin 50mg tab ORAL SCH (06:28)
--- NOTE | 2018-07-13 07:06 | NUR ---
HAND-OFF: Report given to KRISTOFER Nowak. Patient in bed asleep with no signs of acute distress. Vital signs stable.
--- NOTE | 2018-07-13 07:10 | NUR ---
NURSE NOTES: I received the patient sitting up in a chair at the side of his bed and eating breakfast. Patient is alert and oriented x4. Patient does not display any signs of distress or SOB. Call ligth within reach. I will continue to monitor the patient and implement care.
--- NOTE | 2018-07-13 07:30 | Pulmonology Progress Note ---
Assessment/Plan Assessment/Plan ASSESSMENT right medial lung mass 3.9x3.3. 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 s/p dual chamber PPM 07/11 anemia of chronic disease DM intractable nausea and vomiting major depression with psychotic features tobacco abuse ( stopped recently ) PLAN OF CARE tele CT chest pending suppl O2 to keep pulse ox above 90% pulm toilet prn addictions counselor to continue abstinence from smoking per pt stopped few weeks ago declined Nicotine patch ECHO with pEF 55-60% and RVSP of 29 Venous Duplex negative DVT prophylaxis s/p PPP 07/11 pain management CXR post procedure no PNT pacing on telemetry cardio/cardio EP follow pt r/out for [place], off Dig and BB due to junctional rhythm, cardio plans to start AV darvin after PPP, and if still SVT will need EP study gentle IVF BS management with SSI and Januvia GI prophylaxis patient declined GI w/up symptomatic Rx, a/emetic prn stool OB negative, CEA WNL monitor HH with goal to keep Hgb above 7 started on diet , tolerates PT eval and Rx psych follows , optimized psych medication regimen case discussed and evaluated by supervising physician Subjective Allergies: Coded Allergies: No Known Allergies (Unverified , 08/21/16) Subjective no signs of resp distress pulse ox stable on 3 L O2 via NC CT chest pending Objective Last 24 Hour Vital Signs Date Time Temp Pulse Resp B/P (MAP) Pulse Ox O2 Delivery O2 Flow Rate FiO2 07/13/18 04:00 97.8 72 20 142/74 (96) 99 07/13/18 04:00 70 07/13/18 00:00 97.0 72 20 111/78 (89) 99 07/13/18 00:00 70 07/12/18 21:00 Nasal Cannula 3.0 07/12/18 20:46 71 144/77 07/12/18 20:00 97.6 71 20 144/77 (99) 100 07/12/18 20:00 70 07/12/18 19:36 Nasal Cannula 3.0 32 07/12/18 19:36 96 Nasal Cannula 3.0 32 07/12/18 18:52 97.2 07/12/18 15:49 74 07/12/18 15:45 97.2 72 20 117/62 (80) 98 07/12/18 12:02 70 07/12/18 12:00 97.3 71 20 98/53 (68) 100 07/12/18 09:00 Nasal Cannula 3.0 07/12/18 08:00 97.1 72 20 131/86 (101) 97 07/12/18 07:51 72 Intake and Output 07/12/18 07/13/18 19:00 07:00 Intake Total 680 ml Balance 680 ml Intake Oral 680 ml # Voids 3 Objective General Appearance: WD/WN, no acute distress HEENT: normocephalic, atraumatic, anicteric Respiratory/Chest: decreased breath sounds, other - left upper chest pacemaker , site intact, no evidecne of infection Cardiovascular: normal rate - pacing rhythm Abdomen: normal bowel sounds, soft, non tender Extremities: no edema, other - LUE sling for comfot Neurologic/Psychiatric: alert Musculoskeletal: normal muscle bulk Current Medications Medications (Trade) Dose Ordered Sig/Pura Route PRN Reason Start Time Stop Time Status Last Admin Dose Admin Acetaminophen (Tylenol) 650 mg Q6H PRN ORAL fever/HESS/mild pain 07/11/18 14:15 08/10/18 14:14 Acetaminophen/ Codeine Phosphate (Tylenol #3) 1 tab Q4H PRN ORAL Moderate Pain (Pain Scale 4-6) 07/11/18 14:15 07/18/18 14:14 Al Hydroxide/Mg Hydroxide (Mylanta II) 30 ml Q6H PRN ORAL dyspepsia 07/06/18 15:27 08/03/18 15:26 07/11/18 20:54 Albuterol/ Ipratropium (Albuterol/ Ipratropium) 3 ml Q4H PRN HHN Shortness of Breath 07/12/18 13:30 07/17/18 13:29 Allopurinol (Zyloprim) 100 mg DAILY ORAL 07/07/18 09:00 08/04/18 08:59 07/10/18 08:08 Artificial Tears (Akwa-Tears) 2 drop EVERY 6 HOURS PRN BOTH EYES Dry Eyes 07/13/18 00:00 08/12/18 00:00 Atorvastatin Calcium (Lipitor) 10 mg BEDTIME ORAL 07/06/18 21:00 08/05/18 20:59 07/11/18 20:54 Clonidine HCl (Catapres Tab) 0.1 mg Q2H PRN ORAL For High Blood Pressure 07/07/18 14:00 08/06/18 13:59 Dextrose (Dextrose 50%) 25 ml Q30M PRN IV Hypoglycemia 07/06/18 15:30 08/03/18 19:54 Dextrose (Dextrose 50%) 50 ml Q30M PRN IV hypoglycemia 07/06/18 15:30 08/03/18 19:59 Diphenhydramine HCl (Benadryl) 25 mg Q6H PRN ORAL Itching/Pruritis 07/06/18 15:27 08/03/18 15:26 Escitalopram Oxalate (Lexapro) 10 mg DAILY ORAL 07/07/18 09:00 08/04/18 08:59 07/09/18 08:49 Heparin Sodium (Porcine) (Heparin 5000 units/ml) 5,000 units EVERY 12 HOURS SUBQ 07/06/18 21:00 08/03/18 22:29 07/09/18 20:55 Ibuprofen (Motrin) 400 mg TID PRN ORAL For Pain 07/12/18 02:45 08/11/18 02:44 07/12/18 21:45 Insulin Aspart (NovoLOG) BEFORE MEALS AND HS SUBQ 07/06/18 16:30 08/03/18 22:59 Lorazepam (Ativan) 1 mg Q6H PRN ORAL For Anxiety 07/07/18 14:30 07/14/18 14:29 Metoprolol Tartrate (Lopressor) 25 mg Q12HR ORAL 07/12/18 21:00 08/11/18 20:59 Morphine Sulfate (Morphine Sulfate) 2 mg Q1H PRN IVP Severe Pain (Pain Scale 7-10) 07/11/18 14:15 07/18/18 14:14 Nitroglycerin (Ntg) 0.4 mg Q5MIN X 3 DOSES PRN SL Prn Chest Pain 07/06/18 15:30 08/03/18 13:59 Ondansetron HCl (Zofran) 4 mg Q6H PRN IVP Nausea & Vomiting 07/11/18 14:15 08/10/18 14:14 Pantoprazole (Protonix) 40 mg BID ORAL 07/12/18 22:33 08/04/18 08:59 07/12/18 22:39 Polyethylene Glycol (Miralax) 17 gm HSPRN PRN ORAL Constipation 07/06/18 20:00 08/03/18 19:59 Quetiapine Fumarate (SEROquel) 25 mg TWICE A DAY ORAL 07/06/18 18:00 08/05/18 08:59 07/09/18 08:49 Sitagliptin Phosphate (Januvia) 50 mg ACBREAKFAST ORAL 07/07/18 06:30 08/04/18 06:29 07/10/18 05:54 Sodium Chloride 1,000 ml @ 50 mls/hr Q20H IV 07/06/18 15:28 08/03/18 15:27 Kristen Dahl [employer] Jul 13, 2018 07:30
[2018-07-13 07:59] VITALS: BP 163/95
[2018-07-13] MEDS: Metoprolol 25mg tab ORAL SCH (08:12)
[2018-07-13] MEDS: Heparin 5000 units/ml inj SUBQ SCH ×2 (08:18→20:45)
[2018-07-13] MEDS: Allopurinol 100mg Tab ORAL SCH (08:18)
--- NOTE | 2018-07-13 08:18 | NUR ---
NURSE NOTES: Patient refused 0900 morning medications except for protonix and metropolol. Patient educated about the need for the medications but he continued to refuse. Patient resting in bed and does not display any signs of distress. Bed in the lowest position and call light within reach.
--- NOTE | 2018-07-13 09:57 | NUR ---
CASE MANAGEMENT:REVIEW 07/13/2018 SI: RBBB. 1ST DEGREE AVB T 98.7 HR 72 RR 20 B/P 163/95 SATS 99% ON 3L/NC NO LABS TODAY IS: IVF @ 50 mL/HR SEROQUEL PO BID LIPITOR PO QHS PROTONIX PO BID ALLOPURINOL PO QD LEXAPRO PO QD INSULIN ASPART SUBQ AC/HS LOPRESSOR PO Q12H : TELEMETRY STATUS
--- NOTE | 2018-07-13 10:50 | NUR ---
NURSE NOTES: Patient complaining that his IV bothers him when flushed and refuses all IV medications. Patient declined the insertion of a new IV. RN educated patient about the needs for IV access and he agreed to new IV access being obtained. New IV access obtained without incident. Patient resting in bed, bed in the lowest position and call light within reach.
[2018-07-13 12:00] VITALS: BP 154/87
[2018-07-13] MEDS: Mylanta II UD 30ml ORAL PRN (13:06)
--- NOTE | 2018-07-13 14:47 | Cardiac Electrophysiology PN ---
Assessment/Plan Assessment/Plan 1. SSS with episodes of kristi and junctional rhythm in 30s. Ruled out myocardial infarction. S/P St Neel permanent pacer implantatiion that interrogated and showed Nl Fx . CXR No Ptx 2. Recurrent Episodes of SVT of sudden onset and termination. Continue Lopressor 25 bid and if still recurs may need EP study 3. HTN. On Lopressor 25 bid 4. 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 S/P Pacer 5. Chronic obstructive pulmonary disease. 6. Diabetes. 7. Schizophrenia DW RN Subjective Subjective Remained Atrially paced at 60. No SVT since pacer implant. No CP or SOB Objective Last 24 Hour Vital Signs Date Time Temp Pulse Resp B/P (MAP) Pulse Ox O2 Delivery O2 Flow Rate FiO2 07/13/18 12:00 97.3 72 20 154/87 (109) 99 07/13/18 11:48 70 07/13/18 09:00 Nasal Cannula 3.0 07/13/18 08:12 72 163/95 07/13/18 07:59 98.7 72 20 163/95 (117) 99 07/13/18 07:48 70 07/13/18 06:55 Nasal Cannula 3.0 32 07/13/18 06:55 97 Nasal Cannula 3.0 32 07/13/18 04:00 97.8 72 20 142/74 (96) 99 07/13/18 04:00 70 07/13/18 00:00 97.0 72 20 111/78 (89) 99 07/13/18 00:00 70 07/12/18 21:00 Nasal Cannula 3.0 07/12/18 20:46 71 144/77 07/12/18 20:00 97.6 71 20 144/77 (99) 100 07/12/18 20:00 70 07/12/18 19:36 Nasal Cannula 3.0 32 07/12/18 19:36 96 Nasal Cannula 3.0 32 07/12/18 18:52 97.2 07/12/18 15:49 74 07/12/18 15:45 97.2 72 20 117/62 (80) 98 Intake and Output 07/12/18 07/13/18 19:00 07:00 Intake Total 680 ml Balance 680 ml Intake Oral 680 ml # Voids 3 Objective HEAD AND NECK: No JVD. LUNGS: Clear. CARDIOVASCULAR: Kristi S1 and S2 with no gallop. Pacer left subclavian no hematoma ABDOMEN: Soft. EXTREMITIES: There is no pitting edema. Rafael Ching MD Jul 13, 2018 14:47
[2018-07-13 16:00] VITALS: BP 151/80
--- NOTE | 2018-07-13 19:10 | NUR ---
NURSE NOTES: Received report from KRISTOFER Nowak. Patient is in bed awake, alert and oriented x4 with no signs of acute distress. Respiration even and non labored on room air. Vitals stable. IV line patent and intact. Bed in lowest position. Call light within reach. Will continue plan of care.
--- NOTE | 2018-07-13 19:11 | NUR ---
HAND-OFF: Report given to KRISTOFER Miles.
--- NOTE | 2018-07-13 19:44 | Progress Note ---
DATE: 07/13/2018 SUBJECTIVE: This is a 78-year-old male patient with intractable pain. He has altered mental status, confusion, and disorganized thought process worsened by stress of his medical illness with increased mood lability. MENTAL STATUS EXAMINATION: This is a 78-year-old male. Appearance is disheveled. Attitude, irritable and agitated. Affect, guarded and restricted. Intellect, poor. Mood, depressed and anxious. Motor activity, psychomotor agitation. Attention span is poor. Orientation x2. Speech is low volume and slurred. Thought process, disorganized and illogical. Insight and judgment is poor. DIAGNOSIS: Major depression with psychotic features, rule out depression with psychosis. PLAN: Treat him with Seroquel 25 mg twice a day, Lexapro 10 mg daily. 20 minutes of cognitive therapy provided to help identify this patient's automatic negative thoughts and help him convert those negative thoughts to more positive thoughts to reduce depression, anxiety, and suicidality. Also provide him with cognitive behavioral therapy to help him to have more adaptive behavior pattern. Chart is reviewed and discussed with staff. Seen and assessed in his room. Kaveh Johnson M.D. DR: Adenike JOB#: [id number] CC:
[2018-07-13 20:00] VITALS: BP 152/84
--- NOTE | 2018-07-13 20:34 | General Progress Note ---
Assessment/Plan Problem List: (1) Anemia of chronic disease ICD Codes: D63.8 - Anemia in other chronic diseases classified elsewhere SNOMED: 237327139 (2) Diabetes ICD Codes: E11.9 - Type 2 diabetes mellitus without complications SNOMED: 46276852 (3) Abdominal pain ICD Codes: R10.9 - Unspecified abdominal pain SNOMED: 05349845 (4) UTI (urinary tract infection) ICD Codes: N39.0 - Urinary tract infection, site not specified SNOMED: 47976606 (5) Nausea & vomiting ICD Codes: R11.2 - Nausea with vomiting, unspecified SNOMED: 19849170 (6) Intractable nausea and vomiting ICD Codes: R11.2 - Nausea with vomiting, unspecified SNOMED: 707064268 Qualifiers: Qualified Codes: R11.2 - Nausea with vomiting, unspecified Status: progressing Assessment/Plan intractable pain and vomitting reviewed chart abdomin is soft uti improving Subjective ROS Limited/Unobtainable: Yes Allergies: Coded Allergies: No Known Allergies (Unverified , 08/21/16) Subjective pain Objective Last 24 Hour Vital Signs Date Time Temp Pulse Resp B/P (MAP) Pulse Ox O2 Delivery O2 Flow Rate FiO2 07/13/18 19:35 98 Nasal Cannula 3.0 32 07/13/18 19:35 Nasal Cannula 3.0 32 07/13/18 18:43 97.7 07/13/18 16:00 97.7 72 20 151/80 (103) 95 07/13/18 15:53 70 07/13/18 12:00 97.3 72 20 154/87 (109) 99 07/13/18 11:48 70 07/13/18 09:00 Nasal Cannula 3.0 07/13/18 08:12 72 163/95 07/13/18 07:59 98.7 72 20 163/95 (117) 99 07/13/18 07:48 70 07/13/18 06:55 Nasal Cannula 3.0 32 07/13/18 06:55 97 Nasal Cannula 3.0 32 07/13/18 04:00 97.8 72 20 142/74 (96) 99 07/13/18 04:00 70 07/13/18 00:00 97.0 72 20 111/78 (89) 99 07/13/18 00:00 70 07/12/18 21:00 Nasal Cannula 3.0 07/12/18 20:46 71 144/77 Intake and Output 07/12/18 07/13/18 18:59 06:59 Intake Total 680 ml Balance 680 ml Intake Oral 680 ml # Voids 3 Height (Feet): 5 Height (Inches): 8.00 Weight (Pounds): 170 Neck: supple Cardiovascular: normal rate Respiratory/Chest: lungs clear Abdomen: soft Brijesh Cooley MD Jul 13, 2018 20:34
[2018-07-13] MEDS: Metoprolol Tartrate 50mg tab ORAL SCH (20:44)
--- NOTE | 2018-07-13 20:47 | NUR ---
NURSE NOTES: Patient refused all scheduled medication. Informed patient about risk and benefits of medications, patients still refused. Patient demands for another dose of Protonix but last doze was given at 1800. Patient was very agitated and combative. Will continue to monitor.
--- NOTE | 2018-07-13 23:00 | NUR ---
NURSE NOTES: Informed Dr. Akins about patient being agitated, combative and verbal abusive to staff due to complain of not getting enough pressure through his nc in 2L and asks for the RT to replace his nc. RT increased the 02 to 4L, pt. still thinks its not working and even replaced the nc x3 and offered other masks, but patient insist of only using NC. Pt. still complains of not getting enough O2. RT checked the patient, O2 is 96% without signs of any distress. We explained to patient how the oxygen flows but patient still demands to increase the O2 rate. RT then increased the O2L up to 8L with humidifier and patient just become satisfied with the pressure. I advised the RT to decrease the O2 rate when the patients calms down. Also, PRN anti-anxiety were unable to be given as patient continues to refuse all his oral and IV meds. Dr. Akins gave new order of Haldol IM 5mg Q6 PRN noted and carried out. Will continue to monitor.
[2018-07-13] MEDS ORDERED: Haloperidol 5mg/ml Inj IM PRN (23:30)
--- NOTE | 2018-07-14 02:48 | NUR ---
NURSE NOTES: Patient is restless at this time and requested a dose of Seroquel. Seroquel 25mg is administered. Patient is in bed with no sob noted. will continue to monitor
[2018-07-14] MEDS: NovoLOG Insulin Flexpen SUBQ SCH ×4 (06:30→21:00)
[2018-07-14] MEDS: sitaGLIPtin 50mg tab ORAL SCH (06:30)
--- NOTE | 2018-07-14 07:20 | NUR ---
HAND-OFF: Report given to KRISTOFER Nowak.
[2018-07-14 08:00] VITALS: BP 149/96
[2018-07-14] MEDS: Allopurinol 100mg Tab ORAL SCH (08:49)
[2018-07-14] MEDS: Metoprolol Tartrate 50mg tab ORAL SCH ×2 (08:49→21:00)
[2018-07-14] MEDS: Heparin 5000 units/ml inj SUBQ SCH ×2 (08:53→21:00)
--- NOTE | 2018-07-14 10:21 | Infectious Diseases Prog Note ---
Assessment/Plan Assessment/Plan Assessment: Abd pain- ?etiology- likely gastritis (improved w antiacids, epigastric)- r/o PUD -CT abd/p p -Abd US p -CXR: 3.9 x 3.3 cm masslike opacity in the medial right lung base, which correlates with the finding on the recent CT of the abdomen and pelvis.. Mild elevation of the left hemidiaphragm. Subsegmental atelectasis versus infiltrate in the left lung base. Lung mass Afebrile No leukocytosis -u/a neg SP PPM 07/11 L eye blepharitis- refused erythromcin ointment DM2 HTN anemia MDD COPD lung CA CLL dx 2016 HTN hypothryroidism schizophrenia cholelithiasis spinous mass Plan: - Continue to monitor off abx -07/12 SP periop Ancef -F/u CT abd/p, Abd US -f/u cx -Monitor CBC/CMP, temperatures Subjective Allergies: Coded Allergies: No Known Allergies (Unverified , 08/21/16) Subjective afebrile no leukocytosis Objective Vital Signs Last 24 Hour Vital Signs Date Time Temp Pulse Resp B/P (MAP) Pulse Ox O2 Delivery O2 Flow Rate FiO2 07/14/18 09:00 Nasal Cannula 3.0 07/14/18 08:49 72 149/96 07/14/18 08:25 Nasal Cannula 4.0 36 07/14/18 08:25 72 19 Nasal Cannula 4.0 36 07/14/18 08:25 98 Nasal Cannula 4.0 36 07/14/18 08:00 97.1 73 23 149/96 (113) 97 07/14/18 04:00 70 07/14/18 00:00 70 07/13/18 21:00 Nasal Cannula 3.0 07/13/18 20:44 74 152/84 07/13/18 20:00 97.0 74 20 152/84 (106) 96 07/13/18 20:00 69 07/13/18 19:35 98 Nasal Cannula 3.0 32 07/13/18 19:35 Nasal Cannula 3.0 32 07/13/18 18:43 97.7 07/13/18 16:00 97.7 72 20 151/80 (103) 95 07/13/18 15:53 70 07/13/18 12:00 97.3 72 20 154/87 (109) 99 07/13/18 11:48 70 Height (Feet): 5 Height (Inches): 8.00 Weight (Pounds): 170 Objective General Appearance: WD/WN, no apparent distress, alert Cardiovascular: normal rate Respiratory/Chest: normal breath sounds, no respiratory distress Abdominal Exam: normal bowel sounds, non tender, soft Extremities: normal range of motion, non-tender Current Medications Medications (Trade) Dose Ordered Sig/Pura Route PRN Reason Start Time Stop Time Status Last Admin Dose Admin Acetaminophen (Tylenol) 650 mg Q6H PRN ORAL fever/HESS/mild pain 07/11/18 14:15 08/10/18 14:14 Acetaminophen/ Codeine Phosphate (Tylenol #3) 1 tab Q4H PRN ORAL Moderate Pain (Pain Scale 4-6) 07/11/18 14:15 07/18/18 14:14 Al Hydroxide/Mg Hydroxide (Mylanta II) 30 ml Q6H PRN ORAL dyspepsia 07/06/18 15:27 08/03/18 15:26 07/13/18 13:06 Albuterol/ Ipratropium (Albuterol/ Ipratropium) 3 ml Q4H PRN HHN Shortness of Breath 07/12/18 13:30 07/17/18 13:29 Allopurinol (Zyloprim) 100 mg DAILY ORAL 07/07/18 09:00 08/04/18 08:59 07/14/18 08:49 Artificial Tears (Akwa-Tears) 2 drop EVERY 6 HOURS PRN BOTH EYES Dry Eyes 07/13/18 00:00 08/12/18 00:00 07/13/18 18:16 Atorvastatin Calcium (Lipitor) 10 mg BEDTIME ORAL 07/06/18 21:00 08/05/18 20:59 07/11/18 20:54 Clonidine HCl (Catapres Tab) 0.1 mg Q2H PRN ORAL For High Blood Pressure 07/07/18 14:00 08/06/18 13:59 Dextrose (Dextrose 50%) 25 ml Q30M PRN IV Hypoglycemia 07/06/18 15:30 08/03/18 19:54 Dextrose (Dextrose 50%) 50 ml Q30M PRN IV hypoglycemia 07/06/18 15:30 08/03/18 19:59 Diphenhydramine HCl (Benadryl) 25 mg Q6H PRN ORAL Itching/Pruritis 07/06/18 15:27 08/03/18 15:26 Escitalopram Oxalate (Lexapro) 10 mg DAILY ORAL 07/07/18 09:00 08/04/18 08:59 07/14/18 08:49 Haloperidol Lactate (Haldol) 5 mg Q6H PRN IM Agitation 07/13/18 23:30 08/12/18 23:29 Heparin Sodium (Porcine) (Heparin 5000 units/ml) 5,000 units EVERY 12 HOURS SUBQ 07/06/18 21:00 08/03/18 22:29 07/09/18 20:55 Ibuprofen (Motrin) 400 mg TID PRN ORAL For Pain 07/12/18 02:45 08/11/18 02:44 07/13/18 18:13 Insulin Aspart (NovoLOG) BEFORE MEALS AND HS SUBQ 07/06/18 16:30 08/03/18 22:59 Lorazepam (Ativan) 1 mg Q6H PRN ORAL For Anxiety 07/07/18 14:30 07/14/18 14:29 Metoprolol Tartrate (Lopressor) 50 mg Q12HR ORAL 07/13/18 21:00 08/11/18 20:59 07/14/18 08:49 Morphine Sulfate (Morphine Sulfate) 2 mg Q1H PRN IVP Severe Pain (Pain Scale 7-10) 07/11/18 14:15 07/18/18 14:14 Nitroglycerin (Ntg) 0.4 mg Q5MIN X 3 DOSES PRN SL Prn Chest Pain 07/06/18 15:30 08/03/18 13:59 Ondansetron HCl (Zofran) 4 mg Q6H PRN IVP Nausea & Vomiting 07/11/18 14:15 08/10/18 14:14 Pantoprazole (Protonix) 40 mg BID ORAL 07/12/18 22:33 08/04/18 08:59 07/14/18 08:49 Polyethylene Glycol (Miralax) 17 gm HSPRN PRN ORAL Constipation 07/06/18 20:00 08/03/18 19:59 Quetiapine Fumarate (SEROquel) 25 mg TWICE A DAY ORAL 07/06/18 18:00 08/05/18 08:59 07/14/18 02:43 Sitagliptin Phosphate (Januvia) 50 mg ACBREAKFAST ORAL 07/07/18 06:30 08/04/18 06:29 07/10/18 05:54 Sodium Chloride 1,000 ml @ 50 mls/hr Q20H IV 07/06/18 15:28 08/03/18 15:27 Jing Mae M.D. Jul 14, 2018 10:21
--- NOTE | 2018-07-14 10:29 | GI Progress Note ---
Assessment/Plan Problems: (1) Intractable nausea and vomiting ICD Codes: R11.2 - Nausea with vomiting, unspecified SNOMED: 280011852 Qualifiers: Qualified Codes: R11.2 - Nausea with vomiting, unspecified (2) Acute renal failure (ARF) ICD Codes: N17.9 - Acute kidney failure, unspecified SNOMED: 20152691 (3) Nausea & vomiting ICD Codes: R11.2 - Nausea with vomiting, unspecified SNOMED: 11048843 (4) Abdominal pain ICD Codes: R10.9 - Unspecified abdominal pain SNOMED: 92379739 (5) Anemia of chronic disease ICD Codes: D63.8 - Anemia in other chronic diseases classified elsewhere SNOMED: 456711919 Status: stable Status Narrative Discussed with Dr. Lafleur Assessment/Plan Assessment - abd pain - N/V - anemia - declines GI w/u -Negative OB stool Recommendations - supportive care - consider psych consult - CT scan if/when pt agrees - Outpatient GI procedures -Physical therapy evaluation Follow cardiac recommendations Follow-up labs The patient was seen and examined at bedside and all new and available data was reviewed in the patients chart. I agree with the above findings, impression and plan. (Patient seen earlier today. Signature stamp does not reflect patient encounter time.). - Matthias Lafleur MD Subjective Subjective Refused abdominal ultrasound Refused any GI procedures Agreed pacemaker placed Objective Last 24 Hour Vital Signs Date Time Temp Pulse Resp B/P (MAP) Pulse Ox O2 Delivery O2 Flow Rate FiO2 07/14/18 09:00 Nasal Cannula 3.0 07/14/18 08:49 72 149/96 07/14/18 08:25 Nasal Cannula 4.0 36 07/14/18 08:25 72 19 Nasal Cannula 4.0 36 07/14/18 08:25 98 Nasal Cannula 4.0 36 07/14/18 08:00 97.1 73 23 149/96 (113) 97 07/14/18 04:00 70 07/14/18 00:00 70 07/13/18 21:00 Nasal Cannula 3.0 07/13/18 20:44 74 152/84 07/13/18 20:00 97.0 74 20 152/84 (106) 96 07/13/18 20:00 69 07/13/18 19:35 98 Nasal Cannula 3.0 32 07/13/18 19:35 Nasal Cannula 3.0 32 07/13/18 18:43 97.7 07/13/18 16:00 97.7 72 20 151/80 (103) 95 07/13/18 15:53 70 07/13/18 12:00 97.3 72 20 154/87 (109) 99 07/13/18 11:48 70 Intake and Output 07/13/18 07/14/18 19:00 07:00 Intake Total 740 ml Balance 740 ml Intake Oral 740 ml # Voids 2 Height (Feet): 5 Height (Inches): 8.00 Weight (Pounds): 170 General Appearance: WD/WN, no apparent distress, alert Cardiovascular: normal rate Respiratory/Chest: normal breath sounds, no respiratory distress Abdominal Exam: normal bowel sounds, non tender, soft Extremities: non-tender Delmy Giraldo NP Jul 14, 2018 10:29
--- NOTE | 2018-07-14 10:36 | Diagnostic Imaging Report ---
Indication: Chest mass Technique: CT of the chest utilizing automated exposure control with intravenous contrast. Venous scanning performed. Axial, sagittal and coronal reformats presented. CT dose: Total DLP 710.11 mGycm; CTDI vol 20.02 mGy Comparison: 08/22/2016 Findings: A right paravertebral mass is again noted at the level of T9-T10. This measures approximately 4.2 x 3.2 cm (previously 3.8 x 2.3 cm when remeasured in a similar manner on the previous exam). Again there are some speckled calcifications within this mass. Considerations include nerve sheath tumor or schwannoma. There is unchanged elevation of the left hemidiaphragm with scarring or atelectasis in the adjacent left lower lobe. Additionally adjacent to this there is more dense airspace consolidation with bronchograms in the possibility of a pneumonia is not excludable. There is been bilateral airspace disease in the right upper lobe and, to a lesser extent right lower lobe (for example series 5 image #27) findings are nonspecific and may represent endobronchial spread of infection or tumor given above-described mass, although the latter is thought likely. There is no pleural effusion or pneumothorax. Multiple enlarged bilateral axillary lymph nodes are again seen, some of the left axilla which measure greater than 10 mm in short axis. Some small mediastinal lymph nodes are also noted. Imaged thyroid unremarkable. Heart is mildly enlarged. Portions of the pacemaker partially visualized. There are coronary arterial calcifications. No pericardial effusion. Abdominal aorta normal in caliber with mild atherosclerotic change. No evidence of aortic dissection. There is a bovine arch. Additionally the left vertebral artery has its origin directly off the aortic arch. Visualized portions of the great vessels patent and normal in caliber. Abdominal aorta is normal in caliber. No saddle or large central pulmonary embolism. There is splenomegaly with the spleen measuring 13 cm in length. There is cholelithiasis. No CT evidence to suggest acute cholecystitis. There are multilevel degenerative changes of the spine with bridging anterior osteophytes. IMPRESSION: * Previously identified right paravertebral mass demonstrates interval increase in size from 08/22/2016. Again, potential considerations include nerve sheath tumor. Additional etiologies not excludable. Consider direct tissue sampling if not already performed. * Elevation of the left hemidiaphragm with adjacent dense consolidation with air bronchograms in the left lower lobe. Although some findings may related to atelectasis/scarring possibility of a pneumonia is not excluded. * Tree-in-bud opacities in the right upper lobe may be infectious or inflammatory in etiology. Possibility of endobronchial spread of tumor is thought less likely but not entirely excluded given above-described mass. * Axillary lymphadenopathy noted which may be infectious/inflammatory or neoplastic in etiology. * Pacemaker partially visualized. * Coronary artery calcifications. * Cholelithiasis. No CT evidence of an acute cholecystitis. * Splenomegaly. * Variant branching anatomy of the aortic arch. The CT scanner at [facility] is accredited by the [employer] and the scans are performed using protocols designed to limit radiation exposure to as low as reasonably achievable to attain images of sufficient resolution adequate for diagnostic evaluation.
[2018-07-14] MEDS: Mylanta II UD 30ml ORAL PRN (13:04)
--- NOTE | 2018-07-14 13:26 | Pulmonology Progress Note ---
Assessment/Plan Problems: (1) Pleural mass (2) Intractable nausea and vomiting (3) Nausea & vomiting (4) Anemia of chronic disease (5) Diabetes Assessment/Plan CT chest reviewed, Dense infiltrate, axillary lymphadenopathy, spinal tumor increased in size CEA is negative all reviewed sliding scale symptomatic treatment PT/ot med/surg pt doesn't agree with biopsy watch off abx. Subjective ROS Limited/Unobtainable: No Constitutional: Reports: no symptoms HEENT: Repors: no symptoms Respiratory: Reports: no symptoms Allergies: Coded Allergies: No Known Allergies (Unverified , 08/21/16) Objective Last 24 Hour Vital Signs Date Time Temp Pulse Resp B/P (MAP) Pulse Ox O2 Delivery O2 Flow Rate FiO2 07/14/18 09:00 Nasal Cannula 3.0 07/14/18 08:49 72 149/96 07/14/18 08:25 Nasal Cannula 4.0 36 07/14/18 08:25 72 19 Nasal Cannula 4.0 36 07/14/18 08:25 98 Nasal Cannula 4.0 36 07/14/18 08:00 97.1 73 23 149/96 (113) 97 07/14/18 04:00 70 07/14/18 00:00 70 07/13/18 21:00 Nasal Cannula 3.0 07/13/18 20:44 74 152/84 07/13/18 20:00 97.0 74 20 152/84 (106) 96 07/13/18 20:00 69 07/13/18 19:35 98 Nasal Cannula 3.0 32 07/13/18 19:35 Nasal Cannula 3.0 32 07/13/18 18:43 97.7 07/13/18 16:00 97.7 72 20 151/80 (103) 95 07/13/18 15:53 70 Intake and Output 07/13/18 07/14/18 19:00 07:00 Intake Total 740 ml Balance 740 ml Intake Oral 740 ml # Voids 2 General Appearance: WD/WN HEENT: normocephalic, atraumatic Respiratory/Chest: chest wall non-tender, normal breath sounds Cardiovascular: normal peripheral pulses, normal rate Abdomen: normal bowel sounds, soft, non tender Genitourinary: normal external genitalia Extremities: no clubbing Skin: no lesions 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 Lymphatic: no neck adenopathy Current Medications Medications (Trade) Dose Ordered Sig/Pura Route PRN Reason Start Time Stop Time Status Last Admin Dose Admin Acetaminophen (Tylenol) 650 mg Q6H PRN ORAL fever/HESS/mild pain 07/11/18 14:15 08/10/18 14:14 Acetaminophen/ Codeine Phosphate (Tylenol #3) 1 tab Q4H PRN ORAL Moderate Pain (Pain Scale 4-6) 07/11/18 14:15 07/18/18 14:14 Al Hydroxide/Mg Hydroxide (Mylanta II) 30 ml Q6H PRN ORAL dyspepsia 07/06/18 15:27 08/03/18 15:26 07/14/18 13:04 Albuterol/ Ipratropium (Albuterol/ Ipratropium) 3 ml Q4H PRN HHN Shortness of Breath 07/12/18 13:30 07/17/18 13:29 Allopurinol (Zyloprim) 100 mg DAILY ORAL 07/07/18 09:00 08/04/18 08:59 07/14/18 08:49 Artificial Tears (Akwa-Tears) 2 drop EVERY 6 HOURS PRN BOTH EYES Dry Eyes 07/13/18 00:00 08/12/18 00:00 07/13/18 18:16 Atorvastatin Calcium (Lipitor) 10 mg BEDTIME ORAL 07/06/18 21:00 08/05/18 20:59 07/11/18 20:54 Clonidine HCl (Catapres Tab) 0.1 mg Q2H PRN ORAL For High Blood Pressure 07/07/18 14:00 08/06/18 13:59 Dextrose (Dextrose 50%) 25 ml Q30M PRN IV Hypoglycemia 07/06/18 15:30 08/03/18 19:54 Dextrose (Dextrose 50%) 50 ml Q30M PRN IV hypoglycemia 07/06/18 15:30 08/03/18 19:59 Diphenhydramine HCl (Benadryl) 25 mg Q6H PRN ORAL Itching/Pruritis 07/06/18 15:27 08/03/18 15:26 Escitalopram Oxalate (Lexapro) 10 mg DAILY ORAL 07/07/18 09:00 08/04/18 08:59 07/14/18 08:49 Haloperidol Lactate (Haldol) 5 mg Q6H PRN IM Agitation 07/13/18 23:30 08/12/18 23:29 Heparin Sodium (Porcine) (Heparin 5000 units/ml) 5,000 units EVERY 12 HOURS SUBQ 07/06/18 21:00 08/03/18 22:29 07/09/18 20:55 Ibuprofen (Motrin) 400 mg TID PRN ORAL For Pain 07/12/18 02:45 08/11/18 02:44 07/14/18 12:58 Insulin Aspart (NovoLOG) BEFORE MEALS AND HS SUBQ 07/06/18 16:30 08/03/18 22:59 Lorazepam (Ativan) 1 mg Q6H PRN ORAL For Anxiety 07/07/18 14:30 07/14/18 14:29 Metoprolol Tartrate (Lopressor) 50 mg Q12HR ORAL 07/13/18 21:00 08/11/18 20:59 07/14/18 08:49 Morphine Sulfate (Morphine Sulfate) 2 mg Q1H PRN IVP Severe Pain (Pain Scale 7-10) 07/11/18 14:15 07/18/18 14:14 Nitroglycerin (Ntg) 0.4 mg Q5MIN X 3 DOSES PRN SL Prn Chest Pain 07/06/18 15:30 08/03/18 13:59 Ondansetron HCl (Zofran) 4 mg Q6H PRN IVP Nausea & Vomiting 07/11/18 14:15 08/10/18 14:14 Pantoprazole (Protonix) 40 mg BID ORAL 07/12/18 22:33 08/04/18 08:59 07/14/18 08:49 Polyethylene Glycol (Miralax) 17 gm HSPRN PRN ORAL Constipation 07/06/18 20:00 08/03/18 19:59 Quetiapine Fumarate (SEROquel) 25 mg TWICE A DAY ORAL 07/06/18 18:00 08/05/18 08:59 07/14/18 02:43 Sitagliptin Phosphate (Januvia) 50 mg ACBREAKFAST ORAL 07/07/18 06:30 08/04/18 06:29 07/10/18 05:54 Sodium Chloride 1,000 ml @ 50 mls/hr Q20H IV 07/06/18 15:28 08/03/18 15:27 Alf Akins MD Jul 14, 2018 13:26
--- NOTE | 2018-07-14 14:16 | Cardiac Electrophysiology PN ---
Assessment/Plan Assessment/Plan 1. SSS with episodes of kristi and junctional rhythm in 30s. Ruled out myocardial infarction. S/P St Neel permanent pacer implantation with Nl Fx . CXR No Ptx 2. Recurrent Episodes of SVT of sudden onset and termination. Continue Lopressor 25 bid . May need EP study 3. HTN. On Lopressor 25 bid 4. 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 S/P Pacer 5. Chronic obstructive pulmonary disease. 6. Diabetes. 7. Schizophrenia DW RN Subjective Subjective Remained atrially paced at 60. No SVT since pacer implant. No CP or SOB. Placement pending Objective Last 24 Hour Vital Signs Date Time Temp Pulse Resp B/P (MAP) Pulse Ox O2 Delivery O2 Flow Rate FiO2 07/14/18 09:00 Nasal Cannula 3.0 07/14/18 08:49 72 149/96 07/14/18 08:25 Nasal Cannula 4.0 36 07/14/18 08:25 72 19 Nasal Cannula 4.0 36 07/14/18 08:25 98 Nasal Cannula 4.0 36 07/14/18 08:00 97.1 73 23 149/96 (113) 97 07/14/18 04:00 70 07/14/18 00:00 70 07/13/18 21:00 Nasal Cannula 3.0 07/13/18 20:44 74 152/84 07/13/18 20:00 97.0 74 20 152/84 (106) 96 07/13/18 20:00 69 07/13/18 19:35 98 Nasal Cannula 3.0 32 07/13/18 19:35 Nasal Cannula 3.0 32 07/13/18 18:43 97.7 07/13/18 16:00 97.7 72 20 151/80 (103) 95 07/13/18 15:53 70 Intake and Output 07/13/18 07/14/18 19:00 07:00 Intake Total 740 ml Balance 740 ml Intake Oral 740 ml # Voids 2 Objective HEAD AND NECK: No JVD. LUNGS: Clear. CARDIOVASCULAR: Kristi S1 and S2 with no gallop. Pacer left subclavian no hematoma ABDOMEN: Soft. EXTREMITIES: No pitting edema. Rafael Ching MD Jul 14, 2018 14:16
[2018-07-14 15:59] VITALS: BP 143/85
--- NOTE | 2018-07-14 16:37 | NUR ---
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 98.2 HR 71 RR 22 B/P 143/85 3L NC IS: IVF NS @ 50ML/HR HEPARIN SUBC PROTONIX PO DC PLANNING MED/SURG STATUS
--- NOTE | 2018-07-14 19:36 | NUR ---
HAND-OFF: Report given to KRISTOFER Camacho.
--- NOTE | 2018-07-14 19:37 | NUR ---
NURSE NOTES: Received report from KRISTOFER Nowak. Pt is awake and resting in bed. In no acute distress. Bed in lowest position, call light within reach. Will continue plan of care.
--- NOTE | 2018-07-14 21:30 | NUR ---
NURSE NOTES: Pt is very uncooperative with care. Refused vital signs check, blood glucose check and all medications. Explained benefits and risks to pt, but still refused. Will notify MD. Will continue to monitor.
--- NOTE | 2018-07-14 21:40 | General Progress Note ---
Assessment/Plan Problem List: (1) Anemia of chronic disease ICD Codes: D63.8 - Anemia in other chronic diseases classified elsewhere SNOMED: 832170382 (2) Diabetes ICD Codes: E11.9 - Type 2 diabetes mellitus without complications SNOMED: 94771292 (3) Abdominal pain ICD Codes: R10.9 - Unspecified abdominal pain SNOMED: 30230269 (4) UTI (urinary tract infection) ICD Codes: N39.0 - Urinary tract infection, site not specified SNOMED: 80646608 (5) Nausea & vomiting ICD Codes: R11.2 - Nausea with vomiting, unspecified SNOMED: 27121012 (6) Intractable nausea and vomiting ICD Codes: R11.2 - Nausea with vomiting, unspecified SNOMED: 254346993 Qualifiers: Qualified Codes: R11.2 - Nausea with vomiting, unspecified Assessment/Plan intractable pain and vomitting anemia afebrile reviewed chart and labs uti improving Subjective ROS Limited/Unobtainable: Yes Allergies: Coded Allergies: No Known Allergies (Unverified , 08/21/16) Subjective pain Objective Last 24 Hour Vital Signs Date Time Temp Pulse Resp B/P (MAP) Pulse Ox O2 Delivery O2 Flow Rate FiO2 07/14/18 15:59 98.2 71 22 143/85 (104) 99 07/14/18 15:45 71 07/14/18 15:08 70 07/14/18 13:28 97.1 07/14/18 09:00 Nasal Cannula 3.0 07/14/18 08:49 72 149/96 07/14/18 08:25 Nasal Cannula 4.0 36 07/14/18 08:25 72 19 Nasal Cannula 4.0 36 07/14/18 08:25 98 Nasal Cannula 4.0 36 07/14/18 08:00 97.1 73 23 149/96 (113) 97 07/14/18 07:55 71 07/14/18 04:00 70 07/14/18 00:00 70 Intake and Output 07/13/18 07/14/18 18:59 06:59 Intake Total 740 ml Balance 740 ml Intake Oral 740 ml # Voids 2 Height (Feet): 5 Height (Inches): 8.00 Weight (Pounds): 170 Neck: supple Cardiovascular: normal rate Respiratory/Chest: lungs clear Abdomen: soft Brijesh Cooley MD Jul 14, 2018 21:40
[2018-07-15 04:20] VITALS: BP 173/95
[2018-07-15 06:00] VITALS: BP 137/65
[2018-07-15] MEDS: NovoLOG Insulin Flexpen SUBQ SCH ×4 (06:30→22:04)
[2018-07-15] MEDS: sitaGLIPtin 50mg tab ORAL SCH (06:30)
--- NOTE | 2018-07-15 07:20 | NUR ---
HAND-OFF: Report given to KRISTOFER Gomez.
--- NOTE | 2018-07-15 07:30 | NUR ---
NURSE NOTES: Received patient from Doug MINER in bed, A & O with episodes of confusion, Patient is anxious, denies any pain. No s/s of respiratory distress or SOB. Bed is on lowest position and locked. Call light is within reach. Endorsed that patient has been non-compliant and has been refusing care including peesMD aware. Will continue with the plan of care.
[2018-07-15 08:00] VITALS: BP 145/76
[2018-07-15] MEDS: Allopurinol 100mg Tab ORAL SCH (08:40)
[2018-07-15] MEDS: Heparin 5000 units/ml inj SUBQ SCH ×2 (08:42→22:04)
[2018-07-15] MEDS: Metoprolol Tartrate 50mg tab ORAL SCH ×2 (08:42→22:03)
--- NOTE | 2018-07-15 08:42 | NUR ---
NURSE NOTES: Patient took all AM medications except heparin. Will continue to monitor patient.
[2018-07-15 09:12] VITALS: BP 145/76
--- NOTE | 2018-07-15 10:46 | Cardiac Electrophysiology PN ---
Assessment/Plan Assessment/Plan 1. SSS with episodes of kristi and junctional rhythm in 30s. Ruled out myocardial infarction. S/P St Neel PPM implantation with Nl Fx . CXR No Ptx 2. Recurrent Episodes of SVT of sudden onset and termination. Continue Lopressor 50 bid . May need EP study if recurs 3. HTN. On Lopressor 50 bid 4. 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 S/P Pacer 5. Chronic obstructive pulmonary disease. 6. Diabetes. 7. Schizophrenia DW RN Subjective Subjective Atrially paced at 60. No SVT since pacer implant. No CP or SOB. Objective Last 24 Hour Vital Signs Date Time Temp Pulse Resp B/P (MAP) Pulse Ox O2 Delivery O2 Flow Rate FiO2 07/15/18 09:12 96.7 70 20 145/76 (99) 99 07/15/18 09:00 Nasal Cannula 3.0 07/15/18 08:42 76 145/76 07/15/18 08:00 70 07/15/18 08:00 96.7 70 20 145/76 (99) 99 07/15/18 06:00 70 137/65 (89) 07/15/18 05:35 71 19 Nasal Cannula 4.0 36 07/15/18 05:35 Nasal Cannula 4.0 36 07/15/18 05:35 98 Nasal Cannula 4.0 36 07/15/18 04:29 173/95 07/15/18 04:20 97.9 70 18 173/95 (121) 99 07/15/18 04:06 70 07/15/18 00:00 70 07/14/18 21:00 Nasal Cannula 3.0 07/14/18 20:00 70 07/14/18 15:59 98.2 71 22 143/85 (104) 99 07/14/18 15:45 71 07/14/18 15:08 70 07/14/18 13:28 97.1 Objective HEAD AND NECK: No JVD. LUNGS: Clear. CARDIOVASCULAR: Kristi S1 and S2 with no gallop. Pacer left subclavian healing ABDOMEN: Soft. EXTREMITIES: No pitting edema. Rafael Ching MD Jul 15, 2018 10:46
--- NOTE | 2018-07-15 11:30 | Pulmonology Progress Note ---
Assessment/Plan Problems: (1) Pleural mass (2) Intractable nausea and vomiting (3) Nausea & vomiting (4) Anemia of chronic disease (5) Diabetes Assessment/Plan CT chest reviewed, Dense infiltrate, axillary lymphadenopathy, spinal tumor increased in size CEA is negative all reviewed sliding scale symptomatic treatment PT/ot med/surg pt doesn't agree with biopsy watch off abx. med/surg Subjective ROS Limited/Unobtainable: No Respiratory: Reports: no symptoms Cardiovascular: Reports: no symptoms Allergies: Coded Allergies: No Known Allergies (Unverified , 08/21/16) Objective Last 24 Hour Vital Signs Date Time Temp Pulse Resp B/P (MAP) Pulse Ox O2 Delivery O2 Flow Rate FiO2 07/15/18 09:12 96.7 70 20 145/76 (99) 99 07/15/18 09:00 Nasal Cannula 3.0 07/15/18 08:42 76 145/76 07/15/18 08:00 70 07/15/18 08:00 96.7 70 20 145/76 (99) 99 07/15/18 06:00 70 137/65 (89) 07/15/18 05:35 71 19 Nasal Cannula 4.0 36 07/15/18 05:35 Nasal Cannula 4.0 36 07/15/18 05:35 98 Nasal Cannula 4.0 36 07/15/18 04:29 173/95 07/15/18 04:20 97.9 70 18 173/95 (121) 99 07/15/18 04:06 70 07/15/18 00:00 70 07/14/18 21:00 Nasal Cannula 3.0 07/14/18 20:00 70 07/14/18 15:59 98.2 71 22 143/85 (104) 99 07/14/18 15:45 71 07/14/18 15:08 70 07/14/18 13:28 97.1 General Appearance: WD/WN HEENT: normocephalic, atraumatic Respiratory/Chest: chest wall non-tender, lungs clear Cardiovascular: normal peripheral pulses, normal rate Abdomen: normal bowel sounds, no organomegaly Genitourinary: normal external genitalia Extremities: no clubbing Skin: no rash Current Medications Medications (Trade) Dose Ordered Sig/Pura Route PRN Reason Start Time Stop Time Status Last Admin Dose Admin Acetaminophen (Tylenol) 650 mg Q6H PRN ORAL fever/HESS/mild pain 07/11/18 14:15 08/10/18 14:14 Acetaminophen/ Codeine Phosphate (Tylenol #3) 1 tab Q4H PRN ORAL Moderate Pain (Pain Scale 4-6) 07/11/18 14:15 07/18/18 14:14 Al Hydroxide/Mg Hydroxide (Mylanta II) 30 ml Q6H PRN ORAL dyspepsia 07/06/18 15:27 08/03/18 15:26 07/14/18 13:04 Albuterol/ Ipratropium (Albuterol/ Ipratropium) 3 ml Q4H PRN HHN Shortness of Breath 07/12/18 13:30 07/17/18 13:29 Allopurinol (Zyloprim) 100 mg DAILY ORAL 07/07/18 09:00 08/04/18 08:59 07/15/18 08:40 Artificial Tears (Akwa-Tears) 2 drop EVERY 6 HOURS PRN BOTH EYES Dry Eyes 07/13/18 00:00 08/12/18 00:00 07/13/18 18:16 Atorvastatin Calcium (Lipitor) 10 mg BEDTIME ORAL 07/06/18 21:00 08/05/18 20:59 07/11/18 20:54 Clonidine HCl (Catapres Tab) 0.1 mg Q2H PRN ORAL For High Blood Pressure 07/07/18 14:00 08/06/18 13:59 07/15/18 04:29 Dextrose (Dextrose 50%) 25 ml Q30M PRN IV Hypoglycemia 07/06/18 15:30 08/03/18 19:54 Dextrose (Dextrose 50%) 50 ml Q30M PRN IV hypoglycemia 07/06/18 15:30 08/03/18 19:59 Diphenhydramine HCl (Benadryl) 25 mg Q6H PRN ORAL Itching/Pruritis 07/06/18 15:27 08/03/18 15:26 Escitalopram Oxalate (Lexapro) 10 mg DAILY ORAL 07/07/18 09:00 08/04/18 08:59 07/15/18 08:40 Haloperidol Lactate (Haldol) 5 mg Q6H PRN IM Agitation 07/13/18 23:30 08/12/18 23:29 Heparin Sodium (Porcine) (Heparin 5000 units/ml) 5,000 units EVERY 12 HOURS SUBQ 07/06/18 21:00 08/03/18 22:29 07/09/18 20:55 Ibuprofen (Motrin) 400 mg TID PRN ORAL For Pain 07/12/18 02:45 08/11/18 02:44 07/14/18 12:58 Insulin Aspart (NovoLOG) BEFORE MEALS AND HS SUBQ 07/06/18 16:30 08/03/18 22:59 Metoprolol Tartrate (Lopressor) 50 mg Q12HR ORAL 07/13/18 21:00 08/11/18 20:59 07/15/18 08:42 Morphine Sulfate (Morphine Sulfate) 2 mg Q1H PRN IVP Severe Pain (Pain Scale 7-10) 07/11/18 14:15 07/18/18 14:14 Nitroglycerin (Ntg) 0.4 mg Q5MIN X 3 DOSES PRN SL Prn Chest Pain 07/06/18 15:30 08/03/18 13:59 Ondansetron HCl (Zofran) 4 mg Q6H PRN IVP Nausea & Vomiting 07/11/18 14:15 08/10/18 14:14 Pantoprazole (Protonix) 40 mg BID ORAL 07/12/18 22:33 08/04/18 08:59 07/15/18 08:40 Polyethylene Glycol (Miralax) 17 gm HSPRN PRN ORAL Constipation 07/06/18 20:00 08/03/18 19:59 Quetiapine Fumarate (SEROquel) 25 mg TWICE A DAY ORAL 07/06/18 18:00 08/05/18 08:59 07/15/18 08:40 Sitagliptin Phosphate (Januvia) 50 mg ACBREAKFAST ORAL 07/07/18 06:30 08/04/18 06:29 07/10/18 05:54 Sodium Chloride 1,000 ml @ 50 mls/hr Q20H IV 07/06/18 15:28 08/03/18 15:27 Alf Akins MD Jul 15, 2018 11:30
--- NOTE | 2018-07-15 11:39 | Infectious Diseases Prog Note ---
Assessment/Plan Assessment/Plan Assessment: Abd pain- ?etiology- likely gastritis (improved w antiacids, epigastric)- r/o PUD -CXR: 3.9 x 3.3 cm masslike opacity in the medial right lung base, which correlates with the finding on the recent CT of the abdomen and pelvis.. Mild elevation of the left hemidiaphragm. Subsegmental atelectasis versus infiltrate in the left lung base. Paravertebral mass Doubt PNA (no cough) -07/15 CT Chest: Previously identified right paravertebral mass demonstrates interval increase in size from 08/22/2016. Again, potential considerations include nerve sheath tumor. Additional etiologies not excludable. Consider direct tissue sampling if not alreadyperformed. Elevation of the left hemidiaphragm with adjacent dense consolidation with air bronchograms in the left lower lobe. Although some findings may related to atelectasis/scarring possibility of a pneumonia is not excluded. Tree-in-bud opacities in the right upper lobe may be infectious or inflammatory in etiology. Possibility of endobronchial spread of tumor is thought less likely but not entirely excluded given above-described mass. Axillary lymphadenopathy noted which may be infectious/inflammatory or neoplastic in etiology. Pacemaker partially visualized. Coronary artery calcifications. Cholelithiasis. No CT evidence of an acute cholecystitis. Splenomegaly. 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- refused erythromcin ointment DM2 HTN anemia MDD COPD lung CA CLL dx 2016 HTN hypothryroidism schizophrenia cholelithiasis spinous mass Plan: - Continue to monitor off abx -07/12 SP periop Ancef -F/u CT abd/p, Abd US -f/u cx -Monitor CBC/CMP, temperatures Subjective Allergies: Coded Allergies: No Known Allergies (Unverified , 08/21/16) Subjective afebrile no leukocytosis Objective Vital Signs Last 24 Hour Vital Signs Date Time Temp Pulse Resp B/P (MAP) Pulse Ox O2 Delivery O2 Flow Rate FiO2 07/15/18 09:12 96.7 70 20 145/76 (99) 99 07/15/18 09:00 Nasal Cannula 3.0 07/15/18 08:42 76 145/76 07/15/18 08:00 70 07/15/18 08:00 96.7 70 20 145/76 (99) 99 07/15/18 06:00 70 137/65 (89) 07/15/18 05:35 71 19 Nasal Cannula 4.0 36 07/15/18 05:35 Nasal Cannula 4.0 36 07/15/18 05:35 98 Nasal Cannula 4.0 36 07/15/18 04:29 173/95 07/15/18 04:20 97.9 70 18 173/95 (121) 99 07/15/18 04:06 70 07/15/18 00:00 70 07/14/18 21:00 Nasal Cannula 3.0 07/14/18 20:00 70 07/14/18 15:59 98.2 71 22 143/85 (104) 99 07/14/18 15:45 71 07/14/18 15:08 70 07/14/18 13:28 97.1 Height (Feet): 5 Height (Inches): 8.00 Weight (Pounds): 170 Objective General Appearance: WD/WN, no apparent distress, alert Cardiovascular: normal rate Respiratory/Chest: normal breath sounds, no respiratory distress Abdominal Exam: normal bowel sounds, non tender, soft Extremities: normal range of motion, non-tender Current Medications Medications (Trade) Dose Ordered Sig/Pura Route PRN Reason Start Time Stop Time Status Last Admin Dose Admin Acetaminophen (Tylenol) 650 mg Q6H PRN ORAL fever/HESS/mild pain 07/11/18 14:15 08/10/18 14:14 Acetaminophen/ Codeine Phosphate (Tylenol #3) 1 tab Q4H PRN ORAL Moderate Pain (Pain Scale 4-6) 07/11/18 14:15 07/18/18 14:14 Al Hydroxide/Mg Hydroxide (Mylanta II) 30 ml Q6H PRN ORAL dyspepsia 07/06/18 15:27 08/03/18 15:26 07/14/18 13:04 Albuterol/ Ipratropium (Albuterol/ Ipratropium) 3 ml Q4H PRN HHN Shortness of Breath 07/12/18 13:30 07/17/18 13:29 Allopurinol (Zyloprim) 100 mg DAILY ORAL 07/07/18 09:00 08/04/18 08:59 07/15/18 08:40 Artificial Tears (Akwa-Tears) 2 drop EVERY 6 HOURS PRN BOTH EYES Dry Eyes 07/13/18 00:00 08/12/18 00:00 07/13/18 18:16 Atorvastatin Calcium (Lipitor) 10 mg BEDTIME ORAL 07/06/18 21:00 08/05/18 20:59 07/11/18 20:54 Clonidine HCl (Catapres Tab) 0.1 mg Q2H PRN ORAL For High Blood Pressure 07/07/18 14:00 08/06/18 13:59 07/15/18 04:29 Dextrose (Dextrose 50%) 25 ml Q30M PRN IV Hypoglycemia 07/06/18 15:30 08/03/18 19:54 Dextrose (Dextrose 50%) 50 ml Q30M PRN IV hypoglycemia 07/06/18 15:30 08/03/18 19:59 Diphenhydramine HCl (Benadryl) 25 mg Q6H PRN ORAL Itching/Pruritis 07/06/18 15:27 08/03/18 15:26 Escitalopram Oxalate (Lexapro) 10 mg DAILY ORAL 07/07/18 09:00 08/04/18 08:59 07/15/18 08:40 Haloperidol Lactate (Haldol) 5 mg Q6H PRN IM Agitation 07/13/18 23:30 08/12/18 23:29 Heparin Sodium (Porcine) (Heparin 5000 units/ml) 5,000 units EVERY 12 HOURS SUBQ 07/06/18 21:00 08/03/18 22:29 07/09/18 20:55 Ibuprofen (Motrin) 400 mg TID PRN ORAL For Pain 07/12/18 02:45 08/11/18 02:44 07/14/18 12:58 Insulin Aspart (NovoLOG) BEFORE MEALS AND HS SUBQ 07/06/18 16:30 08/03/18 22:59 Metoprolol Tartrate (Lopressor) 50 mg Q12HR ORAL 07/13/18 21:00 08/11/18 20:59 07/15/18 08:42 Morphine Sulfate (Morphine Sulfate) 2 mg Q1H PRN IVP Severe Pain (Pain Scale 7-10) 07/11/18 14:15 07/18/18 14:14 Nitroglycerin (Ntg) 0.4 mg Q5MIN X 3 DOSES PRN SL Prn Chest Pain 07/06/18 15:30 2/10/19 13:59 Ondansetron HCl (Zofran) 4 mg Q6H PRN IVP Nausea & Vomiting 07/11/18 14:15 08/10/18 14:14 Pantoprazole (Protonix) 40 mg BID ORAL 07/12/18 22:33 08/04/18 08:59 07/15/18 08:40 Polyethylene Glycol (Miralax) 17 gm HSPRN PRN ORAL Constipation 07/06/18 20:00 08/03/18 19:59 Quetiapine Fumarate (SEROquel) 25 mg TWICE A DAY ORAL 07/06/18 18:00 08/05/18 08:59 07/15/18 08:40 Sitagliptin Phosphate (Januvia) 50 mg ACBREAKFAST ORAL 07/07/18 06:30 08/04/18 06:29 07/10/18 05:54 Sodium Chloride 1,000 ml @ 50 mls/hr Q20H IV 07/06/18 15:28 08/03/18 15:27 Jing Mae M.D. Jul 15, 2018 11:39
--- NOTE | 2018-07-15 11:45 | Progress Note ---
DATE: 07/15/2018 SUBJECTIVE: This is a 78-year-old male patient, who is here with intractable pain and vomiting, but the patient also has some altered mental status, agitation, confusion, worsened by stress of his medical illness. That is why, his attending physician has requested daily psychiatric consultation. This patient still has some mood lability, confusion, disorganized thought process. That is why, his attending continues to request daily psychiatric consultation because of his altered mental status and agitation worsened by stress of his medical illness. MENTAL STATUS EXAMINATION: This is a 78-year-old male. Appearance is disheveled. Attitude, irritable and agitated. Affect, guarded and restricted. Intellect poor. Mood depressed and anxious. Motor activity, psychomotor agitation. Attention span is poor. Orientation x2. Speech is low volume and slurred. Thought process, disorganized and illogical. Thought content, slight auditory hallucinations and paranoid delusions. Insight and judgment is poor. DIAGNOSIS: Major depression with psychotic features, rule out pseudodementia. PLAN: Treat the patient with Lexapro 10 mg daily, Ativan 1 mg every six hours p.r.n. anxiety and agitation, and then also Seroquel at a dose of 25 mg twice a day. Provided him with 20 minutes of cognitive behavioral therapy and encouraged him to interact appropriately with staff and other patients. A 20 minutes of cognitive behavior therapy provided to help identify automatic negative thoughts and help him convert those negative thoughts to more positive thoughts to reduce depression, anxiety, and suicidality. Chart is reviewed. Discussed with staff. Seen and assessed in his room. A 20 minutes of cognitive behavioral therapy to help him identify his automatic negative thoughts and help to convert those negative thoughts to more positive thoughts to reduce depression, anxiety, and also have more adaptive behavior pattern. Kaveh Jonhson M.D. DR: FAVIAN JOB#: [id number] CC:
[2018-07-15 12:00] VITALS: BP 102/69
--- NOTE | 2018-07-15 13:04 | GI Progress Note ---
Assessment/Plan Problems: (1) Intractable nausea and vomiting ICD Codes: R11.2 - Nausea with vomiting, unspecified SNOMED: 385156435 Qualifiers: Qualified Codes: R11.2 - Nausea with vomiting, unspecified (2) Acute renal failure (ARF) ICD Codes: N17.9 - Acute kidney failure, unspecified SNOMED: 50160094 (3) Nausea & vomiting ICD Codes: R11.2 - Nausea with vomiting, unspecified SNOMED: 10077498 (4) Abdominal pain ICD Codes: R10.9 - Unspecified abdominal pain SNOMED: 67877981 (5) Anemia of chronic disease ICD Codes: D63.8 - Anemia in other chronic diseases classified elsewhere SNOMED: 409464477 Status: stable, unchanged Status Narrative Discussed with Dr. Lafleur Assessment/Plan Assessment - abd pain - N/V - anemia - declines GI w/u -Negative OB stool -Refused stool softeners and laxatives Recommendations - supportive care - consider psych consult - CT scan if/when pt agrees - Outpatient GI procedures -Physical therapy evaluation Follow cardiac recommendations Follow-up labs The patient was seen and examined at bedside and all new and available data was reviewed in the patients chart. I agree with the above findings, impression and plan. (Patient seen earlier today. Signature stamp does not reflect patient encounter time.). - Matthias Lafleur MD Subjective Subjective Patient still complains of abdominal pain Complains of constipation Refuses to take any stool softeners or laxatives Objective Last 24 Hour Vital Signs Date Time Temp Pulse Resp B/P (MAP) Pulse Ox O2 Delivery O2 Flow Rate FiO2 07/15/18 09:12 96.7 70 20 145/76 (99) 99 07/15/18 09:00 Nasal Cannula 3.0 07/15/18 08:42 76 145/76 07/15/18 08:00 70 07/15/18 08:00 96.7 70 20 145/76 (99) 99 07/15/18 06:00 70 137/65 (89) 07/15/18 05:35 71 19 Nasal Cannula 4.0 36 07/15/18 05:35 Nasal Cannula 4.0 36 07/15/18 05:35 98 Nasal Cannula 4.0 36 07/15/18 04:29 173/95 07/15/18 04:20 97.9 70 18 173/95 (121) 99 07/15/18 04:06 70 07/15/18 00:00 70 07/14/18 21:00 Nasal Cannula 3.0 07/14/18 20:00 70 07/14/18 15:59 98.2 71 22 143/85 (104) 99 07/14/18 15:45 71 07/14/18 15:08 70 07/14/18 13:28 97.1 Height (Feet): 5 Height (Inches): 8.00 Weight (Pounds): 170 General Appearance: WD/WN, no apparent distress, alert Cardiovascular: normal rate Respiratory/Chest: normal breath sounds, no respiratory distress Abdominal Exam: normal bowel sounds, non tender, soft Extremities: normal range of motion, non-tender Delmy Giraldo NP Jul 15, 2018 13:04
--- NOTE | 2018-07-15 13:05 | General Progress Note ---
Assessment/Plan Problem List: (1) Nausea & vomiting ICD Codes: R11.2 - Nausea with vomiting, unspecified SNOMED: 06509147 (2) UTI (urinary tract infection) ICD Codes: N39.0 - Urinary tract infection, site not specified SNOMED: 05277425 (3) Abdominal pain ICD Codes: R10.9 - Unspecified abdominal pain SNOMED: 41987219 (4) Diabetes ICD Codes: E11.9 - Type 2 diabetes mellitus without complications SNOMED: 78810536 (5) Anemia of chronic disease ICD Codes: D63.8 - Anemia in other chronic diseases classified elsewhere SNOMED: 476016604 (6) Intractable nausea and vomiting ICD Codes: R11.2 - Nausea with vomiting, unspecified SNOMED: 583582776 Qualifiers: Qualified Codes: R11.2 - Nausea with vomiting, unspecified (7) Acute renal failure (ARF) ICD Codes: N17.9 - Acute kidney failure, unspecified SNOMED: 44153719 (8) SVT (supraventricular tachycardia) ICD Codes: I47.1 - Supraventricular tachycardia SNOMED: 3938723 Status: stable, progressing Assessment/Plan pt diet cardio gi eval cbc bmp am dc plan if clear Subjective Constitutional: Reports: weakness Allergies: Coded Allergies: No Known Allergies (Unverified , 08/21/16) All Systems: reviewed and negative except above Subjective o2nc calm in chair Objective Last 24 Hour Vital Signs Date Time Temp Pulse Resp B/P (MAP) Pulse Ox O2 Delivery O2 Flow Rate FiO2 07/15/18 09:12 96.7 70 20 145/76 (99) 99 07/15/18 09:00 Nasal Cannula 3.0 07/15/18 08:42 76 145/76 07/15/18 08:00 70 07/15/18 08:00 96.7 70 20 145/76 (99) 99 07/15/18 06:00 70 137/65 (89) 07/15/18 05:35 71 19 Nasal Cannula 4.0 36 07/15/18 05:35 Nasal Cannula 4.0 36 07/15/18 05:35 98 Nasal Cannula 4.0 36 07/15/18 04:29 173/95 07/15/18 04:20 97.9 70 18 173/95 (121) 99 07/15/18 04:06 70 07/15/18 00:00 70 07/14/18 21:00 Nasal Cannula 3.0 07/14/18 20:00 70 07/14/18 15:59 98.2 71 22 143/85 (104) 99 07/14/18 15:45 71 07/14/18 15:08 70 07/14/18 13:28 97.1 Height (Feet): 5 Height (Inches): 8.00 Weight (Pounds): 170 General Appearance: lethargic EENT: normal ENT inspection Neck: normal alignment Cardiovascular: normal peripheral pulses, normal rate, regular rhythm Respiratory/Chest: chest wall non-tender, lungs clear, normal breath sounds Abdomen: normal bowel sounds, non tender, soft Extremities: normal inspection Edema: no edema noted Arm (L), no edema noted Arm (R), no edema noted Leg (L), no edema noted Leg (R), no edema noted Pedal (L), no edema noted Pedal (R), no edema noted Generalized Neurologic: responsive, motor weakness Skin: normal pigmentation, warm/dry Mart Crowell DO Jul 15, 2018 13:05
--- NOTE | 2018-07-15 13:55 | NUR ---
RD ASSESSMENT & RECOMMENDATIONS SEE CARE ACTIVITY FOR COMPLETE ASSESSMENT DAILY ESTIMATED NEEDS: Needs based on DM, Cardiac/ 70kg abw 25-30 kcals/kg 0029-9776 total kcals 1-1.5 g protein/kg 70-105 g total protein 25-30 mL/kg 8894-1658 total fluid mLs NUTRITION DIAGNOSIS: Altered nutrition related lab values R/T diabetes as evidenced by elev A1C=6.4 CURRENT DIET:SOFT, CCHO MED PO DIET RECOMMENDATIONS: CCHO MED, texture as tolerated ADDITIONAL RECOMMENDATIONS: * Standing wt for accurate CBW * Snacks BID in b/w meals * Wound eval for rt buttock wound per photo
[2018-07-15 16:00] VITALS: BP 132/83
--- NOTE | 2018-07-15 17:09 | NUR ---
*-* DISCHARGE PLANNING*-* PATIENT HAS BEEN REFERRED TO: [facility] P:[phone] F: [phone]
--- NOTE | 2018-07-15 17:10 | NUR ---
[employer] DEVELOPEROPERATING ROOM TECH SI: INTRACTABLE PAIN,VOMITING T. 96.7 HR 72 RR 20 B/P 132/83 IS: IVF NS 50ML/HR LOPRESSOR ALB HHN DC PLANNING TELE STATUS
--- NOTE | 2018-07-15 19:31 | NUR ---
HAND-OFF: Report given to KRISTOFER Berg.Patient is in stable condition.
--- NOTE | 2018-07-15 19:48 | NUR ---
NURSE NOTES: Report received from Jason MINER. Patient is observed in bed, asleep but arousable by voice. No s/s of acute distress noted. Respiratory even and labored. Bed is in lowest position with side rails up x2 and brakes are engaged. Encouraged patient to use call light when in need of assistance. Call light within reach. Room is free of clutter. Will continue to monitor.
--- NOTE | 2018-07-15 22:04 | NUR ---
NURSE NOTES: Patient refused vital signs at this time. RN explained the risks and benefits of adhering to medication regimen multiple times, however, patient still refuses. Charge nurse made aware. Bed alarm is on. Will continue to monitor.
[2018-07-16] VITALS: BP 148/67
--- NOTE | 2018-07-16 | NUR ---
NURSE NOTES: Patient is observed in bed asleep but arousable by voice. Denies pain at this time. Patient is a-pacing on the monitor. VSS. Will continue to monitor.
--- NOTE | 2018-07-16 04:38 | NUR ---
NURSE NOTES: Patient is observed in bed, asleep but arousable by voice. Patient refused 0400 VS. Visible chest rise. A-paced on ekg monitor tech. Denies pain at this time. Will continue to monitor.
[2018-07-16] MEDS: NovoLOG Insulin Flexpen SUBQ SCH ×3 (06:02→16:30)
[2018-07-16] MEDS: sitaGLIPtin 50mg tab ORAL SCH (06:02)
--- NOTE | 2018-07-16 07:25 | NUR ---
NURSE NOTES: I received the patient awake and resting in bed. Patient alert and oriented x4. Patient does not display any signs of distress or SOB. Bed in the lowest position and call light within reach. I will continue to monitor the patient and implement care.
--- NOTE | 2018-07-16 07:35 | NUR ---
HAND-OFF: Report given to Caitlin MINER. Patient is observed in bed, awake, alert, and oriented. Denies pain at this time. Refused blood draw this morning. Endorsed to day shift nurse. Addendum: 07/16/18 at 0750 by ZENAIDA OROZCO RN Report given to She. Change of assignment.
[2018-07-16 08:00] VITALS: BP 135/68
[2018-07-16] MEDS: Heparin 5000 units/ml inj SUBQ SCH (09:00)
[2018-07-16] MEDS: Allopurinol 100mg Tab ORAL SCH (09:39)
[2018-07-16] MEDS: Metoprolol Tartrate 50mg tab ORAL SCH (09:40)
--- NOTE | 2018-07-16 10:42 | GI Progress Note ---
Assessment/Plan Problems: (1) Intractable nausea and vomiting ICD Codes: R11.2 - Nausea with vomiting, unspecified SNOMED: 052941965 Qualifiers: Qualified Codes: R11.2 - Nausea with vomiting, unspecified (2) Acute renal failure (ARF) ICD Codes: N17.9 - Acute kidney failure, unspecified SNOMED: 86533168 (3) Nausea & vomiting ICD Codes: R11.2 - Nausea with vomiting, unspecified SNOMED: 41857358 (4) Abdominal pain ICD Codes: R10.9 - Unspecified abdominal pain SNOMED: 60929849 (5) Anemia of chronic disease ICD Codes: D63.8 - Anemia in other chronic diseases classified elsewhere SNOMED: 328009801 Status: stable, unchanged Status Narrative Discussed with Dr. Lafleur Assessment/Plan Assessment - abd pain - N/V - anemia - declines GI w/u -Negative OB stool -Refused stool softeners and laxatives Recommendations - supportive care - consider psych consult - CT scan if/when pt agrees - Outpatient GI procedures -Physical therapy evaluation Follow cardiac recommendations Follow-up labs The patient was seen and examined at bedside and all new and available data was reviewed in the patients chart. I agree with the above findings, impression and plan. (Patient seen earlier today. Signature stamp does not reflect patient encounter time.). - Matthias Lafleur MD Subjective Subjective Patient still complains of abdominal pain Complains of constipation Refuses to take any stool softeners or laxatives Objective Last 24 Hour Vital Signs Date Time Temp Pulse Resp B/P (MAP) Pulse Ox O2 Delivery O2 Flow Rate FiO2 07/16/18 09:40 98 135/68 07/16/18 09:00 Nasal Cannula 4.0 36 07/16/18 09:00 57 18 Nasal Cannula 4.0 36 07/16/18 09:00 99 Nasal Cannula 4.0 36 07/16/18 08:00 98.1 98 19 135/68 (90) 100 07/16/18 04:00 70 07/16/18 00:00 97.0 66 17 148/67 (94) 99 07/15/18 23:19 70 07/15/18 21:16 80 18 Nasal Cannula 4.0 36 07/15/18 21:16 Nasal Cannula 4.0 36 07/15/18 21:16 96 Nasal Cannula 4.0 36 07/15/18 21:00 Nasal Cannula 3.0 07/15/18 19:41 68 07/15/18 16:00 68 07/15/18 16:00 96.7 72 20 132/83 (99) 99 07/15/18 12:00 96.9 71 20 102/69 (80) 96 07/15/18 12:00 71 Intake and Output 07/15/18 07/16/18 19:00 07:00 Intake Total 1030 ml Balance 1030 ml Intake Oral 1030 ml # Voids 2 Height (Feet): 5 Height (Inches): 8.00 Weight (Pounds): 162 General Appearance: WD/WN, no apparent distress, alert Cardiovascular: normal rate Respiratory/Chest: normal breath sounds, no respiratory distress Abdominal Exam: normal bowel sounds, non tender, soft Extremities: normal range of motion, non-tender Delmy Giraldo NP Jul 16, 2018 10:41
--- NOTE | 2018-07-16 11:08 | Diagnostic Imaging Report ---
APPROVED REPORT CPT Code: 68905 Present Symptoms Comments: BILATERAL LEGS PAIN. BILATERAL: Imaging reveals a patent deep venous system bilaterally. There is no evidence of thrombus within the femoral, popliteal or tibial segments. The greater saphenous veins are also within normal limits. Doppler indicates normal spontaneous flow within these segments.
[2018-07-16 12:00] VITALS: BP 108/67
--- NOTE | 2018-07-16 12:05 | Pulmonology Progress Note ---
Assessment/Plan Problems: (1) Pleural mass (2) Intractable nausea and vomiting (3) Nausea & vomiting (4) Anemia of chronic disease (5) Diabetes Assessment/Plan no new complains sitting up in the chair CT chest reviewed, Dense infiltrate, axillary lymphadenopathy, spinal tumor increased in size CEA is negative all reviewed sliding scale symptomatic treatment PT/ot med/surg pt doesn't agree with biopsy watch off abx. med/surg Subjective ROS Limited/Unobtainable: No Constitutional: Reports: no symptoms HEENT: Repors: no symptoms Respiratory: Reports: no symptoms Allergies: Coded Allergies: No Known Allergies (Unverified , 08/21/16) Objective Last 24 Hour Vital Signs Date Time Temp Pulse Resp B/P (MAP) Pulse Ox O2 Delivery O2 Flow Rate FiO2 07/16/18 09:40 98 135/68 07/16/18 09:00 Nasal Cannula 4.0 36 07/16/18 09:00 Nasal Cannula 3.0 07/16/18 09:00 57 18 Nasal Cannula 4.0 36 07/16/18 09:00 99 Nasal Cannula 4.0 36 07/16/18 08:00 98.1 98 19 135/68 (90) 100 07/16/18 04:00 70 07/16/18 00:00 97.0 66 17 148/67 (94) 99 07/15/18 23:19 70 07/15/18 21:16 80 18 Nasal Cannula 4.0 36 07/15/18 21:16 Nasal Cannula 4.0 36 07/15/18 21:16 96 Nasal Cannula 4.0 36 07/15/18 21:00 Nasal Cannula 3.0 07/15/18 19:41 68 07/15/18 16:00 68 07/15/18 16:00 96.7 72 20 132/83 (99) 99 Intake and Output 07/15/18 07/16/18 19:00 07:00 Intake Total 1030 ml Balance 1030 ml Intake Oral 1030 ml # Voids 2 General Appearance: WD/WN HEENT: normocephalic, atraumatic Respiratory/Chest: chest wall non-tender, lungs clear Cardiovascular: normal peripheral pulses, normal rate Abdomen: normal bowel sounds, soft, non tender Genitourinary: normal external genitalia Extremities: no cyanosis Skin: no rash 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 Lymphatic: no neck adenopathy Current Medications Medications (Trade) Dose Ordered Sig/Pura Route PRN Reason Start Time Stop Time Status Last Admin Dose Admin Acetaminophen (Tylenol) 650 mg Q6H PRN ORAL fever/HESS/mild pain 07/11/18 14:15 08/10/18 14:14 Acetaminophen/ Codeine Phosphate (Tylenol #3) 1 tab Q4H PRN ORAL Moderate Pain (Pain Scale 4-6) 07/11/18 14:15 07/18/18 14:14 Al Hydroxide/Mg Hydroxide (Mylanta II) 30 ml Q6H PRN ORAL dyspepsia 07/06/18 15:27 08/03/18 15:26 07/14/18 13:04 Albuterol/ Ipratropium (Albuterol/ Ipratropium) 3 ml Q4H PRN HHN Shortness of Breath 07/12/18 13:30 07/17/18 13:29 Allopurinol (Zyloprim) 100 mg DAILY ORAL 07/07/18 09:00 08/04/18 08:59 07/16/18 09:39 Artificial Tears (Akwa-Tears) 2 drop EVERY 6 HOURS PRN BOTH EYES Dry Eyes 07/13/18 00:00 08/12/18 00:00 07/13/18 18:16 Atorvastatin Calcium (Lipitor) 10 mg BEDTIME ORAL 07/06/18 21:00 08/05/18 20:59 07/11/18 20:54 Clonidine HCl (Catapres Tab) 0.1 mg Q2H PRN ORAL For High Blood Pressure 07/07/18 14:00 08/06/18 13:59 07/15/18 04:29 Dextrose (Dextrose 50%) 25 ml Q30M PRN IV Hypoglycemia 07/06/18 15:30 08/03/18 19:54 Dextrose (Dextrose 50%) 50 ml Q30M PRN IV hypoglycemia 07/06/18 15:30 08/03/18 19:59 Diphenhydramine HCl (Benadryl) 25 mg Q6H PRN ORAL Itching/Pruritis 07/06/18 15:27 08/03/18 15:26 Escitalopram Oxalate (Lexapro) 10 mg DAILY ORAL 07/07/18 09:00 08/04/18 08:59 07/16/18 09:39 Haloperidol Lactate (Haldol) 5 mg Q6H PRN IM Agitation 07/13/18 23:30 08/12/18 23:29 Heparin Sodium (Porcine) (Heparin 5000 units/ml) 5,000 units EVERY 12 HOURS SUBQ 07/06/18 21:00 08/03/18 22:29 07/09/18 20:55 Ibuprofen (Motrin) 400 mg TID PRN ORAL For Pain 07/12/18 02:45 08/11/18 02:44 07/14/18 12:58 Insulin Aspart (NovoLOG) BEFORE MEALS AND HS SUBQ 07/06/18 16:30 08/03/18 22:59 Metoprolol Tartrate (Lopressor) 50 mg Q12HR ORAL 07/13/18 21:00 08/11/18 20:59 07/16/18 09:40 Morphine Sulfate (Morphine Sulfate) 2 mg Q1H PRN IVP Severe Pain (Pain Scale 7-10) 07/11/18 14:15 07/18/18 14:14 Nitroglycerin (Ntg) 0.4 mg Q5MIN X 3 DOSES PRN SL Prn Chest Pain 07/06/18 15:30 08/03/18 13:59 Ondansetron HCl (Zofran) 4 mg Q6H PRN IVP Nausea & Vomiting 07/11/18 14:15 08/10/18 14:14 Pantoprazole (Protonix) 40 mg BID ORAL 07/12/18 22:33 08/04/18 08:59 07/16/18 09:40 Polyethylene Glycol (Miralax) 17 gm HSPRN PRN ORAL Constipation 07/06/18 20:00 08/03/18 19:59 Quetiapine Fumarate (SEROquel) 25 mg TWICE A DAY ORAL 07/06/18 18:00 08/05/18 08:59 07/16/18 09:39 Sitagliptin Phosphate (Januvia) 50 mg ACBREAKFAST ORAL 07/07/18 06:30 08/04/18 06:29 07/10/18 05:54 Sodium Chloride 1,000 ml @ 50 mls/hr Q20H IV 07/06/18 15:28 08/03/18 15:27 Alf Akins MD Jul 16, 2018 12:05
--- NOTE | 2018-07-16 12:15 | Cardiac Electrophysiology PN ---
Assessment/Plan Assessment/Plan 1. SSS with episodes of kristi and junctional rhythm in 30s. Ruled out myocardial infarction. S/P St Neel PPM implantation with Nl Fx . CXR No Ptx 2. Recurrent Episodes of SVT of sudden onset and termination. Continue Lopressor 50 bid . May need EP study if recurs 3. HTN. On Lopressor 50 bid 4. 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 S/P Pacer 5. Chronic obstructive pulmonary disease. 6. Diabetes. 7. Schizophrenia DW RN Subjective Subjective Atrially paced at 60. No SVT. No CP or SOB. Placement pending Objective Last 24 Hour Vital Signs Date Time Temp Pulse Resp B/P (MAP) Pulse Ox O2 Delivery O2 Flow Rate FiO2 07/16/18 12:00 97.5 70 18 108/67 (81) 98 07/16/18 09:40 98 135/68 07/16/18 09:00 Nasal Cannula 4.0 36 07/16/18 09:00 Nasal Cannula 3.0 07/16/18 09:00 57 18 Nasal Cannula 4.0 36 07/16/18 09:00 99 Nasal Cannula 4.0 36 07/16/18 08:00 98.1 98 19 135/68 (90) 100 07/16/18 04:00 70 07/16/18 00:00 97.0 66 17 148/67 (94) 99 07/15/18 23:19 70 07/15/18 21:16 80 18 Nasal Cannula 4.0 36 07/15/18 21:16 Nasal Cannula 4.0 36 07/15/18 21:16 96 Nasal Cannula 4.0 36 07/15/18 21:00 Nasal Cannula 3.0 07/15/18 19:41 68 07/15/18 16:00 68 07/15/18 16:00 96.7 72 20 132/83 (99) 99 Intake and Output 07/15/18 07/16/18 19:00 07:00 Intake Total 1030 ml Balance 1030 ml Intake Oral 1030 ml # Voids 2 Objective HEAD AND NECK: No JVD. LUNGS: Clear. CARDIOVASCULAR: Kristi S1 and S2 with no gallop. Pacer left subclavian healing ABDOMEN: Soft. EXTREMITIES: No pitting edema. Rafael Ching MD Jul 16, 2018 12:15
--- NOTE | 2018-07-16 13:22 | Infectious Diseases Prog Note ---
Assessment/Plan Assessment/Plan Assessment: Abd pain- ?etiology- likely gastritis (improved w antiacids, epigastric)- r/o PUD -CXR: 3.9 x 3.3 cm masslike opacity in the medial right lung base, which correlates with the finding on the recent CT of the abdomen and pelvis.. Mild elevation of the left hemidiaphragm. Subsegmental atelectasis versus infiltrate in the left lung base. Paravertebral mass Doubt PNA (no cough) -07/15 CT Chest: Previously identified right paravertebral mass demonstrates interval increase in size from 08/22/2016. Again, potential considerations include nerve sheath tumor. Additional etiologies not excludable. Consider direct tissue sampling if not alreadyperformed. Elevation of the left hemidiaphragm with adjacent dense consolidation with air bronchograms in the left lower lobe. Although some findings may related to atelectasis/scarring possibility of a pneumonia is not excluded. Tree-in-bud opacities in the right upper lobe may be infectious or inflammatory in etiology. Possibility of endobronchial spread of tumor is thought less likely but not entirely excluded given above-described mass. Axillary lymphadenopathy noted which may be infectious/inflammatory or neoplastic in etiology. Pacemaker partially visualized. Coronary artery calcifications. Cholelithiasis. No CT evidence of an acute cholecystitis. Splenomegaly. 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- refused erythromcin ointment DM2 HTN anemia MDD COPD lung CA CLL dx 2016 HTN hypothryroidism schizophrenia cholelithiasis spinous mass Plan: - Continue to monitor off abx -07/12 SP periop Ancef -F/u CT abd/p, Abd US -f/u cx -Monitor CBC/CMP, temperatures Subjective Allergies: Coded Allergies: No Known Allergies (Unverified , 08/21/16) Subjective afebrile no leukocytosis Objective Vital Signs Last 24 Hour Vital Signs Date Time Temp Pulse Resp B/P (MAP) Pulse Ox O2 Delivery O2 Flow Rate FiO2 07/16/18 12:00 97.5 70 18 108/67 (81) 98 07/16/18 11:53 70 07/16/18 09:40 98 135/68 07/16/18 09:00 Nasal Cannula 4.0 36 07/16/18 09:00 Nasal Cannula 3.0 07/16/18 09:00 57 18 Nasal Cannula 4.0 36 07/16/18 09:00 99 Nasal Cannula 4.0 36 07/16/18 08:00 98.1 98 19 135/68 (90) 100 07/16/18 07:56 70 07/16/18 04:00 70 07/16/18 00:00 97.0 66 17 148/67 (94) 99 07/15/18 23:19 70 07/15/18 21:16 80 18 Nasal Cannula 4.0 36 07/15/18 21:16 Nasal Cannula 4.0 36 07/15/18 21:16 96 Nasal Cannula 4.0 36 07/15/18 21:00 Nasal Cannula 3.0 07/15/18 19:41 68 07/15/18 16:00 68 07/15/18 16:00 96.7 72 20 132/83 (99) 99 Height (Feet): 5 Height (Inches): 8.00 Weight (Pounds): 162 Objective General Appearance: WD/WN, no apparent distress, alert Cardiovascular: normal rate Respiratory/Chest: normal breath sounds, no respiratory distress Abdominal Exam: normal bowel sounds, non tender, soft Extremities: normal range of motion, non-tender Current Medications Medications (Trade) Dose Ordered Sig/Pura Route PRN Reason Start Time Stop Time Status Last Admin Dose Admin Acetaminophen (Tylenol) 650 mg Q6H PRN ORAL fever/HESS/mild pain 07/11/18 14:15 08/10/18 14:14 Acetaminophen/ Codeine Phosphate (Tylenol #3) 1 tab Q4H PRN ORAL Moderate Pain (Pain Scale 4-6) 07/11/18 14:15 07/18/18 14:14 Al Hydroxide/Mg Hydroxide (Mylanta II) 30 ml Q6H PRN ORAL dyspepsia 07/06/18 15:27 08/03/18 15:26 07/14/18 13:04 Albuterol/ Ipratropium (Albuterol/ Ipratropium) 3 ml Q4H PRN HHN Shortness of Breath 07/12/18 13:30 07/17/18 13:29 Allopurinol (Zyloprim) 100 mg DAILY ORAL 07/07/18 09:00 08/04/18 08:59 07/16/18 09:39 Artificial Tears (Akwa-Tears) 2 drop EVERY 6 HOURS PRN BOTH EYES Dry Eyes 07/13/18 00:00 08/12/18 00:00 07/13/18 18:16 Atorvastatin Calcium (Lipitor) 10 mg BEDTIME ORAL 07/06/18 21:00 08/05/18 20:59 07/11/18 20:54 Clonidine HCl (Catapres Tab) 0.1 mg Q2H PRN ORAL For High Blood Pressure 07/07/18 14:00 08/06/18 13:59 07/15/18 04:29 Dextrose (Dextrose 50%) 25 ml Q30M PRN IV Hypoglycemia 07/06/18 15:30 08/03/18 19:54 Dextrose (Dextrose 50%) 50 ml Q30M PRN IV hypoglycemia 07/06/18 15:30 08/03/18 19:59 Diphenhydramine HCl (Benadryl) 25 mg Q6H PRN ORAL Itching/Pruritis 07/06/18 15:27 08/03/18 15:26 Escitalopram Oxalate (Lexapro) 10 mg DAILY ORAL 07/07/18 09:00 08/04/18 08:59 07/16/18 09:39 Haloperidol Lactate (Haldol) 5 mg Q6H PRN IM Agitation 07/13/18 23:30 08/12/18 23:29 Heparin Sodium (Porcine) (Heparin 5000 units/ml) 5,000 units EVERY 12 HOURS SUBQ 07/06/18 21:00 08/03/18 22:29 07/09/18 20:55 Ibuprofen (Motrin) 400 mg TID PRN ORAL For Pain 07/12/18 02:45 08/11/18 02:44 07/14/18 12:58 Insulin Aspart (NovoLOG) BEFORE MEALS AND HS SUBQ 07/06/18 16:30 08/03/18 22:59 Metoprolol Tartrate (Lopressor) 50 mg Q12HR ORAL 07/13/18 21:00 08/11/18 20:59 07/16/18 09:40 Morphine Sulfate (Morphine Sulfate) 2 mg Q1H PRN IVP Severe Pain (Pain Scale 7-10) 07/11/18 14:15 07/18/18 14:14 Nitroglycerin (Ntg) 0.4 mg Q5MIN X 3 DOSES PRN SL Prn Chest Pain 07/06/18 15:30 08/03/18 13:59 Ondansetron HCl (Zofran) 4 mg Q6H PRN IVP Nausea & Vomiting 07/11/18 14:15 08/10/18 14:14 Pantoprazole (Protonix) 40 mg BID ORAL 07/12/18 22:33 08/04/18 08:59 07/16/18 09:40 Polyethylene Glycol (Miralax) 17 gm HSPRN PRN ORAL Constipation 07/06/18 20:00 08/03/18 19:59 Quetiapine Fumarate (SEROquel) 25 mg TWICE A DAY ORAL 07/06/18 18:00 08/05/18 08:59 07/16/18 09:39 Sitagliptin Phosphate (Januvia) 50 mg ACBREAKFAST ORAL 07/07/18 06:30 08/04/18 06:29 07/10/18 05:54 Sodium Chloride 1,000 ml @ 50 mls/hr Q20H IV 07/06/18 15:28 08/03/18 15:27 Jing Mae M.D. Jul 16, 2018 13:22
--- NOTE | 2018-07-16 14:38 | General Progress Note ---
Assessment/Plan Problem List: (1) Nausea & vomiting ICD Codes: R11.2 - Nausea with vomiting, unspecified SNOMED: 82212752 (2) UTI (urinary tract infection) ICD Codes: N39.0 - Urinary tract infection, site not specified SNOMED: 75529458 (3) Abdominal pain ICD Codes: R10.9 - Unspecified abdominal pain SNOMED: 10503161 (4) Diabetes ICD Codes: E11.9 - Type 2 diabetes mellitus without complications SNOMED: 02398512 (5) Anemia of chronic disease ICD Codes: D63.8 - Anemia in other chronic diseases classified elsewhere SNOMED: 745964415 (6) Intractable nausea and vomiting ICD Codes: R11.2 - Nausea with vomiting, unspecified SNOMED: 357087365 Qualifiers: Qualified Codes: R11.2 - Nausea with vomiting, unspecified (7) Acute renal failure (ARF) ICD Codes: N17.9 - Acute kidney failure, unspecified SNOMED: 58839527 (8) SVT (supraventricular tachycardia) ICD Codes: I47.1 - Supraventricular tachycardia SNOMED: 3510980 Status: stable, progressing Assessment/Plan pt diet cardio gi eval dc if clear Subjective Constitutional: Reports: weakness Respiratory: Reports: shortness of breath Allergies: Coded Allergies: No Known Allergies (Unverified , 08/21/16) All Systems: reviewed and negative except above Subjective o2nc calm in chair Objective Last 24 Hour Vital Signs Date Time Temp Pulse Resp B/P (MAP) Pulse Ox O2 Delivery O2 Flow Rate FiO2 07/16/18 12:00 97.5 70 18 108/67 (81) 98 07/16/18 11:53 70 07/16/18 11:43 70 07/16/18 09:40 98 135/68 07/16/18 09:00 Nasal Cannula 4.0 36 07/16/18 09:00 Nasal Cannula 3.0 07/16/18 09:00 57 18 Nasal Cannula 4.0 36 07/16/18 09:00 99 Nasal Cannula 4.0 36 07/16/18 08:00 98.1 98 19 135/68 (90) 100 07/16/18 07:56 70 07/16/18 04:00 70 07/16/18 00:00 97.0 66 17 148/67 (94) 99 07/15/18 23:19 70 07/15/18 21:16 80 18 Nasal Cannula 4.0 36 07/15/18 21:16 Nasal Cannula 4.0 36 07/15/18 21:16 96 Nasal Cannula 4.0 36 07/15/18 21:00 Nasal Cannula 3.0 07/15/18 19:41 68 07/15/18 16:00 68 07/15/18 16:00 96.7 72 20 132/83 (99) 99 Intake and Output 07/15/18 07/16/18 19:00 07:00 Intake Total 1030 ml Balance 1030 ml Intake Oral 1030 ml # Voids 2 Height (Feet): 5 Height (Inches): 8.00 Weight (Pounds): 162 General Appearance: lethargic EENT: normal ENT inspection Neck: normal alignment Cardiovascular: normal peripheral pulses, normal rate, regular rhythm Respiratory/Chest: chest wall non-tender, lungs clear, normal breath sounds Abdomen: normal bowel sounds, non tender, soft Extremities: normal inspection Edema: no edema noted Arm (L), no edema noted Arm (R), no edema noted Leg (L), no edema noted Leg (R), no edema noted Pedal (L), no edema noted Pedal (R), no edema noted Generalized Neurologic: responsive, motor weakness Skin: normal pigmentation, warm/dry Mart Crowell DO Jul 16, 2018 14:38
--- NOTE | 2018-07-16 15:00 | NUR ---
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
--- NOTE | 2018-07-16 15:00 | NUR ---
NURSE NOTES: RN called [facility] to give report and was not able to talk with anyone.
[2018-07-16] MEDS ORDERED: ALLOPURINOL100 M1 ORAL (15:07)
[2018-07-16] MEDS ORDERED: IBUPROFEN600 MG ORAL (15:07)
[2018-07-16] MEDS ORDERED: JANUVIA25 MG ORAL (15:10)
[2018-07-16] MEDS ORDERED: MYLANTA30 M1 PO (15:11)
--- NOTE | 2018-07-16 15:31 | NUR ---
NURSE NOTES: I called [facility] again to give report on patient and I was not able to talk with anyone.
[2018-07-16 16:00] VITALS: BP 102/62
--- NOTE | 2018-07-16 16:10 | NUR ---
NURSE NOTES: [facility] called and report given to Meaghan.
--- NOTE | 2018-07-16 17:00 | NUR ---
NURSE NOTES: Patient discharged in stable condition. Patient's IV removed and the site did not display any signs of redness, swelling or bleeding. Patient confirmed he was in possession of all his belongings. Report given to Meaghan at [facility]. Patient was transported via ambulance to [facility]. Patient's vital signs stable upon discharge.
--- NOTE | 2018-07-16 17:45 | Progress Note ---
DATE: 07/16/2018 SUBJECTIVE: This is a 78-year-old male patient with intractable pain, altered mental status, confusion, some disorganized thought process, and intractable pain. Decline in cognition . He has increased depression, anxiety, and mood lability worsened by stress of his medical illness . That is why his attending has requested daily psychiatric consultation because of his mood lability and altered mental status. MENTAL STATUS EXAMINATION: This is a 78-year-old male. Appearance is disheveled. Attitude, irritable and agitated. Affect, guarded and restricted. Intellect poor. Mood depressed and anxious. Motor activity, psychomotor agitation. Attention is poor. Orientation x2. Speech is low volume. Thought process, disorganized. Thought content, slight paranoia. Insight and judgment is poor. No signs of any suicidal or homicidal use. DIAGNOSIS: Major depressive disorder, mild, recurrent with psychotic features, rule out dementia with psychosis. PLAN: Treat him with Seroquel 25 mg twice a day, Lexapro 10 mg daily, and Ativan 1 mg every 6 hours p.r.n. anxiety and agitation. Provided him with 20 minutes of supportive psychotherapy. Chart reviewed and discussed with staff. Kaveh Johnson M.D. DR: URIEL JOB#: [id number] CC:
--- NOTE | 2018-07-17 12:52 | Discharge Summary ---
Discharge Summary Discharge Summary _ DATE OF ADMISSION: 07/04/2018 DATE OF DISCHARGE: 07/16/2018 DISCHARGED BY: Dr. Mart Crowell CONSULTANTS: Dr. Kaveh Lafleur [facility] COURSE: Patient is a 78-year-old male, from [facility], presented with nausea, vomiting and abdominal. She was slightly agitated and was complaining of abdominal discomfort. She was brought in to ED via EMS due to abdominal pain with associated vomiting and diarrhea times 1 week. Pain was described to be cramping, 8 out of 10, located in the epigastric area and was nonradiating. He denied shortness of breath. Denied fever or chills. He was unable to tolerate anything by mouth. He has medical history significant for diabetes mellitus, hypertension, COPD and psychiatric history. On evaluation at the ED, blood pressure was 158/71, pulse rate 54. He was saturating well on room air. He was afebrile. Blood work did not show any leukocytosis, hemoglobin and hematocrit were stable. Troponin was negative. Lipase was normal. Urinalysis was essentially negative. Electrolytes were stable. CT of the abdomen and pelvis showed a pleural-based mass in the right lower lobe with associated soft tissue density extending from the posterior sulcus, findings suspicious for neoplasm. There was extensive intra-abdominal adenopathy with periportal periaortic and pericaval adenopathy as well as bilateral internal, external iliac and bilateral inguinal chain adenopathy. EKG showed right bundle branch block with T wave inversions in the lateral leads , no ischemic changes. He was then admitted for evaluation of intractable nausea and vomiting, and for evaluation of pleural mass. Patient was initially admitted to [facility]. Overnight, patient became hypotensive and tachycardic. He was initially transferred to ICU. Blood pressure was stable, he was transferred to telemetry. [employer] was consulted. She had had tachycardia/rapid A. fib. Patient was noncompliant with medications. GI was also consulted for evaluation of abdominal pain. Patient declined GI workup. Abdominal pain improved with antacids. Patient refused abdominal ultrasound. He also refused EKG and echocardiogram. On telemetry patient was noted to be bradycardic. Digoxin and metoprolol were discontinued. ID was consulted. He was monitored off antibiotic treatment. Stool culture was negative for Salmonella, Shigella or Campylobacter. He was noted to have left eye blepharitis, however refused erythromycin ointment. Psychiatric evaluation was done. Patient was diagnosed with major depression and bipolar 2 disorder. He was continued on Seroquel and Lexapro. While on telemetry, he was noted to have recurrent episodes of SVT of sudden onset and termination. He also had episodes of bradycardia and junctional rhythm in the 30s. He finally agreed to echocardiogram. Ejection fraction was 55-60%, right ventricular systolic pressure 20 mmHg. He was ruled out for DC. Patient has tachybradycardia syndrome and sick sinus syndrome. On 07/11/2018, he underwent dual-chamber permanent St. Neel pacemaker implantation by Dr. Rafael Ching. He was given Ancef perioperatively. CT of the chest done on interval increase in previously identified right paravertebral mass. Patient did not agree with biopsy. CEA was negative. He remained atrial paced on the monitor. Pacemaker interrogation done showed normal function. He was eventually discharged to a snf. 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 DISCHARGE MEDICATIONS: Refer to Discharge Medication List. I have been assigned to complete a discharge summary on this account, I was not involved with the patient's management. Regina Smith NP Jul 17, 2018 12:52
--- NOTE | 2018-07-18 00:30 | Consultation ---
DATE OF CONSULTATION: 07/16/2018 NOTE: POOR AUDIO CONSULTING PHYSICIAN: Dotty Larsen PsyD. TREATING ATTENDING: Mart Crowell D.O. HISTORY OF PRESENT ILLNESS: The patient is a 78-year-old male patient from Facility, presents to [facility] for intractable vomiting and pain. He has been very selective in participation of treatment, especially with . Mood is somewhat irritable and agitated. He is complaining about the food. He is complaining of feeling in the hospital setting. He has some stomach pain as well as feeling very . Denies suicidal or homicidal thoughts of ideation. Denies any auditory or visual hallucinations; however, current medical condition. He is cooperative and able to communicate with this clinician. The patient has a history of schizoaffective disorder, bipolar type. PAST MEDICAL HISTORY: Includes a history of hypertension, hyperlipidemia, diabetes, . ALLERGIES: No known drug allergies. SUBSTANCE ABUSE HISTORY: The patient denies history of alcohol use, illicit substances, or smoking cigarettes. PSYCHIATRIC HISTORY: The patient has history of schizoaffective disorder, bipolar type. . SOCIAL HISTORY: The patient is a 78-year-old male patient Nursing Facility, financially sustained through [employer] MENTAL STATUS EXAMINATION: The patient is alert and oriented to person and place. Mood is irritable. Affect is labile. Thought process is disorganized. Thought content is negative and catastrophic. Poor attention and concentration. Poor insight and judgement and impulse control. DIAGNOSIS: Schizoaffective disorder, bipolar type. PLAN: This clinician assessed the patient. Provided the patient with reality orientation provided the patient with supportive psychotherapy cognitive behavioral therapy negative and catastrophic thoughts and encouraging . Continue to encourage the patient to participate in treatment. Continue . This clinician has reviewed the patient's chart. Discussed treatment with treatment team. Dotty Larsen PsyD. DR: SAGAR JOB#: [id number] CC:
== END 2018-07-16 17:05 | DRG 982 ==
LOC: EDBD 17:20 → EMR 19:07 → 4E 19:38 → EDBEDREQ 21:22 → ICU 07-06 09:08 → 4E 07-06 11:00 → 2E 07-06 15:45
PROC: 02H63JZ Insertion of Pacemaker Lead into Right Atrium, Percutaneous Approach (ICD-10-PCS; principal; 2018-07-11 12:30)
PROC: 3E0102A Introduction of Anti-Infective Envelope into Subcutaneous Tissue, Open Approach (ICD-10-PCS; principal; 2018-07-11 12:30)
PROC: 02HK3JZ Insertion of Pacemaker Lead into Right Ventricle, Percutaneous Approach (ICD-10-PCS; principal; 2018-07-11 12:30)
PROC: 0JH606Z Insertion of Pacemaker, Dual Chamber into Chest Subcutaneous Tissue and Fascia, Open Approach (ICD-10-PCS; principal; 2018-07-11 12:30)
DX: K29.70 Gastritis, unspecified, without bleeding (principal); I47.1 Supraventricular tachycardia; C34.90 Malignant neoplasm of unspecified part of unspecified bronchus or lung; N39.0 Urinary tract infection, site not specified; N17.9 Acute kidney failure, unspecified; C91.10 Chronic lymphocytic leukemia of B-cell type not having achieved remission; F33.3 Major depressive disorder, recurrent, severe with psychotic symptoms; E11.9 Type 2 diabetes mellitus without complications; I10 Essential (primary) hypertension; J44.9 Chronic obstructive pulmonary disease, unspecified; I95.9 Hypotension, unspecified; I48.91 Unspecified atrial fibrillation; I45.10 Unspecified right bundle-branch block; I44.0 Atrioventricular block, first degree; H01.006 Unspecified blepharitis left eye, unspecified eyelid; K80.80 Other cholelithiasis without obstruction; Z91.14 Patient's other noncompliance with medication regimen; I49.5 Sick sinus syndrome; D64.9 Anemia, unspecified; E03.9 Hypothyroidism, unspecified; J94.9 Pleural condition, unspecified; F25.0 Schizoaffective disorder, bipolar type; R59.1 Generalized enlarged lymph nodes
CPT/HCPCS: 36415; 71045; 71260; 74177; 76001; 80048; 80053; 81003; 82150; 82270; 82378; 82962; 83036; 83690; 84443; 84484; 85025; 85610; 85730; 87045; 93005; 93306; 93970; 94003; 94150; 94664; 94760; 99285; J1815; J2250; J2405